=== PATIENT | male | born 1945 | race Caucasian/White ===

== ENCOUNTER 2017-06-14 08:30 | Emergency (ER) | payer MEDICARE, SELFPAY ==
[2017-06-14] VITALS (7 sets, daily range): BP systolic 121–154; BP diastolic 76–101; PULSE 63–129; RESP 14–18; TEMP 36.4; O2SAT 94–100; BMI 26.3
--- NOTE | 2017-06-14 08:38 | RAD_ITS ---
STUDY: X-RAY CHEST REASON FOR EXAM: Male, 72 years old. Atrial fibrillation. Weakness. TECHNIQUE: Single AP portable view of the chest. COMPARISON: None. FINDINGS: EKG electrodes are seen. There is an 8.4 mm rounded nodule in the peripheral aspect of the right mid lung. I suspect this to be a calcified granuloma. There is no demonstrated pleural abnormality. There is mild cardiac enlargement. Normal mediastinum and concha. Normal visualized pulmonary arteries. Normal visualized aortic arch and descending thoracic aorta. Normal visualized thoracic spine. Normal visualized ribs, clavicles, and shoulders. There is no demonstrated abnormality of the visualized soft tissue structures of the upper abdomen. RAD/Chest 1 View (Portable) IMPRESSION: Mild cardiomegaly. Findings suggestive of a small granuloma at the right lung base. Electronically Signed: Jose Marquez MD at 9:16 EST Tel [phone], Service support ,
--- NOTE | 2017-06-14 08:38 | EKG12_ITS ---
Test Reason : REPEAT Blood Pressure : / mmHG Vent. Rate : 061 BPM Atrial Rate : 061 BPM P-R Int : 168 ms QRS Dur : 102 ms QT Int : 436 ms P-R-T Axes : 030 -04 025 degrees QTc Int : 438 ms Normal sinus rhythm Normal ECG Confirmed by LAYNE BADILLO, KELLEN ([id number]), editor house organ TOYA ZAYAS ([id number]) on 06/15/2017 2:26:32 PM Referred By: TONIA Confirmed By:KELLEN TILLMAN MD
--- NOTE | 2017-06-14 08:39 | EKG12_ITS ---
Test Reason : PALPS Blood Pressure : / mmHG Vent. Rate : 124 BPM Atrial Rate : 127 BPM P-R Int : 000 ms QRS Dur : 096 ms QT Int : 332 ms P-R-T Axes : 000 030 -42 degrees QTc Int : 476 ms Atrial fibrillation Nonspecific ST and T wave abnormality Abnormal ECG Confirmed by LAYNE BADILLO, KELLEN ([id number]), photograph editor TOYA ZAYAS ([id number]) on 06/15/2017 3:19:55 PM Referred By: JEREMIE/TONIA Confirmed By:KELLEN TILLMAN MD
--- NOTE | 2017-06-14 08:46 | NURSING ---
NO PREVIOUS EKGS
--- NOTE | 2017-06-14 08:49 | CT_ITS ---
STUDY: CT BRAIN WITHOUT CONTRAST REASON FOR EXAM: Male, 72 years old. Headaches and dizziness. RADIATION DOSAGE (If Supplied By Facility): CTDIvol = ( 44.99 ) mGy, DLP = ( 812.98 ) mGycm TECHNIQUE: Transaxial CT imaging of the brain was performed without administration of intravenous contrast material. Individualized dose optimization techniques were used for this CT. COMPARISON: None. FINDINGS: Normal soft tissue structures. Normal calvarium. Normal size ventricles and extra-axial spaces for the patient's age. Normal white matter tracts of the cerebral hemispheres. Normal basal ganglia and thalami. Normal brainstem. Normal cerebellum. There is no intracranial hemorrhage. There are no findings of an acute ischemic infarction. Mild mucosal thickening of the maxillary sinuses bilaterally. Partial opacification of the ethmoid sinuses. Mucosal thickening of the left frontal sinus. CT/Brain/Head without Contrast IMPRESSION: Mucosal thickening of the maxillary sinuses and partial opacification of the ethmoid sinuses. Electronically Signed: Jose Marquez MD at 10:08 EST Tel [phone], Service support ,
[2017-06-14] MEDS: Ondansetron 4 MG/2 ML Vial IV (08:51)
[2017-06-14] MEDS: Aspirin 81 MG TAB.CHEW 324 MG PO (08:51)
--- NOTE | 2017-06-14 08:52 | ED.DCSUM_ITS ---
- ER Visit Summary Date of Service: 06/14/17 Chief Complaint: [] Sudden onset of dizziness vomiting headache History of Present Illness: The patient is a 72 M [] problems on no meds woke this morning with sudden onset of dizziness vomiting and headache, had a slight headache yesterday when he went to bed. He has had no fever no cough is not prone to headaches no chest pain abdominal pain on 6 paresthesias no exposures no medications review of systems entirely otherwise negative. He is noted to be in A. fib 130 on the monitor he has no history of A. fib or any cardiac abnormalities Physical Examination: [] He is actively vomiting heart rate 130 irregular his blood pressure is 140/80 he is awake and alert answering questions complains of a spinning sensation his pupils are equal reactive he has no nystagmus his speech is clear and his understand his cranial nerve exam is negative his HEENT exam is negative, his neck is very supple moving the head causes a spinning sensation, but no nystagmus lungs are clear heart tones are clear to 130 no obvious murmurs the abdomen soft nontender upper lower extremity unremarkable neurologically he is awake alert cranial nerves motor and cerebellar exam grossly normal speech normal sensation normal his NIH is 0 Test Results: [] Emergency Department Course and Treatment: [] His labs are all generally unremarkable as is the CT, he converted spontaneously to sinus rhythm second EKG shows sinus nothing acute head CT nothing acute notation of some ethmoid sinus fullness and maxillary fullness, chest x-ray shows questionable granuloma see that report on reevaluation the patient's dizziness is resolved his family is in the room with him we discussed inpatient versus outpatient management we discussed A. fib the dizziness possible sinusitis, again he feels much better he does not wish to be admitted I have explained to him we will start therapy for possible sinusitis but this may be unrelated and given the dizziness and given the A. fib he is referred to neurology and cardiology he has a family physician in the [place] area he wants to follow-up with no return for change in symptoms Treatment Plan: [] Augmentin Mucinex Flonase for the sinusitis follow-up as above referral to cardiology and neurology Disposition: [] Home stable she does not wish to be admitted Impression: [] Acute dizziness and vomiting resolved, possible sinusitis, A. fib resolved This note was generated with [employer] software. It may contain incorrect words, spelling, and punctuation that were not noted in review of the chart prior to signing ED Disposition - Plan for ED Patient: Chief Complaint: Palpitations Instructions: Acute Sinusitis, ED Afib Prescriptions: Amoxicillin/Potassium Clav [Augmentin 875-125 Tablet] 1 ea PO BID #20 tab Fluticasone Propionate [Flonase Allergy Relief] 9.9 ml NS BID #1 spray.susp Guaifenesin [Mucinex] 1,200 mg PO BID #14 tbmp.12hr Referrals: Nayan Montenegro MD [STAFF PHYSICIAN] - Care Physician,No Primary [Primary Care Provider] - Karan Arriaza MD [[facility]] -
[2017-06-14] MEDS: 0.9% Normal Saline 1,000 ML 30 ML IV (08:54)
[2017-06-14 09:19] LABS: Absolute Lymphocyte Count 1.24 X10^3/ul (0.83-4.51); Absolute Neutrophil Count 4.7 X10^3/uL (2.0-7.7); Basophil# 0.02 X10^3/uL; Basophil% 0.3 % (0-1); Eosinophil# 0.04 X10^3/uL; Eosinophils% 0.6 % (0-5); Hematocrit 46.1 % (40-54); Hemoglobin 16.4 g/dl (13.0-16.5); Lymphocyte # 1.24 X10^3/ul (4.0); Lymphocyte % 19.3 % (19-41); Mean Corp Hgb Conc 35.6 g/gl (32-36); Mean Corpuscular Hgb 30.3 pg (27.0-32.0); Mean Corpuscular Volume 85.2 fL (80-94); Mean Platelet Vol. 10.2 fl (6.2-12.0); Monocyte# 0.46 X10^3/uL; Monocyte% 7.2 % (0-10); Neutrophil # 4.65 X10^3/uL (2.7-7.7); Neutrophil % 72.4 % (47-70); POSITIVE COUNT NO; POSITIVE DIFFERENTIAL NO; POSITIVE MORPHOLOGY NO; Platelet Count 242 K/mm3 (150-450); RBC Distribution Width CV 12.6 % (11.6-14.6); RBC Distribution Width SD 38.8 fl (35.1-43.9); Red Blood Count 5.41 M/mm3 (4.6-6.2); White Blood Count 6.4 K/mm3 (4.4-11.0)
[2017-06-14] MEDS: LORazepam 2 MG/ML Syringe 0.5 MG IV (09:21)
[2017-06-14 09:35] LABS: Anion Gap 12 (5-15); BUN 14 mg/dL (7-18); BUN/Creat Ratio 12.7 RATIO (10-20); Calcium,Total 8.9 mg/dL (8.5-10.1); Chloride 106 mmol/L (98-107); EST Glomerular Filtration Rate 70 mL/min (>60); Est Glom Filt Rate - Afr Amer 85 mL/min (>60); Estimated Creatinine Clearance 61.59 ml/min; Glucose 124 mg/dL (74-106); Potassium 3.6 mmol/L (3.5-5.1); Sodium Level 142 mmol/L (136-145)
[2017-06-14 09:48] LABS: BNP,B-Type NATRIURETIC PEPTIDE 18.1 pg/mL (0-100)
--- NOTE | 2017-06-14 10:05 | ED.RN ---
0900 SPOKE WITH MD, PT IS NO LONGER IN AFIB. PER MD DO NOT GIVE CARDIZEM.
--- NOTE | 2017-06-14 10:58 | ED.DEP ---
ED Disposition - Plan for ED Patient: Chief Complaint: Palpitations Instructions: ED Afib, Acute Sinusitis Prescriptions: Amoxicillin/Potassium Clav [Augmentin 875-125 Tablet] 1 ea PO BID #20 tab Fluticasone Propionate [Flonase Allergy Relief] 9.9 ml NS BID #1 spray.susp Guaifenesin [Mucinex] 1,200 mg PO BID #14 tbmp.12hr Referrals: Care Physician,No Primary [Primary Care Provider] - Karan Arriaza MD [[facility]] - Nayan Montenegro MD [STAFF PHYSICIAN] -
--- NOTE | 2017-06-14 11:29 | ED.RN ---
CONTINUED TO REFUSE WHEELCHAIR AT D/C.
== END 2017-06-14 11:21 | disposition home or self-care (01) ==
LOC: ED 09:01
PROVIDERS: Emergency Provider Emergency Medicine
DX: I48.91 Unspecified atrial fibrillation (principal); J32.2 Chronic ethmoidal sinusitis; J32.0 Chronic maxillary sinusitis; R42 Dizziness and giddiness; R11.10 Vomiting, unspecified
CPT/HCPCS: 70450; 71045; 80048; 83880; 84484; 85025; 93005; 96361; 96374; 96375; 99285; J7030; J7040; A4216; J2405

== ENCOUNTER 2017-06-25 16:35 | Observation (INO) | payer MEDICARE, SELFPAY ==
[2017-06-25] VITALS (7 sets, daily range): BP systolic 131–172; BP diastolic 78–115; PULSE 54–61; RESP 12–16; TEMP 36.1–36.5; O2SAT 95–100; BMI 27.4; BMI 27.5; BMI 28.3
--- NOTE | 2017-06-25 17:12 | CT_ITS ---
STUDY: CT BRAIN WITHOUT CONTRAST REASON FOR EXAM: Male, 72 years old. Vertigo RADIATION DOSAGE (If Supplied By Facility): CTDIvol = ( 60.81 ) mGy, DLP = ( 1067.08 ) mGycm TECHNIQUE: Transaxial CT imaging of the brain was performed without administration of intravenous contrast material. Individualized dose optimization techniques were used for this CT. COMPARISON: 06/14/2017 FINDINGS: There is no acute bleed or infarct. There are normal white matter tracts. The ventricles are normal in configuration. There is no hydrocephalus. The visualized paranasal sinuses are clear. The mastoid air cells are well aerated. There is no skull fracture. CT/Brain/Head without Contrast IMPRESSION: No acute intracranial abnormality. Electronically Signed: Burak Crespo, at 17:52 EST Tel , Service support ,
--- NOTE | 2017-06-25 17:13 | EKG12_ITS ---
Test Reason : IRREG RYTHM Blood Pressure : / mmHG Vent. Rate : 055 BPM Atrial Rate : 055 BPM P-R Int : 144 ms QRS Dur : 088 ms QT Int : 430 ms P-R-T Axes : 039 -04 014 degrees QTc Int : 411 ms Sinus bradycardia Inferior infarct , age undetermined , cannot be excluded Abnormal ECG Confirmed by LAYNE BADILLO, KELLEN ([id number]), newspaper copy editor TOYA ZAYAS ([id number]) on 06/27/2017 1:35:32 PM Referred By: DAGMAR Confirmed By:KELLEN TILLMAN MD
[2017-06-25 17:49] LABS: Absolute Neutrophil Count 3.1 X10^3/uL (2.0-7.7); Basophil# 0.05 X10^3/uL; Basophil% 0.8 % (0-1); Eosinophil# 0.12 X10^3/uL; Eosinophils% 1.9 % (0-5); Hematocrit 44.5 % (40-54); Hemoglobin 15.2 g/dl (13.0-16.5); Lymphocyte % 37.2 % (19-41); Mean Corp Hgb Conc 34.2 g/gl (32-36); Mean Corpuscular Hgb 29.9 pg (27.0-32.0); Mean Corpuscular Volume 87.4 fL (80-94); Mean Platelet Vol. 10.4 fl (6.2-12.0); Monocyte% 9.7 % (0-10); Neutrophil # 3.11 X10^3/uL (2.7-7.7); Neutrophil % 50.2 % (47-70); Platelet Count 234 K/mm3 (150-450); RBC Distribution Width CV 12.8 % (11.6-14.6); RBC Distribution Width SD 39.8 fl (35.1-43.9); Red Blood Count 5.09 M/mm3 (4.6-6.2); White Blood Count 6.2 K/mm3 (4.4-11.0)
[2017-06-25 17:50] LABS: POSITIVE COUNT NO; POSITIVE DIFFERENTIAL NO; POSITIVE MORPHOLOGY NO
[2017-06-25 18:01] LABS: Anion Gap 3 (5-15); BUN 14 mg/dL (7-18); Calcium,Total 8.8 mg/dL (8.5-10.1); Chloride 106 mmol/L (98-107); EST Glomerular Filtration Rate 78 mL/min (>60); Est Glom Filt Rate - Afr Amer 95 mL/min (>60); Estimated Creatinine Clearance 67.75 ml/min; Glucose 91 mg/dL (74-106); Potassium 3.9 mmol/L (3.5-5.1); Sodium Level 140 mmol/L (136-145)
--- NOTE | 2017-06-25 18:15 | ED.DCSUM_ITS ---
- ER Visit Summary Date of Service: 06/25/17 Chief Complaint: Vertigo History of Present Illness: The patient is a 72 M who was seen in the ER on June 14 for new onset A. fib and vertigo. Patient converted to a sinus rhythm. He followed up with ENT today for continued but improving vertigo symptoms. ENT noted left thigh weakness and cerebellar symptoms after crossing midline. He believes this is more neurologic in nature and not associated with his ear. Dr. Maldonado spoke with Dr. Arriaza who felt the patient should come in for an echocardiogram. He will also need to be admitted for further stroke workup including MRIs. Physical Examination: Vital signs reveal mild hypertension at 157/95. Head neck examination is unremarkable. Heart is bradycardic and regular. Lung sounds are clear. Abdomen is soft nontender. NIH score for me is 0 at this time. I am unable to elicit any cerebellar symptoms. Test Results: CBC and chemistry studies are unremarkable. Troponin remains less than 0.02. EKG is sinus bradycardia at 55 bpm no sign of acute ischemia. Noncontrast head CT is unremarkable. Emergency Department Course and Treatment: Patient will require admission for MRI studies as well as echocardiogram. Treatment Plan: [] Disposition: Admit Impression: Vertigo with recent A. fib This note was generated with [employer] dictation software. It may contain incorrect words, spelling, and punctuation that were not noted in review of the chart prior to signing ED Disposition - Plan for ED Patient: Chief Complaint: Other, Pain/Inj Referrals: Bonilla Gary MD [Primary Care Provider] -
--- NOTE | 2017-06-25 18:36 | HP.PCM_ITS ---
Problem List (1) Vertigo Status: Acute History of Present Illness Date of Admission: 06/25/17 Chief Complaint: Vertigo - ongoing for 2 weeks The patient is a 72 year old M with no significant past medical history who recently had acute onset of vertigo since June 14, was diagnosed with atrial fibrillation for which he spontaneously cardioverted in the ED and was sent home to follow up with cardiology. Patient has since followed up with ENT in the outpatient and went to the office this morning and physical examination was said to be abnormal. Into the ED doctor, the ENT physician, Dr. Maldonado noted left thigh weakness with cerebellar symptoms on physical exam in his office. According to the patient and his , patient has been having intermittent periods of vertigo with imbalance and she had to hold him to keep him steady. He denied any headache or palpitations or chest pain or extremity weakness. Past Medical History Past Medical History (Chronic Problems): Chronic Problems (Last Updated 06/21/17 @ 14:33 by Carlee Melvin) Seasonal allergies (Chronic) Afib (Chronic) Hepatitis A antibody positive (Chronic) Allergies No Known Allergies Allergy (Verified 06/25/17 16:37) Home Medications: Ambulatory Orders Medication Instructions Recorded Amoxicillin/Potassium Clav 1 ea PO BID #20 tab 06/14/17 [Augmentin 875-125 Tablet] Surgical History: tonsillectomy Psychiatric History: No pertinent psych hx Smoking Status: Never smoker Tobacco Use: Non-smoker Alcohol: None Drugs: None - *Family History Maternal History Items: Cancer, Stroke Paternal History Items: Heart Disease, Hypertension, Stroke Review of Systems Constitutional: Denies: Anorexia, Chills, Fever, Malaise, Weakness, Weight Change Eyes: Denies: Blurred vision, Cataracts, Conjunctivae Inflammation, Pain, Redness HEENT: Denies: Head Aches, Hearing Changes, Sinus Congestion, Sinus Drainage, Sore Throat, Visual Changes Cardiovascular: Denies: Chest Pain, Claudication, Orthopnea, Palpitations, Paroxysmal Noc. Dyspnea Respiratory: Denies: Cough, Hemoptysis, Shortness of breath at rest, Shortness of breath upon exertion, Sputum production Gastrointestinal: Denies: Abdominal Pain, Constipation, Hematemesis, Nausea, Vomiting Genitourinary: Denies: Dysuria, Frequency Musculoskeletal: Denies: Joint Pain, Joint stiffness, Joint swelling, Joint Tenderness Skin: Denies: Rash, Wounds Neurological: Denies: Difficulty swallowing, Focal weakness, Numbness, Tingling Psychiatric: Denies: Anxiety, Depression, Homicidal Ideations, Suicidal Ideations Endocrine: Denies: Change in Body Habitus Hematologic/ Lymphatic: Denies: Easy Bruising, Easy Bleeding VTE Information - Inpt Only VTE Present on Admission: No VTE Pharm Prophylaxis ordered?: Yes Patient Problems: Active and Suspected Problems (Last Updated 06/21/17 @ 14:33 by Carlee Melvin) Vertigo (Acute) - Physical Exam General: Alert, Oriented x3, Cooperative, No apparent distress HEENT: Atraumatic, PERRLA, EOMI, Normocephalic Oral: Moist Mucosa Neck: Supple Lungs: Clear to auscultation, Normal air movement Cardiovascular: Regular rate, Regular Rhythm, Normal S1, Normal S2, No murmurs Abdomen: Bowel Sounds Present, Soft, Non Tender, Non-Distended, No Hepato- splenomegaly Extremities: No edema Skin: No rashes Musculoskeletal: No Tenderness to Palpation of Joints or Extremities Lymphatic: No Cervical, Supraclavicular, or Inguinal Adenopathy Neurological: Cranial nerves II-XII grossly intact, Neuro grossly intact, Motor Exam 5/5 strength throughout, - - Patient swayed to the left when he stood and closed his eyes. Psych/Mental Status: Normal Affect, Appropriate Vital Signs Temp Pulse Resp BP Pulse Ox 97 F L 56 L 12 172/90 H 95 06/25/17 16:37 06/25/17 18:20 06/25/17 18:20 06/25/17 18:20 06/25/17 18:20 Oxygen Delivery Method Room Air Weight: 84.4 kg Body Mass Index (BMI) 27.4 Laboratory Tests Past 24 Hrs 06/25/17 06/25/17 17:02 17:02 WBC 6.2 RBC 5.09 Hgb 15.2 Hct 44.5 MCV 87.4 MCH 29.9 MCHC 34.2 RDW 12.8 RDW Differential 39.8 Plt Count 234 MPV 10.4 Immature Gran % (Auto) 0.200 Neut % (Auto) 50.2 Lymph % (Auto) 37.2 [place] % (Auto) 9.7 Eos % (Auto) 1.9 Baso % (Auto) 0.8 Absolute Neuts (auto) 3.1 Absolute Lymphs (auto) 2.30 Total Counted Not Reportable Sodium 140 Potassium 3.9 Chloride 106 Carbon Dioxide 31.0 Anion Gap 3 L BUN 14 Creatinine 1.00 Estim Creat Clear Calc 67.75 Est GFR (MDRD) Af Amer 95 Est GFR (MDRD) Non-Af 78 BUN/Creatinine Ratio 14.0 Glucose 91 Calcium 8.8 Troponin I < 0.02 Assessment/Plan Active and Suspected Problems (Last Updated 06/21/17 @ 14:33 by Carlee Melvin) Vertigo (Acute) 72 year old M with no significant past medical history who recently had acute onset of vertigo since June 14, comes in after abnormal physical exam findings by ENT this morning. 1. 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 Plan: Admit patient to PCU, on telemetry, stroke workup, 2D echo, MRI of the brain, MRA of the head and neck, lipid profile in a.m., HbA1c in a.m., aspirin 81 mg p.o. daily, neurology consult. 2. Hypertensive urgency, patient with no history of blood pressure, likely related to anxiety, will continue to trend and give as needed hydralazine 3. Paroxysmal atrial fibrillation, status post recent episode for which he spontaneously cardioverted, yet to see cardiology, get appointment for the next 6 weeks, 2D echo was supposed to be done in the outpatient, cardiology consult - Dr. Arriaza. 4. DVT PPx - Lovenox Sc Code Visit Inpatient E&M: 90257 Subs Hosp L3
--- NOTE | 2017-06-25 19:26 | ECHOD_ITS ---
Reason For Study: TIA/CVA Procedure This was a 2D Doppler, Color Flow transthoracic echocardiogram. The exam was of fair technical quality due to diminished acoustic windows. Exam performed portable in patient room. Left Ventricle Normal LV size. Left ventricular systolic function is normal. The estimated ejection fraction is 55 %. No evidence for diastolic dysfunction. No regional wall motion abnormalities noted. Right Ventricle Normal RV size. Normal systolic function. Atria Normal left atrium. Normal right atrium. No doppler evidence for ASD. Bubble contrast study negative for right to left interatrial shunt. Mitral Valve There is no mitral annular calcification. Normal mitral valve. Trivial mitral valve insufficiency. Tricuspid Valve Normal tricuspid valve. Trivial tricuspid valve insufficiency. Aortic Valve Trisinus/trileaflet aortic valve. Normal aortic valve. Pulmonic Valve The pulmonic valve is not well visualized. Great Vessels Normal sized aortic root. Pericardium/Pleural No pericardial effusion. Medication Performed a rapid injection of agitated mix of 9 cc saline and 1cc air to assess for atrial septal defect. MMode/2D Measurements & Calculations LVIDd: 5.1 cm IVSd: 1.2 cm Ao root diam: 3.3 cm LVIDs: 3.3 cm LVPWd: 1.0 cm LA dimension: 3.6 cm FS: 35.3 % LAV(MOD-bp): 48.5 ml LA A4 area: 18.9 cm2 RA A4 area: 14.5 cm2 LAV(MOD-bp) Indexed: 24.5 ml/m2 LAV(MOD-sp2): 40.3 ml LAV(MOD-sp4): 55.2 ml Doppler Measurements & Calculations MV E max ming: 36.1 cm/sec Lat Peak E' Ming: 7.9 cm/sec Med Peak E' Ming: 5.2 cm/sec MV A max ming: 70.7 cm/sec E/E' lat: 4.5 E/E' med: 6.9 MV E/A: 0.51 Ao V2 max: 80.2 cm/sec LV V1 max: 78.2 cm/sec PA V2 max: 69.0 cm/sec Ao max P.6 mmHg LV V1 max P.4 mmHg Interpretation Summary Left ventricular systolic function is normal. The estimated ejection fraction is 55 %. Trivial mitral valve insufficiency. Trivial tricuspid valve insufficiency. No evidence for diastolic dysfunction. Bubble contrast study negative for right to left interatrial shunt. Ordering Physician: Saniya Zuniga Referring Physician: Bonilla Gayr Performed By: Pat Lopez, GABBI, RVT
[2017-06-25] MEDS: Aspirin 81 MG TAB.CHEW PO (20:01)
[2017-06-25] MEDS: Atorvastatin Calcium 20 MG Tablet PO (22:43)
[2017-06-26] VITALS (12 sets, daily range): BP systolic 122–152; BP diastolic 73–90; PULSE 49–92; RESP 16–18; TEMP 36.6–37.2; O2SAT 94–96; BMI 28.3
[2017-06-26 07:53] LABS: Hematocrit 42.6 % (40-54); Hemoglobin 14.3 g/dl (13.0-16.5); Mean Corp Hgb Conc 33.6 g/gl (32-36); Mean Corpuscular Hgb 29.5 pg (27.0-32.0); Mean Platelet Vol. 10.2 fl (6.2-12.0); Platelet Count 200 K/mm3 (150-450); RBC Distribution Width CV 12.5 % (11.6-14.6); RBC Distribution Width SD 40.4 fl (35.1-43.9); Red Blood Count 4.84 M/mm3 (4.6-6.2); White Blood Count 4.2 K/mm3 (4.4-11.0)
[2017-06-26 07:55] LABS: Scan Indicated on CBC? Y/N NO
[2017-06-26 07:57] LABS: Anion Gap 7 (5-15); BUN 12 mg/dL (7-18); BUN/Creat Ratio 11.8 RATIO (10-20); Calcium,Total 8.4 mg/dL (8.5-10.1); Chloride 109 mmol/L (98-107); Cholesterol 174 mg/dL (200); Creatinine, Serum 1.02 mg/dL (0.70-1.30); EST Glomerular Filtration Rate 76 mL/min (>60); Est Glom Filt Rate - Afr Amer 93 mL/min (>60); Estimated Creatinine Clearance 64.26 ml/min; Glucose 96 mg/dL (74-106); High Density Lipoprotein 47 mg/dL; Sodium Level 141 mmol/L (136-145); Triglycerides 133 mg/dL; Very Low Density Lipoprotein 27 mg/dL (5-40)
--- NOTE | 2017-06-26 08:00 | MRI_ITS ---
STUDY: MRI BRAIN WITHOUT CONTRAST REASON FOR EXAM: Male, 72 years old. Vertigo, lt thigh weakness, dizziness TECHNIQUE: Standardized multiplanar fat and water weighted pulse sequences were obtained. COMPARISON: 06/25/2017 FINDINGS: Normal size of the ventricles and extra-axial spaces for the patient's age. Normal white matter tracts of the supratentorial brain. Normal bilateral basal ganglia. Normal thalami. There is no extra-axial fluid accumulation. Normal flow voids within the major intracranial circulation suggesting patency by spin echo criteria. Normal sella turcica, pituitary gland, infundibular stalk, optic chiasm and hypothalamus. Normal tectal plate and pineal gland. There is mucoperiosteal inflammatory disease of the paranasal sinuses consistent with mild chronic sinusitis. MRI/Brain without Contrast IMPRESSION: Unremarkable unenhanced MRI of the brain. Mild paranasal sinus disease. Electronically Signed: Breanne Lim MD at 10:03 EST Tel , Service support ,
--- NOTE | 2017-06-26 08:00 | MRI_ITS ---
STUDY: MRA NECK WITHOUT CONTRAST REASON FOR EXAM: Male, 72 years old. Vertigo, lt thigh weakness, dizziness. TECHNIQUE: Source images were obtained, MIPs were performed. The study was performed unenhanced. COMPARISON: None. FINDINGS: RIGHT CAROTID ARTERIES: Normal right common carotid artery (CCA). There is mild atherosclerotic plaque formation with minimal narrowing of the right carotid bulb. There appears to be mild atherosclerotic plaque formation of the origin of the right internal carotid artery with less than 50% cross sectional diameter stenosis. Normal visualized cervical portion of the right internal carotid artery. Normal origin of the right external carotid artery (ECA). LEFT CAROTID ARTERIES: Normal left common carotid artery (CCA). There is mild atherosclerotic plaque formation with minimal narrowing of the left carotid bulb. There appears to be moderate atherosclerotic plaque formation of the origin of the left internal carotid artery with an estimated stenosis of 50-69% stenosis. Normal visualized cervical portion of the left internal carotid artery. Normal origin of the left external carotid artery (ECA). VERTEBRAL ARTERIES: There is antegrade flow within the bilateral vertebral arteries with a small left vertebral artery, and a dominant right vertebral artery. 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 Further evaluation with sonography can be obtained. Electronically Signed: Breanne Lim MD at 10:07 EST Tel , Service support ,
--- NOTE | 2017-06-26 08:00 | MRI_ITS ---
STUDY: MRA OF THE HEAD WITHOUT CONTRAST REASON FOR EXAM: Male, 72 years old. vertigo, LT THIGH WEAKNESS, DIZZINESS. TECHNIQUE: 3-D [id number] (TOF) imaging was performed with MIPs. The study was performed unenhanced. COMPARISON: None. FINDINGS: Normal bilateral petrous carotid arteries. Normal right cavernous carotid artery with a normal supraclinoid bifurcation. Normal left cavernous carotid artery with a normal supraclinoid bifurcation. Normal right A1 segments of the anterior cerebral artery. Normal left A1 segments of the anterior cerebral artery. Normal intact anterior communicating artery (ACOM). Normal bilateral A2 segments of the anterior cerebral arteries. Normal right M1 and M2 segments of the middle cerebral arteries, with a normal M1 bifurcation. Normal left M1 and M2 segments of the middle cerebral arteries, with a normal M1 bifurcation. Normal right posterior communicating artery (PCOM). Normal left posterior communicating artery (PCOM). Normal bilateral vertebral arteries. Normal basilar artery with a normal basilar bifurcation. The visualized bilateral superior cerebellar (SCA) arteries are normal. Normal bilateral P1, P2 and visualized P3 segments of the posterior cerebral arteries. There is no demonstrated aneurysm of the [place]. There is no major vessel occlusion or hemodynamically significant stenosis. There is no demonstrated abnormality of the visualized brain. MRI/MRA Head ONLY without Contrast IMPRESSION: Normal MRA of the head Electronically Signed: Breanne Lim MD at 10:05 EST Tel , Service support ,
[2017-06-26 08:14] LABS: Hemoglobin A1c 5.5 % (4.2-6.3)
--- NOTE | 2017-06-26 09:44 | CASEMGMT ---
Chart Review: Pt presented to the ED on 06/25/17 after being seen by Dr. Maldonado, ENT, for vertigo. Per patient Dr. Maldonado assessment was abnormal, noting weakness in the left lower extremity an cerebellar symptoms after crossing midline. Past medical history includes recent diagnosis of Afib with spontaneous conversion to sinus rhythm and vertigo, no other history. Patient is independent, up SBA in hospital room, established with community providers, has insurance, and is . Patient uses [facility] and has prescription coverage. Patient underwent MRI/MRA, awaiting results. Patient will return home when medically ready. No home going/transition planning needs identified at this time. RN CM will remain available to assist should notification of needs arise. MARISOL Joiner, RN-BC, CCM
[2017-06-26] MEDS: Aspirin 81 MG TAB.CHEW PO (10:17)
[2017-06-26] MEDS: Enoxaparin 40 MG/0.4 ML Syringe SC (10:17)
--- NOTE | 2017-06-26 11:09 | CON.PCM_ITS ---
Reason for Consult Date of Consultation: 06/26/17 History of Present Illness: The patient is a 72 year old right handed white male who had a episode of vertigo associated with afib, came to the hospital, vomited, converted to sinus rhythm and sent home. at that point he also had double vision for two days and difficulty with word finding now resolved. followed with ent as op, was recommended to return to hospital for further evaluation due to suspicion of cva. no change in symptoms, reports disorientation with respect to balance on uneven surfaces, and notes hes not walking in a straight line, no falls. reports awoke with the room spinning on the . per admit h&p:The patient is a 72 year old M with no significant past medical history who recently had acute onset of vertigo since June 14, was diagnosed with atrial fibrillation for which he spontaneously cardioverted in the ED and was sent home to follow up with cardiology. Patient has since followed up with ENT in the outpatient and went to the office this morning and physical examination was said to be abnormal. Into the ED doctor, the ENT physician, Dr. Maldonado noted left thigh weakness with cerebellar symptoms on physical exam in his office. According to the patient and his , patient has been having intermittent periods of vertigo with imbalance and she had to hold him to keep him steady. He denied any headache or palpitations or chest pain or extremity weakness. Past Medical History Past Medical History (Chronic Problems): Chronic Problems (Last Updated 06/21/17 @ 14:33 by Carlee Melvin) Seasonal allergies (Chronic) Afib (Chronic) Hepatitis A antibody positive (Chronic) Allergies No Known Allergies Allergy (Verified 06/25/17 16:37) Home Medications: Ambulatory Orders Medication Instructions Recorded Amoxicillin/Potassium Clav 1 ea PO BID #20 tab 06/14/17 [Augmentin 875-125 Tablet] Surgical History: tonsillectomy Psychiatric History: No pertinent psych hx Smoking Status: Former smoker Tobacco Use: Non-smoker Alcohol: None Drugs: None - *Family History Maternal History Items: Cancer, Stroke Paternal History Items: Heart Disease, Hypertension, Stroke Review of Systems Constitutional: Denies: Chills, Fever, Weight Change HEENT: Denies: Head Aches, Sinus Congestion, Sinus Drainage Cardiovascular: Denies: Chest Pain, Palpitations Respiratory: Denies: Cough, Shortness of breath at rest, Sputum production Gastrointestinal: Denies: Abdominal Pain, Nausea, Vomiting Genitourinary: Denies: Dysuria Musculoskeletal: Denies: Joint Pain, Joint Tenderness Skin: Denies: Rash, Wounds Neurological: Reports: Balance problems. Denies: Blurred vision, Double vision , Slurred speech, Focal weakness, Numbness, Tingling Psychiatric: Denies: Anxiety, Depression, Homicidal Ideations, Suicidal Ideations Hematologic/ Lymphatic: Denies: Easy Bruising, Easy Bleeding Patient Problems: Active and Suspected Problems (Last Updated 06/21/17 @ 14:33 by Carlee Melvin) Vertigo (Acute) - Physical Exam General: Alert, Oriented x3, Cooperative HEENT: Atraumatic, PERRLA, EOMI, Normocephalic Neck: Supple, No JVD, Negative Carotid Bruits Lungs: Clear to auscultation, Normal air movement Cardiovascular: Regular rate, No murmurs Abdomen: Bowel Sounds Present, Soft, Non Tender Extremities: No edema, Capillary Refill Less than 3 Seconds Skin: No rashes, No breakdown Musculoskeletal: No Tenderness to Palpation of Joints or Extremities Neurological: Cranial nerves II-XII grossly intact Psych/Mental Status: Normal Affect, Appropriate Vital Signs Temp Pulse Resp BP Pulse Ox 36.9 C 55 L 16 145/86 H 95 06/26/17 07:45 06/26/17 07:45 06/26/17 07:45 06/26/17 07:45 06/26/17 07:45 Oxygen Delivery Method Room Air Weight: 84.4 kg Body Mass Index (BMI) 28.3 Intake and Output for Last 24 Hours 06/24/17 06/25/17 06/26/17 23:59 23:59 23:59 Intake Total 240 / 240 240 / 240 Balance 240 / 240 240 / 240 Laboratory Tests Past 24 Hrs 06/26/17 06/26/17 06/26/17 06:55 06:55 06:55 WBC 4.2 L RBC 4.84 Hgb 14.3 Hct 42.6 MCV 88.0 MCH 29.5 MCHC 33.6 RDW 12.5 RDW Differential 40.4 Plt Count 200 MPV 10.2 Sodium 141 Potassium 4.0 Chloride 109 H Carbon Dioxide 25.0 Anion Gap 7 BUN 12 Creatinine 1.02 Estim Creat Clear Calc 64.26 Est GFR (MDRD) Af Amer 93 Est GFR (MDRD) Non-Af 76 BUN/Creatinine Ratio 11.8 Glucose 96 Hemoglobin A1c 5.5 Calcium 8.4 L Triglycerides 133 Cholesterol 174 LDL Cholesterol 100 VLDL Cholesterol 27 HDL Cholesterol 47 mri reviewed, mra reviewed, normal, no stroke Assessment/Plan Active and Suspected Problems (Last Updated 06/21/17 @ 14:33 by Carlee Melvin) Vertigo (Acute) bppv, resolved, recommend pt/ot exercise. ok to dc from neuro. afib: rec anticoag
--- NOTE | 2017-06-26 13:34 | CHAPLAIN ---
Type of Pastoral Visit _x__ Initial Visit ___ Follow-up Visit ___ On-call Visit ___ General Patient Visit ___ Spiritual Assessment ___ Family Conference ___ Bereavement ___ Rapid Response ___ Code Blue ___ Other (describe below) Pastoral Care Referral From _x__ Patient ___ Family ___ Nurse ___ Physician ___ Aircraft Skin Burnisher ___ Plant Hr Manager ___ Other (describe below) Sacrament/Intervention _x__ Active listening ___ Anointing ___ Faith ___ Bereavement ___ Communion ___ Sindhu exploration ___ _x__ Life review _x__ Prayer ___ Reconciliation ___ Sacrament of Sick ___ Supportive presence ___ Wedding ___ Other (describe below) Pastoral Comments
--- NOTE | 2017-06-26 13:39 | PN_ITS ---
<Carolyn Roberts - Last Filed: 06/26/17 13:39> Patient Problems: Active and Suspected Problems (Last Updated 06/21/17 @ 14:33 by Carlee Melivn) Vertigo (Acute) Subjective: Patient seen and examined. Denies his current neurologic symptoms. Patient states he intermittently feels dizzy and like he is leaning to the left. Denies unilateral weakness. Denies vision or speech changes. Denies numbness, tingling. Patient states he was recently admitted and was found to have atrial fibrillation in which he spontaneously converted to sinus rhythm. He states he has intermittently noticed a fluttering at home. He denies chest pain, shortness of breath. - Physical Exam General: Alert, Oriented x3, Cooperative, No apparent distress HEENT: Atraumatic, PERRLA, EOMI, Normocephalic Neck: Supple, No JVD, Negative Carotid Bruits Lungs: Clear to auscultation, Normal air movement Cardiovascular: Regular Rhythm, Normal S1, Normal S2, No murmurs, Bradycardic Abdomen: Bowel Sounds Present, Soft, Non Tender, Non-Distended Extremities: No clubbing, No cyanosis, No edema, Capillary Refill Less than 3 Seconds Skin: No rashes, No breakdown Musculoskeletal: No Tenderness to Palpation of Joints or Extremities Neurological: Cranial nerves II-XII grossly intact, Neuro grossly intact Psych/Mental Status: Normal Affect, Appropriate Vital Signs Temp Pulse Resp BP Pulse Ox 98.5 F 57 L 16 145/86 H 95 06/26/17 07:45 06/26/17 10:56 06/26/17 07:45 06/26/17 07:45 06/26/17 07:45 Oxygen Delivery Method Room Air Weight: 84.4 kg Body Mass Index (BMI) 28.3 Intake and Output for Last 24 Hours 06/24/17 06/25/17 06/26/17 23:59 23:59 23:59 Intake Total 240 / 240 720 / 720 Balance 240 / 240 720 / 720 Laboratory Tests Past 24 Hrs 06/26/17 06/26/17 06/26/17 06:55 06:55 06:55 WBC 4.2 L RBC 4.84 Hgb 14.3 Hct 42.6 MCV 88.0 MCH 29.5 MCHC 33.6 RDW 12.5 RDW Differential 40.4 Plt Count 200 MPV 10.2 Sodium 141 Potassium 4.0 Chloride 109 H Carbon Dioxide 25.0 Anion Gap 7 BUN 12 Creatinine 1.02 Estim Creat Clear Calc 64.26 Est GFR (MDRD) Af Amer 93 Est GFR (MDRD) Non-Af 76 BUN/Creatinine Ratio 11.8 Glucose 96 Hemoglobin A1c 5.5 Calcium 8.4 L Triglycerides 133 Cholesterol 174 LDL Cholesterol 100 VLDL Cholesterol 27 HDL Cholesterol 47 Assessment/Plan Active and Suspected Problems (Last Updated 06/21/17 @ 14:33 by Carlee Melvin) Vertigo (Acute) 1. Dizziness, generalized weakness-acute CVA ruled out. Patient has had vertigo symptoms for 2 weeks. He saw ENT prior to admission who felt symptoms were neurologic in nature as opposed to BPPV. Brain CT showed no acute abnormality. MRI of brain unremarkable with the exception of mild paranasal sinus disease. 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 Echocardiogram pending. Troponin negative X1. Patient had a recent emergency room visit 06/14/17 for palpitations. He was found to be in atrial fibrillation and spontaneously converted to sinus rhythm. He was to follow-up with Dr. Arriaza as outpatient. He was also treated for sinus infection at that time with Augmentin. Patient complains of continued dizziness and generalized weakness. Cardiology and neurology consulted. Neurology signed off given no acute CVA. Recommending PT/OT. Cardiology consult pending. 2. Bradycardia-suspect symptoms as noted above may possibly be due to bradycardia. Other workup thus far has been unremarkable. Patient is not on a beta-mylene or other rate control medication at home. No history of bradycardia. HR 40-50s. Obtain orthostatic vitals. Monitor telemetry. Cardiology consult pending. Echo pending as noted above. 3. Paroxysmal atrial fibrillation-patient has been sinus rhythm, sinus bradycardia since admission. Continue aspirin. Patient may require further anticoagulation pending cardiology evaluation. Patient was diagnosed with atrial fibrillation during recent ER visit 06/14/17. No prior history of atrial fibrillation. Patient was to follow-up with Dr. Arriaza as outpatient. Continue to monitor telemetry. 4. Hypertension-systolic 140-150 during admission. Continue as needed hydralazine for systolic greater than 160 and continue to monitor. DVT prophylaxis-Lovenox subcu. This patient was seen by JERAMIE Dukes under the supervision of Dr. Coreas. <LyudmilaEdith E - Last Filed: 06/26/17 14:11> - Physical Exam Vital Signs Temp Pulse Resp BP Pulse Ox 98.5 F 57 L 16 145/86 H 95 06/26/17 07:45 06/26/17 10:56 06/26/17 07:45 06/26/17 07:45 06/26/17 07:45 Oxygen Delivery Method Room Air Weight: 186 lb 1.122 oz Body Mass Index (BMI) 28.3 Intake and Output for Last 24 Hours 06/24/17 06/25/17 06/26/17 23:59 23:59 23:59 Intake Total 240 / 240 720 / 720 Balance 240 / 240 720 / 720 Laboratory Tests Past 24 Hrs 06/26/17 06/26/17 06/26/17 06:55 06:55 06:55 WBC 4.2 L RBC 4.84 Hgb 14.3 Hct 42.6 MCV 88.0 MCH 29.5 MCHC 33.6 RDW 12.5 RDW Differential 40.4 Plt Count 200 MPV 10.2 Sodium 141 Potassium 4.0 Chloride 109 H Carbon Dioxide 25.0 Anion Gap 7 BUN 12 Creatinine 1.02 Estim Creat Clear Calc 64.26 Est GFR (MDRD) Af Amer 93 Est GFR (MDRD) Non-Af 76 BUN/Creatinine Ratio 11.8 Glucose 96 Hemoglobin A1c 5.5 Calcium 8.4 L Triglycerides 133 Cholesterol 174 LDL Cholesterol 100 VLDL Cholesterol 27 HDL Cholesterol 47 Assessment/Plan Hospitalist note: I am seeing this patient in conjunction with Carolyn roberts. I independently seen and examined the patient. Progress note above, laboratory data and imaging studies reviewed and I agree with above treatment plan. Patient seen and examined. This morning, he feels better, less dizzy. Patient was admitted for dizziness with weakness. He had vertigo symptoms 2 weeks ago and he was seen by ENT as outpatient. He denied focal deficits. Apart from bradycardia with heart rate of mid 50s, his other vital signs are stable. - Physical Exam General: Alert, Oriented x3, Cooperative, No apparent distress. HEENT: Atraumatic, PERRLA, EOMI. Neck: Supple, No JVD, Negative Carotid Bruits, Trachea Midline, Thyroid Normal. Lungs: Clear to auscultation, Normal air movement, No rhonchi, No wheeze, No rales. Cardiovascular: Regular rate, Regular Rhythm, Normal S1, Normal S2, PMI Normal. Abdomen: Bowel Sounds Present, Soft, Non Tender, Non-Distended, No Hepato- splenomegaly. Extremities: No clubbing, No cyanosis, No edema Skin: No rashes, No breakdown Neurological: Neuro grossly intact Vital Signs are stable. Assessment and plan: #1 dizziness/weakness: Unclear etiology. Acute stroke ruled out. CT brain without acute findings. MRI brain was unremarkable for acute stroke or hemorrhage. CTA of the head and neck reviewed as above. It could be due to the paroxysmal A. fib or because of bradycardia. Apart from sinus bradycardia, other vital signs are stable. EKG reviewed, revealed sinus bradycardia. Plan: Orthostatic vitals, 2D echocardiogram, cardiology consult. #2 paroxysmal A. fib: At this time, he is in sinus rhythm, bradycardic, rate has been in the 50s. Blood pressure stable. Plan as above, cardiology consult , 2D echocardiogram. He is not on any medication for rate controlled and not on anti-coagulation. #3 hypertension, has been on the higher side. IV hydralazine as needed. This note was generated with [employer] dictation software. It may contain incorrect words, spelling, and punctuation that were not noted in checking the note before signing. Code Visit OBSV E&M: 61403 Subsequent observation care L2
--- NOTE | 2017-06-26 16:25 | PCM.CONS.C ---
Problem List (1) Afib Status: Chronic Qualifiers: Atrial fibrillation type: paroxysmal Qualified Code(s): I48.0 - Paroxysmal atrial fibrillation (2) Vertigo Status: Acute Reason for Consult Date of Consultation: 06/26/17 History of Present Illness: The patient is a 72 year old white male with no past cardiovascular history who is referred for evaluation of a recent diagnosis of paroxysmal atrial fibrillation with a recent diagnosis of vertigo. He states on 06/14/2017 he noted, upon awakening, vertigo with the room spinning. He states he crawled to the bathroom. He had nausea and emesis. After returning to bed he felt his heart flutter . He was subsequently brought to the emergency department by the EMS system. In the emergency department he was diagnosed with vertigo and atrial fibrillation. He states while in the emergency department he had recurrent nausea and emesis. After his second episode of emesis he spontaneously converted to sinus rhythm. He has not noted any recurrent flutter sensation since that time. However, he states he has had continued episodes of vertigo, dizziness, lightheadedness, and off-balance sensation. He was evaluated as an outpatient by ENT who apparently did not feel he had a primary ENT diagnosis. He states based upon his ongoing concerns he was referred for future outpatient cardiovascular follow-up. However in the interim based upon his ongoing concerns he presented back to the hospital for reevaluation. He has denied chest discomfort or difficulty breathing. There is been no orthopnea, PND, or peripheral pitting edema. He has denied syncope. He states he is an otherwise healthy active working individual. His troponin I level was negative. His ECG demonstrated sinus rhythm with an inferior MD pattern of indeterminate age cannot be excluded. His cardiac quality assurance monitor is demonstrated sinus rhythm/sinus bradycardia. A transthoracic echocardiogram has been performed. His left ventricle was thought to be normal with an LVEF of 55%, no hemodynamically significant valvular heart disease, and a negative agitated saline contrast study for interatrial shunting. He has also been evaluated by neurology. It appears by the neurology consult there is a concern that he has benign positional vertigo. He was recommended for OT/PT therapy. There was also a comment regarding his atrial fibrillation with consideration for recommendation for anticoagulant therapy. [] Past Medical History Allergies/Adverse Reactions: Allergies No Known Allergies Allergy (Verified 06/25/17 16:37) Home Medications: Ambulatory Orders Medication Instructions Recorded Amoxicillin/Potassium Clav 1 ea PO BID #20 tab 06/14/17 [Augmentin 875-125 Tablet] Past Medical History (Chronic Problems): Chronic Problems (Last Updated 06/21/17 @ 14:33 by Carlee Melvin) Seasonal allergies (Chronic) Afib (Chronic) Hepatitis A antibody positive (Chronic) Surgical History: tonsillectomy Psychiatric History: No pertinent psych hx - *Family History Maternal Family History: Family History (Last Updated 06/21/17 @ 14:35 by Carlee Melvin) Mother Cancer Father Heart disease CVA (cerebral vascular accident) Hypertension Cancer Sister Breast cancer History Items: Cancer, Stroke Paternal Family History: Family History (Last Updated 06/21/17 @ 14:35 by Carlee Melvin) Mother Cancer Father Heart disease CVA (cerebral vascular accident) Hypertension Cancer Sister Breast cancer History Items: Heart Disease, Hypertension, Stroke Lives: Spouse/ Significant Other Smoking Status: Former smoker Tobacco Use: Non-smoker Alcohol: None Drugs: None Review of Systems - Review of Systems General: Denies: Fever, Night Sweats, Fatigue Cardiovascular: Reports: Lightheadedness, Dizziness. Denies: Chest Discomfort, Shortness of Breath, Orthopnea, PND, Peripheral Edema, Palpitations, Near Syncope, Syncope Respiratory: Denies: Cough, Sputum Production, Hemoptysis Gastrointestinal: Reports: Nausea, Emesis. Denies: Hematemesis, Hematochezia, Melena Genitourinary: Denies: Dysuria, Hematuria Skin: Denies: Rash Neurological: Reports: Dizziness, Vertigo Subjectve: This is a 72-year-old white male who appears to be resting comfortably at the moment in no acute distress. Objective: Vital Signs Temp Pulse Resp BP Pulse Ox 97.8 F 57 L 16 151/90 H 95 06/26/17 14:54 06/26/17 14:57 06/26/17 14:54 06/26/17 14:54 06/26/17 14:54 Oxygen Delivery Method Room Air Weight: 186 lb 1.122 oz Body Mass Index (BMI) 28.3 Orthostatic Vital Signs Start: 06/26/17 14:19 Freq: q24h Status: Active Protocol: Activity Type Activity Date Activity User E-Sign Co-Sign Detail Recorded Client Recorded Date Recorded By Document 06/26/17 14:19 EEB [id number] 06/26/17 14:20 EEB 06/26/17 14:19 Orthostatic Vitals Standing -Blood Pressure (90/60-120/80) 142/77 H -Pulse Rate (60-100) 92 Sitting -Blood Pressure (90/60-120/80) 132/73 H -Pulse Rate (60-100) 68 Lying -Blood Pressure (90/60-120/80) 152/74 H -Pulse Rate (60-100) 62 Intake and Output for Last 24 Hours 06/24/17 06/25/17 06/26/17 23:59 23:59 23:59 Intake Total 240 / 240 720 / 720 Balance 240 / 240 720 / 720 General: Awake, Alert, Oriented x 3, Cooperative, No Acute Distress Neck: No JVD Lungs: Clear to auscultation Cardiovascular: Regular Rhythm, Normal S1, Normal S2 Vascular: No Carotid Bruits Abdomen: Bowel Sounds Present, Soft, Non Tender Extremities: No Cyanosis, No Clubbing, No edema 06/26/17 06:55: WBC 4.2 L, RBC 4.84, Hgb 14.3, Hct 42.6, MCV 88.0, MCH 29.5, MCHC 33.6, RDW 12.5, RDW Differential 40.4, Plt Count 200, MPV 10.2 06/26/17 06:55: Sodium 141, Potassium 4.0, Chloride 109 H, Carbon Dioxide 25.0, Anion Gap 7, BUN 12, Creatinine 1.02, Est GFR (MDRD) Af Amer 93, Est GFR (MDRD) Non-Af 76, BUN/Creatinine Ratio 11.8, Glucose 96, Calcium 8.4 L, Triglycerides 133, Cholesterol 174, LDL Cholesterol 100, VLDL Cholesterol 27, HDL Cholesterol 47 06/26/17 06:55: Hemoglobin A1c 5.5 Rhythm: Sinus rhythm EKG: As noted above ECHO: As noted above CXR: 06/14/2017: No acute cardiopulmonary disease process appreciated/reported Assessment/Plan 1. Paroxysmal atrial fibrillation The patient had an episode of paroxysmal atrial fibrillation (brief) on 06/14/2017. To the best of his knowledge this is the first and only episode he has had. It occurred after his development of vertigo and nausea/emesis and appeared to resolve status post a second episode of nausea/emesis. He has been evaluated from a cardiovascular standpoint noninvasively. This has included cardiac enzymes, ECG, and a transthoracic echocardiogram. His cardiac enzymes were negative. His ECG demonstrated a concern of a possible inferior MD of indeterminate age. However his transthoracic echocardiogram demonstrates normal left ventricular wall motion and overall preserved LV systolic function. He may eventually need further cardiovascular evaluation such as an exercise tolerance test/imaging study to further evaluate for the possibility of CAD and/or myocardial ischemia. However this may be challenging to accomplish at this time based upon his ongoing concerns of vertigo. The patient appears to have a [id number] score of 1. This places him in an indeterminate range where he could be considered for conservative medical management with aspirin 325 mg p.o. daily versus being considered for systemic anticoagulant therapy. At the present time, based upon the patient's clinical scenario, and his ongoing issues with vertigo, dizziness, lightheadedness, and off-balance sensation, and concerns of possible falls and injuries, it would be reasonable to continue the patient on aspirin 325 mg p.o. daily. Depending upon his clinical course he may need to be reassessed for the possibility of future systemic anticoagulant therapy. He be considered for future outpatient cardiovascular follow-up to monitor his course and condition. 2. Vertigo The patient does have a history compatible with vertigo. He has been evaluated by his primary care physician, ENT, and neurology. From neurology there is concern that he has a benign positional vertigo. From a cardiovascular standpoint it does not appear at the moment that he has definitive relation with his neurologic symptoms with either his isolated episode of paroxysmal atrial fibrillation or concerns of sinus bradycardia. If going forward he has symptoms concerning for symptomatic cardiac dysrhythmias, such as sinus bradycardia, and he may need to be further assessed with continued outpatient ambulatory cardiac rhythm monitoring, etc. Comment: The above was discussed and reviewed with the [facility] hospitalist staff. This note was generated with [x+1]ation software. It may contain incorrect words, spelling, and punctuation that were not noted in checking the note before signing.
--- NOTE | 2017-06-26 16:32 | CON.PCM_ITS ---
Problem List (1) Afib Status: Chronic Qualifiers: Atrial fibrillation type: paroxysmal Qualified Code(s): I48.0 - Paroxysmal atrial fibrillation (2) Vertigo Status: Acute Reason for Consult Date of Consultation: 06/26/17 History of Present Illness: The patient is a 72 year old white male with no past cardiovascular history who is referred for evaluation of a recent diagnosis of paroxysmal atrial fibrillation with a recent diagnosis of vertigo. He states on 06/14/2017 he noted , upon awakening, vertigo with the room spinning. He states he crawled to the bathroom. He had nausea and emesis. After returning to bed he felt his heart flutter . He was subsequently brought to the emergency department by the EMS system. In the emergency department he was diagnosed with vertigo and atrial fibrillation. He states while in the emergency department he had recurrent nausea and emesis. After his second episode of emesis he spontaneously converted to sinus rhythm. He has not noted any recurrent flutter sensation since that time. However, he states he has had continued episodes of vertigo, dizziness, lightheadedness, and off-balance sensation. He was evaluated as an outpatient by ENT who apparently did not feel he had a primary ENT diagnosis. He states based upon his ongoing concerns he was referred for future outpatient cardiovascular follow-up. However in the interim based upon his ongoing concerns he presented back to the hospital for reevaluation. He has denied chest discomfort or difficulty breathing. There is been no orthopnea, PND, or peripheral pitting edema. He has denied syncope. He states he is an otherwise healthy active working individual. His troponin I level was negative. His ECG demonstrated sinus rhythm with an inferior AR pattern of indeterminate age cannot be excluded. His cardiac ekg monitor is demonstrated sinus rhythm/sinus bradycardia. A transthoracic echocardiogram has been performed. His left ventricle was thought to be normal with an LVEF of 55%, no hemodynamically significant valvular heart disease, and a negative agitated saline contrast study for interatrial shunting. He has also been evaluated by neurology. It appears by the neurology consult there is a concern that he has benign positional vertigo. He was recommended for OT/PT therapy. There was also a comment regarding his atrial fibrillation with consideration for recommendation for anticoagulant therapy. [] Past Medical History Allergies/Adverse Reactions: Allergies No Known Allergies Allergy (Verified 06/25/17 16:37) Home Medications: Ambulatory Orders Medication Instructions Recorded Amoxicillin/Potassium Clav 1 ea PO BID #20 tab 06/14/17 [Augmentin 875-125 Tablet] Past Medical History (Chronic Problems): Chronic Problems (Last Updated 06/21/17 @ 14:33 by Carlee Melvin) Seasonal allergies (Chronic) Afib (Chronic) Hepatitis A antibody positive (Chronic) Surgical History: tonsillectomy Psychiatric History: No pertinent psych hx - *Family History Maternal Family History: Family History (Last Updated 06/21/17 @ 14:35 by Carlee Melvin) Mother Cancer Father Heart disease CVA (cerebral vascular accident) Hypertension Cancer Sister Breast cancer History Items: Cancer, Stroke Paternal Family History: Family History (Last Updated 06/21/17 @ 14:35 by Carlee Melvin) Mother Cancer Father Heart disease CVA (cerebral vascular accident) Hypertension Cancer Sister Breast cancer History Items: Heart Disease, Hypertension, Stroke Lives: Spouse/ Significant Other Smoking Status: Former smoker Tobacco Use: Non-smoker Alcohol: None Drugs: None Review of Systems - Review of Systems General: Denies: Fever, Night Sweats, Fatigue Cardiovascular: Reports: Lightheadedness, Dizziness. Denies: Chest Discomfort, Shortness of Breath, Orthopnea, PND, Peripheral Edema, Palpitations, Near Syncope, Syncope Respiratory: Denies: Cough, Sputum Production, Hemoptysis Gastrointestinal: Reports: Nausea, Emesis. Denies: Hematemesis, Hematochezia, Melena Genitourinary: Denies: Dysuria, Hematuria Skin: Denies: Rash Neurological: Reports: Dizziness, Vertigo Subjectve: This is a 72-year-old white male who appears to be resting comfortably at the moment in no acute distress. Objective: Vital Signs Temp Pulse Resp BP Pulse Ox 97.8 F 57 L 16 151/90 H 95 06/26/17 14:54 06/26/17 14:57 06/26/17 14:54 06/26/17 14:54 06/26/17 14:54 Oxygen Delivery Method Room Air Weight: 186 lb 1.122 oz Body Mass Index (BMI) 28.3 Orthostatic Vital Signs Start: 06/26/17 14:19 Freq: q24h Status: Active Protocol: Activity Type Activity Date Activity User E-Sign Co-Sign Detail Recorded Client Recorded Date Recorded By Document 06/26/17 14:19 EEB [id number] 06/26/17 14:20 EEB 06/26/17 14:19 Orthostatic Vitals Standing -Blood Pressure (90/60-120/80) 142/77 H -Pulse Rate (60-100) 92 Sitting -Blood Pressure (90/60-120/80) 132/73 H -Pulse Rate (60-100) 68 Lying -Blood Pressure (90/60-120/80) 152/74 H -Pulse Rate (60-100) 62 Intake and Output for Last 24 Hours 06/24/17 06/25/17 06/26/17 23:59 23:59 23:59 Intake Total 240 / 240 720 / 720 Balance 240 / 240 720 / 720 General: Awake, Alert, Oriented x 3, Cooperative, No Acute Distress Neck: No JVD Lungs: Clear to auscultation Cardiovascular: Regular Rhythm, Normal S1, Normal S2 Vascular: No Carotid Bruits Abdomen: Bowel Sounds Present, Soft, Non Tender Extremities: No Cyanosis, No Clubbing, No edema 06/26/17 06:55: WBC 4.2 L, RBC 4.84, Hgb 14.3, Hct 42.6, MCV 88.0, MCH 29.5, MCHC 33.6, RDW 12.5, RDW Differential 40.4, Plt Count 200, MPV 10.2 06/26/17 06:55: Sodium 141, Potassium 4.0, Chloride 109 H, Carbon Dioxide 25.0, Anion Gap 7, BUN 12, Creatinine 1.02, Est GFR (MDRD) Af Amer 93, Est GFR (MDRD) Non-Af 76, BUN/Creatinine Ratio 11.8, Glucose 96, Calcium 8.4 L, Triglycerides 133, Cholesterol 174, LDL Cholesterol 100, VLDL Cholesterol 27, HDL Cholesterol 47 06/26/17 06:55: Hemoglobin A1c 5.5 Rhythm: Sinus rhythm EKG: As noted above ECHO: As noted above CXR: 06/14/2017: No acute cardiopulmonary disease process appreciated/reported Assessment/Plan 1. Paroxysmal atrial fibrillation The patient had an episode of paroxysmal atrial fibrillation (brief) on 2017. To the best of his knowledge this is the first and only episode he has had. It occurred after his development of vertigo and nausea/emesis and appeared to resolve status post a second episode of nausea/emesis. He has been evaluated from a cardiovascular standpoint noninvasively. This has included cardiac enzymes, ECG, and a transthoracic echocardiogram. His cardiac enzymes were negative. His ECG demonstrated a concern of a possible inferior AR of indeterminate age. However his transthoracic echocardiogram demonstrates normal left ventricular wall motion and overall preserved LV systolic function. He may eventually need further cardiovascular evaluation such as an exercise tolerance test/imaging study to further evaluate for the possibility of CAD and/ or myocardial ischemia. However this may be challenging to accomplish at this time based upon his ongoing concerns of vertigo. The patient appears to have a [id number] score of 1. This places him in an indeterminate range where he could be considered for conservative medical management with aspirin 325 mg p.o. daily versus being considered for systemic anticoagulant therapy. At the present time, based upon the patient's clinical scenario, and his ongoing issues with vertigo, dizziness, lightheadedness, and off-balance sensation, and concerns of possible falls and injuries, it would be reasonable to continue the patient on aspirin 325 mg p.o. daily. Depending upon his clinical course he may need to be reassessed for the possibility of future systemic anticoagulant therapy. He be considered for future outpatient cardiovascular follow-up to monitor his course and condition. 2. Vertigo The patient does have a history compatible with vertigo. He has been evaluated by his primary care physician, ENT, and neurology. From neurology there is concern that he has a benign positional vertigo. From a cardiovascular standpoint it does not appear at the moment that he has definitive relation with his neurologic symptoms with either his isolated episode of paroxysmal atrial fibrillation or concerns of sinus bradycardia. If going forward he has symptoms concerning for symptomatic cardiac dysrhythmias , such as sinus bradycardia, and he may need to be further assessed with continued outpatient ambulatory cardiac rhythm monitoring, etc. Comment: The above was discussed and reviewed with the [facility] hospitalist staff. This note was generated with [employer]ation software. It may contain incorrect words, spelling, and punctuation that were not noted in checking the note before signing.
[2017-06-27] VITALS (8 sets, daily range): BP systolic 113–152; BP diastolic 71–81; PULSE 47–72; RESP 14–16; TEMP 36.6–36.8; O2SAT 94–95
[2017-06-27] MEDS: 0.9% Normal Saline 1,000 ML 150 ML IV (07:07)
--- NOTE | 2017-06-27 09:14 | PCM.PN.CARD ---
Subjectve: The patient denies chest pain, shortness of breath, or palpitations. He still feels somewhat off balance when he is up and ambulating. Objective: Vital Signs Temp Pulse Resp BP Pulse Ox 98.0 F 51 L 16 142/74 H 95 06/27/17 06:20 06/27/17 07:00 06/27/17 06:20 06/27/17 06:22 06/27/17 06:20 Oxygen Delivery Method Room Air Weight: 186 lb 1.122 oz Body Mass Index (BMI) 28.3 Orthostatic Vital Signs Start: 06/26/17 14:19 Freq: q24h Status: Active Protocol: Activity Type Activity Date Activity User E-Sign Co-Sign Detail Recorded Client Recorded Date Recorded By Document 06/27/17 06:22 VENTURA [id number] 06/27/17 06:25 ZANNE MARIE 06/27/17 06:22 Orthostatic Vitals Standing -Blood Pressure (90/60-120/80 mm Hg) 119/81 H -Extremity Use Right Arm -Pulse Rate (60-100 beats/min) 72 Sitting -Blood Pressure (90/60-120/80 mm Hg) 122/78 H -Extremity Use Right Arm -Pulse Rate (60-100 beats/min) 61 Lying -Blood Pressure (90/60-120/80 mm Hg) 142/74 H -Extremity Use Right Arm -Pulse Rate (60-100 beats/min) 52 L Intake and Output for Last 24 Hours 06/25/17 06/26/17 06/27/17 23:59 23:59 23:59 Intake Total 240 / 240 1440 / 1440 240 / 240 Balance 240 / 240 1440 / 1440 240 / 240 General: Awake, Alert, Oriented x 3, Cooperative, No Acute Distress Lungs: Clear to auscultation Cardiovascular: Regular Rhythm, Normal S1, Normal S2 Vascular: No Carotid Bruits Abdomen: Bowel Sounds Present, Soft, Non Tender Extremities: No edema Rhythm: sinus rhythm ECHO: please see official report Assessment/Plan 1. Paroxysmal atrial fibrillation The patient had an episode of paroxysmal atrial fibrillation (brief) on 06/14/2017. To the best of his knowledge this is the first and only episode he has had. It occurred after his development of vertigo and nausea/emesis and appeared to resolve status post a second episode of nausea/emesis. He has been evaluated from a cardiovascular standpoint noninvasively. This has included cardiac enzymes, ECG, and a transthoracic echocardiogram. His cardiac enzymes were negative. His ECG demonstrated a concern of a possible inferior [place] of indeterminate age. However his transthoracic echocardiogram demonstrates normal left ventricular wall motion and overall preserved LV systolic function. He may eventually need further cardiovascular evaluation such as an exercise tolerance test/imaging study to further evaluate for the possibility of CAD and/or myocardial ischemia. However this may be challenging to accomplish at this time based upon his ongoing concerns of vertigo. The patient appears to have a [id number] score of 1. This places him in an indeterminate range where he could be considered for conservative medical management with aspirin 325 mg p.o. daily versus being considered for systemic anticoagulant therapy. At the present time, based upon the patient's clinical scenario, and his ongoing issues with vertigo, dizziness, lightheadedness, and off-balance sensation, and concerns of possible falls and injuries, it would be reasonable to continue the patient on aspirin 325 mg p.o. daily. Depending upon his clinical course he may need to be reassessed for the possibility of future systemic anticoagulant therapy. If going forward he has symptoms concerning for symptomatic cardiac dysrhythmias, such as sinus bradycardia, and he may need to be further assessed with continued outpatient ambulatory cardiac rhythm monitoring, etc. He be considered for future outpatient cardiovascular follow-up to monitor his course and condition. 2. Vertigo The patient does have a history compatible with vertigo. He has been evaluated by his primary care physician, ENT, and neurology. From neurology there is concern that he has a benign positional vertigo. From a cardiovascular standpoint it does not appear at the moment that he has definitive relation with his neurologic symptoms with either his isolated episode of paroxysmal atrial fibrillation or concerns of sinus bradycardia. 3. Orthostasis The patient is noted to have an element of orthostatic hypotension. He will be encouraged to increase his oral fluid intake. He is receiving IV fluids. Hopefully as this corrects the patient's symptoms will improve. Comment: The above was discussed and reviewed with the [facility] hospitalist staff. This note was generated with [employer] software. It may contain incorrect words, spelling, and punctuation that were not noted in checking the note before signing.
--- NOTE | 2017-06-27 09:20 | PN.CARD_ITS ---
Subjectve: The patient denies chest pain, shortness of breath, or palpitations. He still feels somewhat off balance when he is up and ambulating. Objective: Vital Signs Temp Pulse Resp BP Pulse Ox 98.0 F 51 L 16 142/74 H 95 06/27/17 06:20 06/27/17 07:00 06/27/17 06:20 06/27/17 06:22 06/27/17 06:20 Oxygen Delivery Method Room Air Weight: 186 lb 1.122 oz Body Mass Index (BMI) 28.3 Orthostatic Vital Signs Start: 06/26/17 14:19 Freq: q24h Status: Active Protocol: Activity Type Activity Date Activity User E-Sign Co-Sign Detail Recorded Client Recorded Date Recorded By Document 06/27/17 06:22 VENTURA [id number] 06/27/17 06:25 ZANNE MARIE 06/27/17 06:22 Orthostatic Vitals Standing -Blood Pressure (90/60-120/80 mm Hg) 119/81 H -Extremity Use Right Arm -Pulse Rate (60-100 beats/min) 72 Sitting -Blood Pressure (90/60-120/80 mm Hg) 122/78 H -Extremity Use Right Arm -Pulse Rate (60-100 beats/min) 61 Lying -Blood Pressure (90/60-120/80 mm Hg) 142/74 H -Extremity Use Right Arm -Pulse Rate (60-100 beats/min) 52 L Intake and Output for Last 24 Hours 06/25/17 06/26/17 06/27/17 23:59 23:59 23:59 Intake Total 240 / 240 1440 / 1440 240 / 240 Balance 240 / 240 1440 / 1440 240 / 240 General: Awake, Alert, Oriented x 3, Cooperative, No Acute Distress Lungs: Clear to auscultation Cardiovascular: Regular Rhythm, Normal S1, Normal S2 Vascular: No Carotid Bruits Abdomen: Bowel Sounds Present, Soft, Non Tender Extremities: No edema Rhythm: sinus rhythm ECHO: please see official report Assessment/Plan 1. Paroxysmal atrial fibrillation The patient had an episode of paroxysmal atrial fibrillation (brief) on 2017. To the best of his knowledge this is the first and only episode he has had. It occurred after his development of vertigo and nausea/emesis and appeared to resolve status post a second episode of nausea/emesis. He has been evaluated from a cardiovascular standpoint noninvasively. This has included cardiac enzymes, ECG, and a transthoracic echocardiogram. His cardiac enzymes were negative. His ECG demonstrated a concern of a possible inferior [place] of indeterminate age. However his transthoracic echocardiogram demonstrates normal left ventricular wall motion and overall preserved LV systolic function. He may eventually need further cardiovascular evaluation such as an exercise tolerance test/imaging study to further evaluate for the possibility of CAD and/ or myocardial ischemia. However this may be challenging to accomplish at this time based upon his ongoing concerns of vertigo. The patient appears to have a VNL7MR1-DXFs score of 1. This places him in an indeterminate range where he could be considered for conservative medical management with aspirin 325 mg p.o. daily versus being considered for systemic anticoagulant therapy. At the present time, based upon the patient's clinical scenario, and his ongoing issues with vertigo, dizziness, lightheadedness, and off-balance sensation, and concerns of possible falls and injuries, it would be reasonable to continue the patient on aspirin 325 mg p.o. daily. Depending upon his clinical course he may need to be reassessed for the possibility of future systemic anticoagulant therapy. If going forward he has symptoms concerning for symptomatic cardiac dysrhythmias , such as sinus bradycardia, and he may need to be further assessed with continued outpatient ambulatory cardiac rhythm monitoring, etc. He be considered for future outpatient cardiovascular follow-up to monitor his course and condition. 2. Vertigo The patient does have a history compatible with vertigo. He has been evaluated by his primary care physician, ENT, and neurology. From neurology there is concern that he has a benign positional vertigo. From a cardiovascular standpoint it does not appear at the moment that he has definitive relation with his neurologic symptoms with either his isolated episode of paroxysmal atrial fibrillation or concerns of sinus bradycardia. 3. Orthostasis The patient is noted to have an element of orthostatic hypotension. He will be encouraged to increase his oral fluid intake. He is receiving IV fluids. Hopefully as this corrects the patient's symptoms will improve. Comment: The above was discussed and reviewed with the [facility] hospitalist staff. This note was generated with [employer] software. It may contain incorrect words, spelling, and punctuation that were not noted in checking the note before signing.
--- NOTE | 2017-06-27 10:20 | CASEMGMT ---
This ALEXANDER CM to room to speak with pt regarding outpt therapy per PT recommendation. Pt agrees to therapy at [facility] at this time. Referral faxed to [facility] with order and facesheet. Order given to pt at this time. ABBOTT form with explanation to pt at this time, pt voices understanding and signs at this time. Original ABBOTT to chart and copy to pt at this time. [place]en ALEXANDER SNOW
--- NOTE | 2017-06-27 10:36 | DCINST_ITS ---
- Discharge Diagnoses Current Active Problems: Current Active and Chronic Problems (Last Updated 06/21/17 @ 14:33 by Carlee Melvin) Vertigo (Acute) You will use the following diet at home:: No restrictions Discharge Activity: Return to Normal Activity Call your doctor if you observe: Shortness of breath, Dizziness, Fainting spells , Chest pain, Increased palpitations (irregular heartbeat) Allergies/Adverse Reactions: Allergies No Known Allergies Allergy (Verified 06/25/17 16:37) Medications to take at Discharge Aspirin 325 mg PO DAILY@0800 #30 tab 06/27/17 Meclizine HCl [Antivert] 25 mg PO TID PRN PRN #30 tab 06/27/17 The following prescriptions were given: Aspirin 325 mg PO DAILY@0800 #30 tab Meclizine HCl [Antivert] 25 mg PO TID PRN PRN #30 tab PRN Reason: Vertigo Primary Care Physician: Bonilla Gary MD [Primary Care Provider] - Please follow up with your Primary Care Physician in: 1-2 Weeks Please Follow Up With: Jourdan Mar MD When: Office to call you for appt Proposed Discharge Date: 06/27/17
--- NOTE | 2017-06-27 10:38 | PCM.DC.SUM ---
<Carolyn eBnton - Last Filed: 06/27/17 10:49> Discharge Date and Diagnosis Date of Admission: 06/25/17 Date of Discharge: 06/27/17 - Primary Discharge Diagnosis Active and Suspected Problems (Last Updated 06/21/17 @ 14:33 by Carlee Melvin) 1. Acute vertigo 2. Bradycardia - Secondary Discharge Diagnosis Chronic Problems (Last Updated 06/21/17 @ 14:33 by Carlee Melvin) Seasonal allergies (Chronic) Afib (Chronic) Hepatitis A antibody positive (Chronic) Hospital Course and Treatment Imaging Results: Diagnostic Data Brain CT 06/25/17 17:12 IMPRESSION: No acute intracranial abnormality. Electronically Signed: Burak Crespo, at 17:52 EST Tel , Service support , Brain MRI 06/26/17 08:00 IMPRESSION: Unremarkable unenhanced MRI of the brain. Mild paranasal sinus disease. 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 Further evaluation with sonography can be obtained. Electronically Signed: Breanne Lim MD at 10:07 EST Tel , Service support , Dr. Montenegro- Neurology Dr. Mar- Cardiology Operations: None Procedures: 2-D Echocardiogram Summary of Care Provided: 1. Acute vertigo-acute CVA ruled out. Patient has had vertigo symptoms for 2 weeks. He saw ENT prior to admission who felt symptoms were neurologic in nature as opposed to BPPV. Brain CT showed no acute abnormality. MRI of brain unremarkable with the exception of mild paranasal sinus disease. 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 Echocardiogram showed an estimated ejection fraction of 55%, no evidence of diastolic dysfunction. Troponin negative X1. Patient had a recent emergency room visit 06/14/17 for palpitations. He was found to be in atrial fibrillation and spontaneously converted to sinus rhythm. Patient was seen by Dr. Mar during admission. He will continue outpatient follow-up. Patient's [id number] score is 1 and patient will be discharged on aspirin 325 mg daily. If patient has recurrent episodes of atrial fibrillation, further anticoagulation may be discussed with Dr. Mar. Patient will continue outpatient physical therapy for vestibular therapy. He was discharged on Antivert 25 mg 3 times daily as needed for vertigo symptoms. 2. Bradycardia-heart rate mostly in the 50s during admission. No evidence of arrhythmia or block. Patient is not on any rate control medication. After resolve of vertigo symptoms, patient may require nuclear stress test as outpatient as deemed appropriate by cardiology. Orthostatic vitals positive ?1. Patient received IV fluid bolus. 3. Paroxysmal atrial fibrillation-patient has been sinus rhythm, sinus bradycardia throughout admission. Patient was diagnosed with atrial fibrillation during recent ER visit 06/14/17. No prior history of atrial fibrillation. Patient has had no further episodes of atrial fibrillation. He will be discharged on aspirin 325 mg daily and follow-up with cardiology as outpatient. 4. Hypertension-systolic 140-150 during admission. Recommend further monitoring as outpatient. General: Alert, Oriented x3, Cooperative, No apparent distress HEENT: Atraumatic, PERRLA, EOMI, Normocephalic Neck: Supple, No JVD, Negative Carotid Bruits Lungs: Clear to auscultation, Normal air movement Cardiovascular: Regular Rhythm, Normal S1, Normal S2, No murmurs, Bradycardic Abdomen: Bowel Sounds Present, Soft, Non Tender, Non-Distended Extremities: No clubbing, No cyanosis, No edema, Capillary Refill Less than 3 Seconds Skin: No rashes, No breakdown Musculoskeletal: No Tenderness to Palpation of Joints or Extremities Neurological: Cranial nerves II-XII grossly intact, Neuro grossly intact Psych/Mental Status: Normal Affect, Appropriate Patient seen and examined prior to discharge. Complains of continued intermittent vertigo symptoms. Able to ambulate without difficulty. Denies palpitations, chest pain. Patient stable for discharge home with the recommendations as noted above. This patient was seen by JERAMIE Dukes under the supervision of Dr. Coreas. Discharge Diet: No Restrictions Discharge Activity: Return to Normal Activity Call your doctor if you observe: Shortness of breath, Dizziness, Fainting spells, Chest pain, Increased palpitations (irregular heartbeat) Home Medications: Medications to take at Discharge Aspirin 325 mg PO DAILY@0800 #30 tab 06/27/17 Meclizine HCl [Antivert] 25 mg PO TID PRN PRN #30 tab 06/27/17 Following Prescrptions Were Given to Patient: Aspirin 325 mg PO DAILY@0800 #30 tab Meclizine HCl [Antivert] 25 mg PO TID PRN PRN #30 tab PRN Reason: Vertigo Primary Care Physician: Bonilla Gary MD [Primary Care Provider] - Please follow up with your Primary Care Physician in: 1-2 Weeks Please Follow Up With: Jourdan Mar MD When: Office to call you for appt Disposition: Home Minutes spent on discharge:: 35 Patient Condition:: Stable Meaningful Use Info Meaningful Use Diagnoses (Choose all that apply): None applicable <Edith Coreas - Last Filed: 06/27/17 14:58> Discharge Date and Diagnosis - Secondary Discharge Diagnosis Chronic Problems (Last Updated 06/21/17 @ 14:33 by Carlee Melvin) Seasonal allergies (Chronic) Afib (Chronic) Hepatitis A antibody positive (Chronic) Hospital Course and Treatment Summary of Care Provided: Hospitalist note: Discharge summary above reviewed and I agree with above discharge plan. Patient was admitted for symptoms of vertigo and weakness. A CT scan brain showed no acute findings. He had a stroke workup that was unremarkable. MRI brain showed no acute infarction or hemorrhage. MRA of the head and neck revealed no significant vascular disease, revealed apparent moderate stenosis of the left internal carotid artery. 2D echocardiogram revealed ejection fraction of 55%, bubble contrast study negative for [id number] shunt and no significant valvular heart disease. Patient has been bradycardic throughout admission and his heart has been in the 50s. He had a history of paroxysmal A. fib that was diagnosed recently and since then, he has been stable. During this hospital admission, he remained in sinus bradycardia. Initially, we thought that his symptoms may be due to bradycardia. Cardiology consulted and recommended to continue same treatment, recommended full dose aspirin. His blood pressure has been stable. He has no focal weakness. Acute stroke ruled out. His symptoms attributed to vertigo, discharged on full dose aspirin as well as Antivert as needed for dizziness and vertigo. Recommended follow-up with PCP in 1-2 weeks, follow-up with cardiology according to Dr. Mar recommendations. . Minutes spent on discharge:: 26 Code Visit OBSV E&M: 92722 Observation care discharge
--- NOTE | 2017-06-27 10:49 | DS.PCM_ITS ---
<Carolyn Benton - Last Filed: 06/27/17 10:49> Discharge Date and Diagnosis Date of Admission: 06/25/17 Date of Discharge: 06/27/17 - Primary Discharge Diagnosis Active and Suspected Problems (Last Updated 06/21/17 @ 14:33 by Carlee Melvin) 1. Acute vertigo 2. Bradycardia - Secondary Discharge Diagnosis Chronic Problems (Last Updated 06/21/17 @ 14:33 by Carlee Melvin) Seasonal allergies (Chronic) Afib (Chronic) Hepatitis A antibody positive (Chronic) Hospital Course and Treatment Imaging Results: Diagnostic Data Brain CT 06/25/17 17:12 IMPRESSION: No acute intracranial abnormality. Electronically Signed: Burak Crespo, at 17:52 EST Tel , Service support , Brain MRI 06/26/17 08:00 IMPRESSION: Unremarkable unenhanced MRI of the brain. Mild paranasal sinus disease. 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 Further evaluation with sonography can be obtained. Electronically Signed: Breanne Lim MD at 10:07 EST Tel , Service support , Dr. Montenegro- Neurology Dr. Mar- Cardiology Operations: None Procedures: 2-D Echocardiogram Summary of Care Provided: 1. Acute vertigo-acute CVA ruled out. Patient has had vertigo symptoms for 2 weeks. He saw ENT prior to admission who felt symptoms were neurologic in nature as opposed to BPPV. Brain CT showed no acute abnormality. MRI of brain unremarkable with the exception of mild paranasal sinus disease. 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 Echocardiogram showed an estimated ejection fraction of 55%, no evidence of diastolic dysfunction. Troponin negative X1. Patient had a recent emergency room visit 06/14/17 for palpitations. He was found to be in atrial fibrillation and spontaneously converted to sinus rhythm. Patient was seen by Dr. Mar during admission. He will continue outpatient follow-up. Patient's [id number] score is 1 and patient will be discharged on aspirin 325 mg daily. If patient has recurrent episodes of atrial fibrillation, further anticoagulation may be discussed with Dr. Mar. Patient will continue outpatient physical therapy for vestibular therapy. He was discharged on Antivert 25 mg 3 times daily as needed for vertigo symptoms. 2. Bradycardia-heart rate mostly in the 50s during admission. No evidence of arrhythmia or block. Patient is not on any rate control medication. After resolve of vertigo symptoms, patient may require nuclear stress test as outpatient as deemed appropriate by cardiology. Orthostatic vitals positive ? 1. Patient received IV fluid bolus. 3. Paroxysmal atrial fibrillation-patient has been sinus rhythm, sinus bradycardia throughout admission. Patient was diagnosed with atrial fibrillation during recent ER visit 06/14/17. No prior history of atrial fibrillation. Patient has had no further episodes of atrial fibrillation. He will be discharged on aspirin 325 mg daily and follow-up with cardiology as outpatient. 4. Hypertension-systolic 140-150 during admission. Recommend further monitoring as outpatient. General: Alert, Oriented x3, Cooperative, No apparent distress HEENT: Atraumatic, PERRLA, EOMI, Normocephalic Neck: Supple, No JVD, Negative Carotid Bruits Lungs: Clear to auscultation, Normal air movement Cardiovascular: Regular Rhythm, Normal S1, Normal S2, No murmurs, Bradycardic Abdomen: Bowel Sounds Present, Soft, Non Tender, Non-Distended Extremities: No clubbing, No cyanosis, No edema, Capillary Refill Less than 3 Seconds Skin: No rashes, No breakdown Musculoskeletal: No Tenderness to Palpation of Joints or Extremities Neurological: Cranial nerves II-XII grossly intact, Neuro grossly intact Psych/Mental Status: Normal Affect, Appropriate Patient seen and examined prior to discharge. Complains of continued intermittent vertigo symptoms. Able to ambulate without difficulty. Denies palpitations, chest pain. Patient stable for discharge home with the recommendations as noted above. This patient was seen by JERAMIE Dukes under the supervision of Dr. Coreas. Discharge Diet: No Restrictions Discharge Activity: Return to Normal Activity Call your doctor if you observe: Shortness of breath, Dizziness, Fainting spells , Chest pain, Increased palpitations (irregular heartbeat) Home Medications: Medications to take at Discharge Aspirin 325 mg PO DAILY@0800 #30 tab 06/27/17 Meclizine HCl [Antivert] 25 mg PO TID PRN PRN #30 tab 06/27/17 Following Prescrptions Were Given to Patient: Aspirin 325 mg PO DAILY@0800 #30 tab Meclizine HCl [Antivert] 25 mg PO TID PRN PRN #30 tab PRN Reason: Vertigo Primary Care Physician: Bonilla Gary MD [Primary Care Provider] - Please follow up with your Primary Care Physician in: 1-2 Weeks Please Follow Up With: Jourdan Mar MD When: Office to call you for appt Disposition: Home Minutes spent on discharge:: 35 Patient Condition:: Stable Meaningful Use Info Meaningful Use Diagnoses (Choose all that apply): None applicable <Edith Coreas - Last Filed: 06/27/17 14:58> Discharge Date and Diagnosis - Secondary Discharge Diagnosis Chronic Problems (Last Updated 06/21/17 @ 14:33 by Carlee Melvin) Seasonal allergies (Chronic) Afib (Chronic) Hepatitis A antibody positive (Chronic) Hospital Course and Treatment Summary of Care Provided: Hospitalist note: Discharge summary above reviewed and I agree with above discharge plan. Patient was admitted for symptoms of vertigo and weakness. A CT scan brain showed no acute findings. He had a stroke workup that was unremarkable. MRI brain showed no acute infarction or hemorrhage. MRA of the head and neck revealed no significant vascular disease, revealed apparent moderate stenosis of the left internal carotid artery. 2D echocardiogram revealed ejection fraction of 55%, bubble contrast study negative for ttahb-hh-afay shunt and no significant valvular heart disease. Patient has been bradycardic throughout admission and his heart has been in the 50s. He had a history of paroxysmal A. fib that was diagnosed recently and since then, he has been stable. During this hospital admission, he remained in sinus bradycardia. Initially, we thought that his symptoms may be due to bradycardia. Cardiology consulted and recommended to continue same treatment, recommended full dose aspirin. His blood pressure has been stable. He has no focal weakness. Acute stroke ruled out. His symptoms attributed to vertigo, discharged on full dose aspirin as well as Antivert as needed for dizziness and vertigo. Recommended follow-up with PCP in 1-2 weeks, follow-up with cardiology according to Dr. Mar recommendations. . Minutes spent on discharge:: 26 Code Visit OBSV E&M: 72226 Observation care discharge
== END 2017-06-27 10:36 | disposition home or self-care (01) ==
LOC: ED 18:14 → PCU 18:43
PROVIDERS: Admitting Provider Internal Medicine; Emergency Provider Emergency Medicine; Family Provider Internal Medicine; PCP Internal Medicine; Visit Provider Hospitalist
DX: R42 Dizziness and giddiness (principal); R00.1 Bradycardia, unspecified; I48.0 Paroxysmal atrial fibrillation; I10 Essential (primary) hypertension; R11.2 Nausea with vomiting, unspecified; I95.1 Orthostatic hypotension; I16.0 Hypertensive urgency; Z87.891 Personal history of nicotine dependence; R53.1 Weakness; R29.700 NIHSS score 0; R94.31 Abnormal electrocardiogram [ECG] [EKG]; I65.22 Occlusion and stenosis of left carotid artery; I08.1 Rheumatic disorders of both mitral and tricuspid valves
CPT/HCPCS: 36415; 70450; 70544; 70547; 70551; 80048; 80061; 83036; 84484; 85025; 85027; 92523; 93005; 93306; 96360; 96361; 96372; 97161; 97166; 99218; 99284; A9585; J7030; J7040; A4216; G0378

== ENCOUNTER → 2017-08-17 20:00 | Outpatient (CLI) | payer MEDICARE, SELFPAY | PROVIDERS: Family Provider Internal Medicine; PCP Internal Medicine; Visit Provider Internal Medicine | DX: G47.30 Sleep apnea, unspecified (principal) | CPT/HCPCS: 95811 ==

== ENCOUNTER 2017-08-23 16:00 | Outpatient (RCR) | payer MEDICARE, SELFPAY ==
--- NOTE | 2017-08-08 16:23 | HP.PTEVAL_ITS ---
Patient's Visit Information PETEY SAUER is a 72 year old M referred to Physical Therapy by JERAMIE Dukes NP.SHAJI with a diagnosis of decreased balance. Date of Evaluation: 08/08/17 Physical Therapist: Prasanna Anand DPT, OC - Visit Plan Frequency: 1x/Week Duration: 4-6 Weeks Plan: weekly x 4-6 to progress adaptation ex and balance ex. Progress VORx2 standing to tandem and vertical next session and will need balance with head turns, ec and foam. - Subjective Subjective: I got vertigo. 90% better than wha t it used to be but is stuck at that level. It started 7 weeks ago waking up in morning with room spinning. The night before was OK. Threw up and felt bad for hours. Went to ER as he also felt he was in afib for 4 hours. Every movement was spinning at the time. Now feels like balance is off. No spinning is left, none in a couple weeks. Has cut back on some things like climbing ladders. Energy level is down. Unsteady feeling is constant and worse turning head to side while walking. Looking up and to the side is unsteady. Lying in bed is fine. Walking in grocery stores can be bothersome(looking to the side). Sleeping is OK. Shadows walking at work make him feel unsteady in poorly lit environment. 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 Working is not a problem outside of climbing ladders. Enjoys working in yard and this is slower than it should be. No falls but steps wrong more often. - Objective Walks into PT safe and I , transfers I. VOR walking is hard for patient and needs SBA. ec romberg adn foam ec are challenging. - B hallpike brijesh adn - roll test. Oculomotor: normal pursuit and saccades. no nystagmus with gaze or head shake. normal convergence. - skew eye deviation. VOR is challenging btu no symptoms, moreso in standing. VORx2 challenging standing. c/s AROM WFL and no pain. + L head thrust. 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 Rehabilitation Potential: Fair - Anticipated Interventions Patient/Client Instruction: Educate patient on: Condition For the Purpose of:: To improve safety with gait Therapeutic Exercise to Include: Balance training Comment: adaptation For the Purpose of:: To improve gait and locomotor functions, To improve safety Thank you for the opportunity to evaluate your patient. For Medicare and Medicare HMO plans, please review the plan of care and approve it. It will need to be FAXED BACK to us at [phone] for Medicare purposes. Please let me know if there are questions or concerns regarding this plan of care. Physician Signature: Date:
--- NOTE | 2017-08-23 16:27 | HP.PTREVAL ---
Carolyn Benton, REGISTERED NURSE [employer]ANT-C, It has been my pleasure to treat PETEY SAUER over the last 3 visits for decreased balance. Please see the progress note below for an update on the physical therapy plan of care! Subjective: Sleep study done. I failed it. Went down to 73% oxygen adn put on cpap and then got good sleep. Feeling no better this week than prior. Will not get home CPAP until sees doctor next . Will see heart doctor that day also. Ex at home consistently Objective/Function: Tired walking back from lobby slightly. FGA +4. VOR walking is good but still feels a skip when turning head left. Plan Plan: D/C. pot to see doctor adn hopeful that CPAP and stress test if needed will fix problem. Will ask doctor to return if needs more PT. Goals Goal 1:: 30/30 FGA adn feel 100% back to normal balance Goal Time Frame: 4-6 Weeks Goal Progress: Progressing Goal 2:: Return to all duties at work and home without fear or imbalance Goal Time Frame: 4-6 Weeks Goal Progress: Progressing Anticipated Interventions Patient/Client Instruction: Educate patient on: Condition For the Purpose of:: To improve safety with gait Therapeutic Exercise to Include: Balance training Comment: adaptation For the Purpose of:: To improve gait and locomotor functions, To improve safety Please do not hesitate to contact me at [phone] by phone or if you have questions or concerns regarding this new plan of care! Sincerely, Prasanna Anand, ALEXUST, OC
--- NOTE | 2017-08-30 16:17 | HP.PTDCSUM_ITS ---
HP - PT D/C Summary It has been my pleasure to treat PETEY SAUER under orders from Carolyn Benton , CHANDLER-C, for the diagnosis of decreased balance for a total of 3 visit(s). Discharge Date: 08/23/17 Please see the following information for a summary of their discharge status. - Subjective Subjective: Sleep study done. I failed it. Went down to 73% oxygen adn put on cpap and then got good sleep. Feeling no better this week than prior. Will not get home CPAP until sees doctor next . Will see heart doctor that day also. Ex at home consistently - Overall Improvement % Improvement: 0 - Objective Objective/Function: Tired walking back from lobby slightly. FGA +4. VOR walking is good but still feels a skip when turning head left. - Goals Goal 1:: FGA adn feel 100% back to normal balance Goal Progress: Progressing Goal 2:: Return to all duties at work and home without fear or imbalance Goal Progress: Progressing - Plan Plan: D/C. pot to see doctor adn hopeful that CPAP and stress test if needed will fix problem. Will ask doctor to return if needs more PT. - D/C Information Discharge Comments: Pt to doctor for sleep apnea and possible stress test and confident that will help. If there are questions or concerns regarding this patient's physical therapy, please feel free to call me at [phone]. Thank you for the referral of this patient. Sincerely, Prasanna Anand, DPT, OC
== END 2017-08-23 19:00 | disposition home or self-care (01) ==
LOC: PT 16:00
PROVIDERS: Family Provider Internal Medicine; PCP Internal Medicine; Visit Provider Nurse Practitioner Family
DX: R26.89 Other abnormalities of gait and mobility (principal); R42 Dizziness and giddiness; Z74.09 Other reduced mobility
CPT/HCPCS: 97162; 97530

== ENCOUNTER → 2017-09-06 06:18 | Outpatient (CLI) | payer MEDICARE, SELFPAY ==
--- NOTE | 2017-09-06 16:52 | STRESSREP ---
Stress Test Report Date: 09/06/2017 Procedure: Exercise tolerance test/imaging study Indications: This of breath/dyspnea, paroxysmal atrial fibrillation Consent: Per the patient Procedure: The patient exercised on a Alex protocol for 7 minutes completing Stage II and 1 minute of Stage III achieving a peak heart rate of 139 bpm (93 % predicted maximal heart rate) with a peak blood pressure 184/80 mmHg and a peak MET capacity of 8 METs. The baseline ECG demonstrated sinus bradycardia. The peak exercise ECG demonstrated no obvious ECG changes. There was a rare PAC during exercise and recovery. The functional capacity was considered good. There was no complaint of chest discomfort during exercise or recovery. The examination was discontinued secondary to dyspnea and leg discomfort. Impression: 1. Technically adequate (percent predicted maximal heart rate greater than 85%) exercise tolerance test 2. Peak exercise ECG with no obvious ECG changes 3. Her was a rare PAC during exercise and recovery. 4. Nuclear images pending Myocardial perfusion imaging study: Technique: The patient was injected with 11.6 mCi of technetium 99m Cardiolite and subsequently rest SPECT Cardiolite nuclear imaging was obtained in the horizontal long, vertical long, and short axis views. The patient exercised on a Alex protocol for 7 minutes completing Stage II and 1 minute of stage III achieving a peak heart rate of 139 bpm (93 % predicted maximal heart rate) with a peak blood pressure 184/80 mmHg and a peak MET capacity of 8 METs. The patient was injected with 33.9 mCi of technetium 99m Cardiolite and subsequently stress SPECT Cardiolite nuclear imaging was obtained in the horizontal long, vertical long, and short axis views. A gated Cardiolite study at peak stress was obtained. Interpretation: Rest and stress SPECT Cardiolite nuclear imaging status post realignment, normalization, and attenuation correction, demonstrates the appearance of relative uniform tracer uptake and myocardial perfusion appearing within normal limits. There is end systolic thickening and brightening. The gated Cardiolite study demonstrates myocardial thickening and inward wall motion. The reported LVEF is 56 %. Impression: 1. Rest and stress SPECT Cardiolite nuclear imaging demonstrate relative uniform tracer uptake and myocardial perfusion appearing within normal limits. 2. The gated Cardiolite study reports an LVEF of 56 %. This note was generated with DLCation software. It may contain incorrect words, spelling, and punctuation that were not noted in checking the note before signing.
--- NOTE | 2017-09-06 17:01 | STRESSREP_ITS ---
Stress Test Report Date: 09/06/2017 Procedure: Exercise tolerance test/imaging study Indications: This of breath/dyspnea, paroxysmal atrial fibrillation Consent: Per the patient Procedure: The patient exercised on a Alex protocol for 7 minutes completing Stage II and 1 minute of Stage III achieving a peak heart rate of 139 bpm (93 % predicted maximal heart rate) with a peak blood pressure 184/80 mmHg and a peak MET capacity of 8 METs. The baseline ECG demonstrated sinus bradycardia. The peak exercise ECG demonstrated no obvious ECG changes. There was a rare PAC during exercise and recovery. The functional capacity was considered good. There was no complaint of chest discomfort during exercise or recovery. The examination was discontinued secondary to dyspnea and leg discomfort. Impression: 1. Technically adequate (percent predicted maximal heart rate greater than 85% ) exercise tolerance test 2. Peak exercise ECG with no obvious ECG changes 3. Her was a rare PAC during exercise and recovery. 4. Nuclear images pending Myocardial perfusion imaging study: Technique: The patient was injected with 11.6 mCi of technetium 99m Cardiolite and subsequently rest SPECT Cardiolite nuclear imaging was obtained in the horizontal long, vertical long, and short axis views. The patient exercised on a Alex protocol for 7 minutes completing Stage II and 1 minute of stage III achieving a peak heart rate of 139 bpm (93 % predicted maximal heart rate) with a peak blood pressure 184/80 mmHg and a peak MET capacity of 8 METs. The patient was injected with 33.9 mCi of technetium 99m Cardiolite and subsequently stress SPECT Cardiolite nuclear imaging was obtained in the horizontal long, vertical long, and short axis views. A gated Cardiolite study at peak stress was obtained. Interpretation: Rest and stress SPECT Cardiolite nuclear imaging status post realignment, normalization, and attenuation correction, demonstrates the appearance of relative uniform tracer uptake and myocardial perfusion appearing within normal limits. There is end systolic thickening and brightening. The gated Cardiolite study demonstrates myocardial thickening and inward wall motion. The reported LVEF is 56 %. Impression: 1. Rest and stress SPECT Cardiolite nuclear imaging demonstrate relative uniform tracer uptake and myocardial perfusion appearing within normal limits. 2. The gated Cardiolite study reports an LVEF of 56 %. This note was generated with [employer] software. It may contain incorrect words, spelling, and punctuation that were not noted in checking the note before signing.
== END ==
PROVIDERS: Family Provider Internal Medicine; PCP Internal Medicine; Visit Provider Internal Medicine Cardiovascular Disease
DX: I10 Essential (primary) hypertension (principal); R06.02 Shortness of breath; I48.0 Paroxysmal atrial fibrillation; R00.1 Bradycardia, unspecified
CPT/HCPCS: 78452; 93017; A9500; A4216

== ENCOUNTER → 2017-11-26 12:45 | Outpatient (CLI) | payer MEDICARE, SELFPAY ==
--- NOTE | 2017-11-26 12:47 | UEAS_ITS ---
Reason For Study: Loss of balance - r/o vertebral artery occlusion RIGHT LEFT RT Vertebral Prox LT Vertebral Prox Neutral position - 83.8/17.0 cm/s Neutral position - 61.0/14.1 cm/s Head right - 86.8/29.9 cm/s Head right - 66.8/17.6 cm/s Head left - 83.3/21.7 cm/s Head left - 59.8/18.2 cm/s RT Vertebral Mid LT Vertebral Mid Neutral position - 104.0/28.1cm/s Neutral position - 75.0/20.5 cm/s Head right - 99.7/32.2 cm/s Head right - 80.3/18.8 cm/s Head left - 97.3/27.6 cm/s LT Vertebral Dist RT Vertebral Dist Neutral position - 44.6/11.5 cm/s Neutral position - 89.1/26.4 cm/s Head right - 49.0/10.9 cm/s Head right - 81.5/25.8 cms Head left - 47.5/21.8 cm/ Head left - 92.6/28.7 cm/s LT Vertebral Mid RT Vertebral Mid Head back 30 degrees - 51.0/17.6 Head back 30 degrees - 95.6/27.0 cm/s. cm/s. Interpretation Summary The vertebral arteries were evaluated bilaterally with positional maneuvers. Normal pulsatile arterial flow and normal peak systolic velocities were noted bilaterally in the neutral position, head right position, head left position, and head extended position. No flow abnormalities are noted in the vertebral arteries bilaterally. Ordering Physician: Bonilla Gary Referring Physician: Bonilla Gary Performed By: Dai Navarro RVT
== END ==
PROVIDERS: Family Provider Internal Medicine; PCP Internal Medicine; Visit Provider Internal Medicine
DX: I77.1 Stricture of artery (principal)
CPT/HCPCS: 93930

== ENCOUNTER → 2018-01-02 14:01 | Outpatient (CLI) | payer MEDICARE, SELFPAY | PROVIDERS: Family Provider Internal Medicine; PCP Internal Medicine; Visit Provider Internal Medicine Cardiovascular Disease | DX: R00.1 Bradycardia, unspecified (principal); I48.0 Paroxysmal atrial fibrillation | CPT/HCPCS: 93225; 93226 ==

== ENCOUNTER → 2018-01-10 15:21 | Outpatient (CLI) | payer MEDICARE, SELFPAY ==
[2018-01-10 17:13] LABS: Thyroid Stim Hormone (TSH) 2.24 uIU/mL (0.358-3.74)
[2018-01-10 17:24] LABS: Hemoglobin A1c 5.3 % (4.2-6.3)
[2018-01-10 18:40] LABS: Erythrocyte Sedimentation Rate 1 mm/hr (0-20)
[2018-01-11 12:06] LABS: Vitamin B12 255 pg/mL (211-911)
[2018-01-14 12:07] LABS: RNP Ab 0.4 AI (0.0-0.9); Smith Ab <0.2 AI (0.0-0.9)
[2018-01-14 16:09] LABS: PROEL- A/G Ratio 1.5 (0.7-1.7); PROEL- Albumin 3.8 g/dL (2.9-4.4); PROEL- Alpha-1 Globulin 0.2 g/dL (0.0-0.4); PROEL- Alpha-2 Globulin 0.5 g/dL (0.4-1.0); PROEL- Beta Globulin 0.8 g/dL (0.7-1.3); PROEL- Gamma Globulin 1.1 g/dL (0.4-1.8); PROEL- Globulin, Total 2.6 g/dL (2.2-3.9); PROEL- TOTAL PROTEIN 6.4 g/dL (6.0-8.5)
[2018-01-16 11:52] LABS: Hep C Antibodies <0.1 s/co ratio (0.0-0.9)
[2018-01-16 11:58] LABS: ANTINUCLEAR ANTIBODIES DIRECT Positive (Negative)
== END ==
PROVIDERS: Family Provider Internal Medicine; PCP Internal Medicine; Visit Provider Psychiatry & Neurology Neurology
DX: G62.9 Polyneuropathy, unspecified (principal); R73.9 Hyperglycemia, unspecified; R53.83 Other fatigue
CPT/HCPCS: 36415; 82607; 82746; 83036; 84165; 84443; 85652; 86038; 86235; 86431; 86803

== ENCOUNTER → 2018-01-12 07:33 | Outpatient (CLI) | payer MEDICARE, SELFPAY ==
[2018-01-14 10:39] LABS: HIV - WCH Non-Reactive (Nonreactive)
== END ==
PROVIDERS: Family Provider Internal Medicine; PCP Internal Medicine; Visit Provider Psychiatry & Neurology Neurology
DX: R73.9 Hyperglycemia, unspecified (principal); R53.83 Other fatigue; G62.9 Polyneuropathy, unspecified
CPT/HCPCS: 86703

== ENCOUNTER → 2019-02-17 | Outpatient (CLI) | payer MEDICARE, SELFPAY ==
[2019-02-17 10:41] VITALS: BMI 29.2
[2019-02-17 12:48] LABS: Absolute Lymphocyte Count 1.48 X10^3/uL (0.83-4.51); Absolute Neutrophil Count 3.3 X10^3/uL (2.0-7.7); Basophil# 0.02 X10^3/uL; Basophil% 0.4 % (0-1); Eosinophil# 0.13 X10^3/uL; Eosinophils% 2.4 % (0-5); Hematocrit 45.2 % (40-54); Lymphocyte # 1.48 X10^3/ul (4.0); Lymphocyte % 27.6 % (19-41); Mean Corp Hgb Conc 33.2 g/dL (32-36); Mean Corpuscular Hgb 29.6 pg (27.0-32.0); Mean Corpuscular Volume 89.3 fL (80-94); Mean Platelet Vol. 10.2 fl (6.2-12.0); Monocyte# 0.48 X10^3/uL; Monocyte% 8.9 % (0-10); NRBC Flagged by Analyzer 0 % (0-5); Neutrophil # 3.25 X10^3/uL (2.7-7.7); Neutrophil % 60.5 % (47-70); Platelet Count 238 K/mm3 (150-450); RBC Distribution Width CV 12.5 % (11.6-14.6); RBC Distribution Width SD 41.1 fl (35.1-43.9); Red Blood Count 5.06 M/mm3 (4.6-6.2); White Blood Count 5.4 K/mm3 (4.4-11.0)
[2019-02-17 13:38] LABS: ALB/GLOB Ratio 1.1 RATIO (0.9-2.4); AST(SGOT) 31 U/L (15-37); Alanine Aminotransfer ALT/SGPT 75 U/L (16-61); Albumin, Serum 3.9 g/dL (3.2-5.0); Alkaline Phosphatase 100 U/L (45-117); Anion Gap 5 (5-15); BUN 12 mg/dL (7-18); BUN/Creat Ratio 10.9 RATIO (10-20); Calcium,Total 8.7 mg/dL (8.5-10.1); Chloride 108 mmol/L (98-107); Cholesterol 197 mg/dL (200); EST Glomerular Filtration Rate 70 mL/min (>60); Est Glom Filt Rate - Afr Amer 84 mL/min (>60); Globulin 3.7 g/dL (2.2-4.2); Glucose 84 mg/dL (74-106); High Density Lipoprotein 51 mg/dL; Potassium 4.3 mmol/L (3.5-5.1); Protein, Total 7.6 g/dL (6.4-8.2); Sodium Level 141 mmol/L (136-145); Thyroid Stim Hormone (TSH) 4.17 uIU/mL (0.358-3.74); Triglycerides 224 mg/dL; Very Low Density Lipoprotein 45 mg/dL (5-40)
== END | disposition home or self-care (01) ==
PROVIDERS: Family Provider Internal Medicine; PCP Internal Medicine; Visit Provider Internal Medicine
DX: I10 Essential (primary) hypertension (principal); I48.0 Paroxysmal atrial fibrillation; R00.1 Bradycardia, unspecified
CPT/HCPCS: 36415; 80053; 80061; 84443; 85025

== ENCOUNTER → 2019-04-21 10:40 | Outpatient (CLI) | payer MEDICARE, SELFPAY ==
[2019-04-21 10:19] VITALS: BMI 28.3
[2019-04-21 12:27] LABS: Anion Gap 1 (5-15); BUN 16 mg/dL (7-18); BUN/Creat Ratio 13.8 RATIO (10-20); Calcium,Total 8.7 mg/dL (8.5-10.1); Chloride 109 mmol/L (98-107); Creatinine, Serum 1.16 mg/dL (0.70-1.30); EST Glomerular Filtration Rate 66 mL/min (>60); Est Glom Filt Rate - Afr Amer 79 mL/min (>60); Glucose 93 mg/dL (74-106); Potassium 4.2 mmol/L (3.5-5.1); Sodium Level 140 mmol/L (136-145)
== END ==
PROVIDERS: Family Provider Internal Medicine; PCP Internal Medicine; Visit Provider Internal Medicine
DX: E03.9 Hypothyroidism, unspecified (principal); I10 Essential (primary) hypertension; R94.6 Abnormal results of thyroid function studies
CPT/HCPCS: 36415; 80048; 84443

== ENCOUNTER → 2019-05-23 12:47 | Outpatient (CLI) | payer MEDICARE, SELFPAY ==
[2019-04-21 10:19] VITALS: BMI 28.3
== END ==
PROVIDERS: Family Provider Internal Medicine; PCP Internal Medicine; Referring Provider Internal Medicine Cardiovascular Disease; Visit Provider Internal Medicine Cardiovascular Disease
DX: I48.0 Paroxysmal atrial fibrillation (principal); R00.1 Bradycardia, unspecified
CPT/HCPCS: 93225; 93226

== ENCOUNTER → 2019-11-17 11:11 | Outpatient (CLI) | payer MEDICARE, SELFPAY ==
[2019-11-17 10:14] VITALS: BMI 28.8
[2019-11-17 13:28] LABS: ALB/GLOB Ratio 1.1 RATIO (0.9-2.4); AST(SGOT) 20 U/L (15-37); Alanine Aminotransfer ALT/SGPT 41 U/L (16-61); Albumin, Serum 3.8 g/dL (3.2-5.0); Alkaline Phosphatase 94 U/L (45-117); Anion Gap 7 (5-15); BUN 12 mg/dL (7-18); BUN/Creat Ratio 10.9 RATIO (10-20); Calcium,Total 8.7 mg/dL (8.5-10.1); Chloride 105 mmol/L (98-107); EST Glomerular Filtration Rate 70 mL/min (>60); Est Glom Filt Rate - Afr Amer 84 mL/min (>60); Globulin 3.6 g/dL (2.2-4.2); Glucose 94 mg/dL (74-106); Potassium 4.4 mmol/L (3.5-5.1); Protein, Total 7.4 g/dL (6.4-8.2); Sodium Level 139 mmol/L (136-145); T4 Free Direct 0.89 ng/dL (0.76-1.46)
== END ==
PROVIDERS: PCP Internal Medicine; Referring Provider Internal Medicine; Visit Provider Internal Medicine
DX: I10 Essential (primary) hypertension (principal); E03.9 Hypothyroidism, unspecified
CPT/HCPCS: 36415; 80053; 84439; 84443

== ENCOUNTER → 2020-08-25 11:41 | Outpatient (CLI) | payer MEDICARE, SELFPAY ==
[2020-08-25 10:49] VITALS: BMI 29.3
[2020-08-25 14:24] LABS: Absolute Lymphocyte Count 1.29 X10^3/uL (0.83-4.51); Basophil# 0.02 X10^3/uL; Basophil% 0.4 % (0-1); Eosinophil# 0.16 X10^3/uL; Eosinophils% 3.2 % (0-5); Hematocrit 45.1 % (40-54); Hemoglobin 14.2 g/dL (13.0-16.5); Lymphocyte # 1.29 X10^3/ul (0.83-4.51); Lymphocyte % 26.1 % (19-41); Mean Corp Hgb Conc 31.5 g/dL (32-36); Mean Corpuscular Hgb 28.8 pg (27.0-32.0); Mean Corpuscular Volume 91.5 fL (80-94); Mean Platelet Vol. 10.6 fl (6.2-12.0); Monocyte# 0.42 X10^3/uL; Monocyte% 8.5 % (0-10); NRBC Flagged by Analyzer 0 % (0-5); Neutrophil # 3.04 X10^3/uL (2.7-7.7); Neutrophil % 61.6 % (47-70); Platelet Count 240 K/mm3 (150-450); RBC Distribution Width CV 12.8 % (11.6-14.6); RBC Distribution Width SD 41.9 fl (35.1-43.9); Red Blood Count 4.93 M/mm3 (4.6-6.2); White Blood Count 4.9 K/mm3 (4.4-11.0)
[2020-08-25 14:45] LABS: ALB/GLOB Ratio 0.9 RATIO (0.9-2.4); AST(SGOT) 14 U/L (15-37); Alanine Aminotransfer ALT/SGPT 27 U/L (16-61); Albumin, Serum 3.7 g/dL (3.2-5.0); Alkaline Phosphatase 88 U/L (45-117); Anion Gap 4 (5-15); BUN 12 mg/dL (7-18); BUN/Creat Ratio 10.6 RATIO (10-20); Chloride 106 mmol/L (98-107); Creatinine, Serum 1.13 mg/dL (0.70-1.30); EST Glomerular Filtration Rate 67 mL/min (>60); Est Glom Filt Rate - Afr Amer 82 mL/min (>60); Globulin 3.9 g/dL (2.2-4.2); Glucose 103 mg/dL (74-106); Potassium 3.9 mmol/L (3.5-5.1); Protein, Total 7.6 g/dL (6.4-8.2); Sodium Level 139 mmol/L (136-145); Thyroid Stim Hormone (TSH) 2.78 uIU/mL (0.358-3.74)
== END ==
PROVIDERS: PCP Internal Medicine; Referring Provider Internal Medicine; Visit Provider Internal Medicine
DX: I10 Essential (primary) hypertension (principal); E03.9 Hypothyroidism, unspecified
CPT/HCPCS: 36415; 80053; 84443; 85025

== ENCOUNTER 2020-11-29 07:34 | Emergency (ER) | payer OTHER, MEDICARE, SELFPAY ==
[2020-11-15 10:51] VITALS: BMI 29.3
[2020-11-29 07:35] VITALS: BP 153/86; PULSE 54; RESP 17; TEMP 36.2; O2SAT 98; BMI 29.5
--- NOTE | 2020-11-29 07:50 | EKG12_ITS ---
Test Reason : CP Blood Pressure : / mmHG Vent. Rate : 051 BPM Atrial Rate : 051 BPM P-R Int : 156 ms QRS Dur : 092 ms QT Int : 444 ms P-R-T Axes : 027 -07 005 degrees QTc Int : 409 ms Sinus bradycardia Inferior infarct , age undetermined, cannot be excluded Abnormal ECG Confirmed by LAYNE BADILLO, KELLEN ([id number]), medical editor KOBE LEVY ([id number]) on 12/02/2020 10:07:04 AM Referred By: GALILEO Confirmed By:KELLEN TILLMAN MD
--- NOTE | 2020-11-29 07:50 | RAD_ITS ---
STUDY: X-RAY CHEST REASON FOR EXAM: Male, 75 years old. Acute onset of chest pain. TECHNIQUE: Single AP portable view of the chest. COMPARISON: Comparison is made with prior study dated 06/14/2017. FINDINGS: EKG electrodes are seen. Stable 7.8 mm nodule in the lateral aspect of the right lung base suggestive of a partially calcified granuloma. There is no demonstrated pleural abnormality. There is mild cardiac enlargement. Normal mediastinum and concha. Normal visualized pulmonary arteries. There is atherosclerotic tortuosity of the aortic arch and descending thoracic aorta. Normal visualized thoracic spine. Normal visualized ribs, clavicles, and shoulders. There is no demonstrated abnormality of the visualized soft tissue structures of the upper abdomen. RAD/Chest 1 View (Portable) IMPRESSION: Mild cardiomegaly. Electronically Signed: Jose Marquez MD at 8:37 EDT , Service support ,
--- NOTE | 2020-11-29 07:51 | EDS_ITS ---
HPI History of Present Illness Chief Complaint: Chest Pain Informant: patient Onset/Context/Timing Onset: Today Activity at onset: sudden and rest Timing: Continuous Quality: Positive for - (Cramping) Location: Substernal Worsened By: Nothing Relieved By: - (Deep breathing) Associated Symptoms: Positive for Palpitations; Negative for Nausea, Vomiting, Diaphoresis, Dyspnea, Cough, Fever, Lightheadedness and Acid Reflux Narrative Narrative: chest pain that began this morning when he woke up. Patient states this was approximately 2 hours prior to arrival.Patient presents with Patient states it feels like a cramping in the substernal area. Patient denies any radiation of the pain. Patient denies any back pain. Patient denies any neck pain. Patient states it got better with taking some deep breaths. Patient states she did feel some palpitations when he woke up today. Patient states he typically feels some palpitations early in the morning. Patient states she also noted that his blood pressure was elevated this morning with a systolic blood pressure in the 180s. Patient states he normally takes his blood pressure medications at night. Patient states he has been compliant with his blood pressure medications. CVD Risk Factors: Positive for Hypertension; Negative for Diabetes, Hypercholesterolemia, Family History 1' </=55 and Smoking PE Risk Factors: Negative for Recent Travel/Surgery, Recent Immobilization, Prior DVT or PE, Cancer and OCP + Smoking + >/=35 PFSH [facility] Medical History Bradycardia Carotid stenosis, left Essential hypertension Fatigue Hepatitis A antibody positive Hypertension Neuropathy Paroxysmal atrial fibrillation Sleep apnea Vertigo Home Medications apixaban 5 mg tablet 5 mg PO BID 01/24/18 [History Last Taken Unknown] metoprolol succinate 25 mg tablet,extended release 24 hr 12.5 mg PO DAILY tab 04/26/20 [History Last Taken Unknown] olmesartan 5 mg tablet 5 mg PO DAILY tab 04/26/20 [History Last Taken Unknown] Allergy/AdvReac Type Severity Reaction Status Date / Time No Known Allergies Allergy Verified 11/29/20 07:36 Family History Mother Cancer endometrial Father Heart disease CVA (cerebral vascular accident) Hypertension Cancer melanoma Sister Breast cancer Surgical History History of oral surgery History of tonsillectomy Social History Smoking Status: Never smoker alcohol intake: never substance use type: does not use what type of physical 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 ROS ROS ED Constitutional Constitutional ED: Denies chills or fever(s) Eyes Eyes: Denies blurry vision or change in vision ENT ENT ED: Denies rhinorrhea or sore throat Cardiovascular Cardiovascular: Reports chest pain and palpitations Respiratory/Chest Respiratory/Chest: Denies cough or dyspnea Gastrointestinal Gastrointestinal: Denies abdominal pain, nausea or vomiting Genitourinary Genitourinary ED: Denies dysuria or hematuria Musculoskeletal Musculoskeletal: Denies back pain or neck pain Integumentary Denies abscess or rash Neurologic Neurologic: Denies headache(s) or weakness Allergic/Immunologic Allergic/Immunologic ED: Reports urticaria; Denies mouth swelling EXAM Physical Exam Const Vital Signs: 11/29/20 07:35 11/29/20 08:04 11/29/20 08:37 Temperature 97.1 F L Temperature Source Temporal Pulse Rate 54 L 49 L Respiratory Rate 17 16 Blood Pressure 153/86 H 138/88 H Blood Pressure Mean 108 104 Pulse Ox 98 96 Oxygen Delivery Method Room Air Room Air Room Air 11/29/20 09:24 Temperature Temperature Source Pulse Rate 51 L Respiratory Rate 20 H Blood Pressure 142/90 H Blood Pressure Mean 107 Pulse Ox 97 Oxygen Delivery Method Room Air Positive well nourished and well developed General Appearance ED: well developed HEENT normocephalic and atraumatic Eyes PERRL and EOMs intact bilaterally Neck supple and no JVD Chest Wall palpation of chest normal Resp normal respiratory effort and clear to auscultation bilaterally Effort and Inspection: Negative for respiratory distress Cardio regular rate, regular rhythm and no murmurs GI normal to inspection, nondistended, normoactive bowel sounds, soft to palpation, non-tender and non-distended Extremity normal to inspection General Extremety ED: Negative for edema or tenderness General Extremity: Negative for edema Neuro oriented x3, CN's II-XII intact bilaterally and no sensory deficits noted Sensorium / Orientation: awake and alert Motor Exam: strength 5/5 throughout Psych mental status grossly normal Heart Score History: Slightly/Non-Suspicious ECG: Normal Age: >/= 65 years Risk Factors: 1 or 2 Risk Factors Troponin: </= Normal Limit Score: 3 MDM MDM MDM Narrative Medical decision making narrative: EKG was obtained. On my interpretation, it showed a sinus bradycardia with a rate of 51. PA interval, QRS interval, and QTc intervals were all normal. [place] was normal. There are no acute ST or T wave changes. This was unchanged compared to previous EKG dated 02/20/2019. Portable 1 view chest x-ray was obtained. On my interpretation, lung wong are clear. There is mild cardiomegaly. Bony thorax is normal. There is no acute process noted. Radiologist also interpreted the x-ray and agrees. CBC and basic metabolic profile were within normal limits. Initial high-sensitivity troponin was normal at 11.2. 2-hour repeat troponin was 11.6. Patient has a HEART score of 3. Patient was advised that this is low risk for acute cardiac event. Patient was instructed to follow-up with his primary care physician in 5 to 7 days. Patient understood and was agreeable with the plan. All questions were answered. Lab Data Attestation: I reviewed the patient's lab results. Labs: Laboratory Results - last 24 hr 11/29/20 11/29/20 11/29/20 07:40 07:40 09:40 WBC 4.9 RBC 4.99 Hgb 14.9 Hct 44.6 MCV 89.4 MCH 29.9 MCHC 33.4 RDW Std Deviation 41.1 RDW Coeff of Lupe 12.6 Plt Count 223 MPV 10.1 Immature Gran % (Auto) 0.200 Neut % (Auto) 51.8 Lymph % (Auto) 32.7 [place] % (Auto) 10.4 H Eos % (Auto) 4.3 Baso % (Auto) 0.6 Absolute Neuts (auto) 2.6 Absolute Lymphs (auto) 1.61 Nucleated RBC % 0 Sodium 141 Potassium 4.0 Chloride 108 H Carbon Dioxide 30.0 Anion Gap 3 L BUN 17 Creatinine 1.12 Estim Creat Clear Calc 57.86 Est GFR (MDRD) Af Amer 82 Est GFR (MDRD) Non-Af 68 BUN/Creatinine Ratio 15.2 Glucose 97 Calcium 8.9 Troponin I High Sens 11.2 11.6 Radiography Chest X-Ray - ED: 1 View, Read by ED Physician, Read by Radiologist, No Acute Disease and Cardiomegaly Diagnostic Testing: Radiology Impression Chest X-Ray 11/29/20 07:50 IMPRESSION: Mild cardiomegaly. Electronically Signed: Jose Marquez MD at 8:37 EDT , Service support , EKG Initial EKG: Attestation: I personally reviewed and interpreted this EKG as follows: Interpretation: No Acute Injury Pattern and Sinus Bradycardia (51) Prior EKG tracings: available for review Prior: Unchanged (02/20/2019) Discharge Plan Triage Chief Complaint: Chest Pain ED Provider: Prasanna Soto Dx/Rx/DC Orders Clinical Impression: Chest pain of uncertain etiology Instructions: ED Chest Pain, Uncertain Cause Prescriptions: No Action apixaban [Eliquis] 5 mg tablet 5 mg PO BID RF: 0 olmesartan 5 mg tablet 5 mg PO DAILY RF: 0 metoprolol succinate 25 mg tablet extended release 24 hr 12.5 mg PO DAILY RF: 0 Primary Care Provider: Bonilla Gary Referrals: Bonilla Gary MD [Primary Care Provider] - 5-7 Days Disposition Disposition: Home, Self Care
[2020-11-29 08:04] LABS: Absolute Lymphocyte Count 1.61 X10^3/uL (0.83-4.51); Absolute Neutrophil Count 2.6 X10^3/uL (2.0-7.7); Basophil# 0.03 X10^3/uL; Basophil% 0.6 % (0-1); Eosinophil# 0.21 X10^3/uL; Eosinophils% 4.3 % (0-5); Hematocrit 44.6 % (40-54); Hemoglobin 14.9 g/dL (13.0-16.5); Lymphocyte # 1.61 X10^3/ul (0.83-4.51); Lymphocyte % 32.7 % (19-41); Mean Corp Hgb Conc 33.4 g/dL (32-36); Mean Corpuscular Hgb 29.9 pg (27.0-32.0); Mean Corpuscular Volume 89.4 fL (80-94); Mean Platelet Vol. 10.1 fl (6.2-12.0); Monocyte# 0.51 X10^3/uL; Monocyte% 10.4 % (0-10); NRBC Flagged by Analyzer 0 % (0-5); Neutrophil # 2.55 X10^3/uL (2.7-7.7); Neutrophil % 51.8 % (47-70); Platelet Count 223 K/mm3 (150-450); RBC Distribution Width CV 12.6 % (11.6-14.6); RBC Distribution Width SD 41.1 fl (35.1-43.9); Red Blood Count 4.99 M/mm3 (4.6-6.2); White Blood Count 4.9 K/mm3 (4.4-11.0)
[2020-11-29] MEDS: Aspirin 81 MG TAB.CHEW 324 MG PO (08:05)
[2020-11-29 08:16] LABS: Anion Gap 3 (5-15); BUN 17 mg/dL (7-18); BUN/Creat Ratio 15.2 RATIO (10-20); Calcium,Total 8.9 mg/dL (8.5-10.1); Chloride 108 mmol/L (98-107); Creatinine, Serum 1.12 mg/dL (0.70-1.30); EST Glomerular Filtration Rate 68 mL/min (>60); Est Glom Filt Rate - Afr Amer 82 mL/min (>60); Estimated Creatinine Clearance 57.86 ml/min; Glucose 97 mg/dL (74-106); Sodium Level 141 mmol/L (136-145); Troponin-I HS 11.2 pg/mL (3.0-78.5)
[2020-11-29 08:37] VITALS: BP 138/88; PULSE 49; RESP 16; O2SAT 96
[2020-11-29 09:24] VITALS: BP 142/90; PULSE 51; RESP 20; O2SAT 97
[2020-11-29 10:07] LABS: Troponin-I HS 11.6 pg/mL (3.0-78.5)
[2020-11-29 10:54] VITALS: BP 158/86; PULSE 56; RESP 18; O2SAT 97
== END 2020-11-29 10:55 | disposition home or self-care (01) ==
PROVIDERS: Emergency Provider Emergency Medicine; PCP Internal Medicine
DX: R07.9 Chest pain, unspecified (principal); I10 Essential (primary) hypertension; I48.0 Paroxysmal atrial fibrillation; G62.9 Polyneuropathy, unspecified; Z79.01 Long term (current) use of anticoagulants; Z79.899 Other long term (current) drug therapy; R00.1 Bradycardia, unspecified
CPT/HCPCS: 71045; 80048; 84484; 85025; 93005; 99284

== ENCOUNTER → 2021-01-18 05:38 | Outpatient (CLI) | payer MEDICARE, SELFPAY ==
--- NOTE | 2021-01-18 08:06 | STRESSREP_ITS ---
Stress Test Report Date: 01-18-2021 Procedure: Exercise tolerance test/imaging study Indications: Chest pain; cardiac dysrhythmia; paroxysmal atrial fibrillation; bradycardia Consent: Per the patient Procedure: The patient exercised on a Alex protocol for 6 minutes and 30 completing Stage II and 30 seconds of Stage III achieving a peak heart rate of 131 bpm (89% predicted maximal heart rate) with a peak blood pressure 190/94 mmHg and a peak MET capacity of 8 METs. The baseline ECG demonstrated sinus bradycardia. The peak exercise ECG demonstrated somatic/motion artifact with no obvious ECG changes. There were no cardiac dysrhythmias pretest, during exercise, or recovery. The functional capacity was considered good. There was no complaint of chest discomfort during exercise or recovery. The examination was discontinued secondary to dyspnea. Impression: 1. Technically adequate (percent predicted maximal heart rate greater than 85%) exercise tolerance test 2. Peak exercise ECG with somatic/motion artifact with no obvious ECG changes 3. There were no cardiac dysrhythmias pretest, during exercise, or recovery 4. Nuclear images pending Myocardial perfusion imaging study: Technique: The patient was injected with 11.5 mCi of technetium 99m Cardiolite and subsequently rest SPECT Cardiolite nuclear imaging was obtained in the hori zontal long, vertical long, and short axis views. The patient exercised on a Alex protocol for 6 minutes and 30 completing Stage II and 30 seconds of Stage III achieving a peak heart rate of 131 bpm (89% predicted maximal heart rate) with a peak blood pressure 190/94 mmHg and a peak MET capacity of 8 METs. The patient was injected with 31.3 mCi of technetium 99m Cardiolite and subsequently stress SPECT Cardiolite nuclear imaging was obtained in the horizontal long, vertical long, and short axis views. A gated Cardiolite study at peak stress was obtained. Interpretation: Rest and stress SPECT Cardiolite nuclear imaging status post realignment, normalization, and attenuation correction, demonstrates the appearance of relative uniform tracer uptake and myocardial perfusion appearing within normal limits. There is end systolic thickening and brightening. The gated Cardiolite study demonstrates myocardial thickening and inward wall motion. The reported LVEF is 59%. Impression: 1. Rest and stress SPECT Cardiolite nuclear imaging demonstrate relative uniform tracer uptake and myocardial perfusion appearing within normal limits. 2. The gated Cardiolite study reports an LVEF of 59%. This note was generated with [employer] software. It may contain incorrect words, spelling, and punctuation that were not noted in checking the note before signing.
== END ==
PROVIDERS: PCP Internal Medicine; Referring Provider Internal Medicine Cardiovascular Disease; Visit Provider Internal Medicine Cardiovascular Disease
DX: R07.9 Chest pain, unspecified (principal); I48.0 Paroxysmal atrial fibrillation
CPT/HCPCS: 78452; 93017; A9500; A4216

== ENCOUNTER → 2021-09-15 | Outpatient (CLI) | payer MEDICARE, SELFPAY ==
[2021-09-15 12:37] LABS: Anion Gap 4 (5-15); BUN 18 mg/dL (7-18); BUN/Creat Ratio 14.6 RATIO (10-20); Calcium,Total 9.4 mg/dL (8.5-10.1); Chloride 109 mmol/L (98-107); Creatinine, Serum 1.23 mg/dL (0.70-1.30); EST Glomerular Filtration Rate 61 mL/min (>60); Est Glom Filt Rate - Afr Amer 74 mL/min (>60); Glucose 99 mg/dL (74-106); Potassium 4.3 mmol/L (3.5-5.1); Sodium Level 141 mmol/L (136-145)
== END | disposition home or self-care (01) ==
LOC: BIMLAB 09:22
PROVIDERS: PCP Internal Medicine; Referring Provider Internal Medicine; Visit Provider Internal Medicine
DX: I10 Essential (primary) hypertension (principal)
CPT/HCPCS: 36415; 80048

== ENCOUNTER → 2021-11-17 | Outpatient (CLI) | payer MEDICARE, SELFPAY ==
--- NOTE | 2021-11-17 07:53 | CDU_ITS ---
Reason For Study: Carotid artery stenosis Rt. Velocities/BP Lt. Velocities/BP Prox CCA 141.2/26.1 cm/sec. Prox CCA 128.4/20.6 cm/sec. Mid CCA 102.8/20.6 cm/sec. Mid CCA 115.6/18.8 cm/sec. Dist CCA 97.4/24.3 cm/sec. Dist CCA 115.6/20.6 cm/sec. Prox ICA 71.6/12.6 cm/sec. Prox ICA 92.5/20 cm/sec. Mid ICA 88.7/28.2 cm/sec. Mid ICA 79/24.9 cm/sec. Dist ICA 102.8/33.4 cm/sec. Dist ICA 90/32.3 cm/sec. Rt. ICA/CCA = 1.00. Lt. ICA/CCA = 0.80. Prox ECA 113.8/9.7 cm/sec. Prox ECA 121.1/11.5 cm/sec. Rt. Vert. 90/24.3 cm/sec. Lt. Vert. 51.3/11.6 cm/sec. Right Extracranial There is intimal thickening but no significant atherosclerotic plaque noted in the right common carotid artery. There is intimal thickening but no significant atherosclerotic plaque noted in the right internal carotid artery. The right internal carotid artery is very tortuous. There is intimal thickening but no significant atherosclerotic plaque noted in the right external carotid artery. Antegrade flow is noted in the right vertebral artery. Left Extracranial There is intimal thickening but no significant atherosclerotic plaque noted in the left common carotid artery. There is homogeneous, smooth atherosclerotic plaque noted in the left internal carotid artery. There is intimal thickening but no significant atherosclerotic plaque noted in the left external carotid artery. Antegrade flow is noted in the left vertebral artery. Procedure Carotid Duplex 43029. This is a Carotid Duplex examination using B-mode, color flow and specral Doppler. Exam performed in department. VL/Carotid Duplex Ultrasound Interpretation Summary Mild (<50%) stenosis right extracranial internal carotid. Mild (<50%) stenosis left extracranial internal carotid. Flow within the vertebral arteries is antegrade bilaterally. Ordering Physician: Jourdan Mar Referring Physician: Bonilla Gary Performed By: Paty Diggs RVT
== END | disposition home or self-care (01) ==
LOC: CVS 07:52
PROVIDERS: PCP Internal Medicine; Referring Provider Internal Medicine Cardiovascular Disease; Visit Provider Internal Medicine Cardiovascular Disease
DX: I65.22 Occlusion and stenosis of left carotid artery (principal)
CPT/HCPCS: 93880

== ENCOUNTER → 2021-12-07 | Outpatient (CLI) | payer MEDICARE, SELFPAY ==
[2021-12-07 12:08] LABS: Absolute Lymphocyte Count 1.62 X10^3/uL (0.83-4.51); Absolute Neutrophil Count 2.7 X10^3/uL (2.0-7.7); Basophil# 0.02 X10^3/uL; Basophil% 0.4 % (0-1); Eosinophil# 0.15 X10^3/uL; Hematocrit 44.6 % (40-54); Hemoglobin 14.9 g/dL (13.0-16.5); Lymphocyte # 1.62 X10^3/ul (0.83-4.51); Lymphocyte % 32.5 % (19-41); Mean Corp Hgb Conc 33.4 g/dL (32-36); Mean Corpuscular Hgb 30.5 pg (27.0-32.0); Mean Corpuscular Volume 91.2 fL (80-94); Monocyte# 0.51 X10^3/uL; Monocyte% 10.2 % (0-10); NRBC Flagged by Analyzer 0 % (0-5); Neutrophil # 2.66 X10^3/uL (2.7-7.7); Neutrophil % 53.5 % (47-70); Platelet Count 229 K/mm3 (150-450); RBC Distribution Width CV 12.3 % (11.6-14.6); RBC Distribution Width SD 40.8 fl (35.1-43.9); Red Blood Count 4.89 M/mm3 (4.6-6.2)
[2021-12-07 12:30] LABS: ALB/GLOB Ratio 1.1 RATIO (0.9-2.4); AST(SGOT) 28 U/L (15-37); Alanine Aminotransfer ALT/SGPT 50 U/L (16-61); Albumin, Serum 3.6 g/dL (3.2-5.0); Alkaline Phosphatase 86 U/L (45-117); Anion Gap 6 (5-15); BUN 19 mg/dL (7-18); BUN/Creat Ratio 17.8 RATIO (10-20); Calcium,Total 8.7 mg/dL (8.5-10.1); Chloride 109 mmol/L (98-107); Cholesterol 201 mg/dL (200); Creatinine, Serum 1.07 mg/dL (0.70-1.30); EST Glomerular Filtration Rate 72 mL/min (>60); Est Glom Filt Rate - Afr Amer 87 mL/min (>60); Globulin 3.4 g/dL (2.2-4.2); Glucose 93 mg/dL (74-106); High Density Lipoprotein 47 mg/dL; Potassium 4.6 mmol/L (3.5-5.1); Sodium Level 141 mmol/L (136-145); Triglycerides 251 mg/dL; Very Low Density Lipoprotein 50 mg/dL (5-40)
== END | disposition home or self-care (01) ==
LOC: BIMLAB 08:20
PROVIDERS: PCP Internal Medicine; Visit Provider Internal Medicine
DX: R00.1 Bradycardia, unspecified (principal); I10 Essential (primary) hypertension; I65.22 Occlusion and stenosis of left carotid artery
CPT/HCPCS: 36415; 80053; 80061; 85025

== ENCOUNTER → 2022-08-28 | Outpatient (CLI) | payer MEDICARE, SELFPAY ==
[2022-08-28 12:38] LABS: Anion Gap 3 (5-15); BUN 14 mg/dL (7-18); BUN/Creat Ratio 11.8 RATIO (10-20); Calcium,Total 9.3 mg/dL (8.5-10.1); Chloride 107 mmol/L (98-107); Creatinine, Serum 1.19 mg/dL (0.70-1.30); EST Glomerular Filtration Rate 63 mL/min (>60); Est Glom Filt Rate - Afr Amer 76 mL/min (>60); Glucose 86 mg/dL (74-106); Potassium 4.2 mmol/L (3.5-5.1); Sodium Level 138 mmol/L (136-145)
== END | disposition home or self-care (01) ==
LOC: BIMLAB 09:35
PROVIDERS: PCP Internal Medicine; Visit Provider Internal Medicine
DX: I10 Essential (primary) hypertension (principal)
CPT/HCPCS: 36415; 80048

== ENCOUNTER → 2023-02-26 | Outpatient (CLI) | payer MEDICARE, SELFPAY ==
[2023-02-26 12:14] LABS: Absolute Lymphocyte Count 1.42 X10^3/uL (0.83-4.51); Absolute Neutrophil Count 2.7 X10^3/uL (2.0-7.7); Basophil# 0.02 X10^3/uL; Basophil% 0.4 % (0-1); Eosinophil# 0.11 X10^3/uL; Eosinophils% 2.3 % (0-5); Hematocrit 45.6 % (40-54); Hemoglobin 14.9 g/dL (13.0-16.5); Lymphocyte # 1.42 X10^3/ul (0.83-4.51); Mean Corp Hgb Conc 32.7 g/dL (32-36); Mean Corpuscular Hgb 29.7 pg (27.0-32.0); Mean Corpuscular Volume 90.8 fL (80-94); Mean Platelet Vol. 10.3 fl (6.2-12.0); Monocyte# 0.52 X10^3/uL; NRBC Flagged by Analyzer 0 % (0-5); Neutrophil # 2.65 X10^3/uL (2.7-7.7); Neutrophil % 56.1 % (47-70); Platelet Count 257 K/mm3 (150-450); RBC Distribution Width CV 12.5 % (11.6-14.6); RBC Distribution Width SD 41.1 fl (35.1-43.9); Red Blood Count 5.02 M/mm3 (4.6-6.2); White Blood Count 4.7 K/mm3 (4.4-11.0)
[2023-02-26 12:48] LABS: AST(SGOT) 15 U/L (15-37); Alanine Aminotransfer ALT/SGPT 32 U/L (16-61); Albumin, Serum 3.7 g/dL (3.2-5.0); Alkaline Phosphatase 91 U/L (45-117); Anion Gap 1 (5-15); BUN 16 mg/dL (7-18); BUN/Creat Ratio 15.1 RATIO (10-20); Calcium,Total 9.2 mg/dL (8.5-10.1); Chloride 108 mmol/L (98-107); Cholesterol 199 mg/dL (200); Creatinine, Serum 1.06 mg/dL (0.70-1.30); EST Glomerular Filtration Rate 72 mL/min (>60); Est Glom Filt Rate - Afr Amer 87 mL/min (>60); Globulin 3.8 g/dL (2.2-4.2); Glucose 85 mg/dL (74-106); High Density Lipoprotein 47 mg/dL; Potassium 4.4 mmol/L (3.5-5.1); Protein, Total 7.5 g/dL (6.4-8.2); Sodium Level 139 mmol/L (136-145); Triglycerides 280 mg/dL; Very Low Density Lipoprotein 56 mg/dL (5-40)
== END | disposition home or self-care (01) ==
LOC: BIMLAB 11:25
PROVIDERS: PCP Internal Medicine; Referring Provider Internal Medicine; Visit Provider Internal Medicine
DX: R00.1 Bradycardia, unspecified (principal); I10 Essential (primary) hypertension
CPT/HCPCS: 36415; 80053; 80061; 85025

== ENCOUNTER 2023-08-01 19:29 | Inpatient (IN) | payer OTHER, SELFPAY ==
[2023-08-01 19:30] VITALS: BP 137/109; PULSE 147; RESP 17; TEMP 36.6; O2SAT 97; BMI 28.7
--- NOTE | 2023-08-01 19:37 | EKG12_ITS ---
Test Reason : CP Blood Pressure : / mmHG Vent. Rate : 147 BPM Atrial Rate : 147 BPM P-R Int : 120 ms QRS Dur : 138 ms QT Int : 328 ms P-R-T Axes : 000 -63 -34 degrees QTc Int : 513 ms Critical Test Result: High HR Atrial flutter with 2:1 Left axis deviation Right bundle branch block Inferior infarct (cited on or before 25-JUN-2017) Abnormal ECG Confirmed by TYLER BADILLO, HAYDEN ([id number]), editor in chief KOBE LEVY ([id number]) on 08/03/2023 8:17:57 AM Referred By: IVAN Confirmed By:HAYDEN SCOTT MD
--- NOTE | 2023-08-01 19:50 | EDS_ITS ---
HPI <Parris Erickson RN - Last Filed: 08/01/23 22:30> History of Present Illness Chief Complaint: Palpitations Detail of Chief Complaint: Palpitations following 1 episode of vomiting, jaw aching Informant: patient Onset/Context/Timing Onset: Today Context: Sudden Onset Timing: Continuous Current Severity: Mild Maximum Severity: Mild Worsened by: Nothing Relieved by: Nothing Associated Symptoms Associated Symptoms: Jaw aching, dizziness, nausea Narrative Narrative: Patient is a 78-year-old male with past medical history significant for bradycardia, paroxysmal atrial fibrillation, neuropathy, vertigo, and sleep apnea who presented with palpitations following an episode of vomiting. Per patient he had diarrhea throughout the day yesterday, nausea today, and 1 ep isode of emesis today. Patient reports since wearing CPAP, he has had less frequent episodes of atrial fibrillation. He reports these usually occur in the morning and spontaneously resolved after approximately 10 minutes. He also reports dizziness with standing and aching to mandible. He denies chest pain and shortness of breath. He does continue with nausea. Patient denies recent hospitalizations or travel. Prior similar symptoms: No Recent Illness/Hospitalization: No PFSH <Parris Erickson RN - Last Filed: 08/01/23 22:30> PFSH Medical History Bradycardia Carotid stenosis, left COVID-19 Essential hypertension Fatigue Flu vaccine need GERD (gastroesophageal reflux disease) Hepatitis A antibody positive Hypertension Neuropathy Paroxysmal atrial fibrillation Sleep apnea Vertigo Home Medications apixaban 5 mg tablet (Eliquis) 5 mg PO BID 01/24/18 [History Last Taken Unknown] Handicap Placard #1 ea 02/27/22 [Rx Last Taken Unknown] metoprolol succinate 25 mg tablet,extended release 24 hr 12.5 mg (1/2 x 25 mg) PO DAILY #90 tabs 02/27/22 [Rx Last Taken Unknown] Allergy/AdvReac Type Severity Reaction Status Date / Time No Known Allergies Allergy Verified 08/01/23 19:32 Family History Mother Cancer endometrial Father Heart disease CVA (cerebral vascular accident) Hypertension Cancer melanoma Sister Breast cancer Surgical History History of oral surgery History of tonsillectomy Social History Smoking Status: Never smoker alcohol intake: never substance use type: does not use what type of physical 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 ROS <Parris Erickson RN - Last Filed: 08/01/23 22:30> ROS ED Constitutional Constitutional ED: Denies chills, fever(s) or sweats Eyes Eyes: Denies change in vision ENT ENT ED: Denies ear pain, rhinorrhea or sore throat Cardiovascular Cardiovascular: Reports palpitations and racing heartbeat; Denies chest pain, orthopnea or paroxysmal nocturnal dyspnea Respiratory/Chest Respiratory/Chest: Denies cough, dyspnea, dyspnea on exertion, orthopnea or paroxysmal nocturnal dyspnea Gastrointestinal Gastrointestinal: Reports nausea and vomiting; Denies abdominal pain, con stipation, diarrhea or melena Genitourinary Genitourinary ED: Denies dysuria, hematuria or urinary frequency Musculoskeletal Musculoskeletal: Denies arthralgias, back pain, myalgias or neck pain Integumentary Denies abscess, Abrasions or rash Neurologic Neurologic: Denies headache(s), paresthesias or weakness Psychiatric Psychiatric: Denies anxiety, depression, suicidal ideation or suicidal thoughts Endocrine Endocrinology: Denies cold intolerance, heat intolerance, polydipsia, polyphagia or polyuria Hematologic/Lymphatic Hematologic/Lymphatic: Reports systems reviewed and no addt'l complaints, except as documented EXAM <Parris Erickson RN - Last Filed: 08/01/23 22:30> Physical Exam Narrative Exam Narrative: Patient awake, alert, cooperative, good historian. Const Vital Signs: 08/01/23 19:30 08/01/23 19:45 08/01/23 21:30 Temperature 97.8 F Temperature Source Temporal Pulse Rate 147 H 78 Respiratory Rate 17 16 Blood Pressure 137/109 H 126/78 H Blood Pressure Mean 118 94 Pulse Ox 97 98 Oxygen Delivery Method Room Air Room Air Room Air Positive well nourished and well developed General Appearance ED: well developed and NAD HEENT Reports dry mucous membranes Mouth ED: Yes dry mucous membranes Mouth: dry mucous membranes Eyes PERRL and EOMs intact bilaterally Neck no lymphadenopathy, supple and no JVD Chest Wall inspection of chest normal and palpation of chest normal Resp normal respiratory effort and clear to auscultation bilaterally Auscultation: Negative for rales, rhonchi or wheezes Cardio regular rate, S1 normal heart sound and S2 normal heart sound Rate: tachycardic and other Other Details: Sinus tachycardia at 147 versus a flutter. GI normal to inspection, nondistended, normoactive bowel sounds and non-tender Palpation: soft Extremity normal to inspection General Extremety ED: Negative for edema or tenderness General Extremity: Negative for edema Neuro oriented x3 Sensorium / Orientation: alert Motor Exam: strength 5/5 throughout Psych mental status grossly normal Skin no rashes or lesions noted, no wounds and skin turgor normal <Dr. Mitchell Guerrero MD - Last Filed: 08/01/23 22:21> Physical Exam Const Vital Signs: 08/01/23 19:30 08/01/23 19:45 08/01/23 21:30 Temperature 97.8 F Temperature Source Temporal Pulse Rate 147 H 78 Respiratory Rate 17 16 Blood Pressure 137/109 H 126/78 H Blood Pressure Mean 118 94 Pulse Ox 97 98 Oxygen Delivery Method Room Air Room Air Room Air MDM <Parris Erickson RN - Last Filed: 08/01/23 22:30> [facility] Narrative Medical decision making narrative: Patient placed on cardiac nurse specialist. IV line initiated. EKG obtained to evaluate for cardiac arrhythmia/ischemia. Labwork obtained to evaluate for leukocytosis, anemia, and electrolyte derangement. Patient given normal saline 1 L bolus for tachycardia and concern for dehydration. Reglan given for nausea. Chest x-ray obtained to evaluate for acute lung pathology, cardiac size, or mediastinal abnormality. I have personally performed a face to face assessment of the patient and have reviewed the MAYNOR Note. I performed a substantive portion of the visit including all aspects of the following. My berger findings include: History is 78-year-old male history of A-fib. Since Sunday he has been feeling well and has had multiple episodes of diarrhea and some nausea and vomiting today. Denies any fever. No melena or hematemesis. Started having accelerated heart rate today went to be evaluated. He denies any chest pain. Exam is [well-appearing 78-year-old male. Vital signs are stable other than tachycardia on the monitor 147. Does appear he has P waves this may be a sinus tachycardia. HEENT exam mild dry mucous membranes. Neck nontender. Lungs clear to auscultation back laterally. Heart tachycardic rate about 147 no murmur. Chest wall nontender. Abdomen soft nontender. Nondistended. Normal bowel sounds no peritoneal signs. Moving all 4 extremities. Nontender no edema. Neurologically is awake alert answering questions following commands. No focal motor deficits.] Medical Decision Making [78-year-old male several day history of nausea, vomiting and diarrhea. With the tachycardia. This may be a sinus tach versus A-fib or flutter. Will treat with IV fluids and screening labs to be obtained.] Other additions or changes: [None] History & Record Review Discussion w/independent historian: Patient and Significant other Lab Data Labs: Laboratory Results - last 24 hr 08/01/23 19:45 WBC 14.4 H RBC 5.99 Hgb 18.0 H* Hct 53.1 MCV 88.6 MCH 30.1 MCHC 33.9 RDW Std Deviation 40.5 RDW Coeff of Lupe 12.6 Plt Count 327 MPV 10.1 Immature Gran % (Auto) 0.400 Neut % (Auto) 82.8 H Lymph % (Auto) 11.6 L Edgar % (Auto) 4.6 Eos % (Auto) 0.3 Baso % (Auto) 0.3 Absolute Neuts (auto) 11.9 H Absolute Lymphs (auto) 1.67 Nucleated RBC % 0 Sodium 139 Potassium 3.9 Chloride 104 Carbon Dioxide 27.0 Anion Gap 8 BUN 21 H Creatinine 1.40 H Estim Creat Clear Calc 50.10 Est GFR (MDRD) Af Amer 63 Est GFR (MDRD) Non-Af 52 L BUN/Creatinine Ratio 15.0 Glucose 124 H Calcium 10.3 H Total Bilirubin 0.80 Direct Bilirubin 0.24 AST 18 ALT 38 Alkaline Phosphatase 109 Troponin I High Sens 13 Total Protein 8.9 H Albumin 4.7 Globulin 4.2 Amylase 39 Lipase 32 Radiography Chest X-Ray - ED: 1 View, Read by ED Physician and No Infiltrates Diagnostic Testing: Clinical Impression(s) from Imaging Studies Chest X-Ray 08/01/23 19:55 IMPRESSION: 1. No radiographic evidence of acute cardiopulmonary disease. Electronically Signed: Mango Blum DO at 20:57 EDT , Abdomen/Pelvis CT 08/01/23 20:43 IMPRESSION: 1. There is a cluster of mildly distended, fluid-filled bowel loops within the lower anterior abdomen with a small amount of surrounding fluid consistent with inflammatory changes. No well delineated transition point. Differential includes early small bowel obstruction, possible enteritis and closed loop obstruction with consideration for internal hernia. 2. Large simple cyst left kidney. 3. Indeterminate 6 mm right hepatic hypodensity. Correlation with liver MRI or multiphase liver CT is recommended. 4. Left lower lobe elongated opacities suggesting endobronchial debris. 3 month follow-up CT chest is recommended. Recommendation: Close clinical follow-up. Consider surgical consultation. Electronically Signed: Mango Blum DO at 21:56 EDT , EKG Initial EKG: Attestation: I personally reviewed and interpreted this EKG as follows: Comments: Sinus tachycardia with rate of 147 versus atrial flutter with right bundle macy block. No ischemia noted. Prior EKG tracings: not available for review Differential Diagnosis Chest pain/SOB: pulmonary embolism and ACS Differential Diagnosis: Dehydration Management Discussion w/another healthcare provider: Other (Dr. Guerrero, ED provider) Treatment and Re-Evaluation :: Lab work and imaging reviewed. CBC shows elevated white blood cell count 14.4 with neutrophils 82.8%, hemoglobin elevated 18, platelets are 327. Chemistry shows elevated BUN 21, creatinine 1.4, glucose is 124, calcium 10.3. Troponin is negative at 13. Liver enzymes, amylase, and lipase are unremarkable. Chest x-ray is negative for acute cardiopulmonary process. Initial EKG showed sinus tachycardia with a right bundle branch block versus atrial flutter with a heart rate in 140s. Patient was given Cardizem 20 mg slow IV push with heart rate decreasing to low 100s. EKG then showed atrial flutter with a right bundle branch block. Patient then later converted to sinus rhythm with a heart rate in 80s. Upon reevaluation, patient has received approximately 500 cc normal saline and heart rate remains 140s sinus tach versus a flutter. Patient also reports generalized abdominal discomfort and distention. Abdomen is firm and tender to palpation. Patient also reports blood streaking in the stool. He reports external hemorrhoids. Amylase, lipase, and liver profile ordered. CT with IV contrast also ordered. Patient with another episode of vomiting in the ED with greenish-brown emesis. Reglan 5 mg given with relief of symptoms. CT abdomen shows concern for gastritis versus small bowel obstruction. Dr. Guerrero discussed with Dr. Singh from surgery. Decision made to admit patient for monitoring. Discussed plan with patient and family. All are agreeable with plan and patient to be admitted. <Dr. Mitchell Guerrero MD - Last Filed: 08/01/23 22:21> [facility] Narrative Medical decision making narrative: Patient placed on cardiac nurse specialist. IV line initiated. EKG obtained to evaluate for cardiac arrhythmia/ischemia. Labwork obtained to evaluate for leukocytosis, anemia, and electrolyte derangement. Patient given normal saline 1 L bolus for tachycardia and concern for dehydration. Reglan given for nausea. Chest x-ray obtained to evaluate for acute lung pathology, cardiac size, or mediastinal abnormality. I have personally performed a face to face assessment of the patient and have reviewed the [facility]NOR Note. I performed a substantive portion of the visit including all aspects of the following. My berger findings include: History is 78-year-old male history of A-fib. Since Sunday he has been feeling well and has had multiple episodes of diarrhea and some nausea and vomiting today. Denies any fever. No melena or hematemesis. Started having accelerated heart rate today went to be evaluated. He denies any chest pain. Exam is [well-appearing 78-year-old male. Vital signs are stable other than tachycardia on the monitor 147. Does appear he has P waves this may be a sinus tachycardia versus atrial flutter.. HEENT exam mild dry mucous membranes. Neck nontender. Lungs clear to auscultation back laterally. Heart tachycardic rate about 147 no murmur. Chest wall nontender. Abdomen soft nontender. Nondistended. Normal bowel sounds no peritoneal signs. Moving all 4 extremities. Nontender no edema. Neurologically is awake alert answering questions following commands. No focal motor deficits.] Medical Decision Making [78-year-old male several day history of nausea, vomiting and diarrhea. With the tachycardia. This may be a sinus tach versus A-fib or flutter. Will treat with IV fluids and screening labs to be obtained.] Other additions or changes: Patient doing well at 10:19 PM. Abdomen is distended but is not really having much pain. There is no obvious hernia at this time. I discussed the patient's case with general surgery on-call Dr. Sarah Singh, who also reviewed the patient's CAT scan. This could be at gastroenteritis versus possibly an early bowel obstruction. At this time we are treating him as a gastroenteritis. Admitting to the hospitalist and watch the patient overnight and he will be reevaluated by general surgery tomorrow. Patient and his and family in the room have been informed of the plan and are comfortable with it. Lab Data Attestation: I reviewed the patient's lab results. Lab results narrative: CBC shows an elevated white count of 14.4. H&H of 18 and 53. Platelets 327. Electrolytes show gap of 8. BUN and creatinine 21 and 1.4 consistent with dehydration. Glucose 124. Liver enzymes normal. Amylase normal at 39. Lipase normal at 32. Anion gap of 8. Labs: Laboratory Results - last 24 hr 08/01/23 19:45 WBC 14.4 H RBC 5.99 Hgb 18.0 H* Hct 53.1 MCV 88.6 MCH 30.1 MCHC 33.9 RDW Std Deviation 40.5 RDW Coeff of Lupe 12.6 Plt Count 327 MPV 10.1 Immature Gran % (Auto) 0.400 Neut % (Auto) 82.8 H Lymph % (Auto) 11.6 L Edgar % (Auto) 4.6 Eos % (Auto) 0.3 Baso % (Auto) 0.3 Absolute Neuts (auto) 11.9 H Absolute Lymphs (auto) 1.67 Nucleated RBC % 0 Sodium 139 Potassium 3.9 Chloride 104 Carbon Dioxide 27.0 Anion Gap 8 BUN 21 H Creatinine 1.40 H Estim Creat Clear Calc 50.10 Est GFR (MDRD) Af Amer 63 Est GFR (MDRD) Non-Af 52 L BUN/Creatinine Ratio 15.0 Glucose 124 H Calcium 10.3 H Total Bilirubin 0.80 Direct Bilirubin 0.24 AST 18 ALT 38 Alkaline Phosphatase 109 Troponin I High Sens 13 Total Protein 8.9 H Albumin 4.7 Globulin 4.2 Amylase 39 Lipase 32 Radiography Chest X-Ray - ED: 1 View, Read by ED Physician, Heart, Lungs, Mediastinum, Bony Structures, No Acute Disease and Chronic Changes Diagnostic Testing: Clinical Impression(s) from Imaging Studies Chest X-Ray 08/01/23 19:55 IMPRESSION: 1. No radiographic evidence of acute cardiopulmonary disease. Electronically Signed: Mango Blum DO at 20:57 EDT , Abdomen/Pelvis CT 08/01/23 20:43 IMPRESSION: 1. There is a cluster of mildly distended, fluid-filled bowel loops within the lower anterior abdomen with a small amount of surrounding fluid consistent with inflammatory changes. No well delineated transition point. Differential includes early small bowel obstruction, possible enteritis and closed loop obstruction with consideration for internal hernia. 2. Large simple cyst left kidney. 3. Indeterminate 6 mm right hepatic hypodensity. Correlation with liver MRI or multiphase liver CT is recommended. 4. Left lower lobe elongated opacities suggesting endobronchial debris. 3 month follow-up CT chest is recommended. Recommendation: Close clinical follow-up. Consider surgical consultation. Electronically Signed: Mango Blum DO at 21:56 EDT , Chest x-ray, portable, single view shows no acute abnormality. Normal cardiac silhouette. Normal lung wong. No effusions. No CHF or infiltrates. Rhythm Strip Rhythm Strip: Sinus Tach Rate: 147 Ectopy: None EKG Initial EKG: Interpretation: Sinus Tachycardia Discharge Plan Dx/Rx/DC Orders Clinical Impression: Nausea vomiting and diarrhea, Acute dehydration, Atrial flutter, Chronic anticoagulation, Leukocytosis, Gastroenteritis Disposition Disposition: [facility]
--- NOTE | 2023-08-01 19:55 | RAD_ITS ---
INDICATION: chest pain EXAMINATION/TECHNIQUE: X-RAY - XR Chest 1 View COMPARISON: No relevant prior comparison studies available. FINDINGS: LINES/DEVICES: None. LUNGS: Symmetric normal lung volumes. No airspace opacity or abnormal interstitial pattern. No nodule or mass. No pleural effusion or pneumothorax. MEDIASTINUM AND CARDIOVASCULAR STRUCTURES: Normal size and contour of the cardiomediastinal silhouette. No evidence of pulmonary vascular congestion. BONES AND SOFT TISSUES: No fracture or focal osseous lesion. RAD/Chest 1 View (Portable) IMPRESSION: 1. No radiographic evidence of acute cardiopulmonary disease. Electronically Signed: Mango Blum DO at 20:57 EDT ,
[2023-08-01 19:59] LABS: Absolute Lymphocyte Count 1.67 X10^3/uL (0.83-4.51); Absolute Neutrophil Count 11.9 X10^3/uL (2.0-7.7); Basophil# 0.04 X10^3/uL; Basophil% 0.3 % (0-1); Eosinophil# 0.05 X10^3/uL; Eosinophils% 0.3 % (0-5); Hematocrit 53.1 % (40-54); Lymphocyte # 1.67 X10^3/ul (0.83-4.51); Lymphocyte % 11.6 % (19-41); Mean Corp Hgb Conc 33.9 g/dL (32-36); Mean Corpuscular Hgb 30.1 pg (27.0-32.0); Mean Corpuscular Volume 88.6 fL (80-94); Mean Platelet Vol. 10.1 fl (6.2-12.0); Monocyte# 0.66 X10^3/uL; Monocyte% 4.6 % (0-10); NRBC Flagged by Analyzer 0 % (0-5); Neutrophil % 82.8 % (47-70); Platelet Count 327 K/mm3 (150-450); RBC Distribution Width CV 12.6 % (11.6-14.6); RBC Distribution Width SD 40.5 fl (35.1-43.9); Red Blood Count 5.99 M/mm3 (4.6-6.2); White Blood Count 14.4 K/mm3 (4.4-11.0)
[2023-08-01] MEDS: 0.9% Normal Saline (1000mL) 1,000 ML 999 ML IV (20:01)
[2023-08-01] MEDS: Metoclopramide 10 MG/2 ML Vial 5 MG IV ×2 (20:15→21:47)
[2023-08-01 20:30] LABS: Anion Gap 8 (5-15); BUN 21 mg/dL (7-18); Calcium,Total 10.3 mg/dL (8.5-10.1); Chloride 104 mmol/L (98-107); EST Glomerular Filtration Rate 52 mL/min (>60); Est Glom Filt Rate - Afr Amer 63 mL/min (>60); Glucose 124 mg/dL (74-106); Potassium 3.9 mmol/L (3.5-5.1); Sodium Level 139 mmol/L (136-145); Troponin-I HS 13 pg/mL (3.0-78.0)
--- NOTE | 2023-08-01 20:43 | CT_ITS ---
INDICATION: abd pain EXAMINATION: CT ABDOMEN AND PELVIS WITH CONTRAST - CT Abdomen And Pelvis W/ Contrast Injection TECHNIQUE: Helically acquired images were obtained of the abdomen and pelvis following IV contrast. A radiation dose optimization technique was used for this scan. IV Contrast dosage and agent: 100 mL of Isovue-[id number]. Oral contrast: None. COMPARISON: Chest x-ray August 01, 2023 FINDINGS: LOWER CHEST: Left lower lobe elongated tubular structure suggesting endobronchial debris. Tiny adjacent calcification. There is minimal dependent atelectasis bilaterally. Lungs are otherwise clear. The base of the heart is normal in appearance. Distal esophagus is normal. LIVER: Indeterminate 16 mm hypodensity, segment 7. Normal size and enhancement. GALLBLADDER AND BILIARY TREE: No calcified gallstones. No gallbladder distension or wall edema. No intra- or extrahepatic biliary ductal dilation. PANCREAS: No focal cystic or solid mass. Mild fatty replacement. SPLEEN: Normal size without focal cystic or solid mass. Numerous splenic calcifications suggesting prior granulomatous infection. ADRENAL GLANDS: No nodules. KIDNEYS, URETERS and BLADDER: Large mid left kidney endocytic and exophytic cyst, 8.7 cm wide, 4.4 cm AP dimension and 6.4 cm craniocaudal dimension. This may represent adjacent cysts with imperceptible septations. There is a 5 mm coarse calcification within the posterior dependent portion of the cyst. No appreciable solid component. There is normal enhancement bilateral kidneys with no suspicious lesion. Bladder is unremarkable. PERITONEUM: No ascites or free air. No other fluid collection. BOWEL: Distended stomach without inflammatory changes. There is a cluster of mildly distended, fluid-filled bowel loops within the lower anterior abdomen with a small amount of surrounding fluid consistent with inflammatory changes. No well delineated transition point. Differential includes early small bowel obstruction, possible enteritis and closed loop obstruction with consideration for internal hernia. LYMPH NODES: No enlarged mesenteric or retroperitoneal lymph nodes. VESSELS: No significant atherosclerosis of abdominal aorta or mesenteric arteries. Normal portal vein. REPRODUCTIVE ORGANS: Minimal prostate enlargement, 4.6 cm in width. ABDOMINAL WALL: No discrete abdominal or pelvic wall hernia. BONES: No lytic or blastic abnormality. Multilevel degenerative endplate changes, most notable at L5-S1. There is also altered level facet arthropathy with significant facet arthropathy at L4-5 where there is significant vacuum disc phenomenon. CT/Abdomen/Pelvis W IV Cont ONLY IMPRESSION: 1. There is a cluster of mildly distended, fluid-filled bowel loops within the lower anterior abdomen with a small amount of surrounding fluid consistent with inflammatory changes. No well delineated transition point. Differential includes early small bowel obstruction, possible enteritis and closed loop obstruction with consideration for internal hernia. 2. Large simple cyst left kidney. 3. Indeterminate 6 mm right hepatic hypodensity. Correlation with liver MRI or multiphase liver CT is recommended. 4. Left lower lobe elongated opacities suggesting endobronchial debris. 3 month follow-up CT chest is recommended. Recommendation: Close clinical follow-up. Consider surgical consultation. Electronically Signed: Mango Blum DO at 21:56 EDT ,
[2023-08-01] MEDS: dilTIAZem 25 MG/5 ML Vial 20 MG IV BOLUS (20:51)
--- NOTE | 2023-08-01 21:00 | EKG12_ITS ---
Test Reason : DYSRHYTHMIA Blood Pressure : / mmHG Vent. 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
[2023-08-01 21:26] LABS: AST(SGOT) 18 U/L (15-37); Alanine Aminotransfer ALT/SGPT 38 U/L (16-61); Albumin, Serum 4.7 g/dL (3.2-5.0); Alkaline Phosphatase 109 U/L (45-117); Bilirubin, Direct 0.24 mg/dL (0.00-0.30); Globulin 4.2 g/dL (2.2-4.2); Protein, Total 8.9 g/dL (6.4-8.2)
[2023-08-01 21:30] VITALS: BP 126/78; PULSE 78; RESP 16; O2SAT 98
[2023-08-01 21:30] LABS: Amylase 39 U/L (25-115); Lipase 32 U/L (13-75)
[2023-08-01 22:33] VITALS: BP 118/86; PULSE 86; RESP 14; RESP 24; TEMP 36.7; O2SAT 97
--- NOTE | 2023-08-01 22:45 | PCM.HP.STD ---
[facility] - General General Date of Admission: 08/01/23 Date of Service: 08/01/23 Chief Complaint: Nausea, Vomiting and Palpitations. [facility] Narrative CALEB SAUER, is a 78 M with a past medical history of essential hypertension, history of subclinical hypothyroidism, overweight; BMI of 28.8 this admission, obstructive sleep apnea; on CPAP, paroxysmal atrial fibrillation; on Eliquis and metoprolol, history of Left carotid stenosis, neuropathy; of both feet, BPPV, history of COVID-19, GERD and osteoarthritis who presents to [facility] ER complaining of nausea, vomiting and palpitations. Mr. Sauer reports his symptoms began approximately 1 day prior to admission when he developed non-bloody diarrhea throughout the day yesterday after he accidentally ate a severely moldy piece of bread. Then earlier today he developed nausea with 1 episode of bilious emesis with an aspiration event that caused him to become short of breath at rest. He denies associated chest pain, blood in stools, blood in emesis or abdominal pain but he does admit to continued nausea. In the ER his CT scan of the abdomen pelvis revealed a cluster of mildly distended, fluid-filled bowel loops within the lower anterior abdomen with a small amount of surrounding fluid consistent with inflammatory changes but there was no well-delineated transition point with radiologist concerned for possible enteritis versus early small bowel obstruction along with consideration for internal hernia and elongated opacities in the Left lower lobe suggesting endobronchial debris consistent with suspected aspiration pneumonia with leukocytosis of 14.4 present on admission and polycythemia of 18 g/dL present on admission with his EKG in the ER showing spontaneous conversion from atrial flutter with right bundle branch block and rapid ventricular response of ~140 bpm to normal sinus rhythm at 80 bpm and he was then admitted to the general medical floor with telemetric monitoring for ongoing care for stay that is expected to be greater than 48 hours. [facility] Medical History Bradycardia Carotid stenosis, left COVID-19 Essential hypertension Fatigue Flu vaccine need GERD (gastroesophageal reflux disease) Hepatitis A antibody positive Hypertension Neuropathy Paroxysmal atrial fibrillation Sleep apnea Vertigo Home Medications apixaban 5 mg tablet (Eliquis) 5 mg PO BID ATRIAL FIBRILLATION 01/24/18 [History Last Taken Unknown] Handicap Placard #1 ea 10/24/22 [Rx Last Taken Unknown] olmesartan 5 mg tablet 5 mg PO DAILY HTN 08/01/23 [History Last Taken Unknown] biotin 1 mg capsule 1 mg PO DAILY dietary supplement 08/02/23 [History Last Taken 08/01/23] gwhulkxl-ml-uuknp 300 mcg-K 60 mcg-lycop 600 mcg-lutein 300 mcg tablet (Centrum Silver Ultra Men's) 1 tab PO DAILY dietary supplement 08/02/23 [History Last Taken 08/01/23] omega 7-jlu-nmy-fish oil 1,200 mg (144 mg-216 mg) capsule (Fish Oil) 1 cap PO .every day dietary supplement 08/02/23 [History Last Taken 08/01/23 01:35] Allergy/AdvReac Type Severity Reaction Status Date / Time No Known Allergies Allergy Verified 08/01/23 19:32 Family History Mother Cancer endometrial Father Heart disease CVA (cerebral vascular accident) Hypertension Cancer melanoma Sister Breast cancer Surgical History History of oral surgery History of tonsillectomy Social History Smoking Status: Never smoker alcohol intake: never substance use type: does not use what type of physical 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 HENT: Denies headache, denies stuffy nose, denies sore throat EYES: Denies changes in vision or discharge from eyes. Resp: Patient admits to mild shortness of breath after vomiting with subsequent aspiration as per HPI. Cardiac: Denies chest pain but he does admit to palpitations with a transient sensation his heart was racing that has since resolved. GI: Patient admits to nausea and vomiting with bilious emesis but he denies abdominal pain, constipation or melena. : Denies changes in urination Extremity: Denies swelling Musculoskeletal: Feels somewhat generally weak and unwell but denies arthralgias or myalgias. Neuro: Patient denies headache, paresthesias or focal neurologic weakness. Heme: Denies any bleeding or bruising Skin: Denies rashes Psychiatric: No complaints voiced related to uncontrolled depression or anxiety. Endocrine: No polyuria, polydipsia or polyphagia. The rest of the 14 point ROS was negative except for positives in HPI. Vital Signs Vital Signs Vital Signs: 08/01/23 19:30 08/01/23 19:45 08/01/23 21:30 Temperature 97.8 F Temperature Source Temporal Pulse Rate 147 H 78 Respiratory Rate 17 16 Blood Pressure 137/109 H 126/78 H Blood Pressure Mean 118 94 Pulse Ox 97 98 Oxygen Delivery Method Room Air Room Air Room Air 08/01/23 22:33 08/01/23 22:33 Temperature 98.1 F 98.1 F Temperature Source Oral Pulse Rate 86 86 Respiratory Rate 24 H 14 Blood Pressure 118/86 H 118/86 H Blood Pressure Mean 96 96 Pulse Ox 97 97 Oxygen Delivery Method Room Air Weight Weight: 200 lb 6.403 oz Body Mass Index (BMI) 28.7 Physical Exam Const alert, oriented x3, no apparent distress, average body habitus, healthy appearing and well nourished General Appearance: cooperative HEENT normocephalic, head/scalp atraumatic and hearing grossly normal bilaterally HEENT Narrative: Mucous membranes dry. Eyes PERRL, EOMs intact bilaterally and conjunctivae normal Neck no lymphadenopathy and supple Resp Resp Narrative: Decreased breath sounds over left lower lobe with diminished breath sounds throughout. Cardio regular rate and regular rhythm GI normal to inspection, nondistended, normoactive bowel sounds, soft to palpation, non-tender and non-distended Extremity normal to inspection, full ROM and no clubbing, cyanosis or edema Skin Skin Narrative: Patient has no evidence of rash or abscess at this time. Neuro oriented x3, CN's II-XII intact bilaterally, moves all extremities and no focal motor deficits Sensorium / Orientation: awake, alert, oriented to person, oriented to place and oriented to time Speech: speech normal Motor Exam: strength 5/5 throughout Psych affect normal Results Medical Records Data Attestation: I reviewed the patient's medical records Lab / Micro Data Attestation: I reviewed the patient's lab results. 08/01/23 19:45 08/01/23 19:45 Labs: Laboratory Results - last 24 hr 08/01/23 19:45: WBC 14.4 H, RBC 5.99, Hgb 18.0 H*, Hct 53.1, MCV 88.6, MCH 30.1, MCHC 33.9, RDW Std Deviation 40.5, RDW Coeff of Lupe 12.6, Plt Count 327, MPV 10.1, Immature Gran % (Auto) 0.400, Neut % (Auto) 82.8 H, Lymph % (Auto) 11.6 L, [place] % (Auto) 4.6, Eos % (Auto) 0.3, Baso % (Auto) 0.3, Absolute Neuts (auto) 11.9 H, Absolute Lymphs (auto) 1.67, Nucleated RBC % 0, Sodium 139, Potassium 3.9, Chloride 104, Carbon Dioxide 27.0, Anion Gap 8, BUN 21 H, Creatinine 1.40 H, Estim Creat Clear Calc 50.10, Est GFR (MDRD) Af Amer 63, Est GFR (MDRD) Non-Af 52 L, BUN/Creatinine Ratio 15.0, Glucose 124 H, Calcium 10.3 H, Total Bilirubin 0.80, Direct Bilirubin 0.24, AST 18, ALT 38, Alkaline Phosphatase 109, Troponin I High Sens 13, Total Protein 8.9 H, Albumin 4.7, Globulin 4.2, Amylase 39, Lipase 32 Rhythm Strip Rhythm Strip: Sinus Tach Rate: 147 Ectopy: None Imaging Radiology Impression Chest X-Ray 08/01/23 19:55 IMPRESSION: 1. No radiographic evidence of acute cardiopulmonary disease. Electronically Signed: Mango Blum DO at 20:57 EDT , Abdomen/Pelvis CT 08/01/23 20:43 IMPRESSION: 1. There is a cluster of mildly distended, fluid-filled bowel loops within the lower anterior abdomen with a small amount of surrounding fluid consistent with inflammatory changes. No well delineated transition point. Differential includes early small bowel obstruction, possible enteritis and closed loop obstruction with consideration for internal hernia. 2. Large simple cyst left kidney. 3. Indeterminate 6 mm right hepatic hypodensity. Correlation with liver MRI or multiphase liver CT is recommended. 4. Left lower lobe elongated opacities suggesting endobronchial debris. 3 month follow-up CT chest is recommended. Recommendation: Close clinical follow-up. Consider surgical consultation. Electronically Signed: Mango Blum, DO at 21:56 EDT , Assessment & Plan Assessment/Plan (1) Gastroenteritis: (2) Nausea vomiting and diarrhea: (3) Aspiration into lower respiratory tract: QUALIFIERS: Encounter type: initial encounter Qualified Code(s): T17.800A - Unspecified foreign body in other parts of respiratory tract causing asphyxiation, initial encounter (4) Atrial fibrillation with RVR: (5) Polycythemia: PLAN: Plan 1. Gastroenteritis likely due to acute food poisoning from accidentally ingesting severely moldy bread - Admit to general medical floor under telemetry monitoring. Placed on contact/enteric precautions and await results of stool studies. Check KUB in a.m. to evaluate for possible improvement with conservative care. Patient was encouraged to inspect his food visually very carefully before eating. General surgeon on-call recommended NG tube placement only if patient has continued nausea and vomiting with formal consultation pending in the a.m. and appreciated in advance. 2. Intractable nausea and vomiting with nonbloody diarrhea attributable to #1 - Give IV Zofran as needed for nausea and vomiting. Patient was also treated with IV Reglan in the ER which were relatively contraindicated treatment with Phenergan which should now be avoided. Stool studies pending. 3. Suspected aspiration pneumonia with CT also positive for endobronchial debris in the left lower lobe with leukocytosis of 14.4 present on admission arising from #1 & #2 - Start IV Zosyn, give nebulizers as needed along with supplemental oxygen and monitor for improvement. 4. Paroxysmal atrial fibrillation; with RBBB and RVR of ~140 bpm arising from #1 to #3 - Patient has spontaneously converted back to normal sinus rhythm. Give IV Cardizem to keep heart rate less than 100 bpm if patient goes back into atrial fibrillation with RVR. 5. Polycythemia with hemoglobin of 18 g/dL present on admission - Noted. Likely due to dehydration from acute volume contraction due to #1 to #3. Volume resuscitate and recheck CBC in the a.m. and consider screening for JAK2 mutation if elevation persists. 6. Essential hypertension - Give IV hydralazine as needed for systolic blood pressure greater than 160 mmHg. 7. History of subclinical hypothyroidism - Check TSH and free T4 this admission to see if patient has progressed to gurjit hypothyroidism. 8. Overweight; with BMI of 28.8 this admission plus obstructive sleep apnea; on CPAP - Weight loss will be recommended. Continue CPAP as previous. 9. History of left carotid stenosis - Noted. 10. Neuropathy; of both feet - Stable. 11. BPPV - Give Antivert as needed. If symptoms recur and are severe and spite of Antivert we will consider scopolamine patch. 12. History of COVID-19 - Noted. 13. GERD - Continue PPI IV. 14. Osteoarthritis - Stable. 15. DVT prophylaxis - SCD's to be initiated at this time. We will also restart Eliquis if patient can tolerate this agent. Total time: Approximately 55 minutes. Charges/Coding Visit Charges Inpatient E&M: 55276 Init Hosp L2
[2023-08-01 23:33] VITALS: BP 132/83; PULSE 83; RESP 17; TEMP 36.6; O2SAT 93
[2023-08-02] VITALS (8 sets, daily range): BP systolic 110–122; BP diastolic 64–99; PULSE 70–90; RESP 14–22; TEMP 36.4–37.6; O2SAT 92–97; BMI 29.3; BMI 29.2
[2023-08-02 00:56] LABS: Lactic Acid 1.5 mmol/L (0.4-1.9)
[2023-08-02] MEDS: 0.9% Normal Saline (1000mL) 1,000 ML 75 ML IV (01:06)
[2023-08-02] MEDS: Ondansetron 4 MG/2 ML Vial IV (01:06)
[2023-08-02] MEDS: Piperacil/Tazobactam 3.375 GM in 0.9% Normal Saline (50mL MB+) 50 ML IV ×2 (01:51→13:54)
[2023-08-02 07:00] LABS: Absolute Lymphocyte Count 0.57 X10^3/uL (0.83-4.51); Absolute Neutrophil Count 9.5 X10^3/uL (2.0-7.7); Basophil# 0.01 X10^3/uL; Basophil% 0.1 % (0-1); Eosinophil# 0.01 X10^3/uL; Eosinophils% 0.1 % (0-5); Hematocrit 45.4 % (40-54); Hemoglobin 15.6 g/dL (13.0-16.5); Lymphocyte # 0.57 X10^3/ul (0.83-4.51); Lymphocyte % 5.2 % (19-41); Mean Corp Hgb Conc 34.4 g/dL (32-36); Mean Corpuscular Hgb 30.1 pg (27.0-32.0); Mean Corpuscular Volume 87.6 fL (80-94); Mean Platelet Vol. 10.3 fl (6.2-12.0); Monocyte# 0.77 X10^3/uL; Monocyte% 7.1 % (0-10); NRBC Flagged by Analyzer 0 % (0-5); Neutrophil # 9.48 X10^3/uL (2.7-7.7); Neutrophil % 87.1 % (47-70); POSITIVE DIFFERENTIAL YES; Platelet Count 241 K/mm3 (150-450); RBC Distribution Width CV 12.7 % (11.6-14.6); Red Blood Count 5.18 M/mm3 (4.6-6.2); White Blood Count 10.9 K/mm3 (4.4-11.0)
--- NOTE | 2023-08-02 07:52 | EX.PCM.CON.S ---
Assessment & Plan Assessment/Plan (1) Gastroenteritis: PLAN: I believe the patient likely has gastroenteritis. I reviewed his CT scan which did show some dilated loops of bowel but there is no transition point. I do not believe he has an internal hernia. He says he is improving and his white count is coming down without antibiotics. I believe he was very dehydrated and all of his labs are correcting. Patient reports he is much better and actually feeling hungry this morning. I will wait until later today to start a diet to make sure he does not vomit again. Patient has enteric panel pending but he has not had a bowel movement overnight. I do not believe he is obstructed as he is passing gas and he is feeling more comfortable than yesterday. No surgical indication at this time. I will likely start clears and advance as tolerated around lunchtime. Devante Singh MD Pager: [facility] [address] [place] [address], [address] [place] [address] Office: HPI Consult Data Date of Consult: 08/02/23 HPI Narrative HPI Narrative: CALEB SAUER, is a 78 M who presents with abdominal pain and nausea vomiting and diarrhea. The patient says that 2 nights ago he started having a lot of diarrhea. He did tell the hospitalist that he may have eaten some moldy bread. He says that he had diarrhea and then yesterday he started having more nausea and vomiting. He said that he vomited a few times yesterday and again at 1 AM this morning. He says he is passing a little bit of gas and has not had any diarrhea overnight. He says that his lower abdominal bloating and pain is much improved from yesterday. He denies any nausea currently. He denies fevers or chills overnight. He reports his abdominal pain is lower abdomen and diffuse. He reports it to be mild this morning. [facility] Medical History Bradycardia Carotid stenosis, left COVID-19 Essential hypertension Fatigue Flu vaccine need GERD (gastroesophageal reflux disease) Hepatitis A antibody positive Hypertension Neuropathy Paroxysmal atrial fibrillation Sleep apnea Vertigo Home Medications apixaban 5 mg tablet (Eliquis) 5 mg PO BID ATRIAL FIBRILLATION 01/24/18 [History Last Taken Unknown] Handicap Placard #1 ea 02/27/22 [Rx Last Taken Unknown] olmesartan 5 mg tablet 5 mg PO DAILY HTN 08/01/23 [History Last Taken Unknown] biotin 1 mg capsule 1 mg PO DAILY dietary supplement 08/02/23 [History Last Taken 08/01/23] yeayhgvl-en-kcxkl 300 mcg-K 60 mcg-lycop 600 mcg-lutein 300 mcg tablet (Centrum Silver Ultra Men's) 1 tab PO DAILY dietary supplement 08/02/23 [History Last Taken 08/01/23] omega 1-ebi-voy-fish oil 1,200 mg (144 mg-216 mg) capsule (Fish Oil) 1 cap PO .every day dietary supplement 08/02/23 [History Last Taken 08/01/23 01:35] Allergy/AdvReac Type Severity Reaction Status Date / Time No Known Allergies Allergy Verified 08/01/23 19:32 Family History Mother Cancer endometrial Father Heart disease CVA (cerebral vascular accident) Hypertension Cancer melanoma Sister Breast cancer Surgical History History of oral surgery History of tonsillectomy Social History Smoking Status: Never smoker alcohol intake: never substance use type: does not use what type of physical 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 ROS ENT HEENT: Reports abnormal hearing; Denies dysphagia Cardiovascular Cardiovascular: Denies chest pain or chest pain at rest Respiratory/Chest Respiratory/Chest: Denies cough or dyspnea Gastrointestinal Gastrointestinal: Reports abdominal pain, diarrhea, nausea and vomiting Genitourinary Genitourinary: Denies change in urinary stream Musculoskeletal Musculoskeletal: Denies abnormal gait Neurologic Neurologic: Denies dizziness Psychiatric Psychiatric: Denies anxiety Endocrine Endocrinology: Denies heat intolerance Physical Exam Const alert, oriented x3 and no apparent distress HEENT normocephalic Eyes PERRL Chest inspection of chest normal Resp normal respiratory effort Cardio Rate: regular rate Rhythm: regular rhythm GI soft to palpation and non-distended Palpation: tender LLQ and RLQ Back/Spine no CVA tenderness Extremity normal to inspection Lab / Micro Data 08/02/23 06:00 08/01/23 19:45 Labs: Laboratory Results - last 24 hr 08/01/23 00:34: Lactic Acid 1.5 08/01/23 19:45: WBC 14.4 H, RBC 5.99, Hgb 18.0 H*, Hct 53.1, MCV 88.6, MCH 30.1, MCHC 33.9, RDW Std Deviation 40.5, RDW Coeff of Lupe 12.6, Plt Count 327, MPV 10.1, Immature Gran % (Auto) 0.400, Neut % (Auto) 82.8 H, Lymph % (Auto) 11.6 L, [place] % (Auto) 4.6, Eos % (Auto) 0.3, Baso % (Auto) 0.3, Absolute Neuts (auto) 11.9 H, Absolute Lymphs (auto) 1.67, Nucleated RBC % 0, Sodium 139, Potassium 3.9, Chloride 104, Carbon Dioxide 27.0, Anion Gap 8, BUN 21 H, Creatinine 1.40 H, Estim Creat Clear Calc 50.10, Est GFR (MDRD) Af Amer 63, Est GFR (MDRD) Non-Af 52 L, BUN/Creatinine Ratio 15.0, Glucose 124 H, Calcium 10.3 H, Total Bilirubin 0.80, Direct Bilirubin 0.24, AST 18, ALT 38, Alkaline Phosphatase 109, Troponin I High Sens 13, Total Protein 8.9 H, Albumin 4.7, Globulin 4.2, Amylase 39, Lipase 32 08/02/23 06:00: WBC 10.9, RBC 5.18, Hgb 15.6, Hct 45.4, MCV 87.6, MCH 30.1, MCHC 34.4, RDW Std Deviation 41.0, RDW Coeff of Lupe 12.7, Plt Count 241, MPV 10.3, Immature Gran % (Auto) 0.400, Neut % (Auto) 87.1 H, Lymph % (Auto) 5.2 L, [place] % (Auto) 7.1, Eos % (Auto) 0.1, Baso % (Auto) 0.1, Absolute Neuts (auto) 9.5 H, Absolute Lymphs (auto) 0.57 L, Nucleated RBC % 0 Rhythm Strip Rhythm Strip: Sinus Tach Rate: 147 Ectopy: None Imaging Radiology Impression Chest X-Ray 08/01/23 19:55 IMPRESSION: 1. No radiographic evidence of acute cardiopulmonary disease. Electronically Signed: Mango Blum DO at 20:57 EDT , Abdomen/Pelvis CT 08/01/23 20:43 IMPRESSION: 1. There is a cluster of mildly distended, fluid-filled bowel loops within the lower anterior abdomen with a small amount of surrounding fluid consistent with inflammatory changes. No well delineated transition point. Differential includes early small bowel obstruction, possible enteritis and closed loop obstruction with consideration for internal hernia. 2. Large simple cyst left kidney. 3. Indeterminate 6 mm right hepatic hypodensity. Correlation with liver MRI or multiphase liver CT is recommended. 4. Left lower lobe elongated opacities suggesting endobronchial debris. 3 month follow-up CT chest is recommended. Recommendation: Close clinical follow-up. Consider surgical consultation. Electronically Signed: Mango Blum DO at 21:56 EDT ,
[2023-08-02 08:07] LABS: AST(SGOT) 16 U/L (15-37); Alanine Aminotransfer ALT/SGPT 29 U/L (16-61); Albumin, Serum 3.5 g/dL (3.2-5.0); Alkaline Phosphatase 84 U/L (45-117); Anion Gap 8 (5-15); BUN 22 mg/dL (7-18); BUN/Creat Ratio 16.2 RATIO (10-20); Calcium,Total 8.9 mg/dL (8.5-10.1); Chloride 111 mmol/L (98-107); Creatinine, Serum 1.36 mg/dL (0.70-1.30); EST Glomerular Filtration Rate 54 mL/min (>60); Est Glom Filt Rate - Afr Amer 65 mL/min (>60); Estimated Creatinine Clearance 50.51 ml/min; Globulin 3.5 g/dL (2.2-4.2); Glucose 138 mg/dL (74-106); Magnesium 2.1 mg/dL (1.6-2.6); Phosphorus 3.5 mg/dL (2.5-4.9); Potassium 4.3 mmol/L (3.5-5.1); Sodium Level 140 mmol/L (136-145); Thyroid Stim Hormone (TSH) 1.61 uIU/mL (0.358-3.74)
[2023-08-02 08:11] LABS: T4 Free Direct 0.83 ng/dL (0.76-1.46)
[2023-08-02] MEDS: Metoprolol(XL)Succ 25 MG Tablet 12.5 MG PO (09:22)
[2023-08-02] MEDS: APIXABAN 5 MG TABLET PO (09:22)
[2023-08-02] MEDS: Pantoprazole Sodium 40 MG in 0.9% Normal Saline (100mL MB+) 100 ML 330 MG IV (09:22)
--- NOTE | 2023-08-02 12:35 | CASEMGMT ---
RN?CM?SENIOR BIOSTATISTICIAN?CM?to room to meet with patient for initial transition planning/care coordination?assessment.?RN?CM?introduced self and role at [facility].? Pt voices understanding and consents to?assessment?at this time.? Pt sitting up in bed in no distress at this time.? Pt is A/O at this time and answers all questions appropriately.?? Care providers, pharmacy, and demographics verified/updated at this time. PCP: Dr Gary. Pt also goes to [facility]. Specialists: Dr Rancho Randall-pulmonology, [facility]/Cardiology Preferred Pharmacy: [facility] Insurance: [employer], [employer] [facility] Prescription Benefit: yes? LNOK: Rola, Living Arrangements: Lives w/ and son in one-story home w/no steps to enter. Pt states home is handicap accessible w/no steps to enter. Pt is independent w/ADL's and pt and share home mgnt tasks. Transportation:?Pt states drives self and states no transportation concerns at this time.? also drives. DME: States has the following DME:?CPAP from [employer] [facility]--uses as needed. ?Pt states no need for further DME at this time.? HHC/SNF: No hx of either. Has done OP therapy @ [facility] in the past. Pt declines need for HHC or OP therapy. Pt wishes to return home and states has no concerns with going home at time of discharge.? CM?to follow for any discharge planning/needs.? Pt voices no concerns/needs at this time.? Advised pt to ask for?CM?if any questions/concerns/needs arise.? Voices understanding. PLAN:??Home Celine BSN?RN?CM
--- NOTE | 2023-08-02 13:23 | PCM.PN.HOSP ---
Reason for Visit Reason for Visit: Diagnoses Secondary polycythemia (08/01/23) Unspecified atrial fibrillation (08/01/23) Noninfective gastroenteritis and colitis, unspecified (08/01/23) Nausea with vomiting, unspecified (08/01/23) Diarrhea, unspecified (08/01/23) Unspecified foreign body in other parts of respiratory tract causing asphyxiation, initial encounter (08/01/23) Objective Data Objective Data Vital Signs: Vital Signs Temp Pulse Resp BP Pulse Ox O2 Del Method 98 F 80 16 122/78 H 95 Room Air 08/02/23 12:00 08/02/23 12:00 08/02/23 12:00 08/02/23 12:00 08/02/23 12:00 08/02/23 12:00 Oxygen Delivery Method Room Air Weight: 90.2 kg Body Mass Index (BMI) 29.3 Intake & Output: Intake and Output for Last 24 Hours 07/31/23 08/01/23 08/02/23 23:59 23:59 23:59 Intake Total 1000 / 1000 520 / 520 Balance 1000 / 1000 520 / 520 Lab / Micro Data 08/02/23 06:00 08/02/23 06:00 Labs: Laboratory Results - last 24 hr 08/01/23 00:34: Lactic Acid 1.5 08/01/23 19:45: WBC 14.4 H, RBC 5.99, Hgb 18.0 H*, Hct 53.1, MCV 88.6, MCH 30.1, MCHC 33.9, RDW Std Deviation 40.5, RDW Coeff of Lupe 12.6, Plt Count 327, MPV 10.1, Immature Gran % (Auto) 0.400, Neut % (Auto) 82.8 H, Lymph % (Auto) 11.6 L, [place] % (Auto) 4.6, Eos % (Auto) 0.3, Baso % (Auto) 0.3, Absolute Neuts (auto) 11.9 H, Absolute Lymphs (auto) 1.67, Nucleated RBC % 0, Sodium 139, Potassium 3.9, Chloride 104, Carbon Dioxide 27.0, Anion Gap 8, BUN 21 H, Creatinine 1.40 H, Estim Creat Clear Calc 50.10, Est GFR (MDRD) Af Amer 63, Est GFR (MDRD) Non-Af 52 L, BUN/Creatinine Ratio 15.0, Glucose 124 H, Calcium 10.3 H, Total Bilirubin 0.80, Direct Bilirubin 0.24, AST 18, ALT 38, Alkaline Phosphatase 109, Troponin I High Sens 13, Total Protein 8.9 H, Albumin 4.7, Globulin 4.2, Amylase 39, Lipase 32 08/02/23 06:00: WBC 10.9, RBC 5.18, Hgb 15.6, Hct 45.4, MCV 87.6, MCH 30.1, MCHC 34.4, RDW Std Deviation 41.0, RDW Coeff of Lupe 12.7, Plt Count 241, MPV 10.3, Immature Gran % (Auto) 0.400, Neut % (Auto) 87.1 H, Lymph % (Auto) 5.2 L, [place] % (Auto) 7.1, Eos % (Auto) 0.1, Baso % (Auto) 0.1, Absolute Neuts (auto) 9.5 H, Absolute Lymphs (auto) 0.57 L, Nucleated RBC % 0, Sodium 140, Potassium 4.3, Chloride 111 H, Carbon Dioxide 21.0, Anion Gap 8, BUN 22 H, Creatinine 1.36 H, Estim Creat Clear Calc 50.51, Est GFR (MDRD) Af Amer 65, Est GFR (MDRD) Non-Af 54 L, BUN/Creatinine Ratio 16.2, Glucose 138 H, Calcium 8.9, Phosphorus 3.5, Magnesium 2.1, Total Bilirubin 1.20 H, AST 16, ALT 29, Alkaline Phosphatase 84, Total Protein 7.0, Albumin 3.5, Globulin 3.5, Albumin/Globulin Ratio 1.0, TSH 1.61, Free T4 0.83 Radiography Diagnostic Testing: Radiology Impression Chest X-Ray 08/01/23 19:55 IMPRESSION: 1. No radiographic evidence of acute cardiopulmonary disease. Electronically Signed: Mango Blum DO at 20:57 EDT , Abdomen/Pelvis CT 08/01/23 20:43 IMPRESSION: 1. There is a cluster of mildly distended, fluid-filled bowel loops within the lower anterior abdomen with a small amount of surrounding fluid consistent with inflammatory changes. No well delineated transition point. Differential includes early small bowel obstruction, possible enteritis and closed loop obstruction with consideration for internal hernia. 2. Large simple cyst left kidney. 3. Indeterminate 6 mm right hepatic hypodensity. Correlation with liver MRI or multiphase liver CT is recommended. 4. Left lower lobe elongated opacities suggesting endobronchial debris. 3 month follow-up CT chest is recommended. Recommendation: Close clinical follow-up. Consider surgical consultation. Electronically Signed: Mango Blum DO at 21:56 EDT , Rhythm Strip Rhythm Strip: Sinus Tach Rate: 147 Ectopy: None
--- NOTE | 2023-08-02 14:03 | CHAPLAIN ---
Type of Pastoral Visit _x__ Initial Visit ___ Follow-up Visit ___ On-call Visit ___ General Patient Visit ___ Spiritual Assessment ___ Family Conference ___ Bereavement ___ Rapid Response ___ Code Blue ___ Other (describe below) Pastoral Care Referral From _x__ Patient ___ Family ___ Nurse ___ Physician ___ Elevated Guard ___ Boat Captain ___ Other (describe below) Sacrament/Intervention _x__ Active listening ___ Anointing ___ Zoroastrianism ___ Bereavement ___ Communion _x__ Sindhu exploration ___ _x__ Life review _x__ Prayer ___ Reconciliation ___ Sacrament of Sick ___ Supportive presence ___ Wedding ___ Other (describe below) Pastoral Comments patient acknowledges that he has had good improvement since admission; pt states he is hopeful for discharge today or tomorrow; pt is very talkative about his life, family, heritage of sindhu, hopes for the future; spouse is with him and is also interactive in conversation; life story leads to more connection points with this director of resource development and patient and spouse are able to express themselves better; both welcome prayer;
--- NOTE | 2023-08-02 16:47 | DCINST_ITS ---
Discharge Instructions Diet Discharge Diet: No restrictions Activity Discharge Activity: No Restrictions Weight Bearing Status: Full weight bearing Follow Up Care Test Results: Test results from this visit will be discussed in further detail at your follow- up appointment, if applicable. Discharge Plan Admission Admit Date/Time: 08/01/23 23:45 Primary Reason for Your Visit: Nausea/vomiting and abdominal pain Attending Provider: Maciej Roblero Primary Care Provider: Bonilla Gary Consulting Providers: David Banks Instructions Additional Instructions / Restrictions: Please start taking Toprol 12.5 mg daily for your blood pressure and A-fib. P lease stop taking olmesartan for now as your blood pressures were somewhat low and your kidney function was mildly decreased. Please have a repeat BMP drawn in 5 to 7 days to ensure that your kidney function has returned to normal. Follow-up with your PCP in the next few weeks. Discharge Orders/Prescriptions Prescriptions: New metoprolol succinate 25 mg Tablet Extended Release 24 Hr 12.5 mg PO DAILY 30 Days Qty: 15 0RF Continued Eliquis 5 mg tablet 5 mg PO BID Patient Comments: pt. states he only takes it once a day (DME) Handicap Placard See Rx Instructions .ROUTE .MEDSUPPLY Qty: 1 0RF Rx Instructions: As directed, length of time 3 years omega 9-weu-fbj-fish oil [Fish Oil] 1,200 (144-216) mg capsule 1 cap PO .every day Rx Instructions: take one cap by mouth once a day Centrum Silver Ultra Men's [id number] mcg tablet 1 tab PO DAILY biotin 1 mg capsule 1 mg PO DAILY Rx Instructions: take one cap by mouth once a day Discontinued olmesartan 5 mg tablet 5 mg PO DAILY Referrals / Follow Up: Bonilla Gary MD [Primary Care Provider] - Disposition Disposition (needs filled in before D/C Order can be placed): Home, Self Care
--- NOTE | 2023-08-02 16:54 | DS.PCM_ITS ---
Providers Date of Admission: 08/01/23 Date of Discharge: 08/02/23 Primary Care Physician: Dr. Bonilla Gary MD Reason For Visit: GASTROENTERITIS, INTRACTABLE N/V & ASPIRATION Diagnosis Discharge Diagnosis (1) Gastroenteritis: Status: Acute Code(s): K52.9 - Noninfective gastroenteritis and colitis, unspecified Medications at Discharge Home Medications apixaban 5 mg tablet (Eliquis) 5 mg PO BID ATRIAL FIBRILLATION 01/24/18 Handicap Placard #1 ea 02/27/22 biotin 1 mg capsule 1 mg PO DAILY dietary supplement 08/02/23 metoprolol succinate 25 mg tablet,extended release 24 hr 12.5 mg (1/2 x 25 mg) PO DAILY 30 days #15 tabs 08/02/23 ubapxevt-tz-rksms 300 mcg-K 60 mcg-lycop 600 mcg-lutein 300 mcg tablet (Centrum Silver Ultra Men's) 1 tab PO DAILY dietary supplement 08/02/23 omega 1-opo-tgb-fish oil 1,200 mg (144 mg-216 mg) capsule (Fish Oil) 1 cap PO .every day dietary supplement 08/02/23 Hospital Course Operations None Procedures EKG and - (Chest x-ray, CT abdomen pelvis with IV contrast) Summary of Care Provided Minutes Spent on Discharge: 35 Hospital Course: Patient is a 78-year-old male who presented to [facility] ED on 08/01/2023 with 1 day history of significant nausea/vomiting and diarrhea. Short hospital course as noted below. Discharged home with no therapy needs in stable condition on 08/01. 1. Suspected gastroenteritis ? CT abdomen pelvis on admit showed mildly distended fluid-filled bowel loops in lower anterior abdomen with no transition point, concerning for possible enteritis versus early small bowel obstruction. ? Afebrile, hemodynamically stable during admission. Did have mild leukocytosis with WBC count 14 which improved after IV fluid administration. Stool PCR panel ordered but patient had no bowel movements during admission. ? General surgery followed. High suspicion was for gastroenteritis. Noted that he had some dilated bowel loops but no transition point, had very low concern for small bowel obstruction. ? Patient was noted to feel hungry on morning of 08/01, was started on liquid diet and tolerated this without issue. Was advanced to regular diet by lunch on 08/01 and again tolerated this without issue. Stable for discharge home on afternoon of 08/01. No need for antibiotics on discharge. 2. Concern for aspiration pneumonia ? CT abdomen pelvis showed left lower lobe elongated opacities suggesting endobronchial debris. Chest x-ray was nonacute. Patient had no symptoms of pneumonia during admission, very low concern for aspiration pneumonia. No need for antibiotics on discharge. 3. Mild polycythemia, improved ? Hemoglobin 18.0 on admit, decreased to 15.6 on hospital day 2 after IV fluid administration. Suspect patient was simply dehydrated. 4. Paroxysmal A-fib ? Noted to be in A-fib with RVR admission. Spontaneously converted in the ED, remained in normal sinus rhythm during remainder of hospitalization. Okay to continue home Toprol and Eliquis on discharge. 5. Mild creatinine elevation ? Creatinine 1.40 on admit, mildly improved to 1.36 on hospital day 2 after IV fluid administration. Baseline creatinine appears to be around 1.0-1.2. Good urine output during hospitalization. Recommend repeat BMP in about 1 week to ensure improvement of kidney function. 6. Hypertension ? Home regimen of Toprol 12.5 mg daily, olmesartan 5 mg daily. Low normal blood pressures to mild hypotension during admission. Resumed home Toprol, held losartan on discharge given mild creatinine elevation and low normal pressures. Recommend outpatient follow-up with PCP, can consider resuming olmesartan at that time as needed. *Patient notably was admitted under inpatient status but improved more quickly than anticipated, was stable for discharge on hospital day 2 and thus did not meet the 2 midnight rule for inpatient status. Total clinical time spent by myself addressing the patient's medical issues, reviewing all the data, and collaborating with patient's care team: 35 minutes. Physical Exam Const alert, oriented x3, no apparent distress and average body habitus General Appearance: cooperative and comfortable HEENT normocephalic, head/scalp atraumatic, hearing grossly normal bilaterally, nasal mucous membranes and turbinates normal and moist oral mucous membranes Eyes PERRL, EOMs intact bilaterally and conjunctivae normal Neck full ROM Chest inspection of chest normal Resp normal respiratory effort, normal air movement, no use of accessory muscles and clear to auscultation bilaterally Cardio regular rate, regular rhythm, no murmurs and peripheral pulses 2+ throughout GI normal to inspection, nondistended, normoactive bowel sounds, soft to palpation, non-tender and non-distended Back/Spine normal ROM Extremity normal to inspection, full ROM and no pedal edema Skin no rashes or lesions noted Neuro moves all extremities and no focal motor deficits Speech: speech normal Psych mental status grossly normal Weight / BMI Weight Weight: 90.2 kg Body Mass Index (BMI) 29.2 ABG / Lab / Microbiology Data 08/02/23 06:00 08/02/23 06:00 Laboratory: Laboratory Results - last 24 hr 08/01/23 00:34: Lactic Acid 1.5 08/01/23 19:45: WBC 14.4 H, RBC 5.99, Hgb 18.0 H*, Hct 53.1, MCV 88.6, MCH 30.1, MCHC 33.9, RDW Std Deviation 40.5, RDW Coeff of Lupe 12.6, Plt Count 327, MPV 10.1, Immature Gran % (Auto) 0.400, Neut % (Auto) 82.8 H, Lymph % (Auto) 11.6 L, Kidder % (Auto) 4.6, Eos % (Auto) 0.3, Baso % (Auto) 0.3, Absolute Neuts (auto) 11.9 H, Absolute Lymphs (auto) 1.67, Nucleated RBC % 0, Sodium 139, Potassium 3.9, Chloride 104, Carbon Dioxide 27.0, Anion Gap 8, BUN 21 H, Creatinine 1.40 H , Estim Creat Clear Calc 50.10, Est GFR (MDRD) Af Amer 63, Est GFR (MDRD) Non-Af 52 L, BUN/Creatinine Ratio 15.0, Glucose 124 H, Calcium 10.3 H, Total Bilirubin 0.80, Direct Bilirubin 0.24, AST 18, ALT 38, Alkaline Phosphatase 109, Troponin I High Sens 13, Total Protein 8.9 H, Albumin 4.7, Globulin 4.2, Amylase 39, Lipase 32 08/02/23 06:00: WBC 10.9, RBC 5.18, Hgb 15.6, Hct 45.4, MCV 87.6, MCH 30.1, MCHC 34.4, RDW Std Deviation 41.0, RDW Coeff of Lupe 12.7, Plt Count 241, MPV 10.3, Immature Gran % (Auto) 0.400, Neut % (Auto) 87.1 H, Lymph % (Auto) 5.2 L, Kidder % (Auto) 7.1, Eos % (Auto) 0.1, Baso % (Auto) 0.1, Absolute Neuts (auto) 9.5 H, Absolute Lymphs (auto) 0.57 L, Nucleated RBC % 0, Sodium 140, Potassium 4.3, Chloride 111 H, Carbon Dioxide 21.0, Anion Gap 8, BUN 22 H, Creatinine 1.36 H, Estim Creat Clear Calc 50.51, Est GFR (MDRD) Af Amer 65, Est GFR (MDRD) Non-Af 54 L, BUN/Creatinine Ratio 16.2, Glucose 138 H, Calcium 8.9, Phosphorus 3.5, Magnesium 2.1, Total Bilirubin 1.20 H, AST 16, ALT 29, Alkaline Phosphatase 84, Total Protein 7.0, Albumin 3.5, Globulin 3.5, Albumin/Globulin Ratio 1.0, TSH 1 .61, Free T4 0.83 Radiography Diagnostic Testing: Radiology Impression Chest X-Ray 08/01/23 19:55 IMPRESSION: 1. No radiographic evidence of acute cardiopulmonary disease. Electronically Signed: Mango Blum DO at 20:57 EDT , Abdomen/Pelvis CT 08/01/23 20:43 IMPRESSION: 1. There is a cluster of mildly distended, fluid-filled bowel loops within the lower anterior abdomen with a small amount of surrounding fluid consistent with inflammatory changes. No well delineated transition point. Differential includes early small bowel obstruction, possible enteritis and closed loop obstruction with consideration for internal hernia. 2. Large simple cyst left kidney. 3. Indeterminate 6 mm right hepatic hypodensity. Correlation with liver MRI or multiphase liver CT is recommended. 4. Left lower lobe elongated opacities suggesting endobronchial debris. 3 month follow-up CT chest is recommended. Recommendation: Close clinical follow-up. Consider surgical consultation. Electronically Signed: Mango Blum DO at 21:56 EDT , D/C Instructions Discharge Diet: No restrictions Weight Bearing Status: Full weight bearing Meaningful Use Info Meaningful Use Diagnoses (Choose all that apply): None applicable Discharge Plan Admission Admit Date/Time: 08/01/23 23:45 Primary Reason for Your Visit: Nausea/vomiting and abdominal pain Attending Provider: Maciej Roblero Primary Care Provider: Bonilla Gary Consulting Providers: David Banks Instructions Additional Instructions / Restrictions: Please start taking Toprol 12.5 mg daily for your blood pressure and A-fib. Please stop taking olmesartan for now as your blood pressures were somewhat low and your kidney function was mildly decreased. Please have a repeat BMP drawn in 5 to 7 days to ensure that your kidney function has returned to normal. Follow-up with your PCP in the next few weeks. Discharge Orders/Prescriptions Prescriptions: New metoprolol succinate 25 mg Tablet Extended Release 24 Hr 12.5 mg PO DAILY 30 Days Qty: 15 0RF Continued Eliquis 5 mg tablet 5 mg PO BID Patient Comments: pt. states he only takes it once a day (DME) Handicap Placard See Rx Instructions .ROUTE .MEDSUPPLY Qty: 1 0RF Rx Instructions: As directed, length of time 3 years omega 4-wxk-qxg-fish oil [Fish Oil] 1,200 (144-216) mg capsule 1 cap PO .every day Rx Instructions: take one cap by mouth once a day Centrum Silver Ultra Men's [id number] mcg tablet 1 tab PO DAILY biotin 1 mg capsule 1 mg PO DAILY Rx Instructions: take one cap by mouth once a day Discontinued olmesartan 5 mg tablet 5 mg PO DAILY Referrals / Follow Up: Bonilla Gary MD [Primary Care Provider] - Disposition Disposition (needs filled in before D/C Order can be placed): Home, Self Care Charges/Coding Visit Charges Inpatient E&M: 19833 Disch Hosp >30min
== END 2023-08-02 17:55 | disposition home or self-care (01) | DRG 391 ==
LOC: ED 22:30 → PCU 23:08
PROVIDERS: Admitting Provider Internal Medicine; Emergency Provider Emergency Medicine; PCP Internal Medicine; Visit Provider Hospitalist
DX: K52.9 Noninfective gastroenteritis and colitis, unspecified (principal); J69.0 Pneumonitis due to inhalation of food and vomit; I48.92 Unspecified atrial flutter; I48.0 Paroxysmal atrial fibrillation; G62.9 Polyneuropathy, unspecified; A05.9 Bacterial foodborne intoxication, unspecified; I10 Essential (primary) hypertension; K21.9 Gastro-esophageal reflux disease without esophagitis; M19.90 Unspecified osteoarthritis, unspecified site; G47.33 Obstructive sleep apnea (adult) (pediatric); E66.3 Overweight; Z79.01 Long term (current) use of anticoagulants; Z68.28 Body mass index [BMI] 28.0-28.9, adult; Z86.16 Personal history of COVID-19; Z79.899 Other long term (current) drug therapy
CPT/HCPCS: 71045; 74177; 80048; 80053; 80076; 82150; 83605; 83690; 83735; 84100; 84439; 84443; 84484; 85025; 93005; 97162; 97166; 97802; 99284; J7030; Q9967; A4216; J2405

== ENCOUNTER → 2023-08-10 | Outpatient (CLI) | payer MEDICARE, SELFPAY ==
[2023-08-10 12:05] LABS: Absolute Lymphocyte Count 1.53 X10^3/uL (0.83-4.51); Absolute Neutrophil Count 3.1 X10^3/uL (2.0-7.7); Basophil# 0.02 X10^3/uL; Basophil% 0.4 % (0-1); Eosinophils% 1.9 % (0-5); Hematocrit 43.1 % (40-54); Hemoglobin 14.2 g/dL (13.0-16.5); Lymphocyte # 1.53 X10^3/ul (0.83-4.51); Lymphocyte % 29.2 % (19-41); Mean Corp Hgb Conc 32.9 g/dL (32-36); Mean Corpuscular Hgb 29.3 pg (27.0-32.0); Mean Corpuscular Volume 88.9 fL (80-94); Mean Platelet Vol. 10.3 fl (6.2-12.0); Monocyte% 9.5 % (0-10); NRBC Flagged by Analyzer 0 % (0-5); Neutrophil # 3.07 X10^3/uL (2.7-7.7); Neutrophil % 58.6 % (47-70); Platelet Count 272 K/mm3 (150-450); RBC Distribution Width CV 12.7 % (11.6-14.6); RBC Distribution Width SD 41.2 fl (35.1-43.9); Red Blood Count 4.85 M/mm3 (4.6-6.2); White Blood Count 5.2 K/mm3 (4.4-11.0)
[2023-08-10 12:41] LABS: Anion Gap 2 (5-15); BUN 14 mg/dL (7-18); BUN/Creat Ratio 12.1 RATIO (10-20); Calcium,Total 9.1 mg/dL (8.5-10.1); Chloride 109 mmol/L (98-107); Creatinine, Serum 1.16 mg/dL (0.70-1.30); EST Glomerular Filtration Rate 65 mL/min (>60); Est Glom Filt Rate - Afr Amer 78 mL/min (>60); Glucose 94 mg/dL (74-106); Potassium 4.5 mmol/L (3.5-5.1); Sodium Level 139 mmol/L (136-145)
== END | disposition home or self-care (01) ==
PROVIDERS: PCP Internal Medicine; Visit Provider Internal Medicine
DX: I10 Essential (primary) hypertension (principal)
CPT/HCPCS: 36415; 80048; 85025

== ENCOUNTER → 2023-11-09 | Outpatient (CLI) | payer MEDICARE, SELFPAY ==
[2023-11-09 12:11] LABS: Absolute Lymphocyte Count 1.36 X10^3/uL (0.83-4.51); Absolute Neutrophil Count 2.5 X10^3/uL (2.0-7.7); Basophil# 0.01 X10^3/uL; Basophil% 0.2 % (0-1); Eosinophils% 2.3 % (0-5); Hematocrit 44.3 % (40-54); Hemoglobin 14.6 g/dL (13.0-16.5); Lymphocyte # 1.36 X10^3/ul (0.83-4.51); Lymphocyte % 30.7 % (19-41); Mean Corpuscular Hgb 29.6 pg (27.0-32.0); Mean Corpuscular Volume 89.9 fL (80-94); Mean Platelet Vol. 10.4 fl (6.2-12.0); Monocyte# 0.44 X10^3/uL; Monocyte% 9.9 % (0-10); NRBC Flagged by Analyzer 0 % (0-5); Neutrophil # 2.51 X10^3/uL (2.7-7.7); Neutrophil % 56.7 % (47-70); Platelet Count 261 K/mm3 (150-450); RBC Distribution Width CV 12.4 % (11.6-14.6); RBC Distribution Width SD 40.8 fl (35.1-43.9); Red Blood Count 4.93 M/mm3 (4.6-6.2); White Blood Count 4.4 K/mm3 (4.4-11.0)
[2023-11-09 12:35] LABS: AST(SGOT) 24 U/L (15-37); Alanine Aminotransfer ALT/SGPT 36 U/L (16-61); Albumin, Serum 3.6 g/dL (3.2-5.0); Alkaline Phosphatase 91 U/L (45-117); Anion Gap 7 (5-15); BUN 12 mg/dL (7-18); BUN/Creat Ratio 11.2 RATIO (10-20); Calcium,Total 9.5 mg/dL (8.5-10.1); Chloride 108 mmol/L (98-107); Creatinine, Serum 1.07 mg/dL (0.70-1.30); EST Glomerular Filtration Rate 71 mL/min (>60); Est Glom Filt Rate - Afr Amer 86 mL/min (>60); Globulin 3.6 g/dL (2.2-4.2); Glucose 91 mg/dL (74-106); PSA,Total - Annual Screen 1.39 ng/mL (0.00-4.00); Potassium 4.1 mmol/L (3.5-5.1); Protein, Total 7.2 g/dL (6.4-8.2); Sodium Level 139 mmol/L (136-145)
== END | disposition home or self-care (01) ==
LOC: BIMLAB 09:51
PROVIDERS: PCP Internal Medicine; Referring Provider Internal Medicine; Visit Provider Internal Medicine
DX: I10 Essential (primary) hypertension (principal); Z12.5 Encounter for screening for malignant neoplasm of prostate
CPT/HCPCS: 36415; 80053; 84153; 85025; G0103

== ENCOUNTER → 2024-03-12 | Outpatient (CLI) | payer MEDICARE, SELFPAY ==
[2024-03-12 12:56] LABS: Anion Gap 4 (5-15); BUN 15 mg/dL (7-18); BUN/Creat Ratio 13.9 RATIO (10-20); Calcium,Total 9.6 mg/dL (8.5-10.1); Chloride 108 mmol/L (98-107); Cholesterol 224 mg/dL (200); Creatinine, Serum 1.08 mg/dL (0.70-1.30); EST Glomerular Filtration Rate 70 mL/min (>60); Est Glom Filt Rate - Afr Amer 85 mL/min (>60); Glucose 93 mg/dL (74-106); High Density Lipoprotein 55 mg/dL; Potassium 4.4 mmol/L (3.5-5.1); Sodium Level 140 mmol/L (136-145); T4 Free Direct 0.78 ng/dL (0.76-1.46); Triglycerides 247 mg/dL; Very Low Density Lipoprotein 49 mg/dL (5-40)
== END | disposition home or self-care (01) ==
LOC: BIMLAB 10:20
PROVIDERS: PCP Internal Medicine; Referring Provider Internal Medicine; Visit Provider Internal Medicine
DX: I10 Essential (primary) hypertension (principal); E03.8 Other specified hypothyroidism
CPT/HCPCS: 36415; 80048; 80061; 84439; 84443

== ENCOUNTER → 2024-07-09 | Outpatient (CLI) | payer MEDICARE, SELFPAY ==
[2024-07-09 15:19] LABS: Absolute Lymphocyte Count 1.62 X10^3/uL (0.83-4.51); Absolute Neutrophil Count 2.2 X10^3/uL (2.0-7.7); Basophil# 0.03 X10^3/uL; Basophil% 0.7 % (0-1); Eosinophil# 0.23 X10^3/uL; Eosinophils% 5.1 % (0-5); Hematocrit 45.3 % (40-54); Lymphocyte # 1.62 X10^3/ul (0.83-4.51); Lymphocyte % 35.9 % (19-41); Mean Corp Hgb Conc 33.1 g/dL (32-36); Mean Corpuscular Hgb 29.5 pg (27.0-32.0); Mean Corpuscular Volume 89.2 fL (80-94); Mean Platelet Vol. 10.5 fl (6.2-12.0); Monocyte# 0.44 X10^3/uL; Monocyte% 9.8 % (0-10); NRBC Flagged by Analyzer 0 % (0-5); Neutrophil # 2.18 X10^3/uL (2.7-7.7); Neutrophil % 48.3 % (47-70); Platelet Count 242 K/mm3 (150-450); RBC Distribution Width CV 12.4 % (11.6-14.6); RBC Distribution Width SD 40.4 fl (35.1-43.9); Red Blood Count 5.08 M/mm3 (4.6-6.2); White Blood Count 4.5 K/mm3 (4.4-11.0)
[2024-07-09 15:54] LABS: ALB/GLOB Ratio 1.4 RATIO (0.9-2.4); AST(SGOT) 26 U/L (<=37); Alanine Aminotransfer ALT/SGPT 33 U/L (<=46); Albumin, Serum 4.2 g/dL (3.4-4.8); Alkaline Phosphatase 94 U/L (40-129); Anion Gap 10 (5-15); BUN 12 mg/dL (4-19); BUN/Creat Ratio 10.2 RATIO (10-20); Calcium,Total 9.7 mg/dL (7.6-11.0); Carbon Dioxide 24.3 mmol/L (21.0-32.0); Chloride 105 mmol/L (98-108); Creatinine, Serum 1.15 mg/dL (0.70-1.20); EST Glomerular Filtration Rate 65 (>60); Glucose 86 mg/dL (70-99); Potassium 4.4 mmol/L (3.3-5.1); Protein, Total 7.2 g/dL (5.9-8.4); Sodium Level 140 mmol/L (133-145); Total Bilirubin 0.49 mg/dL (0.00-1.30); Vitamin B12 456 pg/mL (180-914); Vitamin D,25 Hydroxy 27.6 ng/mL (30-100)
== END | disposition home or self-care (01) ==
LOC: BIMLAB 11:28
PROVIDERS: PCP Internal Medicine; Referring Provider Internal Medicine; Visit Provider Internal Medicine
DX: R53.83 Other fatigue (principal); E55.9 Vitamin D deficiency, unspecified; Z13.21 Encounter for screening for nutritional disorder; I10 Essential (primary) hypertension; G47.30 Sleep apnea, unspecified
CPT/HCPCS: 36415; 80053; 82306; 82607; 84439; 84443; 85025

== ENCOUNTER → 2024-10-09 | Outpatient (CLI) | payer MEDICARE, SELFPAY ==
--- OUTSIDE RECORDS SUMMARY | 2024-10-09 21:58 | XMS RPT_ITS | CCD ---
Author Organization [facility] Care Team Providers Care Director [employer] Name Role Phone MARION PATTEN Unavailable Unavailable JOURDAN TILLMAN Unavailable Unavailable [facility] Unavailable Unavailable Dr. Bonilla Gary Primary Care Provider [phone] Dr. Bonilla Gary Attending Provider [phone] Dr. Bonilla Gary Referring Provider [phone] Dr. Jourdan Tillman Attending Provider [phone] Dr. Bonilla Gary Primary Care Provider [phone] Dr. Bonilla Gary Attending Provider [phone] Dr. Bonilla Gary Referring Provider [phone] Dr. Bonilla Gary Primary Care Provider [phone] Dr. Mitchell Guerrero Emergency Provider Dr. David Banks Admit Provider Unavailabl e Dr. David Banks Other Provider Unavailabl e Dr. Maciej Roblero Other Provider [phone] Devante Singh Attending Provider Dr. Maciej Roblero Referring Provider Dr. Maciej Roblero Attending Provider Dr. Bonilla Gary Attending Provider [phone] Dr. Bonilla Gary Referring Provider [phone] Dr. Bonilla Gary MD Primary Care Provider Dr. Bonilla Gary MD Referring Provider [phone] Rosalba Hahn Attending Provider [phone] Cookie BADILLO, Dr. Crystal Attending Provider [phone] Cookie BADILLO, Dr. Crystal Primary Care Provider Cookie BADILLO, Dr. Crystal Referring Provider [phone] Gale Yang Attending Provider [phone] Renée Patterson Attending Provider Oleghe, Efewongbe Referring Unavailable Oleghe, Efewongbe Primary Care Unavailable Oleghe, Efewongbe Attending Unavailable Gale Yang Attending Unavail able Oleghe, Efewongbe Referring Unavailable Oleghe, Efewongbe Primary Care Unavailable Oleghe, Efewongbe Primary Care Unavailable Renée Chau NP Attending Unavailable Renée Chau NP Referring Unavailable Gale Yang Attending Unavail able Gale Yang Referring Unavail able Oleghe, Efewongbe Primary Care Unavailable Oleghe, Efewongbe Referring Unavailable Oleghe, Efewongbe Primary Care Unavailable Oleghe, Efewongbe Attending Unavailable Oleghe, Efewongbe Attending Unavailable Oleghe, Efewongbe Referring Unavailable Oleghe, Efewongbe Primary Care Unavailable Oleghe, Efewongbe Referring Unavailable Oleghe, Efewongbe Primary Care Unavailable Oleghe, Efewongbe Attending Unavailable Oleghe, Efewongbe Referring Unavailable Oleghe, Efewongbe Primary Care Unavailable Renée Chau NP Attending Unavailable Rosalba Hamlin NP Attending Unavailable Oleghe, Efewongbe Referring Unavailable Oleghe, Efewongbe Primary Care Unavailable Oleghe, Efewongbe Attending Unavailable Oleghe, Efewongbe Referring Unavailable Oleghe, Efewongbe Primary Care Unavailable Renée Chau NP Attending Unavailable Oleghe, Efewongbe Referring Unavailable Oleghe, Efewongbe Primary Care Unavailable Oleghe, Efewongbe Attending Unavailable Oleghe, Efewongbe Referring Unavailable Oleghe, Efewongbe Primary Care Unavailable Rosalba Hamlin NP Attending Unavailable Oleghe, Efewongbe Referring Unavailable Oleghe, Efewongbe Primary Care Unavailable Medications Current Medications Medication Drug Class(es) Dates Sig (Normalized) Sig (Original) amLODIPine 5 mg oral tablet (4 sources) Dihydropyridine Calcium Channel Syed Start: 07-09-2024 End: 10-01-2024 take 1 tablet by mouth once daily Amlodipine 5 mg tablet Active 5 mg PO daily October 01, 2024 5:26pm apixaban 5 mg oral tablet (10 sources) Factor Xa Inhibitor Start: 01-24-2018 take 1 tablet by mouth twice daily Apixaban (Eliquis) 5 mg tablet Active 5 mg PO TWICE A DAY January 24, 2018 12:00am Handicap Placard (7 sources) Start: 02-27-2022 Handicap Placard Active 0 .ROUTE .MEDSUPPLY February 27, 2022 12:00am As directed, length of time 3 years Multivitamin tablet (3 sources) Start: 07-09-2024 Multivitamin tablet Active 1 {tbl} PO EVERY MORNING July 09, 2024 1:00am Completed/Discontinued Medications Medication Drug Class(es) Dates Sig (Normalized) Sig (Original) amoxicillin 875 mg / clavulanate 125 mg oral tablet (20 sources) Penicillin-class Antibacterial Start: 2020 End: 04-26-2020 Amoxicillin-Pot Clavulanate 875-125 mg tablet Discontinued 1 {tbl} PO Q12H 2020 12:00am April 26, 2020 2:06pm Start: 2020 End: 04-26-2020 take 1 tablet by mouth every twelve hours Amoxicillin-Pot Clavulanate Discontinued 1 TABLET PO Q12H 2020 12:00am April 26, 2020 2:06pm Start: 06-14-2017 End: 06-27-2017 Amoxicillin-Pot Clavulanate 1 EACH tablet Discontinued 1 NMA PO TWICE A DAY June 14, 2017 1:00am June 27, 2017 10:07am Start: 06-14-2017 End: 06-27-2017 Amoxicillin-Pot Clavulanate Discontinued 1 EACH PO TWICE A DAY June 14, 2017 1:00am June 27, 2017 10:07am aspirin 325 mg oral tablet (10 sources) Platelet Aggregation Inhibitor, Nonsteroidal Anti-inflammatory Drug Start: 06-27-2017 End: 01-24-2018 take 1 tablet by mouth once daily Aspirin 325 MG tablet Discontinued 325 mg PO DAILY@0800 30 June 27, 2017 1:00am January 24, 2018 4:11pm biotin 1 mg oral capsule (5 sources) Start: 08-02-2023 End: 01-15-2024 take 1 capsule by mouth once daily Biotin 1 mg capsule Discontinued 1 mg PO DAILY August 02, 2023 12:00am January 15, 2024 12:43pm take one cap by mouth once a day 24 hr dilTIAZem hydrochloride 120 mg extended release oral capsule (20 sources) Calcium Channel Syed Start: 01-24-2018 End: 04-21-2019 take 1 capsule by mouth once daily Diltiazem Hcl 120 mg capsule,extended release 24 hr Discontinued 120 mg PO DAILY July 29, 2018 10:13am April 21, 2019 11:18am On Hold: Bradycardia 03/10/2019 fluticasone propionate 0.05 mg/actuat metered dose nasal spray (10 sources) Corticosteroid Start: 06-14-2017 End: 06-21-2017 Fluticasone Propionate 9.9 ML spray,suspension Discontinued 9.9 mL NS TWICE A DAY June 14, 2017 1:00am June 21, 2017 3:29pm 12 hr guaiFENesin 1200 mg extended release oral tablet (10 sources) Start: 06-14-2017 End: 06-21-2017 take 1 tablet by mouth twice daily Guaifenesin 1,200 MG tablet Discontinued 1200 mg PO TWICE A DAY June 14, 2017 1:00am June 21, 2017 3:30pm levothyroxine sodium 0.025 mg oral tablet (20 sources) l-Thyroxine Start: 02-18-2019 End: 11-17-2019 take 1 tablet by mouth once daily Levothyroxine 25 mcg tablet Discontinued 25 ug PO DAILY May 23, 2019 4:49pm November 17, 2019 10:20am lisinopril 5 mg oral tablet (20 sources) Angiotensin Converting Enzyme Inhibitor Start: 10-04-2017 End: 07-29-2018 take 1 tablet by mouth once daily Lisinopril 5 mg tablet Discontinued 5 mg PO daily June 28, 2018 3:48pm July 29, 2018 10:12am meclizine hydrochloride 25 mg oral tablet (10 sources) Antiemetic Start: 06-27-2017 End: 01-24-2018 take 1 tablet by mouth three times daily as needed Meclizine 25 MG tablet Discontinued 25 mg PO 3 TIMES DAILY NEEDED as needed for Vertigo June 27, 2017 1:00am January 24, 2018 4:13pm 24 hr metoprolol succinate 25 mg extended release oral tablet (20 sources) beta-Adrenergic Syed Start: 07-21-2019 End: 08-10-2023 take 2 tablets by mouth once daily Metoprolol Succinate 25 mg tablet extended release 24 hr Discontinued 12.5 mg PO DAILY March 28, 2021 9:39am February 27, 2022 11:02am Start: 07-21-2019 End: 08-10-2023 take 12.5 mg by mouth once daily Metoprolol Succinate Discontinued 12.5 MG PO DAILY March 28, 2021 9:39am February 27, 2022 11:02am Start: 03-10-2019 End: 07-21-2019 take 1 tablet by mouth twice daily Metoprolol Tartrate 25 mg tablet Discontinued 25 mg PO TWICE A DAY March 10, 2019 1:00am July 21, 2019 10:45am Zd-Fdm-Jxspp-X2-Epxwrtj-Swhp in (Centrum Silver Ultra Men's) 902-43-730-300 mcg tablet (5 sources) Start: 08-02-2023 End: 01-15-2024 Rj-Yqt-Axctc-D9-Jccvdvl-Ogph in (Centrum Silver Ultra Men's) 427-42-784-300 mcg tablet Discontinued 1 {tbl} PO DAILY August 02, 2023 12:00am January 15, 2024 12:43pm Start: 08-02-2023 take 1 tablet by lorelei once daily Qd-Qdh-Pkbad-A7-Asqphuj-Btaxrz (Centrum Silver Ultra Men's) [id number] mcg tablet Active 1 TABLET PO DAILY August 02, 2023 12:00am olmesartan medoxomil 5 mg oral tablet (20 sources) Angiotensin 2 Receptor Syed Start: 03-12-2024 End: 07-09-2024 take 2.5 mg by mouth every other day Olmesartan 5 mg tablet Discontinued 2.5 mg PO every other day March 12, 2024 11:12am July 09, 2024 12:13pm Start: 03-12-2024 End: 03-12-2024 take 1 tablet by mouth once daily Olmesartan 5 mg tablet Discontinued 5 mg PO daily March 12, 2024 1:00am March 12, 2024 11:14am Start: 08-10-2023 End: 01-15-2024 take 1 tablet by mouth once daily Olmesartan 5 mg tablet Discontinued 5 mg PO daily October 12, 2023 11:05am November 09, 2023 10:55am Start: 05-20-2019 End: 08-02-2023 take 1 tablet by mouth once daily Olmesartan 5 mg tablet Discontinued 5 mg PO DAILY October 02, 2022 5:06pm August 01, 2023 7:44pm Start: 02-17-2019 End: 05-20-2019 take 2 tablets by mouth once daily Olmesartan 5 mg tablet Discontinued 10 mg PO DAILY February 17, 2019 12:00am May 20, 2019 9:16am Start: 02-17-2019 End: 05-20-2019 take 10 mg by mouth once daily Olmesartan Discontinued 10 MG PO DAILY February 17, 2019 12:00am May 20, 2019 9:16am Start: 12-03-2018 End: 02-17-2019 take 10 mg by mouth once daily Olmesartan 20 mg tablet Discontinued 10 mg PO DAILY December 03, 2018 11:59am February 17, 2019 10:39am Start: 12-03-2018 End: 02-17-2019 take 10 mg by mouth once daily Olmesartan Discontinued 10 MG PO DAILY December 03, 2018 11:59am February 17, 2019 10:39am Start: 12-03-2018 End: 12-03-2018 take 2 tablets by mouth once daily Olmesartan 5 mg tablet Discontinued 10 mg PO DAILY December 03, 2018 11:17am December 03, 2018 12:00pm Start: 12-03-2018 End: 12-03-2018 take 10 mg by mouth once daily Olmesartan Discontinued 10 MG PO DAILY December 03, 2018 11:17am December 03, 2018 12:00pm Start: 07-29-2018 End: 12-03-2018 take 1 tablet by mouth once daily Olmesartan 5 mg tablet Discontinued 5 mg PO DAILY November 29, 2018 1:15pm December 03, 2018 11:17am [place] 2-Azs-Rwp-Fish Oil (Fish Oil) 1,200 (144-216) mg capsule (5 sources) Start: 08-02-2023 End: 01-15-2024 take 1 capsule by mouth once daily [place] 5-Qlf-Ese-Fish Oil (Fish Oil) 1,200 (144-216) mg capsule Discontinued 1 NMA PO .every day August 02, 2023 12:00am January 15, 2024 12:43pm take one cap by mouth once a day Start: 08-02-2023 take 1 capsule by mo ut once daily [place] 6-Jix-Qhf-Fish Oil (Fish Oil) 1,200 (144-216) mg capsule Active 1 CAP PO .every day August 02, 2023 12:00am take one cap by mouth once a day predniSONE 20 mg oral tablet (20 sources) Start: 2020 End: 04-26-2020 take 2 tablets by mouth once daily Prednisone 20 mg tablet Discontinued 40 mg PO DAILY 2020 12:00am April 26, 2020 2:06pm Start: 2020 End: 04-26-2020 take 40 mg by mouth once daily Prednisone Discontinued 40 MG PO DAILY 2020 12:00am April 26, 2020 2:06pm Start: 09-18-2019 End: 10-09-2019 Prednisone 10 mg tablet Disc ontinued 0 PO daily September 18, 2019 12:00am October 09, 2019 2:55pm 4 tabs for 3 days, then 3 tabs for 3 days, then 2 tabs for 3 days, then 1 tab for 3 days PO QDAY; administer with food or milk Problems Active Problems Problem Classification Problem Date Documented Date Episodic/Chronic Administrative/social admission (10 sources) General problem AND/OR complaint; Translations: [Persons encountering health services in other specified circumstances] 11-29-2017 Episodic Cardiac dysrhythmias (20 sources) Paroxysmal atrial fibrillation; Translations: [Paroxysmal atrial fibrillation] Onset: 12-31-2017 Chronic Cardiac dysrhythmias (13 sources) Bradycardia; Translations: [Bradycardia, unspecified] Episodic Conditions associated with dizziness or vertigo (20 sources) Vertigo; Translations: [Dizziness and giddiness] Episodic Diseases of white blood cells (9 sources) Leukocytosis; Translations: [Elevated white blood cell count, unspecified] 08-01-2023 Chronic Esophageal disorders (13 sources) Gastroesophageal reflux disease; Translations: [Gastro-esophageal reflux disease without esophagitis] 12-08-2020 Chronic Essential hypertension (20 sources) Essential hypertension; Translations: [Essential (primary) hypertension] Onset: 07-09-2024 Chronic Fluid and electrolyte disorders (9 sources) Dehydration; Translations: [Dehydration] 08-01-2023 Episodic Immunizations and screening for infectious disease (20 sources) Viral antibody level - finding; Translations: [Other specified abnormal immunological findings in serum] 08-30-2017 Episodic Comment on above: Patient declined Malaise and fatigue (11 sources) Fatigue; Translations: [Other fatigue] Onset: 07-19-2024 11-15-2020 Episodic Nausea and vomiting (9 sources) Nausea, vomiting and diarrhea; Translations: [Nausea with vomiting, unspecified] 08-01-2023 Episodic Noninfectious gastroenteritis (10 sources) Gastroenteritis; Translations: [Noninfective gastroenteritis and colitis, unspecified] 08-01-2023 Episodic Nonspecific chest pain (16 sources) Chest pain; Translations: [Chest pain, unspecified] Onset: 09-24-2024 11-29-2020 Episodic Nutritional deficiencies (1 source) Vitamin D deficiency, unspecified; Translations: [Vitamin D deficiency, unspecified] Onset: 07-09-2024 Chronic Occlusion or stenosis of precerebral arteries (12 sources) Left carotid artery stenosis; Translations: [Occlusion and stenosis of left carotid artery] Chronic Other aftercare (6 sources) Long-term current use of anticoagulant; Translations: [senior living (current) use of anticoagulants] 08-01-2023 Episodic Other aftercare (2 sources) senior living (current) use of anticoagulants; Translations: [Long-term (current) use of anticoagulants] 08-01-2023 Episodic Other bone disease and musculoskeletal deformities (6 sources) Scapulalgia; Translations: [Other specified disorders of bone, shoulder] 12-21-2022 Episodic Other hematologic conditions (6 sources) Erythrocytosis; Translations: [Secondary polycythemia] 08-01-2023 Episodic Other hematologic conditions (3 sources) Secondary polycythemia; Translations: [Polycythemia vera] 08-01-2023 Episodic Other injuries and conditions due to external causes (6 sources) Aspiration into lower respiratory tract; Translations: [Unspecified foreign body in other parts of respiratory tract causing asphyxiation, initial encounter] 08-01-2023 Episodic Other injuries and conditions due to external causes (3 sources) Unspecified foreign body in other parts of respiratory tract causing asphyxiation, initial encounter; Translations: [Foreign body in respiratory tree, unspecified] 08-01-2023 Episodic Other lower respiratory disease (10 sources) Cough; Translations: [Cough] 07-29-2018 Episodic Other nervous system disorders (10 sources) Neuropathy; Translations: [Polyneuropathy, unspecified] 01-24-2018 Chronic Comment on above: of the feet Other nervous system disorders (6 sources) Impaired cognition; Translations: [Other symptoms and signs involving cognitive functions and awareness] 07-09-2024 Episodic Other nutritional; endocrine; and metabolic disorders (10 sources) Overweight; Translations: [Overweight] 08-30-2017 Episodic Residual codes; unclassified (16 sources) Obstructive sleep apnea syndrome; Translations: [Obstructive sleep apnea (adult) (pediatric)] 02-18-2019 Chronic Comment on above: CPAP 9 cm of water Residual codes; unclassified (10 sources) Sleep apnea; Translations: [Sleep apnea, unspecified] 08-30-2017 Chronic Residual codes; unclassified (10 sources) Hypersomnia; Translations: [Hypersomnia, unspecified] 07-26-2017 Chronic Residual codes; unclassified (1 source) Obstructive sleep apnea (adult) (pediatric); Translations: [Obstructive sleep apnea (adult)(pediatric)] 08-28-2022 Chronic Residual codes; unclassified (1 source) Sleep apnea, unspecified; Translations: [Sleep apnea, unspecified] Onset: 07-09-2024 Chronic Residual codes; unclassified (2 sources) History of repair of blepharoptosis; Translations: [Other specified postprocedural states] 12-07-2020 Episodic Thyroid disorders (11 sources) Subclinical hypothyroidism; Translations: [Other specified hypothyroidism] Onset: 03-12-2024 04-21-2019 Chronic Unclassified (1 source) Unknown / UNK(Unknown) Onset: 12-31-2017 Past or Other Problems Problem Classification Problem Date Documented Da te Episodic/Chronic Other screening for suspected conditions (not mental disorders or infectious disease) (5 sources) Patient encounter status; Translations: [Encounter for screening for nutritional disorder] Onset: 11-09-2023 07-09-2024 Episodic Results Test Name Value Interpretation Reference Range Facility Pulmonary Visit Reporton Pulmonary Visit Report [facility] [address] [place] [address] OFFICE VISIT Date of Service: 10/03/24 MR#: [id number] Acct: [id number] Name: CALEB VILA Rep #: [id number] : 1945 Provider: JERAMIE Chau Age/Sex: 79/M Location: [facility] [place].[facility] Status: Signed Assessment and Plan Assessment and Plan (1) ASTRID (obstructive sleep apnea): Status: Chronic Comment: CPAP 9 cm of water Plan: Deteriorated. The patient's device is broken, not functioning at all. He is eligible for a new machine. Orders will be placed for a new device at current settings as he has been using and benefiting from this device. No indication for titration study. Follow-up in 60 to 90 days after set up of new machine. Contact the office with any new or worsening difficulties in the meantime. (2) Obesity: Status: Chronic Qualifiers: Obesity type: due to excess calories Obesity classification: adult class 1 (BMI 30 - 34.9) Serious obesity comorbidity presence: with serious comorbidity Body mass index: BMI 30.0-30.9 Qualified Code(s): E66.811 - Obesity, class 1; E66.09 - Other obesity due to excess calories; Z68.30 - Body mass index [BMI] 30.0-30.9, adult Plan: Deteriorated. The patient has put on a few pounds which now technically puts him in the obese category, was previously overweight. This complicates exam, plan, care and prognosis. It has not been enough of a weight gain to impact his control of events on current PAP settings. Encourage weight loss. Plan Details Additional Comments: This note was generated with Outright dictation software. It may contain incorrect words, spelling, and punctuation that were not noted in checking the note before signing. Follow Up: 3 Months HPI Needs new pap machine Chief Complaint: Broken PAP machine HPI Comments Details: This patient presents to the office today follow-up on his obstructive sleep apnea. He is ambulatory and currently on room air. He is accompanied today by his . He has not been seen in the ED or urgent care for any respiratory illnesses since his last office visit. He has not required any antibiotics or prednisone for any breathing problems. He denies any difficulty with shortness of breath whatsoever. He denies any cough, sputum production or hemoptysis. He is not had any wheezing, chest tightness, chest pain or palpitations. He denies any fever, chills or body aches. He reports excellent compliance with the use of his loaner Pap device. He reports that his own PAP machine recently stopped working altogether. Within 48 hours of the machine breaking he went into atrial fibrillation. His was successful at obtaining a loaner device from the [employer]. Within 24 hours of returning to PAP therapy he went back into regular rhythm. He denies any difficulty with dry mouth. He is not having morning headaches. He also denies excessive nocturia. He does not fall asleep unintentionally. Compliance report on the loaner device for the past 30 days shows 97% compliance with an average use of 7 hours and 52 minutes per night. Current setting is CPAP of 9 cmH2O with residual AHI of 1.9 events per hour. Leaks do not appear to be an issue. Intake Vital Signs 09/24/24 11:28 10/03/24 07:58 Height 5 ft 9 in 5 ft 9 in Weight: 206 lb 208 lb BMI 30.4 30.7 BP 150/95 H 146/83 H Blood Pressure Location Rt brachial Lt brachial Position Sitting Sitting Respiration 16 18 Pulse 60 61 Pulse Source NIBP NIBP Temp 97.3 F L Temperature Source Temporal Artery Intake Visit Reasons: Needs new pap machine Chief Complaint: 4 m f/u Application Packaging Consultant Required: No Trampoline Vendor: Barry Accompanied by: Is patient in pain?: No Allergies No Known Allergies Allergy (Verified 10/03/24 08:43) Medications ???Medication ???Instructions ???Recorded ???Confirmed ???Type apixaban 5 mg tablet (Eliquis) 5 mg PO BID ATRIAL FIBRILLATION 10/03/24 History Handicap Placard #1 ea 02/27/22 07/09/24 Rx multivitamin 1 tab PO QAM 07/09/24 10/03/24 His tory amlodipine 5 mg tablet 5 mg PO QDAY #90 tabs 10/01/24 Rx Have you fallen in the past year?: No PFSH Medical History (Reviewed 10/03/24 @ 09:01 by Renée Chau FLATTENING PRESS OPERATOR, FLATTENING PRESS OPERATOR-C) Brain fog Encounter for vitamin deficiency screening Health care maintenance Chronic anticoagulation Atrial flutter COVID-19 Flu vaccine need GERD (gastroesophageal reflux disease) Fatigue Essential hypertension Neuropathy Sleep apnea Carotid stenosis, left Bradycardia Hypertension Hepatitis A antibody positive Paroxysmal atrial fibrillation Vertigo Surgical History (Reviewed 10/03/24 @ 09:01 by Renée Chau FLATTENING PRESS OPERATOR, FLATTENING PRESS OPERATOR-C) History of tonsillectomy History of oral surgery Family History (more content not included)... Normal [facility] Cardiology Visit Reporton Cardiology Visit Report [facility] [place] [id number] [place] [address] OFFICE VISIT Date of Service: 09/24/24 MR#: [id number] Acct: [id number] Name: CALEB VILA Rep #: [id number] : 1945 Provider: VALERIA Moore Age/Sex: 79/M Location: [facility] [place].[facility] Status: Signed HPI HPI History of Present Illness Details: This is a 79-year-old white male who presents today for outpatient cardiovascular follow-up. He has a history of paroxysmal atrial fibrillation, bradycardia, hypertension, and carotid artery [id number] . Pt notes that twice he had pain under his left arm that radiated down his arm. It lasted for approx 15 minutes. He was driving when this happened. 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 He is concerned about this pain since this is what his brothers had prior to their MIs. He has not had any episodes of Afib that he is aware of. Intake Vital Signs 03/26/24 11:36 07/09/24 10:17 09/24/24 11:28 Height 5 ft 9 in 5 ft 9 in 5 ft 9 in Weight: 208 lb 206 lb BMI 30.7 30.4 BP 120/80 150/95 H Blood Pressure Location Lt brachial Rt brachial Position Sitting Sitting Respiration 14 16 Pulse 58 L 60 Pulse Source Monitor NIBP Temp 98 F Pulse Oximetry (%) 97 Oxygen Delivery Method room air Intake Visit Reasons: 6 M FU Application Packaging Consultant Required: No Accompanied by: Is patient in pain?: No Allergies No Known Allergies Allergy (Verified 09/24/24 11:29) Medications ???Medication ???Instructions ???Recorded ???Confirmed ???Type apixaban 5 mg tablet (Eliquis) 5 mg PO BID ATRIAL FIBRILLATION 09/24/24 History Handicap Placard #1 ea 02/27/22 07/09/24 Rx multivitamin 1 tab PO QAM 07/09/24 09/24/24 His tory amlodipine 5 mg tablet 5 mg PO QDAY #90 tabs 10/01/24 Rx Ejection fraction %: 55 Have you fallen in the past year?: No PFSH Medical History Brain fog Encounter for vitamin deficiency screening Health care maintenance Chronic anticoagulation Atrial flutter COVID-19 Flu vaccine need GERD (gastroesophageal reflux disease) Fatigue Essential hypertension Neuropathy Sleep apnea Carotid stenosis, left Bradycardia Hypertension Hepatitis A antibody positive Paroxysmal atrial fibrillation Vertigo Surgical History History of tonsillectomy History of oral surgery Family History Mother Cancer endometrial Father Heart disease CVA (cerebral vascular accident) Hypertension Cancer melanoma Sister Breast cancer Social History Smoking Status: Never smoker alcohol intake: never substance use type: does not use what type of physical 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 ROS Const Const: Positive for fatigue (Relates to amlodipine); Negative for weakness Eyes Eyes: Negative for change in vision ENT ENT: Positive for balance problems; Negative for dizziness Cardio Chest Pain: No Palpitations: No Edema: None Resp Respiratory: Negative for SOB with activity, SOB at rest or SOB orthopnea SOB lying down GI GI: Negative nausea or heartburn Musc Musc: Positive for balance problems Neuro Neuro: Negative for dizziness, lightheadedness, near syncope, syncope or weakness Endo Endo: Positive for fatigue (Relates to amlodipine) Cardiology Exam Const Appearance: cooperative, healthy appearing, comfortable and no acute distress Nutritional Appearance: well nourished and obese Orientation: alert, awake and oriented x3 Head Head: normal to inspection Ears: hearing grossly normal bilaterally Nose: external nose normal Face and Sinus: face symmetric Eyes General: appearance normal, both eyes and all related structures Eyelids: eyelids normal EOM: EOM intact bilaterally Neck Neck: normal visual inspection and no JVD Carotids: normal carotid upstroke Chest Chest inspection: normal inspection of the chest, symmetric chest movement and normal respiratory effort; Negative cough Auscultation: Bilateral: Clear to Auscultation Cardio Rate: regular rate Rhythm: regular rhythm Heart sounds: S1 normal and S2 normal; Negative rub, gallop or murmur GI GI: normal to inspection and obese Neuro General: patient alert, patient awake, patient oriented x3 and CN's II-XI intact bilaterally Skin Skin: no rashes or lesions noted Extremities Pulses: Normal: Right Posterior Tibial Pulse, Left Posterior Tibial Pulse, Right Radial Pulse and Left Radial Pulse Lower Extremity Edema: None: Bilateral Psych Psychological: normal affect Supplemental Info Supple (more content not included)... Normal [facility] Absolute lymphocyte countOrd ered By: Bonilla Gary on 07-09-2024 Lymphocytes Auto (Unsp spec) [#/Vol] 1.62 10*3/uL 0.83-4.51 [facility] Absolute neutrophil countOrd ered By: Bonilla Gary on 07-09-2024 Neutrophils (Bld) [#/Vol] 2.2 10*3/uL 2.0-7.7 [facility] Anion gap in Serum or Plasma Ordered By: Bonilla Gary on 07-09-2024 Anion gap [Moles/Vol] 10 mmol/L 5-15 [facility] Automated lymphocyte count a s percentage of total leukocytesOrdered By: Bonilla Gary on 07-09-2024 Lymphocytes/100 WBC Auto (Unsp spec) 35.9 % 19-41 [facility] BUN/creatinine ratioOrdered By: Bonilla Gary on 07-09-2024 Urea nitrogen/Creatinine [Mass ratio] 10.2 mg/mg 10-20 [facility] Basophil percentageOrdered B y: Bonilla Gary on 07-09-2024 Basophils/100 WBC (Bld) 0.7 % 0-1 [facility] Bilirubin, totalOrdered By: Bonilla Gary on 07-09-2024 Bilirubin [Mass/Vol] 0.49 mg/dL 0.00-1.30 [facility] CBC W/Diff, Automatedon Absolute Lymph 1.62 X10 3/uL Normal 0.83-4.51 [facility] Comment on above: Performed By: #### L 100.0100, L506.0400, L506.1001, L503.0106, L500.4050, L501.9520 #### [facility] Laboratory [address] [place], [address] Absolute Neut 2.2 X10 3/uL Normal 2.0-7.7 [facility] Comment on above: Performed By: #### L 100.0100, L506.0400, L506.1001, L503.0106, L500.4050, L501.9520 #### [facility] [address] [place], [address] Basophils/100 WBC (Bld) 0.7 % Normal 0-1 [facility] Comment on above: Performed By: #### L 100.0100, L506.0400, L506.1001, L503.0106, L500.4050, L501.9520 #### [facility] [address] [place], [address] Eosinophils/100 WBC (Bld) 5.1 % High 0-5 [facility] Comment on above: Performed By: #### L 100.0100, L506.0400, L506.1001, L503.0106, L500.4050, L501.9520 #### [facility] [address] [place], [address] Erythrocyte distribution width (RBC) [Ratio] 12.4 % Normal 11.6-14.6 [facility] Comment on above: Performed By: #### L 100.0100, L506.0400, L506.1001, L503.0106, L500.4050, L501.9520 #### [facility] [address] [place] [place], [address] Hematocrit (Bld) [Volume fraction] 45.3 % Normal 40-54 [facility] Comment on above: Performed By: #### L 100.0100, L506.0400, L506.1001, L503.0106, L500.4050, L501.9520 #### [facility] [address] [place], [address] Hemoglobin (Bld) [Mass/Vol] 15.0 g/dL Normal 13.0-16.5 [facility] Comment on above: Performed By: #### L 100.0100, L506.0400, L506.1001, L503.0106, L500.4050, L501.9520 #### [facility] [address] [place], [address] IG% 0.200 Normal 0.0-0.9 [facility] Comment on above: Result Comment: IG% - Immature Granulocytes (promyelocytes, myelocytes and metamyelocytes) > 1% indicates that a LEFT SHIFT is Present. Performed By: #### L 100.0100, L506.0400, L506.1001, L503.0106, L500.4050, L501.9520 #### [facility] [address] [place] [place], [address] Lymphocytes/100 WBC (Bld) 35.9 % Normal 19-41 [facility] Comment on above: Performed By: #### L 100.0100, L506.0400, L506.1001, L503.0106, L500.4050, L501.9520 #### [facility] [address] [place], [address] MCH (RBC) [Entitic mass] 29.5 pg Normal 27.0-32.0 [facility] Comment on above: Performed By: #### L 100.0100, L506.0400, L506.1001, L503.0106, L500.4050, L501.9520 #### [facility] [address] [place], [address] MCHC (RBC) [Mass/Vol] 33.1 g/dL Normal 32-36 [facility] Comment on above: Performed By: #### L 100.0100, L506.0400, L506.1001, L503.0106, L500.4050, L501.9520 #### [facility] [address] [place], [address] MCV (RBC) [Entitic vol] 89.2 fL Normal 80-94 [facility] Comment on above: Performed By: #### L 100.0100, L506.0400, L506.1001, L503.0106, L500.4050, L501.9520 #### [facility] [address] [place], [address] Monocytes/100 WBC (Bld) 9.8 % Normal 0-10 [facility] Comment on above: Performed By: #### L 100.0100, L506.0400, L506.1001, L503.0106, L500.4050, L501.9520 #### [facility] [address] [place], [address] Neutrophils/100 WBC (Bld) 48.3 % Normal 47-70 [facility] Comment on above: Performed By: #### L 100.0100, L506.0400, L506.1001, L503.0106, L500.4050, L501.9520 #### [facility] [address] [place], [address] Nucleated RBC (Bld) [#/Vol] 0 10*3/uL Normal 0-5 [facility] Comment on above: Performed By: #### L 100.0100, L506.0400, L506.1001, L503.0106, L500.4050, L501.9520 #### [facility] [address] [place], [address] Platelet mean volume (Bld) [Entitic vol] 10.5 fL Normal 6.2-12.0 [facility] Comment on above: Performed By: #### L 100.0100, L506.0400, L506.1001, L503.0106, L500.4050, L501.9520 #### [facility] [address] [place], [address] Platelets (Bld) [#/Vol] 242 10*3/uL Normal 150-450 [facility] Comment on above: Performed By: #### L 100.0100, L506.0400, L506.1001, L503.0106, L500.4050, L501.9520 #### [facility] [address] [place], [address] RBC (Bld) [#/Vol] 5.08 10*6/uL Normal 4.6-6.[address] [facility] Comment on above: Performed By: #### L 100.0100, L506.0400, L506.1001, L503.0106, L500.4050, L501.9520 #### [facility] [address] [place], [address] RDW SD 40.4 fl Normal 35.1-43.9 [facility] Comment on above: Performed By: #### L 100.0100, L506.0400, L506.1001, L503.0106, L500.4050, L501.9520 #### [facility] [address] [place], [address] WBC (Bld) [#/Vol] 4.5 10*3/uL Normal 4.4-11.0 [facility] Comment on above: Performed By: #### L 100.0100, L506.0400, L506.1001, L503.0106, L500.4050, L501.9520 #### [facility] [address] [place], [address] Carbon dioxide, total [Moles /volume] in Central venous bloodOrdered By: Bonilla Gary on 07-09-2024 CO2 [Moles/Vol] 24.3 mmol/L 21.0-32.0 [facility] Chloride assayOrdered By: Josr Gary on 07-09-2024 Chloride [Moles/Vol] 105 mmol/L 98-108 [facility] Comprehensive Metabolic Prof ilon 07-09-2024 Albumin [Mass/Vol] 4.2 g/dL Normal 3.4-4.8 [facility] Comment on above: Performed By: #### L 100.0100, L506.0400, L506.1001, L503.0106, L500.4050, L501.9520 #### [facility] [address] [place], [address] Albumin/Globulin [Mass ratio] 1.4 {ratio} Normal 0.9-2.4 [facility] Comment on above: Performed By: #### L 100.0100, L506.0400, L506.1001, L503.0106, L500.4050, L501.9520 #### [facility] [address] [place], [address] ALK PHOS 94 U/L Normal 40-129 [facility] Comment on above: Performed By: #### L 100.0100, L506.0400, L506.1001, L503.0106, L500.4050, L501.9520 #### [facility] [address] [place], [address] ALT [Catalytic activity/Vol] 33 U/L Normal <=46 [facility] Comment on above: Performed By: #### L 100.0100, L506.0400, L506.1001, L503.0106, L500.4050, L501.9520 #### [facility] [address] [place], [address] AST [Catalytic activity/Vol] 26 U/L Normal <=37 [facility] Comment on above: Performed By: #### L 100.0100, L506.0400, L506.1001, L503.0106, L500.4050, L501.9520 #### [facility] [address] [place], [address] Bilirubin [Mass/Vol] 0.49 mg/dL Normal 0.00-1.30 [facility] Comment on above: Performed By: #### L 100.0100, L506.0400, L506.1001, L503.0106, L500.4050, L501.9520 #### [facility] [address] [place], [address] BUN/CRE 10.2 RATIO Normal 10-20 [facility] Comment on above: Performed By: #### L 100.0100, L506.0400, L506.1001, L503.0106, L500.4050, L501.9520 #### [facility] [address] [place], [address] Calcium [Mass/Vol] 9.7 mg/dL Normal 7.6-11.0 [facility] Comment on above: Performed By: #### L 100.0100, L506.0400, L506.1001, L503.0106, L500.4050, L501.9520 #### [facility] [address] [place], [address] Chloride [Moles/Vol] 105 mmol/L Normal 98-108 [facility] Comment on above: Performed By: #### L 100.0100, L506.0400, L506.1001, L503.0106, L500.4050, L501.9520 #### [facility] [address] [place], [address] CO2 [Moles/Vol] 24.3 mmol/L Normal 21.0-32.0 [facility] Comment on above: Performed By: #### L 100.0100, L506.0400, L506.1001, L503.0106, L500.4050, L501.9520 #### [facility] [address] [place], [address] Creatinine [Mass/Vol] 1.15 mg/dL Normal 0.70-1.20 [facility] Comment on above: Performed By: #### L 100.0100, L506.0400, L506.1001, L503.0106, L500.4050, L501.9520 #### [facility] [address] [place], [address] GAP 10 Normal 5-15 [facility] Comment on above: Performed By: #### L 100.0100, L506.0400, L506.1001, L503.0106, L500.4050, L501.9520 #### [facility] [address] [place], [address] GFR/1.73 sq M.predicted among non-blacks MDRD (S/P/Bld) [Vol rate/Area] 65 mL/min/{1.73_m2} Normal >60 [facility] Comment on above: Result Comment: mL/m in/1.73m2 CKD-EPI Creatinine Equation (2020) Performed By: #### L 100.0100, L506.0400, L506.1001, L503.0106, L500.4050, L501.9520 #### [facility] [address] [place], [address] Globulin (S) [Mass/Vol] 3.0 g/dL Normal 2.2-4.2 [facility] Comment on above: Performed By: #### L 100.0100, L506.0400, L506.1001, L503.0106, L500.4050, L501.9520 #### [facility] [address] [place], [address] Glucose [Mass/Vol] 86 mg/dL Normal 70-99 [facility] Comment on above: Performed By: #### L 100.0100, L506.0400, L506.1001, L503.0106, L500.4050, L501.9520 #### [facility] [address] [place], [address] Potassium [Moles/Vol] 4.4 mmol/L Normal 3.3-5.1 [facility] Comment on above: Performed By: #### L 100.0100, L506.0400, L506.1001, L503.0106, L500.4050, L501.9520 #### [facility] [address] [place], [address] Sodium [Moles/Vol] 140 mmol/L Normal 133-145 [facility] Comment on above: Performed By: #### L 100.0100, L506.0400, L506.1001, L503.0106, L500.4050, L501.9520 #### [facility] [address] [place], [address] T PROT 7.2 g/dL Normal 5.9-8.4 [facility] Comment on above: Performed By: #### L 100.0100, L506.0400, L506.1001, L503.0106, L500.4050, L501.9520 #### [facility] [address] [place], [address] Urea nitrogen [Mass/Vol] 12 mg/dL Normal 4-19 [facility] Comment on above: Performed By: #### L 100.0100, L506.0400, L506.1001, L503.0106, L500.4050, L501.9520 #### [facility] [address] [place], [address] Eosinophil percentageOrdered By: Bonilla Gary on 07-09-2024 Eosinophils/100 WBC (Bld) 5.1 % High 0-5 [facility] Erythrocyte distribution wid th ratioOrdered By: Bonilla Gary on 07-09-2024 Erythrocyte distribution width (RBC) [Ratio] 12.4 % 11.6-14.6 [facility] Erythrocyte distribution wid th standard deviationOrdered By: Jocelynntippecanoeluis Gary on 07-09-2024 Erythrocyte distribution width (RBC) [Entitic vol] 40.4 fL 35.1-43.9 [facility] Erythrocyte distribution width (RBC) [Ratio] 40.4 fl 35.1-43.9 [facility] GFR/1.73 sq M.predicted carmelita g non-blacks MDRD (S/P/Bld) [Vol rate/Area]Ordered By: Bonilla Gary on 07-09-2024 Estimated GFR (MDRD) Non-Af Amer 65 >60 [facility] Comment on above: mL/min/1.73m2 CKD-EP I Creatinine Equation (2020) Glomerular filtration rate ( GFR) estimation/1.73 sq m using serum, plasma, or whole bOrdered By: Bonilla Gary on 07-09-2024 GFR/1.73 sq M.predicted among non-blacks MDRD (S/P/Bld) [Vol rate/Area] 65 mL/min/{1.73_m2} >60 [facility] Comment on above: mL/min/1.73m2 CKD-EP I Creatinine Equation (2020) Hematocrit Auto (Bld) [Volum e fraction]Ordered By: Bonilla Gary on 07-09-2024 Hematocrit (Bld) [Volume fraction] 45.3 % 40-54 [facility] Hemoglobin measurementOrdere d By: Bonilla Gary on 07-09-2024 Hemoglobin (Bld) [Mass/Vol] 15.0 g/dL 13.0-16.5 [facility] Immature granulocytes/100 WB C Auto (Bld)Ordered By: Bonilla Gary on 07-09-2024 Immature granulocytes/100 WBC (Bld) 0.200 % 0.0-0.9 [facility] Comment on above: IG% - Immature Granu locytes (promyelocytes, myelocytes and metamyelocytes) > 1% indicates that a LEFT SHIFT is Present. Internal Medicine Office Vis iton 07-09-2024 Internal Medicine Office Visit [facility] [address] [place] [address] [place] [address] OFFICE VISIT Date of Service: 07/09/24 MR#: [id number] Acct: [id number] Name: CALEB VILA Rep #: [id number] : 1945 Provider: Dr. Bonilla gustafson MD Age/Sex: 79/M Location: [facility] [place].[facility] Status: Signed Intake Vital Signs 03/12/24 09:51 03/26/24 11:36 07/09/24 10:17 Height 5 ft 9 in 5 ft 9 in 5 ft 9 in Weight: 208 lb BMI 30.7 BP 120/80 Blood Pressure Location Lt brachial Position Sitting Respiration 14 Pulse 58 L Pulse Source Monitor Temp 98 F Temp Source Temporal Pulse Oximetry (%) 97 Oxygen Delivery Method room air Intake Visit Reasons: 4 M FU Chief Complaint: 4 m f/u Application Packaging Consultant Required: No Accompanied by: Is patient in pain?: No Allergies No Known Allergies Allergy (Verified 07/09/24 10:10) Medications ???Medication ???Instructions ???Recorded ???Confirmed ???Type apixaban 5 mg tablet (Eliquis) 5 mg PO BID ATRIAL FIBRILLATION 07/09/24 History Handicap Placard #1 ea 02/27/22 07/09/24 Rx amlodipine 5 mg tablet 5 mg PO QDAY #30 tabs 07/09/2409/28 Rx multivitamin 1 tab PO QAM 07/09/24 07/09/24 His tory Have you fallen in the past year?: No Nurse's Note: Says that the olmesartan makes him feel tired and foggy, states he also c/o puritis. States it was dc'd in the past and he felt good however his htn flared up so he had to go back on it. States he has been checking bp's at home running 140's/70's states in the summer time he gets it into the 130's/70's. [facility] Medical History (Updated 07/09/24 @ 17:[address] Bonilla Gary MD) Brain fog Encounter for vitamin deficiency screening Health care maintenance Chronic anticoagulation Atrial flutter COVID-19 Flu vaccine need GERD (gastroesophageal reflux disease) Fatigue Essential hypertension Neuropathy Sleep apnea Carotid stenosis, left Bradycardia Hypertension Hepatitis A antibody positive Paroxysmal atrial fibrillation Vertigo Surgical History History of tonsillectomy History of oral surgery Family History Mother Cancer endometrial Father Heart disease CVA (cerebral vascular accident) Hypertension Cancer melanoma Sister Breast cancer Social History Smoking Status: Never smoker alcohol intake: never substance use type: does not use what type of physical 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 Also has some concerns. History of hypertension currently on olmesartan. Taking 2.5 mg daily. He states that at this dose his blood pressure is on average in the 140s. Feels less tired in this range. Still has ongoing brain fog but when he stops the medication, his blood pressure goes quite high which he is not comfortable with. He would like to try something else. His is concerned about occasional confusion and forgetfulness. Scored 30 on the MMSE. Patient attributes it to fatigue and brain fog reported as above Other chronic medical conditions are stable. ROS Const Constitutional: No body ache, chills, excessive sweating, fatigue, fever(s), frequent falls, headache(s), snoring, weakness, sleep problems or change in appetite Eyes Eyes: No blurry vision, change in vision, floaters, visual disturbances, eye pain or Light sensitivity ENT ENT: No abnormal hearing, ear or mastoid pain, tinnitus, balance problems, nosebleed/epistaxis , nasal congestion, headache(s), neck pain or sore throat Resp Respiratory: No cough, excessive phlegm production, pain on inspiration, shortness of breath, snoring or wheezing Cardio Cardiology: No chest pain at rest, chest pain with exertion, excessive sweating, shortness of breath, dyspnea on exertion, lightheadedness, orthopnea or palpitations Gastro GI: No abdominal pain, change in bowel habits, constipation, cramping, diarrhea, nausea/dyspepsia or vomiting Genitourinary Male: No burning urination, painful urination, urinary incontinence, urinary frequency, suprapubic fullness or side pain Musc Musculoskeletal: No abnormal gait, joint pain, back pain, limited range of motion, neck pain or numbness Skin Skin: No dry skin, redness, excessive hair growth, yellowing of the eye, lesions, itchy eyes, rash or wounds Neuro Neurology: No abnormal gait, abnormal hearing, behavioral changes, unsteady gait/balance, weakness, frequent falls, headache(s), memory loss, numbness or vis (more content not included)... Normal [facility] L503.0106on 07-09-2024 Cobalamin (Vitamin B12) [Mass/Vol] 456 pg/mL Normal 180-914 [facility] Comment on above: Performed By: #### L 100.0100, L506.0400, L506.1001, L503.0106, L500.4050, L501.9520 #### [facility] Laboratory [address] [place], [place], [id number] L506.1001on 07-09-2024 Vitamin D 25-OH 27.6 ng/mL Low 30-100 [facility] Comment on above: Result Comment: Hel[place] min D Status Deficiency: <20 ng/mL (50nmol/L) Insufficiency: 20-30 ng/mL (50-75 nmol/L) Sufficiency: 30-100 ng/mL (75-250 nmol/L) Toxicity: >100 ng/mL (>250 nmol/L) Performed By: #### L 100.0100, L506.0400, L506.1001, L503.0106, L500.4050, L501.9520 ####[facility] [id number] [place], [address] Laboratory - Chemistry and C hemistry - challengeOrdered By: Bonilla Gary on 07-09-2024 AST [Catalytic activity/Vol] 26 U/L <38 [facility] Lymphocytes Auto (Unsp spec) [#/Vol]Ordered By: Bonilla Gary on 07-09-2024 Lymphocytes (Bld) [#/Vol] 1.62 10*3/uL 0.83-4.5 1 [facility] Lymphocytes/100 WBC Auto (Un sp spec)Ordered By: Bonilla Gary on 07-09-2024 Lymphocytes/100 WBC (Bld) 35.9 % 19-41 [facility] MCV (mean corpuscular volume ) determinationOrdered By: Bonilla Gary on 07-09-2024 MCV (RBC) [Entitic vol] 89.2 fL 80-94 [facility] Mean corpuscular hemoglobin (MCH) determinationOrdered By: Bonilla Gary on 07-09-2024 MCH (RBC) [Entitic mass] 29.5 pg 27.0-32.0 [facility] Mean corpuscular hemoglobin concentration (MCHC) determinationOrdered By: Bonilla Gary on 07-09-2024 MCHC (RBC) [Mass/Vol] 33.1 g/dL 32-36 [facility] Mean platelet volume determi nationOrdered By: Bonilla Gary on 07-09-2024 Platelet mean volume (Bld) [Entitic vol] 10.5 fL 6.2-12.0 [facility] Monocyte percentageOrdered B y: Bonilla Gary on 07-09-2024 Monocytes/100 WBC (Bld) 9.8 % 0-10 [facility] Neutrophil percentageOrdered By: Bonilla Gary on 07-09-2024 Neutrophils/100 WBC (Bld) 48.3 % 47-70 [facility] Nucleated red blood cell per centageOrdered By: Bonilla Gary on 07-09-2024 Nucleated RBC/100 WBC (Bld) [Ratio] 0 % 0-5 [facility] Platelet countOrdered By: Josr Gary on 07-09-2024 Platelets (Bld) [#/Vol] 242 10*3/uL 150-450 [facility] Potassium (Unsp spec) [Mass/ Vol]Ordered By: Bonilla Gary on 07-09-2024 Potassium [Moles/Vol] 4.4 mmol/L 3.3-5.1 [facility] Potassium measurement (mass/ volume)Ordered By: Bonilla Gary on 07-09-2024 Potassium (Unsp spec) [Mass/Vol] 4.4 mmol/L 3.3-5.1 [facility] RBC Auto (Bld) [#/Vol]Ordere d By: Bonilla Gary on 07-09-2024 RBC (Bld) [#/Vol] 5.08 10*6/uL 4.6-6.[address] [facility] Serum creatinine measurement (mass/volume)Ordered By: Bonilla Gary on 07-09-2024 Creatinine [Mass/Vol] 1.15 mg/dL 0.70-1.20 [facility] Serum globulin measurementOr dered By: Bonilla Gary on 07-09-2024 Globulin (S) [Mass/Vol] 3.0 g/dL 2.2-4.2 [facility] Serum glucose measurement (m ass/volume)Ordered By: Bonilla Gary on 07-09-2024 Glucose [Mass/Vol] 86 mg/dL 70-99 [facility] Serum or plasma alanine bingham otransferase (ALT) measurementOrdered By: Bonilla Gary on 07-09-2024 ALT [Catalytic activity/Vol] 33 U/L <47 [facility] Serum or plasma albumin gurjit urement (mass/volume)Ordered By: Bonilla Gary on 07-09-2024 Albumin [Mass/Vol] 4.2 g/dL 3.4-4.8 [facility] Serum or plasma albumin/glob ulin mass ratioOrdered By: Bonilla Gary on 07-09-2024 Albumin/Globulin [Mass ratio] 1.4 {ratio} 0.9-2.4 [facility] Serum or plasma alkaline abebe sphatase measurementOrdered By: Bonilla Gary on 07-09-2024 ALP [Catalytic activity/Vol] 94 U/L 40-129 [facility] Serum or plasma calcium gurjit urement (mass/volume)Ordered By: Bonilla Gary on 07-09-2024 Calcium [Mass/Vol] 9.7 mg/dL 7.6-11.0 [facility] Serum or plasma urea nitroge n measurement (mass/volume)Ordered By: Bonilla Gary on 07-09-2024 Urea nitrogen [Mass/Vol] 12 mg/dL 4-19 [facility] Sodium levelOrdered By: Jocelynn Gary on 07-09-2024 Sodium [Moles/Vol] 140 mmol/L 133-145 [facility] T4 Free Directon 07-09-2024 T4 FREE DIRECT 0.90 ng/dL Normal 0.76-1.46 [facility] Comment on above: Performed By: #### L 100.0100, L506.0400, L506.1001, L503.0106, L500.4050, L501.9520 ####[facility] [address] [place], [address] T4 freeOrdered By: Bonilla Gary on 07-09-2024 Free T4 [Mass/Vol] 0.90 ng/dL 0.76-1.46 [facility] TSH DL <= 0.005 mIU/L QnOrde red By: Bonilla Gary on 07-09-2024 Thyroid Stimulating Hormone (TSH) 4.200 uIU/mL 0.300-4.200 [facility] TSH Qn 4.200 uIU/mL 0.300-4.200 [facility] Thyroid Stim Hormone (TSH)on 07-09-2024 TSH 4.200 uIU/mL Normal 0.300-4.200 [facility] Comment on above: Performed By: #### L 100.0100, L506.0400, L506.1001, L503.0106, L500.4050, L501.9520 #### [facility] [address] [place], [address] Total proteinOrdered By: Kevin Gary on 07-09-2024 Protein [Mass/Vol] 7.2 g/dL 5.9-8.4 [facility] Vitamin B12 ser/plasOrdered By: [facility] on 07-09-2024 Cobalamin (Vitamin B12) [Mass/Vol] 456 pg/mL 180-914 [facility] Vitamin D, 25-hydroxyOrdered By: Bonilla Gary on 07-09-2024 Vitamin D 25-Hydroxy 27.6 ng/mL Low 30-100 [facility] Comment on above: Vitamin D StatusDefi ciency: <20 ng/mL (50nmol/L)Insufficiency: 20-30 ng/mL (50-75 nmol/L)Sufficiency: 30-100 ng/mL (75-250 nmol/L)Toxicity: >100 ng/mL (>250 nmol/L) White blood cell (WBC) count Ordered By: Bonilla Gary on 07-09-2024 WBC (Bld) [#/Vol] 4.5 10*3/uL 4.4-11.0 [facility] Cardiology Visit Reporton Cardiology Visit Report [facility] [address] [place], [place] [address] OFFICE VISIT Date of Service: 03/26/24 MR#: [id number] Acct: [id number] Name: VILACALEB REECEITH Rep #: [id number] : 1945 Provider: JERAMIE guerra Age/Sex: 79/M Location: [facility] [place].[facility] Status: Signed HPI HPI History of Present Illness Details: This is a 79-year-old white male who presents today for outpatient cardiovascular follow-up. He has a history of paroxysmal atrial fibrillation, bradycardia, hypertension, and carotid artery fsmtyzut-[id number] . Patient presented to the emergency room on 08/01/2023 with complaints of palpitations. This was following an episode of vomiting. His EKG demonstrated atrial flutter. He was admitted for further evaluation, and spontaneously converted to normal sinus rhythm. From a cardiac standpoint, the patient is doing well. He does have occasional palpitation-he describes this as a fluttering sensation. He denies chest pain, pressure or heaviness. He denies SOB, Orthopnea, and PND. He does wear a CPAP nightly. He does not have bleeding issues; no blood in urine, stool or nosebleeds. He denies any decrease in energy level, myalgias, or claudication. He does not have edema, or sudden weight gain. He denies dizziness, lightheadedness, syncopal or near syncopal episodes, and headaches. He states his blood pressures at home 120/80-135/75. 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 Is patient in pain?: No Allergies No Known Allergies Allergy (Verified 03/26/24 11:42) Medications ???Medication ???Instructions ???Recorded ???Confirmed ???Type apixaban 5 mg tablet (Eliquis) 5 mg PO BID ATRIAL FIBRILLATION 01/24/18 03/26/24 History Handicap Placard #1 ea 02/27/22 03/26/24 Rx olmesartan 5 mg tablet 2.5 mg PO Q OTHER DAY 03/12/24 03/26/24 History Have you fallen in the past year?: No [facility] Medical History (Reviewed 03/26/24 @ 11:42 by Rosalba Hamlin FLATTENING PRESS OPERATOR, FLATTENING PRESS OPERATOR-C) Health care maintenance Chronic anticoagulation Atrial flutter COVID-19 Flu vaccine need GERD (gastroesophageal reflux disease) Fatigue Essential hypertension Neuropathy Sleep apnea Carotid stenosis, left Bradycardia Hypertension Hepatitis A antibody positive Paroxysmal atrial fibrillation Vertigo Surgical History (Reviewed 03/26/24 @ 11:42 by Rosalba Hamlin FLATTENING PRESS OPERATOR, FLATTENING PRESS OPERATOR-C) History of tonsillectomy History of oral surgery Family History (Reviewed 03/26/24 @ 11:42 by Rosalba Hamlin FLATTENING PRESS OPERATOR, FLATTENING PRESS OPERATOR-C) Mother Cancer endometrial Father Heart disease CVA (cerebral vascular accident) Hypertension Cancer melanoma Sister Breast cancer Social History (Reviewed 03/26/24 @ 11:42 by Rosalba Hamlni FLATTENING PRESS OPERATOR, FLATTENING PRESS OPERATOR-C) Smoking Status: Never smoker alcohol intake: never substance use type: does not use what type of physical 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 ROS Const Const: Negative for fatigue, weakness, fever(s), headache(s), chills, frequent falls, weight gain or weight loss Eyes Eyes: Negative for blind spots, loss of peripheral vision, transient loss of vision, blurry vision, change in vision, double vision, floaters or tunnel vision ENT ENT: Negative for headache(s), dizziness, Nosebleed/epistaxis , balance problems or neck pain Cardio Chest Pain: No Palpitations: Yes (occasional fluttering sensation) Edema: None Muscle aches with walking: None Resp Respiratory: Negative for SOB with activity, SOB at rest or SOB orthopnea SOB lying down GI GI: Negative nausea, vomiting, heartburn, bloating, vomiting blood/hematemesis, bright, red blood in stools or black,tarry stools Musc Musc: Negative for muscle aches/ myalgia, muscle weakness, joint pain or balance problems Neuro Neuro: Negative for dizziness, lightheadedness, near syncope, syncope, orthostatic symptoms, frequent falls, headache(s), weakness, blurry vision or double vision Alfonzo Hematologic/Lymphat ic: Negative for easy bleeding or easy bruising Endo Endo: Negative for fatigue Cardiology Exam Const Appearance: cooperative, healthy appearing, comfortable and no acute distress Nutritional Appearance: well nourished and obese Orientation: alert, awake and oriented x3 Head Head: normal to inspection Ears: hearing grossly normal bilaterally Nose: external nose normal Face and Sinus: face symmetric Eyes General: appearance normal, both eyes and all related structures Eyelids: eyelids no (more content not included)... Normal [facility] Basic Metabolic Profile (BMP )on 03-12-2024 BUN/CRE 13.9 RATIO Normal 10-20 [facility] Comment on above: Performed By: #### L 500.4100, L500.2500, L506.0400, L501.9520 ####[facility] [address] [place], [address] CA,Total 9.6 mg/dL Normal 8.5-10.1 [facility] Comment on above: Performed By: #### L 500.4100, L500.2500, L506.0400, L501.9520 ####[facility] [address] [place], [address] Chloride [Moles/Vol] 108 mmol/L High 98-107 [facility] Comment on above: Performed By: #### L 500.4100, L500.2500, L506.0400, L501.9520 ####[facility] [address] [place], [address] CO2 [Moles/Vol] 27.0 mmol/L Normal 21.0-32.0 [facility] Comment on above: Performed By: #### L 500.4100, L500.2500, L506.0400, L501.9520 ####[facility] [address] [place], [address] Creatinine [Mass/Vol] 1.08 mg/dL Normal 0.70-1.30 [facility] Comment on above: Result Comment: The validity of the calculated GFR GFRAA in patients over 70 years has not been determined. Clinical correlation is essential. Performed By: #### L 500.4100, L500.2500, L506.0400, L501.9520 ####[facility] [address] [place], [address] EST GFR - AA 85 mL/min Normal >60 [facility] Comment on above: Result Comment: Afri can Thai GFR Calc Performed By: #### L 500.4100, L500.2500, L506.0400, L501.9520 ####[facility] [address] [place], [address] GAP 4 Low 5-15 [facility] Comment on above: Performed By: #### L 500.4100, L500.2500, L506.0400, L501.9520 ####[facility] [address] [place], [address] GFR/1.73 sq M.predicted among non-blacks MDRD (S/P/Bld) [Vol rate/Area] 70 mL/min/{1.73_m2} Normal >60 [facility] Comment on above: Result Comment: Non- GFR Calc Performed By: #### L 500.4100, L500.2500, L506.0400, L501.9520 ####[facility] [address] [place], [address] Glucose [Mass/Vol] 93 mg/dL Normal 74-106 [facility] Comment on above: Performed By: #### L 500.4100, L500.2500, L506.0400, L501.9520 ####[facility] [address] [place], [address] Potassium [Moles/Vol] 4.4 mmol/L Normal 3.5-5.1 [facility] Comment on above: Performed By: #### L 500.4100, L500.2500, L506.0400, L501.9520 ####[facility] [address] [place], [address] Sodium [Moles/Vol] 140 mmol/L Normal 136-145 [facility] Comment on above: Performed By: #### L 500.4100, L500.2500, L506.0400, L501.9520 ####[facility] [address] [place], [address] Urea nitrogen [Mass/Vol] 15 mg/dL Normal 7-18 [facility] Comment on above: Performed By: #### L 500.4100, L500.2500, L506.0400, L501.9520 ####[facility] [address] [place], [address] Internal Medicine Office Vis iton 03-12-2024 Internal Medicine Office Visit [facility] [address] [place], [place] [address] OFFICE VISIT Date of Service: 03/12/24 MR#: [id number] Acct: [id number] Name: CALEB VILA Rep #: [id number] : 1945 Provider: Dr. Bonilla gustafson MD Age/Sex: 79/M Location: [facility] Status: Signed Intake Vital Signs 11/09/23 09:09 01/15/24 08:28 03/12/24 09:51 Height 5 ft 9 in 5 ft 9 in 5 ft 9 in Weight: 199 lb 2 oz 202 lb 204 lb BMI 29.4 29.8 30.1 BP 120/60 151/79 H 120/60 Blood Pressure Location Lt brachial Lt brachial Lt brachial Position Sitting Sitting Sitting Respiration 16 16 Pulse 64 71 60 Pulse Source Monitor Monitor Monitor Temp 97.3 F L 97.0 F L 97.6 F L Temp Source Temporal Temporal Pulse Oximetry (%) 98 95 94 Oxygen Delivery Method room air room air room air Intake Visit Reasons: 4 M FU Chief Complaint: 4 m f/u Application Packaging Consultant Required: No Accompanied by: Is patient in pain?: No Allergies No Known Allergies Allergy (Verified 03/12/24 09:48) Medications ???Medication ???Instructions ???Recorded ???Confirmed ???Type apixaban 5 mg tablet (Eliquis) 5 mg PO BID ATRIAL FIBRILLATION 01/24/18 03/12/24 History Handicap Placard #1 ea 02/27/22 03/12/24 Rx olmesartan 5 mg tablet 2.5 mg PO Q OTHER DAY 03/12/24 03/12/24 History Have you fallen in the past year?: No PFSH Medical History Health care maintenance Chronic anticoagulation Atrial flutter COVID-19 Flu vaccine need GERD (gastroesophageal reflux disease) Fatigue Essential hypertension Neuropathy Sleep apnea Carotid stenosis, left Bradycardia Hypertension Hepatitis A antibody positive Paroxysmal atrial fibrillation Vertigo Surgical History History of tonsillectomy History of oral surgery Family History Mother Cancer endometrial Father Heart disease CVA (cerebral vascular accident) Hypertension Cancer melanoma Sister Breast cancer Social History Smoking Status: Never smoker alcohol intake: never substance use type: does not use what type of physical 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 No acute concerns at this time. History of hypertension. Has been prescribed olmesartan however he states that he only takes it when he feels his blood pressure is high. Highest reading at home said to be in the 140s over 80s. Admits that this is not every day and could be couple weeks before he does. Last took his olmesartan a week ago. Other chronic conditions are stable. ROS Const Constitutional: No body ache, chills, excessive sweating, fatigue, fever(s), frequent falls, headache(s), snoring, weakness or change in appetite Eyes Eyes: No blurry vision, change in vision, eye pain or Light sensitivity ENT ENT: No abnormal hearing, ear or mastoid pain, tinnitus, nasal congestion, headache(s), neck pain or sore throat Resp Respiratory: No cough, shortness of breath, snoring or wheezing Cardio Cardiology: No chest pain at rest, chest pain with exertion, excessive sweating, dyspnea on exertion, lightheadedness, orthopnea or palpitations Gastro GI: No abdominal pain, change in bowel habits, constipation, cramping, diarrhea, nausea/dyspepsia or vomiting Genitourinary Male: No burning urination, painful urination, urinary incontinence or urinary frequency Musc Musculoskeletal: No abnormal gait, joint pain, back pain, limited range of motion, muscle weakness, neck pain or numbness Skin Skin: No dry skin, redness, lesions, itchy eyes, rash or wounds Neuro Neurology: No abnormal gait, abnormal hearing, weakness, frequent falls, headache(s), memory loss or numbness Psych Psychiatric: No anxiety, No change in appetite, No depression, No memory loss and No Thoughts of harming yourself/Others Endo Endocrine: No cold intolerance, excessive sweating, fatigue, flushing, heat intolerance, increased thirst/drinking or increased hunger Aller/Imm Allergy/Immunologic : No itchy eyes, seasonal allergy symptoms, hives or wheezing Alfonzo/Lymp Hematologic/Lymphat ic: No easy bleeding or easy bruising Exam Const General: cooperative, comfortable and no acute distress Orientation: alert, awake and oriented x3 HENMT Head: normal to inspection, normocephalic and atraumatic Ears: hearing grossly normal bilaterally Eyes General: appearance normal, both eyes and all related structures Neck Neck: normal visual inspecti (more content not included)... Normal [facility] Lipid Profileon 03-12-2024 Cholesterol [Mass/Vol] 224 mg/dL High 200 [facility] Comment on above: Result Comment: <200 mg/dL Desirable 200-240 mg/dL Borderline >240 mg/dL High Risk Performed By: #### L 500.4100, L500.2500, L506.0400, L501.9520 ####[facility] [address] [place], [place], [id number] Cholesterol in HDL [Mass/Vol] 55 mg/dL Normal [facility] Comment on above: Result Comment: The drugs N-Acetylcysteine and Metamizole may falsely depress this assay. Reference Range HDL <40 mg/dL Low HDL Cholesterol HDL >or= 60 mg/dL High HDL Cholesterol Performed By: #### L 500.4100, L500.2500, L506.0400, L501.9520 ####[facility] [address] [place], [address] Cholesterol in LDL [Mass/Vol] 120 mg/dL Normal 0-130 [facility] Comment on above: Performed By: #### L 500.4100, L500.2500, L506.0400, L501.9520 ####[facility] [address] [place], [address] Cholesterol in VLDL [Mass/Vol] 49 mg/dL High 5-40 [facility] Comment on above: Performed By: #### L 500.4100, L500.2500, L506.0400, L501.9520 ####[facility] [address] [place], [address] Triglyceride [Mass/Vol] 247 mg/dL High [facility] Comment on above: Result Comment: The drugs N-Acetylcysteine and Metamizole may falsely depress this assay. Serum Triglycerides Reference Interval Normal <150 mg/dL Borderline high 150 - 199 mg/dL High 200 - 499 mg/dL Very High > or = 500 mg/dL Performed By: #### L 500.4100, L500.2500, L506.0400, L501.9520 ####[facility] [address] [place], [address] T4 Free Directon 03-12-2024 T4 FREE DIRECT 0.78 ng/dL Normal 0.76-1.46 [facility] Comment on above: Performed By: #### L 500.4100, L500.2500, L506.0400, L501.9520 ####[facility] [address] [place], [address] Thyroid Stim Hormone (TSH)on 03-12-2024 TSH 3.450 uIU/mL Normal 0.358-3.740 [facility] Comment on above: Performed By: #### L 500.4100, L500.2500, L506.0400, L501.9520 ####[facility] [address] [place], [address] Pulmonary Visit Reporton Pulmonary Visit Report [facility] [address] [place] [address] OFFICE VISIT Date of Service: 01/15/24 MR#: [id number] Acct: [id number] Name: CALEB VILA Rep #: [id number] : 1945 Provider: JERAMIE Chau Age/Sex: 78/M Location: [facility] [place].[facility] Status: Signed Assessment and Plan Assessment and Plan (1) ASTRID (obstructive sleep apnea): Status: Chronic Comment: CPAP 9 cm of water (2) Over weight: Status: Chronic Plan He is using and benefiting from Pap therapy. No indication for titration study at this time. Continue to encourage weight loss. Contact the office for any new or worsening symptoms in the meantime. Follow-up in 1 year. Plan Details Follow Up: 1 Year ([facility]) HPI 1 Y FU Chief Complaint: Routine follow-up HPI Comments Details: This patient presents to the office today follow-up on his obstructive sleep apnea. He is ambulatory and currently on room air. He has not been seen in the ED or urgent care for any respiratory illnesses since his last office visit. He has not required any antibiotics or prednisone for any breathing problems. He denies any difficulty with shortness of breath whatsoever. He denies any cough, sputum production or hemoptysis. He is not had any wheezing, chest tightness, chest pain or palpitations. He denies any fever, chills or body aches. He recently started walking, as his new house has sidewalks around it. He is walking between 1/2 to 1 mile daily. He reports excellent compliance with the use of his Pap device. He denies any difficulty with dry mouth. He is not having morning headaches. He also denies excessive nocturia. He does not fall asleep unintentionally. He admits to a daily nap the last between 15 to 60 minutes. Compliance report for the past 30 days shows 100% compliance with an average use of 7 hours and 58 minutes per night. Current setting is CPAP of 9 cmH2O with residual AHI of 2.3 events per hour. Leaks do not appear to be an issue. Intake Vital Signs 01/09/23 09:48 11/09/23 09:09 01/15/24 08:28 Height 5 ft 9 in 5 ft 9 in 5 ft 9 in Weight: 202 lb BMI 29.8 BP 151/79 H Blood Pressure Location Lt brachial Position Sitting Pulse 71 Pulse Source Monitor Temp 97.0 F L Temperature Source Temporal Artery Pulse Oximetry (%) 95 Oxygen Delivery Method room air Intake Visit Reasons: 1 Y FU Chief Complaint: 3 m f/u Application Packaging Consultant Required: No DME Vendor: [employer] Accompanied by: Self Allergies No Known Allergies Allergy (Verified 01/15/24 12:42) Medications ???Medication ???Instructions ???Recorded ???Confirmed ???Type apixaban 5 mg tablet (Eliquis) 5 mg PO BID ATRIAL FIBRILLATION 01/24/18 01/15/24 History Handicap Placard #1 ea 02/27/22 01/15/24 Rx Have you fallen in the past year?: No PFSH Medical History Health care maintenance Chronic anticoagulation Atrial flutter COVID-19 Flu vaccine need GERD (gastroesophageal reflux disease) Fatigue Essential hypertension Neuropathy Sleep apnea Carotid stenosis, left Bradycardia Hypertension Hepatitis A antibody positive Paroxysmal atrial fibrillation Vertigo Surgical History History of tonsillectomy History of oral surgery Family History Mother Cancer endometrial Father Heart disease CVA (cerebral vascular accident) Hypertension Cancer melanoma Sister Breast cancer Social History Smoking Status: Never smoker alcohol intake: never substance use type: does not use what type of physical 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 Review of Systems Resp Respiratory: Yes as per HPI Exam Const Constitutional: Positive conversant, cooperative, in no acute respiratory distress, well developed, well nourished and good hygiene Head Head: Yes normocephalic, Yes atraumatic and No cyanosis of lips/distal nose Eyes Eye: Positive clear conjunctiva; Negative nystagmus or scleral abnormality Ears Ear: Positive hard of hearing and external ears normal Nose Nose: Yes external nose normal Mouth Mouth: Positive oral mucosae normal Neck Neck: Positive normal visual inspection and trachea midline Chest Wall Chest: Positive symmetric chest movement; Negative increased A/P diameter Resp lung sounds: Positive clear to auscultation, good air exchange, normal expiratory time and normal respiratory effort; Negative wheezes, rhonchi, rales or use of accessory muscles Cardio Cardiac: Positive regular rate, regular rhythm, S1 normal and S2 (more content not included)... Normal [facility] CBC W/Diff, Automatedon 07-0 5-2023 Absolute Lymph 1.36 X10 3/uL Normal 0.83-4.51 [facility] Comment on above: Performed By: #### L 100.0100, L500.4050, L501.9910 #### [facility] [address] [place], [address] Absolute Neut 2.5 X10 3/uL Normal 2.0-7.7 [facility] Comment on above: Performed By: #### L 100.0100, L500.4050, L501.9910 #### [facility] [address] [place], [address] Basophils/100 WBC (Bld) 0.2 % Normal 0-1 [facility] Comment on above: Performed By: #### L 100.0100, L500.4050, L501.9910 #### [facility] [address] [place], [address] Eosinophils/100 WBC (Bld) 2.3 % Normal 0-5 [facility] Comment on above: Performed By: #### L 100.0100, L500.4050, L501.9910 #### [facility] [address] [place], [address] Erythrocyte distribution width (RBC) [Ratio] 12.4 % Normal 11.6-14.6 [facility] Comment on above: Performed By: #### L 100.0100, L500.4050, L501.9910 #### [facility] [address] [place], [address] Hematocrit (Bld) [Volume fraction] 44.3 % Normal 40-54 [facility] Comment on above: Performed By: #### L 100.0100, L500.4050, L501.9910 #### [facility] [address] [place] [place], [address] Hemoglobin (Bld) [Mass/Vol] 14.6 g/dL Normal 13.0-16.5 [facility] Comment on above: Performed By: #### L 100.0100, L500.4050, L501.9910 #### [facility] [address] [place], [address] IG% 0.200 Normal 0.0-0.9 [facility] Comment on above: Result Comment: IG% - Immature Granulocytes (promyelocytes, myelocytes and metamyelocytes) > 1% indicates that a LEFT SHIFT is Present. Performed By: #### L 100.0100, L500.4050, L501.9910 #### [facility] [address] [place], [address] Lymphocytes/100 WBC (Bld) 30.7 % Normal 19-41 [facility] Comment on above: Performed By: #### L 100.0100, L500.4050, L501.9910 #### [facility] [address] [place], [address] MCH (RBC) [Entitic mass] 29.6 pg Normal 27.0-32.0 [facility] Comment on above: Performed By: #### L 100.0100, L500.4050, L501.9910 #### [facility] [address] [place], [address] MCHC (RBC) [Mass/Vol] 33.0 g/dL Normal 32-36 [facility] Comment on above: Performed By: #### L 100.0100, L500.4050, L501.9910 #### [facility] [address] [place], [address] MCV (RBC) [Entitic vol] 89.9 fL Normal 80-94 [facility] Comment on above: Performed By: #### L 100.0100, L500.4050, L501.9910 #### [facility] [address] [place], [address] Monocytes/100 WBC (Bld) 9.9 % Normal 0-10 [facility] Comment on above: Performed By: #### L 100.0100, L500.4050, L501.9910 #### [facility] [address] [place], [address] Neutrophils/100 WBC (Bld) 56.7 % Normal 47-70 [facility] Comment on above: Performed By: #### L 100.0100, L500.4050, L501.9910 #### [facility] [address] [place], [address] Nucleated RBC (Bld) [#/Vol] 0 10*3/uL Normal 0-5 [facility] Comment on above: Performed By: #### L 100.0100, L500.4050, L501.9910 #### [facility] [address] [place], [address] Platelet mean volume (Bld) [Entitic vol] 10.4 fL Normal 6.2-12.0 [facility] Comment on above: Performed By: #### L 100.0100, L500.4050, L501.9910 #### [facility] [address] [place], [address] Platelets (Bld) [#/Vol] 261 10*3/uL Normal 150-450 [facility] Comment on above: Performed By: #### L 100.0100, L500.4050, L501.9910 #### [facility] [address] [place], [address] RBC (Bld) [#/Vol] 4.93 10*6/uL Normal 4.6-6.[address] [facility] Comment on above: Performed By: #### L 100.0100, L500.4050, L501.9910 #### [facility] [address] [place], [address] RDW SD 40.8 fl Normal 35.1-43.9 [facility] Comment on above: Performed By: #### L 100.0100, L500.4050, L501.9910 #### [facility] [address] [place], [address] WBC (Bld) [#/Vol] 4.4 10*3/uL Normal 4.4-11.0 [facility] Comment on above: Performed By: #### L 100.0100, L500.4050, L501.9910 #### [facility] [address] [place], [address] Comprehensive Metabolic Prof [facility] 11-09-2023 Albumin [Mass/Vol] 3.6 g/dL Normal 3.2-5.0 [facility] Comment on above: Performed By: #### L 100.0100, L500.4050, L501.9910 #### [facility] [address] [place], [address] Albumin/Globulin [Mass ratio] 1.0 {ratio} Normal 0.9-2.4 [facility] Comment on above: Performed By: #### L 100.0100, L500.4050, L501.9910 #### [facility] [address] [place], [address] ALK P 91 U/L Normal 45-117 [facility] Comment on above: Performed By: #### L 100.0100, L500.4050, L501.9910 #### [facility] [address] [place], [address] ALT [Catalytic activity/Vol] 36 U/L Normal 16-61 [facility] Comment on above: Performed By: #### L 100.0100, L500.4050, L501.9910 #### [facility] [address] [place], [address] AST [Catalytic activity/Vol] 24 U/L Normal 15-37 [facility] Comment on above: Performed By: #### L 100.0100, L500.4050, L501.9910 #### [facility] [address] [place], [address] Bilirubin [Mass/Vol] 0.50 mg/dL Normal 0.20-1.00 [facility] Comment on above: Result Comment: For patients on eltrombopag therapy, use of Dimension [place] TBIL is not recommended. Performed By: #### L 100.0100, L500.4050, L501.9910 #### [facility] [address] [place], [address] BUN/CRE 11.2 RATIO Normal 10-20 [facility] Comment on above: Performed By: #### L 100.0100, L500.4050, L501.9910 #### [facility] [address] [place], [address] CA,Total 9.5 mg/dL Normal 8.5-10.1 [facility] Comment on above: Performed By: #### L 100.0100, L500.4050, L501.9910 #### [facility] [address] [place], [address] Chloride [Moles/Vol] 108 mmol/L High 98-107 [facility] Comment on above: Performed By: #### L 100.0100, L500.4050, L501.9910 #### [facility] [address] [place], [address] CO2 [Moles/Vol] 24.0 mmol/L Normal 21.0-32.0 [facility] Comment on above: Performed By: #### L 100.0100, L500.4050, L501.9910 #### [facility] [address] [place], [address] Creatinine [Mass/Vol] 1.07 mg/dL Normal 0.70-1.30 [facility] Comment on above: Result Comment: The validity of the calculated GFR GFRAA in patients over 70 years has not been determined. Clinical correlation is essential. Performed By: #### L 100.0100, L500.4050, L501.9910 #### [facility] [address] [place], [address] EST GFR - AA 86 mL/min Normal >60 [facility] Comment on above: Result Comment: Afri can Thai GFR Calc Performed By: #### L 100.0100, L500.4050, L501.9910 #### [facility] [address] [place], [address] GAP 7 Normal 5-15 [facility] Comment on above: Performed By: #### L 100.0100, L500.4050, L501.9910 #### [facility] [address] [place], [address] GFR/1.73 sq M.predicted among non-blacks MDRD (S/P/Bld) [Vol rate/Area] 71 mL/min/{1.73_m2} Normal >60 [facility] Comment on above: Result Comment: Non- GFR Calc Performed By: #### L 100.0100, L500.4050, L501.9910 #### [facility] [address] [place], [address] Globulin (S) [Mass/Vol] 3.6 g/dL Normal 2.2-4.2 [facility] Comment on above: Performed By: #### L 100.0100, L500.4050, L501.9910 #### [facility] [address] [place], [address] Glucose [Mass/Vol] 91 mg/dL Normal 74-106 [facility] Comment on above: Performed By: #### L 100.0100, L500.4050, L501.9910 #### [facility] [address] [place], [address] Potassium [Moles/Vol] 4.1 mmol/L Normal 3.5-5.1 [facility] Comment on above: Performed By: #### L 100.0100, L500.4050, L501.9910 #### [facility] [address] [place], [address] Sodium [Moles/Vol] 139 mmol/L Normal 136-145 [facility] Comment on above: Performed By: #### L 100.0100, L500.4050, L501.9910 #### [facility] [address] [place], [address] T PROT 7.2 g/dL Normal 6.4-8.2 [facility] Comment on above: Performed By: #### L 100.0100, L500.4050, L501.9910 #### [facility] [address] [place], [address] Urea nitrogen [Mass/Vol] 12 mg/dL Normal 7-18 [facility] Comment on above: Performed By: #### L 100.0100, L500.4050, L501.9910 #### [facility] [address] [place], [address] Internal Medicine Office Vis branden 11-09-2023 Internal Medicine Office Visit [facility] [address] [place] [address] [place] [address] OFFICE VISIT Date of Service: 11/09/23 MR#: [id number] Acct: [id number] Name: CALEB VILA Rep #: [id number] : 1945 Provider: Dr. 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 Accompanied by: Is patient in pain?: No Allergies No Known Allergies Allergy (Verified 11/09/23 08:59) Medications ???Medication ???Instructions ???Recorded ???Confirmed ???Type apixaban 5 mg tablet (Eliquis) 5 mg PO BID ATRIAL FIBRILLATION 01/24/18 11/09/23 History Handicap Placard #1 ea 02/27/22 11/09/23 Rx biotin 1 mg capsule 1 mg PO DAILY dietary supplement 08/02/23 11/09/23 History esmeclik-xy-tugzz 300 mcg-K 60 1 tab PO DAILY dietary supplement 08/02/23 11/09/23 History mcg-lycop 600 mcg-lutein 300 mcg tablet (Centrum Silver Ultra Men's) omega 7-xpx-ost-fish oil 1,200 mg 1 cap PO .every day dietary 08/02/23 11/09/23 History (144 mg-216 mg) capsule (Fish Oil) supplement olmesartan 5 mg tablet 5 mg PO QDAY #90 tabs 11/09/23 11/09/23 Rx Have you fallen in the past year?: No PFSH Medical History (Updated 11/09/23 @ 11:[address] Bonilla Gary MD) Health care maintenance Chronic anticoagulation Atrial flutter COVID-19 Flu vaccine need GERD (gastroesophageal reflux disease) Fatigue Essential hypertension Neuropathy Sleep apnea Carotid stenosis, left Bradycardia Hypertension Hepatitis A antibody positive Paroxysmal atrial fibrillation Vertigo Surgical History History of tonsillectomy History of oral surgery Family History Mother Cancer endometrial Father Heart disease CVA (cerebral vascular accident) Hypertension Cancer melanoma Sister Breast cancer Social History Smoking Status: Never smoker alcohol intake: never substance use type: does not use what type of physical 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 Chronic history of dizziness/unsteadin ess. He states that for the last week he has felt unwell/had worsening of his symptoms. This has happened in the past. 4 weeks prior to a week ago, he felt the best he had felt in a while. He was very busy with moving and helping out his daughter. Admits that he may have overdone it. No other localizing symptoms. No nasal congestion, ringing in the ears, chills, fever or change in bowel or bladder habit. Blood pressure today stable at 120/60 mmHg. Currently on olmesartan which he is taking as prescribed. No chest pain, palpitations or shortness of breath. ROS Const Constitutional: No body ache, chills, excessive sweating, fatigue, fever(s), frequent falls, headache(s), snoring, weakness or change in appetite Eyes Eyes: No blurry vision, change in vision, bulging eyes, floaters, visual disturbances, eye pain or Light sensitivity ENT ENT: No abnormal hearing, ear or mastoid pain, tinnitus, balance problems, nosebleed/epistaxis , nasal congestion, headache(s), neck pain or sore throat Resp Respiratory: No cough, excessive phlegm production, pain on inspiration, shortness of breath, snoring or wheezing Cardio Cardiology: No chest pain at rest, chest pain with exertion, excessive sweating, dyspnea on exertion, lightheadedness, orthopnea or palpitations Gastro GI: No abdominal pain, change in bowel habits, constipation, cramping, diarrhea, nausea/dyspepsia or vomiting Genitourinary Male: No burning urination, painful urination, urinary incontinence, urinary frequency, suprapubic fullness or side pain Musc Musculoskeletal: No abnormal gait, joint pain, back pain, limited range of motion, muscle cramps, muscle weakness, neck pain or numbness Skin Skin: No dry skin, redness, excessive hair growth, yellowing of the eye, lesions, itchy eyes, rash or wounds Neuro Neurology: No abnormal gait, abnormal hearing, behavioral changes, unsteady gait/balance, weakness, frequent falls, headache(s), memory loss, numbness or visual disturbances Psych Psychiatri (more content not included)... Normal [facility] PSA,Total - Annual Screenon 11-09-2023 PSA,TOT SCREEN 1.39 ng/mL Normal 0.00-4.00 [facility] Comment on above: Result Comment: This test was performed using the TPSA assay method for the [employer] (formerly known as [employer]) chemistry system. Values obtained with different assay methods cannot be used interchangably. When changing PSA assays in the course of monitoring a patient, additional sequential testing should be carried out to confirm baseline values. Performed By: #### L 100.0100, L500.4050, L501.9910 #### [facility] [address] [place], [address] Absolute lymphocyte countOrd ered By: Bonilla Gary on 08-10-2023 Lymphocytes Auto (Unsp spec) [#/Vol] 1.53 10*3/uL 0.83-4.51 [facility] Automated lymphocyte count a s percentage of total leukocytesOrdered By: Bonilla Gary on 08-10-2023 Lymphocytes/100 WBC Auto (Unsp spec) 29.2 % 19-41 [facility] Basophil percentageOrdered B y: Bonilla Gary on 08-10-2023 Basophils/100 WBC (Bld) 0.4 % 0-1 [facility] Chloride [Moles/Vol] 109 mmol/L 98-107 [facility] Eosinophils/100 WBC (Bld) 1.9 % 0-5 [facility] Glucose [Mass/Vol] 94 mg/dL 74-106 [facility] Hemoglobin (Bld) [Mass/Vol] 14.2 g/dL 13.0-16.5 [facility] Monocytes/100 WBC (Bld) 9.5 % 0-10 [facility] Neutrophils (Bld) [#/Vol] 3.1 10*3/uL 2.0-7.7 [facility] Neutrophils/100 WBC (Bld) 58.6 % 47-70 [facility] Potassium [Moles/Vol] 4.5 mmol/L 3.5-5.1 [facility] Sodium [Moles/Vol] 139 mmol/L 136-145 [facility] WBC (Bld) [#/Vol] 5.2 10*3/uL 4.4-11.0 [facility] Determination of erythrocyte mean corpuscular volume (MCV)Ordered By: Bonilla Gary on 08-10-2023 MCV (RBC) [Entitic vol] 88.9 fL 80-94 [facility] Erythrocyte distribution wid th ratioOrdered By: Bonilla Gary on 08-10-2023 Erythrocyte distribution width (RBC) [Ratio] 12.7 % 11.6-14.6 [facility] Erythrocyte distribution wid th standard deviationOrdered By: Jocelynntippecanoeluis Gerardeulogio on 08-10-2023 Erythrocyte distribution width (RBC) [Entitic vol] 41.2 fL 35.1-43.9 [facility] Hematocrit Auto (Bld) [Volum e fraction]Ordered By: Bonilla Gary on 08-10-2023 Hematocrit (Bld) [Volume fraction] 43.1 % 40-54 [facility] Immature granulocytes/100 WB C Auto (Bld)Ordered By: Bonilla Gary on 08-10-2023 Immature granulocytes/100 WBC (Bld) 0.400 % 0.0-0.9 [facility] Comment on above: IG% - Immature Granu locytes (promyelocytes, myelocytes and metamyelocytes) > 1% indicates that a LEFT SHIFT is Present. Laboratory - Chemistry and C hemistry - challengeOrdered By: Bonilla Gary on 08-10-2023 CO2 [Moles/Vol] 28.0 mmol/L 21.0-32.0 [facility] Urea nitrogen/Creatinine [Mass ratio] 12.1 mg/mg 10-20 [facility] Laboratory - Hematology and Cell countsOrdered By: Bonilla aGry on 08-10-2023 MCH (RBC) [Entitic mass] 29.3 pg 27.0-32.0 [facility] MCHC (RBC) [Mass/Vol] 32.9 g/dL 32-36 [facility] Nucleated RBC/100 WBC (Bld) [Ratio] 0 % 0-5 [facility] Platelet mean volume (Bld) [Entitic vol] 10.3 fL 6.2-12.0 [facility] Platelets (Bld) [#/Vol] 272 10*3/uL 150-450 [facility] No Panel InformationOrdered By: Bonilla Gary on 08-10-2023 Estimated GFR (MDRD) Amer 78 mL/min >60 [facility] Comment on above: GFR Calc Estimated GFR (MDRD) Non-Af Amer 65 mL/min >60 [facility] Comment on above: Non- GFR Calc RBC Auto (Bld) [#/Vol]Ordere d By: Bonilla Gary on 08-10-2023 RBC (Bld) [#/Vol] 4.85 10*6/uL 4.6-6.[address] [facility] Serum or plasma calcium gurjit urement (mass/volume)Ordered By: Bonilla Gary on 08-10-2023 Calcium [Mass/Vol] 9.1 mg/dL 8.5-10.1 [facility] Serum or plasma creatinine m easurement (mass/volume)Ordered By: Bonilla Gary on 08-10-2023 Creatinine [Mass/Vol] 1.16 mg/dL 0.70-1.30 [facility] Comment on above: The validity of the calculated GFR & GFRAA in patients over 70 years has not been determined. Clinical correlation is essential. Serum or plasma urea nitroge n measurement (mass/volume)Ordered By: Bonilla Gary on 08-10-2023 Urea nitrogen [Mass/Vol] 14 mg/dL 7-18 [facility] Thin prep Papanicolaou smear with manual screeningOrdered By: Bonilla Gary on 08-10-2023 Thin prep Papanicolaou smear with manual screening 2 5-15 [facility] Absolute lymphocyte countOrd ered By: David Orona on 08-02-2023 Lymphocytes Auto (Unsp spec) [#/Vol] 0.57 10*3/uL 0.83-4.51 [facility] Automated lymphocyte count a s percentage of total leukocytesOrdered By: David Orona on 08-02-2023 Lymphocytes/100 WBC Auto (Unsp spec) 5.2 % 19-41 [facility] Basophil percentageOrdered B y: David Orona on 08-02-2023 Basophil percentage 3.5 mg/dL 2.5-4.[address] [facility] Basophils/100 WBC (Bld) 0.1 % 0-1 [facility] Bilirubin [Mass/Vol] 1.20 mg/dL 0.20-1.00 [facility] Comment on above: For patients on eltr ombopag therapy, use of Dimension [place] TBIL is not recommended. Chloride [Moles/Vol] 111 mmol/L 98-107 [facility] Eosinophils/100 WBC (Bld) 0.1 % 0-5 [facility] Glucose [Mass/Vol] 138 mg/dL 74-106 [facility] Comment on above: Fasting Glucose resu lt greater than or equal to 126 mg/dL suggests DIABETES MELLITUS per A.D.A. criteria. Hemoglobin (Bld) [Mass/Vol] 15.6 g/dL 13.0-16.5 [facility] Monocytes/100 WBC (Bld) 7.1 % 0-10 [facility] Neutrophils (Bld) [#/Vol] 9.5 10*3/uL 2.0-7.7 [facility] Neutrophils/100 WBC (Bld) 87.1 % 47-70 [facility] Potassium [Moles/Vol] 4.3 mmol/L 3.5-5.1 [facility] Protein [Mass/Vol] 7.0 g/dL 6.4-8.2 [facility] Sodium [Moles/Vol] 140 mmol/L 136-145 [facility] WBC (Bld) [#/Vol] 10.9 10*3/uL 4.4-11.[address] [facility] Determination of erythrocyte mean corpuscular volume (MCV)Ordered By: David Orona on 08-02-2023 MCV (RBC) [Entitic vol] 87.6 fL 80-94 [facility] Erythrocyte distribution wid th ratioOrdered By: David Orona on 08-02-2023 Erythrocyte distribution width (RBC) [Ratio] 12.7 % 11.6-14.6 [facility] Erythrocyte distribution wid th standard deviationOrdered By: David Orona on 08-02-2023 Erythrocyte distribution width (RBC) [Entitic vol] 41.0 fL 35.1-43.9 [facility] Hematocrit Auto (Bld) [Volum e fraction]Ordered By: David Orona on 08-02-2023 Hematocrit (Bld) [Volume fraction] 45.4 % 40-54 [facility] Immature granulocytes/100 WB C Auto (Bld)Ordered By: David Orona on 08-02-2023 Immature granulocytes/100 WBC (Bld) 0.400 % 0.0-0.9 [facility] Comment on above: IG% - Immature Granu locytes (promyelocytes, myelocytes and metamyelocytes) > 1% indicates that a LEFT SHIFT is Present. Laboratory - Chemistry and C hemistry - challengeOrdered By: David Orona on 08-02-2023 Albumin/Globulin [Mass ratio] 1.0 {ratio} 0.9-2.4 [facility] ALP [Catalytic activity/Vol] 84 U/L 45-117 [facility] ALT [Catalytic activity/Vol] 29 U/L 16-61 [facility] CO2 [Moles/Vol] 21.0 mmol/L 21.0-32.0 [facility] Globulin (S) [Mass/Vol] 3.5 g/dL 2.2-4.2 [facility] Magnesium [Mass/Vol] 2.1 mg/dL 1.6-2.6 [facility] Urea nitrogen/Creatinine [Mass ratio] 16.2 mg/mg 10-20 [facility] Laboratory - Hematology and Cell countsOrdered By: David Orona on 08-02-2023 MCH (RBC) [Entitic mass] 30.1 pg 27.0-32.0 [facility] MCHC (RBC) [Mass/Vol] 34.4 g/dL 32-36 [facility] Nucleated RBC/100 WBC (Bld) [Ratio] 0 % 0-5 [facility] Platelet mean volume (Bld) [Entitic vol] 10.3 fL 6.2-12.0 [facility] Platelets (Bld) [#/Vol] 241 10*3/uL 150-450 [facility] No Panel InformationOrdered By: David Orona on 08-02-2023 Estimated Creatinine Clearance Calc 50.51 ml/min [facility] Estimated GFR (MDRD) Amer 65 mL/min >60 [facility] Comment on above: GFR Calc Estimated GFR (MDRD) Non-Af Amer 54 mL/min >60 [facility] Comment on above: Non- GFR Calc RBC Auto (Bld) [#/Vol]Ordere d By: David Orona on 08-02-2023 RBC (Bld) [#/Vol] 5.18 10*6/uL 4.6-6.[address] [facility] Serum or plasma calcium gurjit urement (mass/volume)Ordered By: David Orona on 08-02-2023 Calcium [Mass/Vol] 8.9 mg/dL 8.5-10.1 [facility] Serum or plasma creatinine m easurement (mass/volume)Ordered By: David Orona on 08-02-2023 Creatinine [Mass/Vol] 1.36 mg/dL 0.70-1.30 [facility] Comment on above: The validity of the calculated GFR & GFRAA in patients over 70 years has not been determined. Clinical correlation is essential. Serum or plasma thyroid stim ulating hormone (TSH) measurement (units/volume)Ordered By: David Orona on 08-02-2023 TSH Qn 1.61 uIU/mL 0.358-3.74 [facility] Serum or plasma urea nitroge n measurement (mass/volume)Ordered By: David Orona on 08-02-2023 Urea nitrogen [Mass/Vol] 22 mg/dL 7-18 [facility] Thin prep Papanicolaou smear with manual screeningOrdered By: David Orona on 08-02-2023 Thin prep Papanicolaou smear with manual screening 3.5 g/dL 3.2-5.0 [facility] Thin prep Papanicolaou smear with manual screening 16 U/L 15-37 [facility] Thin prep Papanicolaou smear with manual screening 8 5-15 [facility] Thin prep Papanicolaou smear with manual screening 0.83 ng/dL 0.76-1.46 [facility] Absolute lymphocyte countOrd ered By: Mitchell Guerrero on 08-01-2023 Lymphocytes Auto (Unsp spec) [#/Vol] 1.67 10*3/uL 0.83-4.51 [facility] Automated lymphocyte count a s percentage of total leukocytesOrdered By: Mitchell Guerrero on 08-01-2023 Lymphocytes/100 WBC Auto (Unsp spec) 11.6 % 19-41 [facility] Basophil percentageOrdered B y: Mitchell Guerrero on 08-01-2023 Amylase [Catalytic activity/Vol] 39 U/L 25-115 [facility] Basophils/100 WBC (Bld) 0.3 % 0-1 [facility] Bilirubin [Mass/Vol] 0.80 mg/dL 0.20-1.00 [facility] Comment on above: For patients on eltr ombopag therapy, use of Dimension [place] TBIL is not recommended. Chloride [Moles/Vol] 104 mmol/L 98-107 [facility] Eosinophils/100 WBC (Bld) 0.3 % 0-5 [facility] Glucose [Mass/Vol] 124 mg/dL 74-106 [facility] Comment on above: Fasting Glucose resu lt from 100 to 125 mg/dL suggests IMPAIRED HOMEOSTASIS per A.D.A. criteria. Hemoglobin (Bld) [Mass/Vol] 18.0 g/dL 13.0-16.5 [facility] Comment on above: CRITICAL VALUE VERIF IED. CALLED TO [id number] Zehra Cotton.RESULTS READ BACK BY SAME . Monocytes/100 WBC (Bld) 4.6 % 0-10 [facility] Neutrophils (Bld) [#/Vol] 11.9 10*3/uL 2.0-7.7 [facility] Neutrophils/100 WBC (Bld) 82.8 % 47-70 [facility] Potassium [Moles/Vol] 3.9 mmol/L 3.5-5.1 [facility] Protein [Mass/Vol] 8.9 g/dL 6.4-8.2 [facility] Sodium [Moles/Vol] 139 mmol/L 136-145 [facility] WBC (Bld) [#/Vol] 14.4 10*3/uL 4.4-11.[address] [facility] Basophil percentageOrdered B y: David Orona on 08-01-2023 Lactate [Moles/Vol] 1.5 mmol/L 0.4-2.[address] [facility] Determination of erythrocyte mean corpuscular volume (MCV)Ordered By: Mitchell Guerrero on 08-01-2023 MCV (RBC) [Entitic vol] 88.6 fL 80-94 [facility] Direct bilirubinOrdered By: Mitchell Guerrero on 08-01-2023 Bilirubin.direct [Mass/Vol] 0.24 mg/dL 0.00-0.30 [facility] Erythrocyte distribution wid th ratioOrdered By: Mitchell Guerrero on 08-01-2023 Erythrocyte distribution width (RBC) [Ratio] 12.6 % 11.6-14.6 [facility] Erythrocyte distribution wid th standard deviationOrdered By: Mitchell Guerrero on 08-01-2023 Erythrocyte distribution width (RBC) [Entitic vol] 40.5 fL 35.1-43.9 [facility] Hematocrit Auto (Bld) [Volum e fraction]Ordered By: Mitchell Guerrero on 08-01-2023 Hematocrit (Bld) [Volume fraction] 53.1 % 40-54 [facility] Immature granulocytes/100 WB C Auto (Bld)Ordered By: Mitchell Guerrero on 08-01-2023 Immature granulocytes/100 WBC (Bld) 0.400 % 0.0-0.9 [facility] Comment on above: IG% - Immature Granu locytes (promyelocytes, myelocytes and metamyelocytes) > 1% indicates that a LEFT SHIFT is Present. Laboratory - Chemistry and C hemistry - challengeOrdered By: Mitchell Guerrero on 08-01-2023 ALP [Catalytic activity/Vol] 109 U/L 45-117 [facility] ALT [Catalytic activity/Vol] 38 U/L 16-61 [facility] CO2 [Moles/Vol] 27.0 mmol/L 21.0-32.0 [facility] Globulin (S) [Mass/Vol] 4.2 g/dL 2.2-4.2 [facility] Lipase [Catalytic activity/Vol] 32 U/L 13-75 [facility] Comment on above: Please note:LIPASE r evised reference range effective 22. New Lipase methodology. Expected to produce lower values than the previous assay method. NEW Reference Range: 13 - 75 U/L Urea nitrogen/Creatinine [Mass ratio] 15.0 mg/mg 10-20 [facility] Laboratory - Hematology and Cell countsOrdered By: Mitchell Guerrero on 08-01-2023 MCH (RBC) [Entitic mass] 30.1 pg 27.0-32.0 [facility] MCHC (RBC) [Mass/Vol] 33.9 g/dL 32-36 [facility] Nucleated RBC/100 WBC (Bld) [Ratio] 0 % 0-5 [facility] Platelet mean volume (Bld) [Entitic vol] 10.1 fL 6.2-12.0 [facility] Platelets (Bld) [#/Vol] 327 10*3/uL 150-450 [facility] No Panel InformationOrdered By: Mitchell Guerrero on 08-01-2023 Estimated Creatinine Clearance Calc 50.10 ml/min [facility] Estimated GFR (MDRD) Amer 63 mL/min >60 [facility] Comment on above: GFR Calc Estimated GFR (MDRD) Non-Af Amer 52 mL/min >60 [facility] Comment on above: Non- GFR Calc Troponin I High Sensitivity 13 pg/mL 3.0-78.0 [facility] Comment on above: Please Note: [place] t Units and Gender Specific Reference Ranges. For more information see Policy Stat Procedure [place] High Sensitivity Troponin (TNIH) and attachments. RBC Auto (Bld) [#/Vol]Ordere d By: Mitchell Guerrero on 08-01-2023 RBC (Bld) [#/Vol] 5.99 10*6/uL 4.6-6.[address] [facility] Serum or plasma calcium gurjit urement (mass/volume)Ordered By: Mitchell Guerrero on 08-01-2023 Calcium [Mass/Vol] 10.3 mg/dL 8.5-10.1 [facility] Serum or plasma creatinine m easurement (mass/volume)Ordered By: Mitchell Guerrero on 08-01-2023 Creatinine [Mass/Vol] 1.40 mg/dL 0.70-1.30 [facility] Comment on above: The validity of the calculated GFR & GFRAA in patients over 70 years has not been determined. Clinical correlation is essential. Serum or plasma urea nitroge n measurement (mass/volume)Ordered By: Mitchell Guerrero on 08-01-2023 Urea nitrogen [Mass/Vol] 21 mg/dL 7-18 [facility] Thin prep Papanicolaou smear with manual screeningOrdered By: Mitchell Guerrero on 08-01-2023 Thin prep Papanicolaou smear with manual screening 4.7 g/dL 3.2-5.0 [facility] Thin prep Papanicolaou smear with manual screening 18 U/L 15-37 [facility] Thin prep Papanicolaou smear with manual screening 8 5-15 [facility] Basophil percentageOrdered B y: Dr. Gary on 08-28-2022 Chloride [Moles/Vol] 107 mmol/L 98-107 [facility] Glucose [Mass/Vol] 86 mg/dL 74-106 [facility] Potassium [Moles/Vol] 4.2 mmol/L 3.5-5.1 [facility] Sodium [Moles/Vol] 138 mmol/L 136-145 [facility] Laboratory - Chemistry and C hemistry - challengeOrdered By: Dr. Gary on 08-28-2022 CO2 [Moles/Vol] 28.0 mmol/L 21.0-32.0 [facility] Urea nitrogen/Creatinine [Mass ratio] 11.8 mg/mg 10-20 [facility] No Panel InformationOrdered By: Dr. Gary on 08-28-2022 Estimated GFR (MDRD) Amer 76 mL/min >60 [facility] Comment on above: GFR Calc Estimated GFR (MDRD) Non-Af Amer 63 mL/min >60 [facility] Comment on above: Non- GFR Calc Serum or plasma calcium gurjit urement (mass/volume)Ordered By: Dr. Gary on 08-28-2022 Calcium [Mass/Vol] 9.3 mg/dL 8.5-10.1 [facility] Serum or plasma creatinine m easurement (mass/volume)Ordered By: Dr. Gary on 08-28-2022 Creatinine [Mass/Vol] 1.19 mg/dL 0.70-1.30 [facility] Comment on above: The validity of the calculated GFR & GFRAA in patients over 70 years has not been determined. Clinical correlation is essential. Serum or plasma urea nitroge n measurement (mass/volume)Ordered By: Dr. Gary on 08-28-2022 Urea nitrogen [Mass/Vol] 14 mg/dL 7-18 [facility] Thin prep Papanicolaou smear with manual screeningOrdered By: Dr. Gary on 08-28-2022 Thin prep Papanicolaou smear with manual screening 3 5-15 [facility] Absolute lymphocyte counton 12-07-2021 Lymphocytes Auto (Unsp spec) [#/Vol] 1.62 10*3/uL 0.83-4.51 [facility] Work Phone: Basophil percentageon 2021 Basophils/100 WBC (Bld) 0.4 % 0-1 [facility] Work Phone: Bilirubin [Mass/Vol] 0.40 mg/dL 0.20-1.00 [facility] Work Phone: Comment on above: For patients on eltr ombopag therapy, use of Dimension [place] TBIL is not recommended. Chloride [Moles/Vol] 109 mmol/L 98-107 [facility] Work Phone: Cholesterol [Mass/Vol] 201 mg/dL <200 [facility] Work Phone: Comment on above: <200 mg/dL Desirable 200-240 mg/dL Borderline >240 mg/dL High Risk Eosinophils/100 WBC (Bld) 3.0 % 0-5 [facility] Work Phone: Glucose [Mass/Vol] 93 mg/dL 74-106 [facility] Work Phone: Neutrophils (Bld) [#/Vol] 2.7 10*3/uL 2.0-7.7 [facility] Work Phone: Neutrophils/100 WBC (Bld) 53.5 % 47-70 [facility] Work Phone: Potassium [Moles/Vol] 4.6 mmol/L 3.5-5.1 [facility] Work Phone: Comment on above: Slight Hemolysis, Re sult may be falsely increased. Protein [Mass/Vol] 7.0 g/dL 6.4-8.2 [facility] Work Phone: Sodium [Moles/Vol] 141 mmol/L 136-145 [facility] Work Phone: Triglyceride [Mass/Vol] 251 mg/dL <199 [facility] Work Phone: Comment on above: The drugs N-Acetylcy steine and Metamizole may falsely depress this assay.Serum Triglycerides Reference Interval Normal <150 mg/dL Borderline high 150 - 199 mg/dL High 200 - 499 mg/dL Very High > or = 500 mg/dL WBC (Bld) [#/Vol] 5.0 10*3/uL 4.4-11.0 [facility] Work Phone: Blood erythrocytes count (nu mber/volume)on 12-07-2021 RBC (Bld) [#/Vol] 4.89 10*6/uL 4.6-6.[address] [facility] Work Phone: Blood hemoglobin measurement (mass/volume)on 12-07-2021 Hemoglobin (Bld) [Mass/Vol] 14.9 g/dL 13.0-16.5 [facility] Work Phone: Blood lymphocytes/100 leukoc yteson 12-07-2021 Lymphocytes/100 WBC (Bld) 32.5 % 19-41 [facility] Work Phone: Blood monocytes/100 leukocyt eson 12-07-2021 Monocytes/100 WBC (Bld) 10.2 % 0-10 [facility] Work Phone: Blood platelet mean volumeon 12-07-2021 Platelet mean volume (Bld) [Entitic vol] 11.0 fL 6.2-12.0 [facility] Work Phone: Determination of erythrocyte mean corpuscular volume (MCV)on 12-07-2021 MCV (RBC) [Entitic vol] 91.2 fL 80-94 [facility] Work Phone: Hematocrit Auto (Bld) [Volum e fraction]on 12-07-2021 Hematocrit (Bld) [Volume fraction] 44.6 % 40-54 [facility] Work Phone: Laboratory - Chemistry and C hemistry - challengeon 12-07-2021 ALP [Catalytic activity/Vol] 86 U/L 45-117 [facility] Work Phone: ALT [Catalytic activity/Vol] 50 U/L 16-61 [facility] Work Phone: [phone] CO2 [Moles/Vol] 26.0 mmol/L 21.0-32.0 [facility] Work Phone: Globulin (S) [Mass/Vol] 3.4 g/dL 2.2-4.2 [facility] Work Phone: Urea nitrogen/Creatinine [Mass ratio] 17.8 mg/mg 10-20 [facility] Work Phone: [phone] Laboratory - Hematology and Cell countson 12-07-2021 Erythrocyte distribution width (RBC) [Entitic vol] 40.8 fL 35.1-43.9 [facility] Work Phone: Erythrocyte distribution width (RBC) [Ratio] 12.3 % 11.6-14.6 [facility] Work Phone: Immature granulocytes/100 WBC (Bld) 0.400 % 0.0-0.9 [facility] Work Phone: Comment on above: IG% - Immature Granu locytes (promyelocytes, myelocytes and metamyelocytes) > 1% indicates that a LEFT SHIFT is Present. MCH (RBC) [Entitic mass] 30.5 pg 27.0-32.0 [facility] Work Phone: Nucleated RBC/100 WBC (Bld) [Ratio] 0 % 0-5 [facility] Work Phone: MCHC Auto (RBC) [Mass/Vol]on 12-07-2021 MCHC (RBC) [Mass/Vol] 33.4 g/dL 32-36 [facility] Work Phone: No Panel Informationon 12-07 Estimated GFR (MDRD) Amer 87 mL/min >60 [facility] Work Phone: Comment on above: GFR Calc Estimated GFR (MDRD) Non-Af Amer 72 mL/min >60 [facility] Work Phone: Comment on above: Non- GFR Calc Platelets bldon 12-07-2021 Platelets (Bld) [#/Vol] 229 10*3/uL 150-450 [facility] Work Phone: Serum or plasma albumin gurjit urement (mass/volume)on 12-07-2021 Albumin [Mass/Vol] 3.6 g/dL 3.2-5.0 [facility] Work Phone: Serum or plasma albumin/glob ulin mass ratioon 12-07-2021 Albumin/Globulin [Mass ratio] 1.1 {ratio} 0.9-2.4 [facility] Work Phone: Serum or plasma calcium gurjit urement (mass/volume)on 12-07-2021 Calcium [Mass/Vol] 8.7 mg/dL 8.5-10.1 [facility] Work Phone: Serum or plasma cholesterol in HDL measurement (mass/volume)on 12-07-2021 Cholesterol in HDL [Mass/Vol] 47 mg/dL >40 [facility] Work Phone: Comment on above: The drugs N-Acetylcy steine and Metamizole may falsely depress this assay. Reference Range HDL <40 mg/dL Low HDL Cholesterol HDL >or= 60 mg/dL High HDL Cholesterol Serum or plasma cholesterol in VLDL measurement (mass/volume)on 12-07-2021 Cholesterol in VLDL [Mass/Vol] 50 mg/dL 5-40 [facility] Work Phone: Serum or plasma creatinine m easurement (mass/volume)on 12-07-2021 Creatinine [Mass/Vol] 1.07 mg/dL 0.70-1.30 [facility] Work Phone: Comment on above: The validity of the calculated GFR & GFRAA in patients over 70 years has not been determined. Clinical correlation is essential. Serum or plasma low density lipoprotein (LDL) cholesterol measurement (mass/volume)on 12-07-2021 Cholesterol in LDL [Mass/Vol] 104 mg/dL 0-130 [facility] Work Phone: Serum or plasma urea nitroge n measurement (mass/volume)on 12-07-2021 Urea nitrogen [Mass/Vol] 19 mg/dL 7-18 [facility] Work Phone: Thin prep Papanicolaou smear with manual screeningon 12-07-2021 Thin prep Papanicolaou smear with manual screening 28 U/L 15-37 [facility] Work Phone: Comment on above: Slight Hemolysis, Re sult may be falsely increased. Thin prep Papanicolaou smear with manual screening 6 5-15 [facility] Work Phone: Basophil percentageon 2021 Chloride [Moles/Vol] 109 mmol/L 98-107 [facility] Work Phone: Glucose [Mass/Vol] 99 mg/dL 74-[address] [facility] Work Phone: Potassium [Moles/Vol] 4.3 mmol/L 3.5-5.1 [facility] Work Phone: Sodium [Moles/Vol] 141 mmol/L 136-145 [facility] Work Phone: Laboratory - Chemistry and C hemistry - challengeon 09-15-2021 CO2 [Moles/Vol] 28.0 mmol/L 21.0-32.0 [facility] Work Phone: Urea nitrogen/Creatinine [Mass ratio] 14.6 mg/mg 10-20 [facility] Work Phone: No Panel Informationon 09-15 Estimated GFR (MDRD) Amer 74 mL/min >60 [facility] Work Phone: Comment on above: GFR Calc Estimated GFR (MDRD) Non-Af Amer 61 mL/min >60 [facility] Work Phone: Comment on above: Non- GFR Calc Serum or plasma calcium gurjit urement (mass/volume)on 09-15-2021 Calcium [Mass/Vol] 9.4 mg/dL 8.5-10.1 [facility] Work Phone: Serum or plasma creatinine m easurement (mass/volume)on 09-15-2021 Creatinine [Mass/Vol] 1.23 mg/dL 0.70-1.30 [facility] Work Phone: Comment on above: The validity of the calculated GFR & GFRAA in patients over 70 years has not been determined. Clinical correlation is essential. Serum or plasma urea nitroge n measurement (mass/volume)on 09-15-2021 Urea nitrogen [Mass/Vol] 18 mg/dL 7-18 [facility] Work Phone: Thin prep Papanicolaou smear with manual screeningon 09-15-2021 Thin prep Papanicolaou smear with manual screening 4 5-15 [facility] Work Phone: CNOVon 05-19-2019 CNOV Office Visit (AGCARDPOB) ---- PETEY VILA ([id number]) 1945 M Date Time Provider Department 05/19/19 2:00 PM ELENI PATTEN AGCARDPOB During your visit today, we recorded the following information about you: Pulse Respiration Blood pressure Weight 59/minute 16/minute 138/84 90.1 kg Height 1.753 m Eleni Patten DO 05/19/2019 3:17 PM Signed PRIMARY CARE PHYSICIAN: Bonilla Gary MD ([facility]) [address] [place] [address] REFERRING PHYSICIAN: SELF CHIEF COMPLAINT: No chief complaint on file. HISTORY OF PRESENT ILLNESS: Mr. Vila is a 74 year old male who presents today for follow up of PAF and tachybrady syndrome. Echo 06-25-17 LVEF 55% sepct 09-06-17 No ischemia LVEF 56%. ASTRID uses CPAP. Has dizziness but in past did not directly correllate with bradycardia. CV2 3(>65,HTN,Vasc) he was only taking aspirin due to concern about falls. I advised to use a NOAC and he started eliquis. He has been seen by neurology and ENT for his dizziness. Note he had intact chronitropic response on his stress test. He wore a 30 day monitor in September 2017 his avg HR 64 bpm range 49-122 bpm .Holter 01/02/18 avg HR 65 bpm range 43-133 bpm with no pauses PAST MEDICAL HISTORY Diagnosis Date - Atrial fibrillation (HCC) - Bradycardia - Carotid stenosis - Dizziness - HTN (hypertension) - ASTRID (obstructive sleep apnea) - Vertigo PAST SURGICAL HISTORY Procedure Laterality Date - CARDIOLITE STRESS TEST 09/2017 - EVENT MONITOR 10/2017 - ORAL SURGERY PROCEDURE - TONSILLECTOMY HX FAMILY HISTORY Problem Relation Age of Onset - Coronary Artery Disease Father - Stroke Father - Hypertension Father - Cancer Father - Breast Cancer Sister Social History Tobacco Use - Smoking status: Never Smoker - Smokeless tobacco: Never Used Substance Use Topics - Alcohol use: No - Drug use: No ALLERGIES No Known Allergies MEDICATIONS: ELIQUIS 5 mg tab(s) TAKE 1 TABLET TWICE DAILY diltiazem CD (CARDIZEM CD) 120 mg 24 hr capsule Take 1 capsule by mouth once daily. aspirin, enteric coated (ASPIRIN, ENTERIC COATED) 325 mg EC tablet Take 325 mg by mouth once daily. lisinopril (PRINIVIL) 5 mg tablet Take 5 mg by mouth once daily. PHYSICAL EXAMINATION: Physical Exam Constitutional: He is oriented to person, place, and time and well-developed, well-nourished, and in no distress. No distress. HENT: Head: Normocephalic and atraumatic. Eyes: Pupils are equal, round, and reactive to light. Conjunctivae are normal. No scleral icterus. Neck: Normal range of motion. No JVD present. No thyromegaly present. Cardiovascular: Regular rhythm, normal heart sounds and normal pulses. PMI is not displaced. Exam reveals no gallop, no distant heart sounds and no friction rub. No murmur heard. Pulmonary/Chest: Effort normal and breath sounds normal. No stridor. Abdominal: Soft. There is no hepatomegaly. There is no abdominal tenderness. There is no rebound and no guarding. Musculoskeletal: General: No deformity or edema. Neurological: He is alert and oriented to person, place, and time. Coordination normal. Skin: Skin is warm and dry. No rash noted. He is not diaphoretic. Psychiatric: Mood and affect normal. Vitals reviewed. Pertinent Labs: CBC: No results found for: HB, HCT, WBC, PLT BMP: No results found for: GLUC, K, NA, CHLOR, CO2, CREAT, BUN, ANION, CA INR: TSH: No results found for: TSHREFL CARDIOVASCULAR MEDICINE TESTING: ecg sinus 55 bpm IMPRESSION: 1. Paroxysmal atrial fibrillation (HCC) - ICD9: 427.31, ICD10: I48.0 (primary diagnosis) 2. Tachycardia-bradyca rdia (HCC) - ICD9: 427.81, ICD10: I49.5 3. Dizziness - ICD9: 780.4, ICD10: R42 4. Obstructive sleep apnea syndrome - ICD9: 327.23, ICD10: G47.33 5. Essential hypertension - ICD9: 401.9, ICD10: I10 6. Stenosis of carotid artery, unspecified laterality - ICD9: 433.10, ICD10: I65.29 PLAN AND RECOMMENDATIONS: He was diagnosed with a left ear issue as the cause of his dizziness. His lisinopril was stopped and he was started on metoprolol which improved his palpitations. He indicates the his doctor was concerned as had a HR in the 40s during a recent visit (today is sinus 55bpm). I recommend that he have a repeat 24 hour Holter, we can compare with the one form December 2017, to see if any change in sinus node function. I will ask Dr. Tillman to perform in [place] and send me the results. I discussed with Petey as long as his holter is stable with no signfiicant change from his prior that I recommend we just continue his current therapy. As he is already seeing Dr. Tillman on a regular basis, if no change he can follow with me as needed. DO Melvina Benitez MA 05/19/2019 2:09 PM Signed Patient has no cardiac complaints today. MARY Mayfield. Melvina Guan MA 05/20/2019 7:50 AM Signed Addended by: MELVINA GUAN MA on: 05/20/2019 07:50 AM Modules accepted: Orders Eleni Patten DO 05/20/2019 7:55 AM Signed Addended by: ELENI PATTEN on: 05/20/2019 07:55 AM Modules accepted: Orders Referring Provider: SELF [200] Allergies As of Date: 05/19/2019 (No Known Allergies) Date Reviewed: 05/19/2019 Reviewed by: Melvina Guan - Fully Assessed Reason for Visit: Established Patient [175] Primary Visit Diagnosis:Paroxysma l atrial fibrillation (HCC) [I48.0] Other Visit Diagnoses:Tachycard ia-bradycardia (HCC) [I49.5] Dizziness [R42] Obstructive sleep apnea syndrome [G47.33] Essential hypertension [I10] Stenosis of carotid artery, unspecified laterality [I65.29] Order(s):ECG B/O W INTERP (MED OFFICE) [ECG06] Order #: [id number] Prescriptions as of 05/19/2019 Sig: OLMESARTAN 5 MG TABLET Take 10 mg by mouth once irma* METOPROLOL TARTRATE 25 MG TAB* Take 25 mg by mouth twice aydin* LEVOTHYROXINE 25 MCG TABLET Take 25 mcg by mouth once aydin* ELIQUIS 5 MG TABLET TAKE 1 TABLET TWICE DAILY Medication notes this encounter DILTIAZEM SR 120 MG 24 HR CAP >> Melvina Guan MA 05/19/2019 2:05 PM >> MELVINA GUAN MA [facility] May 19, 2019 2:05 PM Not taking ASPIRIN 325 MG TABLET,DELAYED RELEASE >> Melvina Guan MA 05/19/2019 2:05 PM >> MELVINA GUAN MA May 19, 2019 2:05 PM Not taking LISINOPRIL 5 MG TABLET >> Melvina Guan MA 05/19/2019 2:05 PM >> MELVINA GUAN MA [facility] May 19, 2019 2:05 PM Not taking Problem List As Of Date: 05/19/2019 (None) Visit Notes: >> Melvina Guan [facility] May 19, 2019 2:04 PM Status: Signed Patient has no cardiac complaints today. MARY Mayfield. Medications Discontinued During This Encounter diltiazem CD (CARDIZEM CD) 120 mg 24* 30 c* 5 01/08/2018 05/19/2019 Route: ORAL Sig: Take 1 capsule by mouth once daily. Disc: Course of therapy completed aspirin, enteric coated (ASPIRIN, EN* 05/19/2019 Class: Historical Med Route: ORAL Sig: Take 325 mg by mouth once daily. Disc: Course of therapy completed lisinopril (PRINIVIL) 5 mg tablet 05/19/2019 Class: Historical Med Route: ORAL Sig: Take 5 mg by mouth once daily. Disc: Course of therapy completed Disposition: Return if symptoms worsen or fail to improve, for as needed. Follow-up and Disposition History Recorded Letter Text Encounter Status:Closed by ELENI PATTEN on 05/19/19 [facility] PROGRESSon 05-19-2019 PROGRESS HNO ID: [id number] Author: Eleni Patten Service: ? Author Type: Physician Type: Progress Notes Filed: 05/19/2019 3:17 PM Note Text: PRIMARY CARE PHYSICIAN: Bonilla Gary MD ([facility]) [address] [place] [address] REFERRING PHYSICIAN: SELF CHIEF COMPLAINT: No chief complaint on file. HISTORY OF PRESENT ILLNESS: Mr. Vila is a 74 year old male who presents today for follow up of PAF and tachybrady syndrome. Echo 06-25-17 LVEF 55% sepct 09-06-17 No ischemia LVEF 56%. ASTRID uses CPAP. Has dizziness but in past did not directly correllate with bradycardia. CV2 3(>65,HTN,Vasc) he was only taking aspirin due to concern about falls. I advised to use a NOAC and he started eliquis. He has been seen by neurology and ENT for his dizziness. Note he had intact chronitropic response on his stress test. He wore a 30 day monitor in September 2017 his avg HR 64 bpm range 49-122 bpm .Holter 01/02/18 avg HR 65 bpm range 43-133 bpm with no pauses PAST MEDICAL HISTORY Diagnosis Date - Atrial fibrillation (HCC) - Bradycardia - Carotid stenosis - Dizziness - HTN (hypertension) - ASTRID (obstructive sleep apnea) - Vertigo PAST SURGICAL HISTORY Procedure Laterality Date - CARDIOLITE STRESS TEST 09/2017 - EVENT MONITOR 10/2017 - ORAL SURGERY PROCEDURE - TONSILLECTOMY HX FAMILY HISTORY Problem Relation Age of Onset - Coronary Artery Disease Father - Stroke Father - Hypertension Father - Cancer Father - Breast Cancer Sister Social History Tobacco Use - Smoking status: Never Smoker - Smokeless tobacco: Never Used Substance Use Topics - Alcohol use: No - Drug use: No ALLERGIES No Known Allergies MEDICATIONS: ELIQUIS 5 mg tab(s) TAKE 1 TABLET TWICE DAILY diltiazem CD (CARDIZEM CD) 120 mg 24 hr capsule Take 1 capsule by mouth once daily. aspirin, enteric coated (ASPIRIN, ENTERIC COATED) 325 mg EC tablet Take 325 mg by mouth once daily. lisinopril (PRINIVIL) 5 mg tablet Take 5 mg by mouth once daily. PHYSICAL EXAMINATION: Physical Exam Constitutional: He is oriented to person, place, and time and well-developed, well-nourished, and in no distress. No distress. HENT: Head: Normocephalic and atraumatic. Eyes: Pupils are equal, round, and reactive to light. Conjunctivae are normal. No scleral icterus. Neck: Normal range of motion. No JVD present. No thyromegaly present. Cardiovascular: Regular rhythm, normal heart sounds and normal pulses. PMI is not displaced. Exam reveals no gallop, no distant heart sounds and no friction rub. No murmur heard. Pulmonary/Chest: Effort normal and breath sounds normal. No stridor. Abdominal: Soft. There is no hepatomegaly. There is no abdominal tenderness. There is no rebound and no guarding. Musculoskeletal: General: No deformity or edema. Neurological: He is alert and oriented to person, place, and time. Coordination normal. Skin: Skin is warm and dry. No rash noted. He is not diaphoretic. Psychiatric: Mood and affect normal. Vitals reviewed. Pertinent Labs: CBC: No results found for: HB, HCT, WBC, PLT BMP: No results found for: GLUC, K, NA, CHLOR, CO2, CREAT, BUN, ANION, CA INR: TSH: No results found for: TSHREFL CARDIOVASCULAR MEDICINE TESTING: ecg sinus 55 bpm IMPRESSION: 1. Paroxysmal atrial fibrillation (HCC) - ICD9: 427.31, ICD10: I48.0 (primary diagnosis) 2. Tachycardia-bradyca rdia (HCC) - ICD9: 427.81, ICD10: I49.5 3. Dizziness - ICD9: 780.4, ICD10: R42 4. Obstructive sleep apnea syndrome - ICD9: 327.23, ICD10: G47.33 5. Essential hypertension - ICD9: 401.9, ICD10: I10 6. Stenosis of carotid artery, unspecified laterality - ICD9: 433.10, ICD10: I65.29 PLAN AND RECOMMENDATIONS: He was diagnosed with a left ear issue as the cause of his dizziness. His lisinopril was stopped and he was started on metoprolol which improved his palpitations. He indicates the his doctor was concerned as had a HR in the 40s during a recent visit (today is sinus 55bpm). I recommend that he have a repeat 24 hour Holter, we can compare with the one form December 2017, to see if any change in sinus node function. I will ask Dr. Tillman to perform in [place] and send me the results. I discussed with Petey as long as his holter is stable with no signfiicant change from his prior that I recommend we just continue his current therapy. As he is already seeing Dr. Tillman on a regular basis, if no change he can follow with me as needed. Eleni Patten, DO [facility] OBSOLETEon 01-22-2019 OBSOLETE Refill (AGCARDPH) ---- CAMACHOPETEY Alvarenga ([id number]) 1945 M Date Time Provider Department 01/22/19 ELENI PATTEN During your visit today, we recorded the following information about you: Carolyn Arteaga LPN 01/22/2019 10:08 AM Signed Patient's request for medication is as follows: Pending Prescriptions Disp Refills ELIQUIS 5 MG TABLET 180 tablet 3 Sig: TAKE 1 TABLET TWICE DAILY SHYANN: Yes Last seen in the office on 12/31/2017. Follow up scheduled for 05/19/2019. Prescription(s) as above. Please process accordingly. Carolyn Arteaga LPN Allergies As of Date: 01/22/2019 (No Known Allergies) Date Reviewed: 12/31/2017 Reviewed by: Eleni Patten - Fully Assessed Reason for Visit: Refill Request [94] Order(s):ELIQUIS 5 mg tab(s)TAKE 1 TABLET TWICE DAILYDisp: 180 tabletRfl: 3 Prescriptions as of 01/22/2019 Sig: ELIQUIS 5 MG TABLET TAKE 1 TABLET TWICE DAILY DILTIAZEM SR 120 MG 24 HR CAP Take 1 capsule by mouth once * ASPIRIN 325 MG TABLET,DELAYED* Take 325 mg by mouth once aydin* LISINOPRIL 5 MG TABLET Take 5 mg by mouth once daily. Problem List As Of Date: 01/22/2019 (None) Prescriptions ordered this encounter Disp Refills Start End ELIQUIS 5 MG TABLET 180 * 3 01/22/2019 Sig: TAKE 1 TABLET TWICE DAILY Medications Discontinued During This Encounter apixaban (ELIQUIS) 5 mg tab(s) 60 t* 5 01/16/2018 01/22/2019 Route: ORAL Sig: Take 1 tablet by mouth twice daily. Disc: Reason for discontinue is not on file. Encounter Status:Closed by ELENI PATTEN on 01/22/19 [facility] Vital Signs Date Time Vital Sign Value Performing Clinician Omar dunbar 10-03-2024 07:58-0400 Body height 175.[address] Bnoilla Gary MD Work Phone: [facility] 10-03-2024 07:58-0400 Body mass index (BMI) [Ratio] 30.7 kg/m2 Dr. Bonilla Gary MD Work Phone: [facility] 10-03-2024 07:58-0400 Body temperature 97.3 [degF] Dr. Bonilla Gary MD Work Phone: [facility] 10-03-2024 07:58-0400 Body weight 94.[address] Bonilla Gary MD Work Phone: [facility] 10-03-2024 07:58-0400 Diastolic blood pressure 83 mm[Hg] Dr. Bonilla Gary MD Work Phone: [facility] 10-03-2024 07:58-0400 Heart rate 61 /min Dr. Bonilla Gary MD Work Phone: [facility] 10-03-2024 07:58-0400 Respiratory rate 18 /min Dr. Bonilla Gary MD Work Phone: [facility] 10-03-2024 07:58-0400 Systolic blood pressure 146 mm[Hg] Dr. Bonilla Gary MD Work Phone: [facility] 09-24-2024 11:28-0400 Body height 175.[address] Bonilla Gary MD Work Phone: [facility] 09-24-2024 11:28-0400 Body mass index (BMI) [Ratio] 30.4 kg/m2 Dr. Bonilla Gary MD Work Phone: [facility] 09-24-2024 11:28-0400 Body weight 93.[address] Bonilla Gary MD Work Phone: [facility] 09-24-2024 11:28-0400 Diastolic blood pressure 95 mm[Hg] Dr. Bonilla Gary MD Work Phone: [facility] 09-24-2024 11:28-0400 Heart rate 60 /min Dr. Bonilla Gary MD Work Phone: [facility] 09-24-2024 11:28-0400 Respiratory rate 16 /min Dr. Bonilla Gary MD Work Phone: [facility] 09-24-2024 11:28-0400 Systolic blood pressure 150 mm[Hg] Dr. Bonilla Gary MD Work Phone: [facility] 07-09-2024 10:17-0500 Body height 175.[address] Bonilla Gary MD Work Phone: [facility] 07-09-2024 10:17-0500 Body mass index (BMI) [Ratio] 30.7 kg/m2 Dr. Bonilla Gary MD Work Phone: [facility] 07-09-2024 10:17-0500 Body temperature 98 [degF] Dr. Bonilla Gary MD Work Phone: [facility] 07-09-2024 10:17-0500 Body weight 94.[address] Bonilla Gary MD Work Phone: [facility] 07-09-2024 10:17-0500 Diastolic blood pressure 80 mm[Hg] Dr. Bonilla Gary MD Work Phone: [facility] 07-09-2024 10:17-0500 Heart rate 58 /min Dr. Bonilla Gary MD Work Phone: [facility] 07-09-2024 10:17-0500 Respiratory rate 14 /min Dr. Bonilla Gary MD Work Phone: [facility] 07-09-2024 10:17-0500 SaO2% (BldA) [Mass fraction] 97 % Dr. Bonilla Gary MD Work Phone: [facility] 07-09-2024 10:17-0500 Systolic blood pressure 120 mm[Hg] Dr. Bonilla Gary MD Work Phone: [facility] 03-26-2024 11:35-0500 Body mass index (BMI) [Ratio] 30.4 kg/m2 Dr. Bonilla Gary MD Work Phone: [facility] 03-26-2024 11:35-0500 Body weight 93.[address] Bonilla Gary MD Work Phone: [facility] 03-26-2024 11:35-0500 Diastolic blood pressure 95 mm[Hg] Dr. Bonilla Gary MD Work Phone: [facility] 03-26-2024 11:35-0500 Heart rate 68 /min Dr. Bonilla Gary MD Work Phone: [facility] 03-26-2024 11:35-0500 Respiratory rate 18 /min Dr. Bonilla Gary MD Work Phone: [facility] 03-26-2024 11:35-0500 SaO2% (BldA) [Mass fraction] 97 % Dr. Bonilla Gary MD Work Phone: [facility] 03-26-2024 11:35-0500 Systolic blood pressure 154 mm[Hg] Dr. Bonilla Gary MD Work Phone: [facility] 08-10-2023 10:42-0400 Body height 175.[address] Bonilla Gary Work Phone: [facility] 08-10-2023 10:42-0400 Body mass index (BMI) [Ratio] 30.2 kg/m2 Dr. Bonilla Gary Work Phone: [facility] 08-10-2023 10:42-0400 Body temperature 97.5 [degF] Dr. Bonilla Gary Work Phone: [facility] 08-10-2023 10:42-0400 Body weight 92.[address] Bonilla Gary Work Phone: [facility] 08-10-2023 10:42-0400 Diastolic blood pressure 86 mm[Hg] Dr. Bonilla Gary Work Phone: [facility] 08-10-2023 10:42-0400 Heart rate 43 /min Dr. Bonilla Gary Work Phone: [facility] 08-10-2023 10:42-0400 Respiratory rate 16 /min Dr. Bonilla Gary Work Phone: [facility] 08-10-2023 10:42-0400 SaO2% (BldA) [Mass fraction] 99 % Dr. Bonilla Gary Work Phone: [facility] 08-10-2023 10:42-0400 Systolic blood pressure 134 mm[Hg] Dr. Bonilla Gary Work Phone: [facility] 08-02-2023 15:00-0400 Body temperature 97.5 [degF] Dr. Bonilla Gary Work Phone: [facility] 08-02-2023 15:00-0400 Diastolic blood pressure 78 mm[Hg] Dr. Bonilla Gary Work Phone: [facility] 08-02-2023 15:00-0400 Heart rate 74 /min Dr. Bonilla Gary Work Phone: [facility] 08-02-2023 15:00-0400 Respiratory rate 16 /min Dr. Bonilla Gary Work Phone: [facility] 08-02-2023 15:00-0400 SaO2% (BldA) [Mass fraction] 95 % Dr. Bonilla Gary Work Phone: [facility] 08-02-2023 15:00-0400 Systolic blood pressure 110 mm[Hg] Dr. Bonilla Gary Work Phone: [facility] 08-02-2023 13:50-0400 Body height 175.[address] Bonilla Gary Work Phone: [facility] 08-02-2023 13:50-0400 Body weight 90.[address] Bonilla Gary Work Phone: [facility] 08-02-2023 06:00-0400 Body mass index (BMI) [Ratio] 29.2 kg/m2 Dr. Bonilla Gary Work Phone: [facility] 08-02-2023 00:00-0400 Body temperature 98.1 [degF] [facility] 08-02-2023 00:00-0400 Diastolic blood pressure 81 mm[Hg] [facility] 08-02-2023 00:00-0400 Heart rate 86 /min [facility] 08-02-2023 00:00-0400 Respiratory rate 22 /min [facility] 08-02-2023 00:00-0400 SaO2% (BldA) [Mass fraction] 92 % [facility] 08-02-2023 00:00-0400 Systolic blood pressure 111 mm[Hg] [facility] 08-01-2023 19:30-0400 Body height 177.8 cm [facility] 08-01-2023 19:30-0400 Body mass index (BMI) [Ratio] 28.7 kg/m2 [facility] 08-01-2023 19:30-0400 Body weight 90.9 kg [facility] 08-28-2022 08:58-0400 Body height 175.[address] Bonilla Gary Work Phone: [facility] 08-28-2022 08:58-0400 Body mass index (BMI) [Ratio] 29.9 kg/m2 Dr. Bonilla Gary Work Phone: [facility] 08-28-2022 08:58-0400 Body temperature 97.5 [degF] Dr. Bonilla Gary Work Phone: [facility] 08-28-2022 08:58-0400 Body weight 92.[address] Bonilla Gary Work Phone: [facility] 08-28-2022 08:58-0400 Diastolic blood pressure 72 mm[Hg] Dr. Bonilla Gary Work Phone: [facility] 08-28-2022 08:58-0400 Heart rate 57 /min Dr. Bonilla Gary Work Phone: [facility] 08-28-2022 08:58-0400 Respiratory rate 16 /min Dr. Bonilla Gary Work Phone: [facility] 08-28-2022 08:58-0400 SaO2% (BldA) [Mass fraction] 95 % Dr. Bonilla Gary Work Phone: [facility] 08-28-2022 08:58-0400 Systolic blood pressure 112 mm[Hg] Dr. Bonilla Gary Work Phone: [facility] 11-25-2021 10:10-0400 Body height 175.[address] Bonilla Gary Work Phone: [facility] Work Phone: 11-25-2021 10:10-0400 Body mass index (BMI) [Ratio] 28.6 kg/m2 Dr. Bonilla Gary Work Phone: [facility] Work Phone: 11-25-2021 10:10-0400 Body temperature 98.4 [degF] Dr. Bonilla Gary Work Phone: [facility] Work Phone: 11-25-2021 10:10-0400 Body weight 87.[address] Bonilla Gary Work Phone: [facility] Work Phone: 11-25-2021 10:10-0400 Diastolic blood pressure 90 mm[Hg] Dr. Bonilla Gary Work Phone: [facility] Work Phone: 11-25-2021 10:10-0400 Heart rate 57 /min Dr. Bonilla Gary Work Phone: [facility] Work Phone: 11-25-2021 10:10-0400 Respiratory rate 16 /min Dr. Bonilla Gary Work Phone: [facility] Work Phone: 11-25-2021 10:10-0400 SaO2% (BldA) [Mass fraction] 96 % Dr. Bonilla Gary Work Phone: [facility] Work Phone: 11-25-2021 10:10-0400 Systolic blood pressure 142 mm[Hg] Dr. Bonilla Gary Work Phone: [facility] Work Phone: 10-27-2021 13:51-0400 Body height 175.[address] Bonilla Gary Work Phone: [facility] Work Phone: 10-27-2021 13:51-0400 Body mass index (BMI) [Ratio] 28.5 kg/m2 Dr. Bonilla Gary Work Phone: [facility] Work Phone: 10-27-2021 13:51-0400 Body weight 87.[address] Bonilla Gary Work Phone: [facility] Work Phone: 10-27-2021 13:51-0400 Diastolic blood pressure 74 mm[Hg] Dr. Bonilla Gary Work Phone: [facility] Work Phone: 10-27-2021 13:51-0400 Heart rate 52 /min Dr. Bonilla Gary Work Phone: [facility] Work Phone: 10-27-2021 13:51-0400 Respiratory rate 16 /min Dr. Bonilla Gary Work Phone: [facility] Work Phone: 10-27-2021 13:51-0400 Systolic blood pressure 140 mm[Hg] Dr. Bonilla Gary Work Phone: [facility] Work Phone: 08-24-2021 11:01-0400 Body mass index (BMI) [Ratio] 29.3 kg/m2 Dr. Bonilla Gary Work Phone: [facility] Work Phone: 08-24-2021 11:01-0400 Body temperature 97.6 [degF] Dr. Bonilla Gary Work Phone: [facility] Work Phone: 08-24-2021 11:01-0400 Body weight 90.[address] Bonilla Gary Work Phone: [facility] Work Phone: 08-24-2021 11:01-0400 Diastolic blood pressure 100 mm[Hg] Dr. Bonilla Gary Work Phone: [facility] Work Phone: 08-24-2021 11:01-0400 Heart rate 70 /min Dr. Bonilla Gary Work Phone: [facility] Work Phone: 08-24-2021 11:01-0400 Respiratory rate 16 /min Dr. Bonilla Gary Work Phone: [facility] Work Phone: 08-24-2021 11:01-0400 SaO2% (BldA) [Mass fraction] 96 % Dr. Bonilla Gary Work Phone: [facility] Work Phone: 08-24-2021 11:01-0400 Systolic blood pressure 156 mm[Hg] Dr. Bonilla Gary Work Phone: [facility] Work Phone: 08-24-2021 11:01-0400 Body height 175.[address] Bonilla Gary Work Phone: [facility] Work Phone: 08-24-2021 11:01-0400 Body mass index (BMI) [Ratio] 29.3 kg/m2 Dr. Bonilla Gary Work Phone: [facility] Work Phone: 08-24-2021 11:01-0400 Body temperature 97.6 [degF] Dr. Bonilla Gary Work Phone: [facility] Work Phone: 08-24-2021 11:01-0400 Body weight 90.[address] Bonilla Gary Work Phone: [facility] Work Phone: 08-24-2021 11:01-0400 Diastolic blood pressure 100 mm[Hg] Dr. Bonilla Gary Work Phone: [facility] Work Phone: 08-24-2021 11:01-0400 Heart rate 70 /min Dr. Bonilla Gary Work Phone: [facility] Work Phone: 08-24-2021 11:01-0400 Respiratory rate 16 /min Dr. Bonilla Gary Work Phone: [facility] Work Phone: 08-24-2021 11:01-0400 SaO2% (BldA) [Mass fraction] 96 % Dr. Bonilla Gary Work Phone: [facility] Work Phone: 08-24-2021 11:01-0400 Systolic blood pressure 156 mm[Hg] Dr. Bonilla Gary Work Phone: [facility] Work Phone: Encounters Encounter Date Encounter Type Care Provider Facility Start: 10-15-2024 ambulatory Gale SHAW Facility:[facility] Start: 10-09-2024 ambulatory Bonilla Zapata ty:[facility] Start: 10-03-2024 End: 10-03-2024 Patient encounter procedure Renée Chau NP-C -[facility] Work Phone: Start: 10-03-2024 End: 10-03-[address] Bonilla Gary MD Work Phone: [facility] Work Phone: Start: 09-24-2024 End: 09-24-2024 Patient encounter procedure Gale Arizmendi PA -[facility] Work Phone: Start: 09-24-2024 End: 09-24-[address] Bonilla Gary MD Work Phone: [facility] Work Phone: Start: 07-09-2024 End: 07-09-[address] Bonilla Gary MD Work Phone: [facility] Work Phone: Start: 07-09-2024 End: 07-09-[address] Bonilla Gary MD -Laboratory, [place] Start: 07-09-2024 End: 07-09-[address] Bonilla Gary MD -[facility] Work Phone: Start: 07-09-2024 End: 07-09-2024 [facility] [place] Start: 07-09-2024 End: 07-09-2024 [facility] Start: 03-26-2024 End: 03-26-2024 Patient encounter procedure Rosalba Hamlin [employer]- -[facility] Work Phone: Start: 03-26-2024 End: 03-26-2024 ambulatory Rosalba Hamlin NP Facility:[facility] [place] Start: 03-12-2024 End: 03-12-2024 [facility]ulatory [facility] Start: 03-12-2024 End: 03-12-2024 [facility]ulatory [facility] Start: 02-18-2024 ambulatory Rosalba Hamlin NP Facili ty:[facility] Start: 01-15-2024 End: 01-15-2024 ambulatory Renée Chau NP Facility:[facility] Start: 11-09-[address] Bonilla Gary MD Work Phone: [facility] Start: 11-09-2023 End: 11-09-2023 [facility]ulatory [facility] [place] Start: 11-09-2023 End: 11-09-2023 [facility]ulatory [facility] Start: 08-10-2023 End: 08-10-[address] Bonilla Gary Work Phone: [facility] Work Phone: Start: 08-10-2023 End: 08-10-[address] Bon[facility] Work Phone: Start: 08-02-2023 Non-patient / Non-visit Dr. Josr Gary Work Phone: [facility] Work Phone: Start: 08-02-2023 Non-patient / Non-visit Dr. Josr Gary Work Phone: [facility] Start: 08-01-2023 End: 08-02-2023 Evaluation and management of inpatient Dr[facility] Bonilla Gary [facility] Start: 08-01-2023 [facility] Start: 08-28-2022 End: 08-28-[address] Bonilla Gary Work Phone: [facility] Work Phone: Start: 08-28-2022 End: 08-28-[address] Bonilla Gary Work Phone: [facility] Start: 12-07-2021 End: 12-07-[address] Bonilla Gary Work Phone: [facility], [facility] Start: 11-25-2021 End: 11-25-[address] Bonilla Gary Work Phone: [facility] Start: 11-17-2021 End: 11-17-[address] [facility] Start: 10-27-2021 End: 10-27-[address] Bonilla Gary Work Phone: [facility] Start: 09-15-2021 End: 09-15-[address] Bonilla Gary Work Phone: [facility], [place] Start: 08-24-2021 End: 08-24-[address] Bonilla Gary Work Phone: [facility] Start: 12-31-2017 End: 12-31-2017 Patient encounter MARION PATTEN Facility:[facility] Procedures Date Procedure Procedure Detail Performing Clinician Start: 07-09-2024 Vitamin D, 25-hydrox y measurement Dr. Bonilla Gary MD Work Phone: Comment on above: Vitamin D StatusDefi ciency: <20 ng/mL (50nmol/L)Insufficiency: 20-30 ng/mL (50-75 nmol/L)Sufficiency: 30-100 ng/mL (75-250 nmol/L)Toxicity: >100 ng/mL (>250 nmol/L) Start: 08-01-2023 Computed tomography of abdomen and pelvis with intravenous contrast Start: 08-01-2023 Plain chest X-ray H/O: surgery History of ptosi s repair Dr. Bonilla Gary Work Phone: Plan of Treatment Date Care Activity Detail Author Start: 08-10-2023 Patient referral [facility] Work Phone: Start: 08-02-2023 Patient discharge [facility] Start: 08-02-2023 [facility] Start: 08-02-2023 Thyroid stimulating hormone measurement [facility] Start: 08-02-2023 [facility] Start: 08-02-2023 Application of inter mittent pneumatic compression device [facility] Start: 08-02-2023 Following clinical p athway protocol [facility] Start: 08-02-2023 Aspiration precautions [facility] Start: 08-02-2023 Assessment of risk o f venous thromboembolism [facility] Start: 08-02-2023 Documentation procedure [facility] Start: 08-02-2023 Enteric precautions [facility] Start: 08-02-2023 Incentive spirometry [facility] Start: 08-02-2023 Insertion of cathete r into peripheral vein [facility] Start: 08-02-2023 Measuring intake and output [facility] Start: 08-02-2023 Oxygen therapy [facility] Start: 08-02-2023 Providing care accor ding to standard [facility] Start: 08-02-2023 Provision of activity privileges [facility] Start: 08-02-2023 Referral to occupational therapist [facility] Start: 08-02-2023 Referral to service [facility] Start: 08-02-2023 [facility] Start: 08-02-2023 Patient referral to dietitian [facility] Start: 08-01-2023 Clostridioides diffi cile DNA [Presence] in Unspecified specimen by KEVIN with probe detection [facility] Start: 08-01-2023 Gastrointestinal pat hogens panel - Stool by KEVIN with probe detection [facility] Start: 08-01-2023 Lactoferrin [Presenc e] in Stool by Immunoassay [facility] Start: 08-01-2023 Verification routine [facility] Start: 08-01-2023 Admission procedure [facility] Start: 08-01-2023 [facility] Administration Alanine aminotransfe rase [Enzymatic activity/volume] in Serum or Plasma [facility] Albumin [Mass/volume ] in Serum or Plasma [facility] Alkaline phosphatase [Enzymatic activity/volume] in Serum or Plasma [facility] Anion gap measurement [facility] Aspartate aminotrans ferase [Enzymatic activity/volume] in Serum or Plasma [facility] Bilirubin, total measurement [facility] BUN/Creatinine ratio [facility] Calcium [Mass/volume ] in Serum or Plasma [facility] Carbon dioxide, tota l [Moles/volume] in Serum or Plasma [facility] spital Chloride [Moles/volu me] in Serum or Plasma [facility] Creatinine [Moles/vo lume] in Serum or Plasma [facility] Erythrocyte mean cor puscular volume determination [facility] Glucose [Mass/volume ] in Serum or Plasma [facility] Hematocrit [Volume F raction] of Blood [facility] Hemoglobin [Mass/volume] in Blood [facility] Lactic acid measurement [facility] Leukocytes [#/volume] in Blood [facility] Magnesium [Mass/volu me] in Serum or Plasma [facility] Mean corpuscular hem oglobin concentration determination [facility] Mean corpuscular hem oglobin determination [facility] Measurement of renal function [facility] Neutrophil count [facility] Neutrophil percent d ifferential count [facility] Ova and parasites id entified in Unspecified specimen by Light microscopy [facility] Patient referral [facility] Work Phone: Platelets [#/volume] in Blood [facility] Potassium [Moles/vol ume] in Serum or Plasma [facility] Radionuclide imaging of perfusion of myocardium under exercise stress [facility] Red blood cell count [facility] Red cell distributio n width determination [facility] Serum inorganic phos phate measurement [facility] Sodium [Moles/volume ] in Serum or Plasma [facility] Total protein measurement [facility] Urea nitrogen [Mass/ volume] in Serum or Plasma [facility] Payers Date Payer Category Payer Self-pay [id number] 2023 Private Health Insurance [id number] Medicare [id number] Unknown [facility] AUTH REQUIR ED SEE NOTE [id number] Unknown [id number] Unknown [id number] 62 Unknown [id number] 62 Unknown [id number] 62 Unknown [id number] 62 Unknown [id number] [id number] 62 Unknown [id number] [id number] 62 Unknown [id number] [id number] 62 Unknown [id number] [id number] 62 Unknown [id number] 2.16.840.1.139733.3.579.2.4 62 Unknown [id number] [id number] 62 Unknown [id number] [id number] 62 Unknown [id number] [id number] 62 Unknown [id number] 62 Social History Date Type Detail Facility Start: 08-24-2021 End: 08-10-2023 Tobacco smoking status NHIS Unknown if ever smoked [facility] Start: 1945 Sex Assigned At Male W [facility] Start: 06-26-2017 None [facility] Start: 06-26-2017 Spouse/ Signif icant Other [facility] Start: 06-26-2017 Non-smoker [facility] Start: 08-10-2023 Tobacco smoking status NHIS Never smoked tobacco (finding) [facility] Start: 07-19-2024 Sex Male (finding) [facility] Functional Status Date Assessment Result Facility 08-02-2023 Functional status Ambulates [facility] Work Phone: Mental Status Date Assessment Result Facility 08-02-2023 Cognitive function Awake;Alert;A ppropriate;Fol lows Commands [facility] Work Phone: 08-01-2023 Cognitive function Awake;Alert;A ppropriate;Fol lows Commands [facility] Work Phone: Clinical Notes 06-30-2020 to 07-09-2024 Note Date & Type Note Facility 07-09-2024 Evaluation note Diagnosis Onset Date Resolution GERD (gastroesophageal reflux disease) acute July 09, 2024 10:04am Brain fog chronic July 09 10:04am Essential hypertension chronic Ma [facility] 2024 10:04am ASTRID (obstructive sleep apnea) chronic July 09, 2024 10:04am Paroxysmal atrial fibrillation chronic July 09, 2024 10:04am Chest pain acute September 24, 2024 11:18am Essential hypertension chronic Ma y 2024 11:18am ASTRID (obstructive sleep apnea) chronic September 24, 2024 11:18am Paroxysmal atrial fibrillation chronic September 24, 2024 11:18am [facility] Work Phone: 1(758) 239-627211-20-2024 Evaluation note* Diagnosis Onset Date Resolution Status Admit Date Essential hypertension chronic No vember 2023 11:31am ASTRID (obstructive sleep apnea) chroni c March 26, 2024 11:31am Paroxysmal atrial fibrillation chron ic March 26, 2024 11:31am GERD (gastroesophageal reflu x disease) acute July 09, 2024 10:04am Brain fog chronic July 09 10:04am Essential hypertension chronic [facility] 2024 10:04am ASTRID (obstructive sleep apnea) chroni c July 09, 2024 10:04am Paroxysmal atrial fibrillation chron ic July 09, 2024 10:04am [facility] Work Phone: 1(289) 717-140503-28-2024 Consult note Author Devante Singh [facility] August 02, 2023 7:55am Note Date/Time August 02, 2023 7:5 5am [facility] Medical Records Department [address] [place] [address] Consultation - Surgical 08/02/23 0752 MR#: [id number] Acct: [id number] Name: CALEB VILA Rep #:[id number] : 1945 78 From: Devante swan MD PCP: Dr. Bonilla Gary MD Status:A DM IN Location: [place] [id number]- [id number] Assessment & Plan Assessment/Plan (1) Gastroenteritis: PLAN: I believe the patient likely has gastroenteritis. I reviewed his CT scan which did show some dilated loops of bowel but there is no transition point. I do not believe he has an internal hernia. He says he is improving and his whitecount is coming down without antibiotics. I believe he was very dehydrated and all of his labs are correcting. Patient reports he is much better and actually feeling hungry this morning. I will wait until later today to start a diet to make sure he does not vomit again. Patient has enteric panel pending but he hasnot had a bowel movement overnight. I do not believe he is obstructed as he is passing gas and he is feeling more comfortable than yesterday. No surgical indication at this time. I will likely start clears and advance as tolerated around lunchtime. Devante Singh MD Pager: [facility] [address] [place] [address], [address] [place] [address] Office: HPI Consult Data Date of Consult: 08/02/23 HPI Narrative HPI Narrative: CALEB VILA, is a 78 M who presents with abdominal pain and nausea vomiting and diarrhea. The patient says that 2 nights ago he started having a lot of diarrhea. He did tell the hospitalist that he may have eaten some moldy bread. He says that he had diarrhea and then yesterday he started having more nausea and vomiting. He said that he vomited a few times yesterday and again at 1 AM this morning. He says he is passing a little bit of gas and has not had any diarrhea overnight. He says that his lower abdominal bloating and pain is much improved from yesterday. He denies any nausea currently. He denies fevers or chills overnight. He reports his abdominal pain is lower abdomen and diffuse. He reports it to be mild this morning. [facility] Medical History Bradycardia Carotid stenosis, left COVID-19 Essential hypertension Fatigue Flu vaccine need GERD (gastroesophageal reflux disease) Hepatitis A antibody positive Hypertension Neuropathy Paroxysmal atrial fibrillation Sleep apnea Vertigo Home Medications apixaban 5 mg tablet (Eliquis) 5 mg PO BID ATRIAL FIBRILLATION 01/24/18 [History Last Taken Unknown] Handicap Placard #1 ea 02/27/22 [Rx Last Taken Unknown] olmesartan 5 mg tablet 5 mg PO DAILY HTN 08/01/23 [History Last Taken Unknown] biotin 1 mg capsule 1 mg PO DAILY dietary supplement 08/02/23 [History Last Taken 08/01/23] nuoyssdn-gn-ujqvd 300 mcg-K 60 mcg-lycop 600 mcg-lutein 300 mcg tablet (Centrum Silver Ultra Men's) 1 tab PO DAILY dietary supplement 08/02/23 [History Last Taken 08/01/23] omega 9-uxm-wac-fish oil 1,200 mg (144 mg-216 mg) capsule (Fish Oil) 1 cap PO .every day dietary supplement 08/02/23 [History Last Taken 08/01/23 01:35] Allergy/AdvReac Type Severity Reaction Status Date / Time No Known Allergies Allergy Verified 08/01/23 19:32 Family History Mother Cancer endometrial Father Heart disease CVA (cerebral vascular accident) Hypertension Cancer melanoma Sister Breast cancer Surgical History History of oral surgery History of tonsillectomy Social History Smoking Status: Never smoker alcohol intake: never substance use type: does not use what type of physical 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 ROS ENT HEENT: Reports abnormal hearing; Denies dysphagia Cardiovascular Cardiovascular: Denies chest pain or chest pain at rest Respiratory/Chest Respiratory/Chest: Denies cough or dyspnea Gastrointestinal Gastrointestinal: Reports abdominal pain, diarrhea, nausea and vomiting Genitourinary Genitourinary: Denies change in urinary stream Musculoskeletal Musculoskeletal: Denies abnormal gait Neurologic Neurologic: Denies dizziness Psychiatric Psychiatric: Denies anxiety Endocrine Endocrinology: Denies heat intolerance Physical Exam Const alert, oriented x3 and no apparent distress HEENT normocephalic Eyes PERRL Chest inspection of chest normal Resp normal respiratory effort Cardio Rate: regular rate Rhythm: regular rhythm GI soft to palpation and non-distended Palpation: tender LLQ and RLQ Back/Spine no CVA tenderness Extremity normal to inspection Lab / Micro Data 08/02/23 06:00 08/01/23 19:45 Labs: Laboratory Results - last 24 hr 08/01/23 00:34: Lactic Acid 1.5 08/01/23 19:45: WBC 14.4 H, RBC 5.99, Hgb 18.0 H*, Hct 53.1, MCV 88.6, MCH 30.1,MCHC 33.9, RDW Std Deviation 40.5, RDW Coeff of Lupe 12.6, Plt Count 327, MPV 10.1, Immature Gran % (Auto) 0.400, Neut % (Auto) 82.8 H, Lymph % (Auto) 11.6 L,Hamlin % (Auto) 4.6, Eos % (Auto) 0.3, Baso % (Auto) 0.3, Absolute Neuts (auto) 11.9 H, Absolute Lymphs (auto) 1.67, Nucleated RBC % 0, Sodium 139, Potassium 3.9, Chloride 104, Carbon Dioxide 27.0, Anion Gap 8, BUN 21 H, Creatinine 1.40 H, Estim Creat Clear Calc 50.10, Est GFR (MDRD) Af Amer 63, Est GFR (MDRD) Non-Af52 L, BUN/Creatinine Ratio 15.0, Glucose 124 H, Calcium 10.3 H, Total Bilirubin 0.80, Direct Bilirubin 0.24, AST 18, ALT 38, Alkaline Phosphatase 109, Troponin I High Sens 13, Total Protein 8.9 H, Albumin 4.7, Globulin 4.2, Amylase 39, Lipase 32 08/02/23 06:00: WBC 10.9, RBC 5.18, Hgb 15.6, Hct 45.4, MCV 87.6, MCH 30.1, MCHC34.4, RDW Std Deviation 41.0, RDW Coeff of Lupe 12.7, Plt Count 241, MPV 10.3, Immature Gran % (Auto) 0.400, Neut % (Auto) 87.1 H, Lymph % (Auto) 5.2 L, Hamlin %(Auto) 7.1, Eos % (Auto) 0.1, Baso % (Auto) 0.1, Absolute Neuts (auto) 9.5 H, Absolute Lymphs (auto) 0.57 L, Nucleated RBC % 0 Rhythm Strip Rhythm Strip: Sinus Tach Rate: 147 Ectopy: None Imaging Radiology Impression Chest X-Ray 08/01/23 19:55 IMPRESSION: 1. No radiographic evidence of acute cardiopulmonary disease. Electronically Signed: Mango Blum DO at 20:57 EDT , Abdomen/Pelvis CT 08/01/23 20:43 IMPRESSION: 1. There is a cluster of mildly distended, fluid-filled bowel loops within the lower anterior abdomen with a small amount of surrounding fluid consistent with inflammatory changes. No well delineated transition point. Differential includes early small bowel obstruction, possible enteritis and closed loop obstruction with consideration for internal hernia. 2. Large simple cyst left kidney. 3. Indeterminate 6 mm right hepatic hypodensity. Correlation with liver MRI or multiphase liver CT is recommended. 4. Left lower lobe elongated opacities suggesting endobronchial debris. 3 month follow-up CT chest is recommended. Recommendation: Close clinical follow-up. Consider surgical consultation. Electronically Signed: Mango Blum DO at 21:56 EDT , 08/02/23 0750 <Electronically signed by Devante Singh MD> Cosigner Signature (if applicable): CC: Dr. David Banks DO; Dr. Bonilla Gary MD~ Signed [facility] Work Phone: 1(452) 869-223603-28-2024 History and physical note Author David Orona [facility] August 02, 2023 6:12am Note Date/Time August 01, 2023 10: 47pm [facility] Medical Records Department [address] [place] [address] H&P Exam - Hospitalist 08/01/23 1865 MR#: [id number] Acct: [id number] Name: CALEB VILA Rep #:[id number] : 1945 78 From: David Gomes DO PCP: Dr. Bonilla Gary MD Status:A DM IN Location: [place] [id number]- [id number] HPI - General General Date of Admission: 08/01/23 Date of Service: 08/01/23 Chief Complaint: Nausea, Vomiting and Palpitations. [facility] Narrative CALEB VILA, is a 78 M with a past medical history of essential hypertension, history of subclinical hypothyroidism, overweight; BMI of 28.8 this admission, obstructive sleep apnea; on CPAP, paroxysmal atrial fibrillation; on Eliquis andmetoprolol, history of Left carotid stenosis, neuropathy; of both feet, BPPV, history of COVID-19, GERD and osteoarthritis who presents to [facility] ER complaining of nausea, vomiting and palpitations. Mr. Vila reports his symptoms began approximately 1 day prior to admission when he developed non- bloody diarrhea throughout the day yesterday after he accidentallyate a severely moldy piece of bread. Then earlier today he developed nausea with 1 episode of bilious emesis with an aspiration event that caused him to become short of breath at rest. He denies associated chest pain, blood in stools, blood in emesis or abdominal pain but he does admit to continued nausea. In the ER his CT scan of the abdomen pelvis revealed a cluster of mildly distended, fluid-filled bowel loops within the lower anterior abdomen with a small amount of surrounding fluid consistent with inflammatory changes but therewas no well-delineated transition point with radiologist concerned for possible enteritis versus early small bowel obstruction along with consideration for internal hernia and elongated opacities in the Left lower lobe suggesting endobronchial debris consistent with suspected aspiration pneumonia with leukocytosis of 14.4 present on admission and polycythemia of 18 g/dL present onadmission with his EKG in the ER showing spontaneous conversion from atrial flutter with right bundle branch block and rapid ventricular response of ~140 bpm to normal sinus rhythm at 80 bpm and he was then admitted to the general medical floor with telemetric monitoring for ongoing care for stay that is expected to be greater than 48 hours. [facility] Medical History Bradycardia Carotid stenosis, left COVID-19 Essential hypertension Fatigue Flu vaccine need GERD (gastroesophageal reflux disease) Hepatitis A antibody positive Hypertension Neuropathy Paroxysmal atrial fibrillation Sleep apnea Vertigo Home Medications apixaban 5 mg tablet (Eliquis) 5 mg PO BID ATRIAL FIBRILLATION 01/24/18 [History Last Taken Unknown] Handicap Placard #1 ea 02/27/22 [Rx Last Taken Unknown] olmesartan 5 mg tablet 5 mg PO DAILY HTN 08/01/23 [History Last Taken Unknown] biotin 1 mg capsule 1 mg PO DAILY dietary supplement 08/02/23 [History Last Taken 08/01/23] jhurptuv-ts-apcye 300 mcg-K 60 mcg-lycop 600 mcg-lutein 300 mcg tablet (Centrum Silver Ultra Men's) 1 tab PO DAILY dietary supplement 08/02/23 [History Last Taken 08/01/23] omega 7-eby-vhu-fish oil 1,200 mg (144 mg-216 mg) capsule (Fish Oil) 1 cap PO .every day dietary supplement 08/02/23 [History Last Taken 08/01/23 01:35] Allergy/AdvReac Type Severity Reaction Status Date / Time No Known Allergies Allergy Verified 08/01/23 19:32 Family History Mother Cancer endometrial Father Heart disease CVA (cerebral vascular accident) Hypertension Cancer melanoma Sister Breast cancer Surgical History History of oral surgery History of tonsillectomy Social History Smoking Status: Never smoker alcohol intake: never substance use type: does not use what type of physical 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 HENT: Denies headache, denies stuffy nose, denies sore throat EYES: Denies changes in vision or discharge from eyes. Resp: Patient admits to mild shortness of breath after vomiting with subsequent aspiration as per HPI. Cardiac: Denies chest pain but he does admit to palpitations with a transient sensation his heart was racing that has since resolved. GI: Patient admits to nausea and vomiting with bilious emesis but he denies abdominal pain, constipation or melena. : Denies changes in urination Extremity: Denies swelling Musculoskeletal: Feels somewhat generally weak and unwell but denies arthralgiasor myalgias. Neuro: Patient denies headache, paresthesias or focal neurologic weakness. Heme: Denies any bleeding or bruising Skin: Denies rashes Psychiatric: No complaints voiced related to uncontrolled depression or anxiety. Endocrine: No polyuria, polydipsia or polyphagia. The rest of the 14 point ROS was negative except for positives in HPI. Vital Signs Vital Signs Vital Signs: 08/01/23 19:30 08/01/23 19:45 08/01/23 21:30 Temperature 97.8 F Temperature Source Temporal Pulse Rate 147 H 78 Respiratory Rate 17 16 Blood Pressure 137/109 H 126/78 H Blood Pressure Mean 118 94 Pulse Ox 97 98 Oxygen Delivery Method Room Air Room Air Room Air 08/01/23 22:33 08/01/23 22:33 Temperature 98.1 F 98.1 F Temperature Source Oral Pulse Rate 86 86 Respiratory Rate 24 H 14 Blood Pressure 118/86 H 118/86 H Blood Pressure Mean 96 96 Pulse Ox 97 97 Oxygen Delivery Method Room Air Weight Weight: 200 lb 6.403 oz Body Mass Index (BMI) 28.7 Physical Exam Const alert, oriented x3, no apparent distress, average body habitus, healthy appearing and well nourished General Appearance: cooperative HEENT normocephalic, head/scalp atraumatic and hearing grossly normal bilaterally HEENT Narrative: Mucous membranes dry. Eyes PERRL, EOMs intact bilaterally and conjunctivae normal Neck no lymphadenopathy and supple Resp Resp Narrative: Decreased breath sounds over left lower lobe with diminished breath sounds throughout. Cardio regular rate and regular rhythm GI normal to inspection, nondistended, normoactive bowel sounds, soft to palpation,non-tender and non-distended Extremity normal to inspection, full ROM and no clubbing, cyanosis or edema Skin Skin Narrative: Patient has no evidence of rash or abscess at this time. Neuro oriented x3, CN's II-XII intact bilaterally, moves all extremities and no focal motor deficits Sensorium / Orientation: awake, alert, oriented to person, oriented to place andoriented to time Speech: speech normal Motor Exam: strength 5/5 throughout Psych affect normal Results Medical Records Data Attestation: I reviewed the patient's medical records Lab / Micro Data Attestation: I reviewed the patient's lab results. 08/01/23 19:45 08/01/23 19:45 Labs: Laboratory Results - last 24 hr 08/01/23 19:45: WBC 14.4 H, RBC 5.99, Hgb 18.0 H*, Hct 53.1, MCV 88.6, MCH 30.1,MCHC 33.9, RDW Std Deviation 40.5, RDW Coeff of Lupe 12.6, Plt Count 327, MPV 10.1, Immature Gran % (Auto) 0.400, Neut % (Auto) 82.8 H, Lymph % (Auto) 11.6 L,Hamlin % (Auto) 4.6, Eos % (Auto) 0.3, Baso % (Auto) 0.3, Absolute Neuts (auto) 11.9 H, Absolute Lymphs (auto) 1.67, Nucleated RBC % 0, Sodium 139, Potassium 3.9, Chloride 104, Carbon Dioxide 27.0, Anion Gap 8, BUN 21 H, Creatinine 1.40 H, Estim Creat Clear Calc 50.10, Est GFR (MDRD) Af Amer 63, Est GFR (MDRD) Non-Af52 L, BUN/Creatinine Ratio 15.0, Glucose 124 H, Calcium 10.3 H, Total Bilirubin 0.80, Direct Bilirubin 0.24, AST 18, ALT 38, Alkaline Phosphatase 109, Troponin I High Sens 13, Total Protein 8.9 H, Albumin 4.7, Globulin 4.2, Amylase 39, Lipase 32 Rhythm Strip Rhythm Strip: Sinus Tach Rate: 147 Ectopy: None Imaging Radiology Impression Chest X-Ray 08/01/23 19:55 IMPRESSION: 1. No radiographic evidence of acute cardiopulmonary disease. Electronically Signed: Mango Blum DO at 20:57 EDT , Abdomen/Pelvis CT 08/01/23 20:43 IMPRESSION: 1. There is a cluster of mildly distended, fluid-filled bowel loops within the lower anterior abdomen with a small amount of surrounding fluid consistent with inflammatory changes. No well delineated transition point. Differential includes early small bowel obstruction, possible enteritis and closed loop obstruction with consideration for internal hernia. 2. Large simple cyst left kidney. 3. Indeterminate 6 mm right hepatic hypodensity. Correlation with liver MRI or multiphase liver CT is recommended. 4. Left lower lobe elongated opacities suggesting endobronchial debris. 3 month follow-up CT chest is recommended. Recommendation: Close clinical follow-up. Consider surgical consultation. Electronically Signed: Mango Blum, at 21:56 EDT , Assessment & Plan Assessment/Plan (1) Gastroenteritis: (2) Nausea vomiting and diarrhea: (3) Aspiration into lower respiratory tract: QUALIFIERS: Encounter type: initial encounter Qualified Code(s): T17.800A - Unspecified foreign body in other parts of respiratory tract causing asphyxiation, initial encounter (4) Atrial fibrillation with RVR: (5) Polycythemia: PLAN: Plan 1. Gastroenteritis likely due to acute food poisoning from accidentally ingesting severely moldy bread - Admit to general medical floor under telemetry monitoring. Placed on contact/enteric precautions and await results of stool studies. Check KUB in a.m. to evaluate for possible improvement with conservative care. Patient was encouraged to inspect his food visually very carefully before eating. General surgeon on-call recommended NG tube placement only if patient has continued nausea and vomiting with formal consultation pending in the a.m. and appreciated in advance. 2. Intractable nausea and vomiting with nonbloody diarrhea attributable to #1 - Give IV Zofran as needed for nausea and vomiting. Patient was also treated withIV Reglan in the ER which were relatively contraindicated treatment with Phenergan which should now be avoided. Stool studies pending. 3. Suspected aspiration pneumonia with CT also positive for endobronchial debris in the left lower lobe with leukocytosis of 14.4 present on admission arising from #1 & #2 - Start IV Zosyn, give nebulizers as needed along with supplemental oxygen and monitor for improvement. 4. Paroxysmal atrial fibrillation; with RBBB and RVR of ~140 bpm arising from #1 to #3 - Patient has spontaneously converted back to normal sinus rhythm. Give IV Cardizem to keep heart rate less than 100 bpm if patient goes back into atrial fibrillation with RVR. 5. Polycythemia with hemoglobin of 18 g/dL present on admission - Noted. Likely due to dehydration from acute volume contraction due to #1 to #3. Volumeresuscitate and recheck CBC in the a.m. and consider screening for JAK2 mutationif elevation persists. 6. Essential hypertension - Give IV hydralazine as needed for systolic blood pressure greater than 160 mmHg. 7. History of subclinical hypothyroidism - Check TSH and free T4 this admissionto see if patient has progressed to gurjit hypothyroidism. 8. Overweight; with BMI of 28.8 this admission plus obstructive sleep apnea; onCPAP - Weight loss will be recommended. Continue CPAP as previous. 9. History of left carotid stenosis - Noted. 10. Neuropathy; of both feet - Stable. 11. BPPV - Give Antivert as needed. If symptoms recur and are severe and spiteof Antivert we will consider scopolamine patch. 12. History of COVID-19 - Noted. 13. GERD - Continue PPI IV. 14. Osteoarthritis - Stable. 15. DVT prophylaxis - SCD's to be initiated at this time. We will also restartEliquis if patient can tolerate this agent. Total time: Approximately 55 minutes. Charges/Coding Visit Charges Inpatient E&M: 90769 Init Hosp L2 08/02/23 0612 <Electronically signed by David Banks DO> Cosigner Signature (if applicable): CC: Dr. David Bnaks DO; Dr. Bonilla Gary MD~ Signed [facility] Work Phone: [phone] 334-421903-28-2024 Discharge summary Author Mitchell Guerrero [facility] August 01, 2023 10:33pm Note Date/Time August 01, 2023 7:5 9pm [facility] Medical Records Department [address] [place] [id number] Emergency Department Summary 08/01/23 MR#: [id number] Acct: [id number] Name: CALEB VILA Rep #:[id number] : 1945 78 From: Mitchell Guerrero MD PCP: Dr. Bonilla Gary MD Status:A DM IN [facility] <Parris Erickson RN - Last Filed: 08/01/23 22:30> History of Present Illness Chief Complaint: Palpitations Detail of Chief Complaint: Palpitations following 1 episode of vomiting, jaw aching Informant: patient Onset/Context/Timing Onset: Today Context: Sudden Onset Timing: Continuous Current Severity: Mild Maximum Severity: Mild Worsened by: Nothing Relieved by: Nothing Associated Symptoms Associated Symptoms: Jaw aching, dizziness, nausea Narrative Narrative: Patient is a 78-year-old male with past medical history significant for bradycardia, paroxysmal atrial fibrillation, neuropathy, vertigo, and sleep apnea who presented with palpitations following an episode of vomiting. Per patient he had diarrhea throughout the day yesterday, nausea today, and 1 episode of emesis today. Patient reports since wearing CPAP, he has had less frequent episodes of atrial fibrillation. He reports these usually occur in themorning and spontaneously resolved after approximately 10 minutes. He also reports dizziness with standing and aching to mandible. He denies chest pain and shortness of breath. He does continue with nausea. Patient denies recent hospitalizations or travel. Prior similar symptoms: No Recent Illness/Hospitalization: No [facility] <Parris Erickson RN - Last Filed: 08/01/23 22:30> [facility] Medical History Bradycardia Carotid stenosis, left COVID-19 Essential hypertension Fatigue Flu vaccine need GERD (gastroesophageal reflux disease) Hepatitis A antibody positive Hypertension Neuropathy Paroxysmal atrial fibrillation Sleep apnea Vertigo Home Medications apixaban 5 mg tablet (Eliquis) 5 mg PO BID 01/24/18 [History Last Taken Unknown] Handicap Placard #1 ea 02/27/22 [Rx Last Taken Unknown] metoprolol succinate 25 mg tablet,extended release 24 hr 12.5 mg (1/2 x 25 mg) PO DAILY #90 tabs 02/27/22 [Rx Last Taken Unknown] Allergy/AdvReac Type Severity Reaction Status Date / Time No Known Allergies Allergy Verified 08/01/23 19:32 Family History Mother Cancer endometrial Father Heart disease CVA (cerebral vascular accident) Hypertension Cancer melanoma Sister Breast cancer Surgical History History of oral surgery History of tonsillectomy Social History Smoking Status: Never smoker alcohol intake: never substance use type: does not use what type of physical 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 ROS <Parris Erickson RN - Last Filed: 08/01/23 22:30> ROS ED Constitutional Constitutional ED: Denies chills, fever(s) or sweats Eyes Eyes: Denies change in vision ENT ENT ED: Denies ear pain, rhinorrhea or sore throat Cardiovascular Cardiovascular: Reports palpitations and racing heartbeat; Denies chest pain, orthopnea or paroxysmal nocturnal dyspnea Respiratory/Chest Respiratory/Chest: Denies cough, dyspnea, dyspnea on exertion, orthopnea or paroxysmal nocturnal dyspnea Gastrointestinal Gastrointestinal: Reports nausea and vomiting; Denies abdominal pain, constipation, diarrhea or melena Genitourinary Genitourinary ED: Denies dysuria, hematuria or urinary frequency Musculoskeletal Musculoskeletal: Denies arthralgias, back pain, myalgias or neck pain Integumentary Denies abscess, Abrasions or rash Neurologic Neurologic: Denies headache(s), paresthesias or weakness Psychiatric Psychiatric: Denies anxiety, depression, suicidal ideation or suicidal thoughts Endocrine Endocrinology: Denies cold intolerance, heat intolerance, polydipsia, polyphagiaor polyuria Hematologic/Lymphatic Hematologic/Lymphatic: Reports systems reviewed and no addt'l complaints, exceptas documented EXAM <Parris Erickson RN - Last Filed: 08/01/23 22:30> Physical Exam Narrative Exam Narrative: Patient awake, alert, cooperative, good historian. Const Vital Signs: 08/01/23 19:30 08/01/23 19:45 08/01/23 21:30 Temperature 97.8 F Temperature Source Temporal Pulse Rate 147 H 78 Respiratory Rate 17 16 Blood Pressure 137/109 H 126/78 H Blood Pressure Mean 118 94 Pulse Ox 97 98 Oxygen Delivery Method Room Air Room Air Room Air Positive well nourished and well developed General Appearance ED: well developed and NAD HEENT Reports dry mucous membranes Mouth ED: Yes dry mucous membranes Mouth: dry mucous membranes Eyes PERRL and EOMs intact bilaterally Neck no lymphadenopathy, supple and no JVD Chest Wall inspection of chest normal and palpation of chest normal Resp normal respiratory effort and clear to auscultation bilaterally Auscultation: Negative for rales, rhonchi or wheezes Cardio regular rate, S1 normal heart sound and S2 normal heart sound Rate: tachycardic and other Other Details: Sinus tachycardia at 147 versus a flutter. GI normal to inspection, nondistended, normoactive bowel sounds and non-tender Palpation: soft Extremity normal to inspection General Extremety ED: Negative for edema or tenderness General Extremity: Negative for edema Neuro oriented x3 Sensorium / Orientation: alert Motor Exam: strength 5/5 throughout Psych mental status grossly normal Skin no rashes or lesions noted, no wounds and skin turgor normal <Dr. Mitchell Guerrero MD - Last Filed: 08/01/23 22:21> Physical Exam Const Vital Signs: 08/01/23 19:30 08/01/23 19:45 08/01/23 21:30 Temperature 97.8 F Temperature Source Temporal Pulse Rate 147 H 78 Respiratory Rate 17 16 Blood Pressure 137/109 H 126/78 H Blood Pressure Mean 118 94 Pulse Ox 97 98 Oxygen Delivery Method Room Air Room Air Room Air MDM <Parris Erickson RN - Last Filed: 08/01/23 22:30> [facility] MDM Narrative Medical decision making narrative: Patient placed on cardiac care unit nurse. IV line initiated. EKG obtained to evaluatefor cardiac arrhythmia/ischemia. Labwork obtained to evaluate for leukocytosis,anemia, and electrolyte derangement. Patient given normal saline 1 L bolus for tachycardia and concern for dehydration. Reglan given for nausea. Chest x-ray obtained to evaluate for acute lung pathology, cardiac size, or mediastinal abnormality. I have personally performed a face to face assessment of the patient and have reviewed the [facility] Note. I performed a substantive portion of the visit including all aspects of the following. My berger findings include: History is 78-year-old male history of A-fib. Since Sunday he has been feeling well and has had multiple episodes of diarrhea and some nausea and vomiting today. Denies any fever. No melena or hematemesis. Started having acceleratedheart rate today went to be evaluated. He denies any chest pain. Exam is [well-appearing 78-year-old male. Vital signs are stable other than tachycardia on the monitor 147. Does appear he has P waves this may be a sinus tachycardia. HEENT exam mild dry mucous membranes. Neck nontender. Lungs clear to auscultation back laterally. Heart tachycardic rate about 147 no murmur. Chest wall nontender. Abdomen soft nontender. Nondistended. Normal bowel sounds no peritoneal signs. Moving all 4 extremities. Nontender no edema. Neurologically is awake alert answering questions following commands. No focal motor deficits.] Medical Decision Making [78-year-old male several day history of nausea, vomiting and diarrhea. With the tachycardia. This may be a sinus tach versus A-fib or flutter. Will treat with IV fluids and screening labs to be obtained.] Other additions or changes: [None] History & Record Review Discussion w/independent historian: Patient and Significant other Lab Data Labs: Laboratory Results - last 24 hr 08/01/23 19:45 WBC 14.4 H RBC 5.99 Hgb 18.0 H* Hct 53.1 MCV 88.6 MCH 30.1 MCHC 33.9 RDW Std Deviation 40.5 RDW Coeff of Lupe 12.6 Plt Count 327 MPV 10.1 Immature Gran % (Auto) 0.400 Neut % (Auto) 82.8 H Lymph % (Auto) 11.6 L Hamlin % (Auto) 4.6 Eos % (Auto) 0.3 Baso % (Auto) 0.3 Absolute Neuts (auto) 11.9 H Absolute Lymphs (auto) 1.67 Nucleated RBC % 0 Sodium 139 Potassium 3.9 Chloride 104 Carbon Dioxide 27.0 Anion Gap 8 BUN 21 H Creatinine 1.40 H Estim Creat Clear Calc 50.10 Est GFR (MDRD) Af Amer 63 Est GFR (MDRD) Non-Af 52 L BUN/Creatinine Ratio 15.0 Glucose 124 H Calcium 10.3 H Total Bilirubin 0.80 Direct Bilirubin 0.24 AST 18 ALT 38 Alkaline Phosphatase 109 Troponin I High Sens 13 Total Protein 8.9 H Albumin 4.7 Globulin 4.2 Amylase 39 Lipase 32 Radiography Chest X-Ray - ED: 1 View, Read by ED Physician and No Infiltrates Diagnostic Testing: Clinical Impression(s) from Imaging Studies Chest X-Ray 08/01/23 19:55 IMPRESSION: 1. No radiographic evidence of acute cardiopulmonary disease. Electronically Signed: Mango Blum DO at 20:57 EDT , Abdomen/Pelvis CT 08/01/23 20:43 IMPRESSION: 1. There is a cluster of mildly distended, fluid-filled bowel loops within the lower anterior abdomen with a small amount of surrounding fluid consistent with inflammatory changes. No well delineated transition point. Differential includes early small bowel obstruction, possible enteritis and closed loop obstruction with consideration for internal hernia. 2. Large simple cyst left kidney. 3. Indeterminate 6 mm right hepatic hypodensity. Correlation with liver MRI or multiphase liver CT is recommended. 4. Left lower lobe elongated opacities suggesting endobronchial debris. 3 month follow-up CT chest is recommended. Recommendation: Close clinical follow-up. Consider surgical consultation. Electronically Signed: Mango Blum, DO at 21:56 EDT , EKG Initial EKG: Attestation: I personally reviewed and interpreted this EKG as follows: Comments: Sinus tachycardia with rate of 147 versus atrial flutter with right bundle macy block. No ischemia noted. Prior EKG tracings: not available for review Differential Diagnosis Chest pain/SOB: pulmonary embolism and ACS Differential Diagnosis: Dehydration Management Discussion w/another healthcare provider: Other (Dr. Guerrero, ED provider) Treatment and Re-Evaluation :: Lab work and imaging reviewed. CBC shows elevated white blood cell count 14.4 with neutrophils 82.8%, hemoglobin elevated 18, platelets are 327. Chemistry shows elevated BUN 21, creatinine 1.4, glucose is 124, calcium 10.3. Troponin is negative at 13. Liver enzymes, amylase, and lipase are unremarkable. Chest x-ray is negative for acute cardiopulmonary process. Initial EKG showed sinus tachycardia with a right bundle branch block versus atrial flutter with a heart rate in 140s. Patient was given Cardizem 20 mg slow IV push with heart rate decreasing to low 100s. EKG then showed atrial flutter with a right bundle branch block. Patient then later converted to sinus rhythm with a heart rate in 80s. Upon reevaluation, patient has received approximately 500 cc normal saline and heart rate remains 140s sinus tach versus a flutter. Patient also reports generalized abdominal discomfort and distention. Abdomen is firm and tender to palpation. Patient also reports blood streaking in the stool. He reports external hemorrhoids. Amylase, lipase, and liver profile ordered. CT with IV contrast also ordered. Patient with another episode of vomiting in the ED with greenish-brown emesis. Reglan 5 mg given with relief of symptoms. CT abdomen shows concern for gastritis versus small bowel obstruction. Dr. Guerrero discussed with Dr. Singh from surgery. Decision made to admit patient for monitoring. Discussed plan with patient and family. All are agreeable with plan and patient to be admitted. <Dr. Mitchell Guerrero MD - Last Filed: 08/01/23 22:21> [facility] Narrative Medical decision making narrative: Patient placed on cardiac care unit nurse. IV line initiated. EKG obtained to evaluate for cardiac arrhythmia/ischemia. Labwork obtained to evaluate for leukocytosis, anemia, and electrolyte derangement. Patient given normal saline 1 L bolus for tachycardia and concern for dehydration. Reglan given for nausea. Chest x-ray obtained to evaluate for acute lung pathology, cardiac size, or mediastinal abnormality. I have personally performed a face to face assessment of the patient and have reviewed the [facility] Note. I performed a substantive portion of the visit including all aspects of the following. My berger findings include: History is 78-year-old male history of A-fib. Since Sunday he has been feeling well and has had multiple episodes of diarrhea and some nausea and vomiting today. Denies any fever. No melena or hematemesis. Started having accelerated heart rate today went to be evaluated. He denies any chest pain. Exam is [well-appearing 78-year-old male. Vital signs are stable other than tachycardia on the monitor 147. Does appear he has P waves this may be a sinus tachycardia versus atrial flutter.. HEENT exam mild dry mucous membranes. Neck nontender. Lungs clear to auscultation back laterally. Heart tachycardic rate about 147 no murmur. Chest wall nontender. Abdomen soft nontender. Nondistended. Normal bowel sounds no peritoneal signs. Moving all 4 extremities. Nontender no edema. Neurologically is awake alert answering questions following commands. No focal motor deficits.] Medical Decision Making [78-year-old male several day history of nausea, vomiting and diarrhea. With the tachycardia. This may be a sinus tach versus A-fib or flutter. Will treat with IV fluids and screening labs to be obtained.] Other additions or changes: Patient doing well at 10:19 PM. Abdomen is distended but is not really having much pain. There is no obvious hernia at this time. I discussed the patient's case with general surgery on-call Dr. Devante Singh, who also reviewed the patient's CAT scan. This could be at gastroenteritis versus possibly an early bowel obstruction. At this time we aretreating him as a gastroenteritis. Admitting to the hospitalist and watch the patient overnight and he will be reevaluated by general surgery tomorrow. Patient and his and family in the room have been informed of the plan and are comfortable with it. Lab Data Attestation: I reviewed the patient's lab results. Lab results narrative: CBC shows an elevated white count of 14.4. H&H of 18 and 53. Platelets 327. Electrolytes show gap of 8. BUN and creatinine 21 and 1.4 consistent with dehydration. Glucose 124. Liver enzymes normal. Amylase normal at 39. Lipase normal at 32. Anion gap of 8. Labs: Laboratory Results - last 24 hr 08/01/23 19:45 WBC 14.4 H RBC 5.99 Hgb 18.0 H* Hct 53.1 MCV 88.6 MCH 30.1 MCHC 33.9 RDW Std Deviation 40.5 RDW Coeff of Lupe 12.6 Plt Count 327 MPV 10.1 Immature Gran % (Auto) 0.400 Neut % (Auto) 82.8 H Lymph % (Auto) 11.6 L Hamlin % (Auto) 4.6 Eos % (Auto) 0.3 Baso % (Auto) 0.3 Absolute Neuts (auto) 11.9 H Absolute Lymphs (auto) 1.67 Nucleated RBC % 0 Sodium 139 Potassium 3.9 Chloride 104 Carbon Dioxide 27.0 Anion Gap 8 BUN 21 H Creatinine 1.40 H Estim Creat Clear Calc 50.10 Est GFR (MDRD) Af Amer 63 Est GFR (MDRD) Non-Af 52 L BUN/Creatinine Ratio 15.0 Glucose 124 H Calcium 10.3 H Total Bilirubin 0.80 Direct Bilirubin 0.24 AST 18 ALT 38 Alkaline Phosphatase 109 Troponin I High Sens 13 Total Protein 8.9 H Albumin 4.7 Globulin 4.2 Amylase 39 Lipase 32 Radiography Chest X-Ray - ED: 1 View, Read by ED Physician, Heart, Lungs, Mediastinum, Bony Structures, No Acute Disease and Chronic Changes Diagnostic Testing: Clinical Impression(s) from Imaging Studies Chest X-Ray 08/01/23 19:55 IMPRESSION: 1. No radiographic evidence of acute cardiopulmonary disease. Electronically Signed: Mango Blum DO at 20:57 EDT , Abdomen/Pelvis CT 08/01/23 20:43 IMPRESSION: 1. There is a cluster of mildly distended, fluid-filled bowel loops within the lower anterior abdomen with a small amount of surrounding fluid consistent with inflammatory changes. No well delineated transition point. Differential includes early small bowel obstruction, possible enteritis and closed loop obstruction with consideration for internal hernia. 2. Large simple cyst left kidney. 3. Indeterminate 6 mm right hepatic hypodensity. Correlation with liver MRI or multiphase liver CT is recommended. 4. Left lower lobe elongated opacities suggesting endobronchial debris. 3 month follow-up CT chest is recommended. Recommendation: Close clinical follow-up. Consider surgical consultation. Electronically Signed: Mango Blum DO at 21:56 EDT , Chest x-ray, portable, single view shows no acute abnormality. Normal cardiac silhouette. Normal lung wong. No effusions. No CHF or infiltrates. Rhythm Strip Rhythm Strip: Sinus Tach Rate: 147 Ectopy: None EKG Initial EKG: Interpretation: Sinus Tachycardia Discharge Plan Dx/Rx/DC Orders Clinical Impression: Nausea vomiting and diarrhea, Acute dehydration, Atrial flutter, Chronic anticoagulation, Leukocytosis, Gastroenteritis Disposition Disposition: Acute Care Hospital [facility] What to do if you have Problems For any increased pain, shortness of breath, bleeding, nausea or vomiting, chestpain, or any unexpected problems, contact your Primary Care Provider. Call [employer] [facility] ([phone]) or report to the closest Emergency Room. Call 911 if necessary. 08/01/232232 <Electronically signed by Mitchell Guerrero MD> Cosigner Signature (if applicable): 08/01/232229 <Electronically signed by Parris Erickson RN> CC: Dr. Bonilla Gary MD ~ Signed [facility] Work Phone: 1(261) 267-253403-28-2024 Discharge summary Author Mitchell Guerrero [facility] August 01, 2023 10:33pm Note Date/Time August 01, 2023 7:5 9pm [facility] Medical Records Department [address] [place] [address] Emergency Department Summary 08/01/23 MR#: [id number] Acct: [id number] Name: CALEB VILA Rep #:[id number] : 1945 78 From: Mitchell Guerrero MD PCP: Dr. Bonilla Gary MD Status:A DM IN Location: [address] <Parris Erickson RN - Last Filed: 08/01/23 22:30> History of Present Illness Chief Complaint: Palpitations Detail of Chief Complaint: Palpitations following 1 episode of vomiting, jaw aching Informant: patient Onset/Context/Timing Onset: Today Context: Sudden Onset Timing: Continuous Current Severity: Mild Maximum Severity: Mild Worsened by: Nothing Relieved by: Nothing Associated Symptoms Associated Symptoms: Jaw aching, dizziness, nausea Narrative Narrative: Patient is a 78-year-old male with past medical history significant for bradycardia, paroxysmal atrial fibrillation, neuropathy, vertigo, and sleep apnea who presented with palpitations following an episode of vomiting. Per patient he had diarrhea throughout the day yesterday, nausea today, and 1 episode of emesis today. Patient reports since wearing CPAP, he has had less frequent episodes of atrial fibrillation. He reports these usually occur in themorning and spontaneously resolved after approximately 10 minutes. He also reports dizziness with standing and aching to mandible. He denies chest pain and shortness of breath. He does continue with nausea. Patient denies recent hospitalizations or travel. Prior similar symptoms: No Recent Illness/Hospitalization: No [facility] <Parris Erickson RN - Last Filed: 08/01/23 22:30> [facility] Medical History Bradycardia Carotid stenosis, left COVID-19 Essential hypertension Fatigue Flu vaccine need GERD (gastroesophageal reflux disease) Hepatitis A antibody positive Hypertension Neuropathy Paroxysmal atrial fibrillation Sleep apnea Vertigo Home Medications apixaban 5 mg tablet (Eliquis) 5 mg PO BID 01/24/18 [History Last Taken Unknown] Handicap Placard #1 ea 02/27/22 [Rx Last Taken Unknown] metoprolol succinate 25 mg tablet,extended release 24 hr 12.5 mg (1/2 x 25 mg) PO DAILY #90 tabs 02/27/22 [Rx Last Taken Unknown] Allergy/AdvReac Type Severity Reaction Status Date / Time No Known Allergies Allergy Verified 08/01/23 19:32 Family History Mother Cancer endometrial Father Heart disease CVA (cerebral vascular accident) Hypertension Cancer melanoma Sister Breast cancer Surgical History History of oral surgery History of tonsillectomy Social History Smoking Status: Never smoker alcohol intake: never substance use type: does not use what type of physical 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 ROS <Parris Erickson RN - Last Filed: 08/01/23 22:30> ROS ED Constitutional Constitutional ED: Denies chills, fever(s) or sweats Eyes Eyes: Denies change in vision ENT ENT ED: Denies ear pain, rhinorrhea or sore throat Cardiovascular Cardiovascular: Reports palpitations and racing heartbeat; Denies chest pain, orthopnea or paroxysmal nocturnal dyspnea Respiratory/Chest Respiratory/Chest: Denies cough, dyspnea, dyspnea on exertion, orthopnea or paroxysmal nocturnal dyspnea Gastrointestinal Gastrointestinal: Reports nausea and vomiting; Denies abdominal pain, constipation, diarrhea or melena Genitourinary Genitourinary ED: Denies dysuria, hematuria or urinary frequency Musculoskeletal Musculoskeletal: Denies arthralgias, back pain, myalgias or neck pain Integumentary Denies abscess, Abrasions or rash Neurologic Neurologic: Denies headache(s), paresthesias or weakness Psychiatric Psychiatric: Denies anxiety, depression, suicidal ideation or suicidal thoughts Endocrine Endocrinology: Denies cold intolerance, heat intolerance, polydipsia, polyphagiaor polyuria Hematologic/Lymphatic Hematologic/Lymphatic: Reports systems reviewed and no addt'l complaints, exceptas documented EXAM <Parris Erickson RN - Last Filed: 08/01/23 22:30> Physical Exam Narrative Exam Narrative: Patient awake, alert, cooperative, good historian. Const Vital Signs: 08/01/23 19:30 08/01/23 19:45 08/01/23 21:30 Temperature 97.8 F Temperature Source Temporal Pulse Rate 147 H 78 Respiratory Rate 17 16 Blood Pressure 137/109 H 126/78 H Blood Pressure Mean 118 94 Pulse Ox 97 98 Oxygen Delivery Method Room Air Room Air Room Air Positive well nourished and well developed General Appearance ED: well developed and NAD HEENT Reports dry mucous membranes Mouth ED: Yes dry mucous membranes Mouth: dry mucous membranes Eyes PERRL and EOMs intact bilaterally Neck no lymphadenopathy, supple and no JVD Chest Wall inspection of chest normal and palpation of chest normal Resp normal respiratory effort and clear to auscultation bilaterally Auscultation: Negative for rales, rhonchi or wheezes Cardio regular rate, S1 normal heart sound and S2 normal heart sound Rate: tachycardic and other Other Details: Sinus tachycardia at 147 versus a flutter. GI normal to inspection, nondistended, normoactive bowel sounds and non-tender Palpation: soft Extremity normal to inspection General Extremety ED: Negative for edema or tenderness General Extremity: Negative for edema Neuro oriented x3 Sensorium / Orientation: alert Motor Exam: strength 5/5 throughout Psych mental status grossly normal Skin no rashes or lesions noted, no wounds and skin turgor normal <Dr. Mitchell Guerrero MD - Last Filed: 08/01/23 22:21> Physical Exam Const Vital Signs: 08/01/23 19:30 08/01/23 19:45 08/01/23 21:30 Temperature 97.8 F Temperature Source Temporal Pulse Rate 147 H 78 Respiratory Rate 17 16 Blood Pressure 137/109 H 126/78 H Blood Pressure Mean 118 94 Pulse Ox 97 98 Oxygen Delivery Method Room Air Room Air Room Air MDM <Parris Erickson RN - Last Filed: 08/01/23 22:30> MDM MDM Narrative Medical decision making narrative: Patient placed on cardiac care unit nurse. IV line initiated. EKG obtained to evaluatefor cardiac arrhythmia/ischemia. Labwork obtained to evaluate for leukocytosis,anemia, and electrolyte derangement. Patient given normal saline 1 L bolus for tachycardia and concern for dehydration. Reglan given for nausea. Chest x-ray obtained to evaluate for acute lung pathology, cardiac size, or mediastinal abnormality. I have personally performed a face to face assessment of the patient and have reviewed the MAYNOR Note. I performed a substantive portion of the visit including all aspects of the following. My berger findings include: History is 78-year-old male history of A-fib. Since Sunday he has been feeling well and has had multiple episodes of diarrhea and some nausea and vomiting today. Denies any fever. No melena or hematemesis. Started having acceleratedheart rate today went to be evaluated. He denies any chest pain. Exam is [well-appearing 78-year-old male. Vital signs are stable other than tachycardia on the monitor 147. Does appear he has P waves this may be a sinus tachycardia. HEENT exam mild dry mucous membranes. Neck nontender. Lungs clear to auscultation back laterally. Heart tachycardic rate about 147 no murmur. Chest wall nontender. Abdomen soft nontender. Nondistended. Normal bowel sounds no peritoneal signs. Moving all 4 extremities. Nontender no edema. Neurologically is awake alert answering questions following commands. No focal motor deficits.] Medical Decision Making [78-year-old male several day history of nausea, vomiting and diarrhea. With the tachycardia. This may be a sinus tach versus A-fib or flutter. Will treat with IV fluids and screening labs to be obtained.] Other additions or changes: [None] History & Record Review Discussion w/independent historian: Patient and Significant other Lab Data Labs: Laboratory Results - last 24 hr 08/01/23 19:45 WBC 14.4 H RBC 5.99 Hgb 18.0 H* Hct 53.1 MCV 88.6 MCH 30.1 MCHC 33.9 RDW Std Deviation 40.5 RDW Coeff of Lupe 12.6 Plt Count 327 MPV 10.1 Immature Gran % (Auto) 0.400 Neut % (Auto) 82.8 H Lymph % (Auto) 11.6 L Hamlin % (Auto) 4.6 Eos % (Auto) 0.3 Baso % (Auto) 0.3 Absolute Neuts (auto) 11.9 H Absolute Lymphs (auto) 1.67 Nucleated RBC % 0 Sodium 139 Potassium 3.9 Chloride 104 Carbon Dioxide 27.0 Anion Gap 8 BUN 21 H Creatinine 1.40 H Estim Creat Clear Calc 50.10 Est GFR (MDRD) Af Amer 63 Est GFR (MDRD) Non-Af 52 L BUN/Creatinine Ratio 15.0 Glucose 124 H Calcium 10.3 H Total Bilirubin 0.80 Direct Bilirubin 0.24 AST 18 ALT 38 Alkaline Phosphatase 109 Troponin I High Sens 13 Total Protein 8.9 H Albumin 4.7 Globulin 4.2 Amylase 39 Lipase 32 Radiography Chest X-Ray - ED: 1 View, Read by ED Physician and No Infiltrates Diagnostic Testing: Clinical Impression(s) from Imaging Studies Chest X-Ray 08/01/23 19:55 IMPRESSION: 1. No radiographic evidence of acute cardiopulmonary disease. Electronically Signed: Mango Blum DO at 20:57 EDT , Abdomen/Pelvis CT 08/01/23 20:43 IMPRESSION: 1. There is a cluster of mildly distended, fluid-filled bowel loops within the lower anterior abdomen with a small amount of surrounding fluid consistent with inflammatory changes. No well delineated transition point. Differential includes early small bowel obstruction, possible enteritis and closed loop obstruction with consideration for internal hernia. 2. Large simple cyst left kidney. 3. Indeterminate 6 mm right hepatic hypodensity. Correlation with liver MRI or multiphase liver CT is recommended. 4. Left lower lobe elongated opacities suggesting endobronchial debris. 3 month follow-up CT chest is recommended. Recommendation: Close clinical follow-up. Consider surgical consultation. Electronically Signed: Mango Blum DO at 21:56 EDT , EKG Initial EKG: Attestation: I personally reviewed and interpreted this EKG as follows: Comments: Sinus tachycardia with rate of 147 versus atrial flutter with right bundle macy block. No ischemia noted. Prior EKG tracings: not available for review Differential Diagnosis Chest pain/SOB: pulmonary embolism and ACS Differential Diagnosis: Dehydration Management Discussion w/another healthcare provider: Other (Dr. Guerrero, ED provider) Treatment and Re-Evaluation :: Lab work and imaging reviewed. CBC shows elevated white blood cell count 14.4 with neutrophils 82.8%, hemoglobin elevated 18, platelets are 327. Chemistry shows elevated BUN 21, creatinine 1.4, glucose is 124, calcium 10.3. Troponin is negative at 13. Liver enzymes, amylase, and lipase are unremarkable. Chest x-ray is negative for acute cardiopulmonary process. Initial EKG showed sinus tachycardia with a right bundle branch block versus atrial flutter with a heart rate in 140s. Patient was given Cardizem 20 mg slow IV push with heart rate decreasing to low 100s. EKG then showed atrial flutter with a right bundle branch block. Patient then later converted to sinus rhythm with a heart rate in 80s. Upon reevaluation, patient has received approximately 500 cc normal saline and heart rate remains 140s sinus tach versus a flutter. Patient also reports generalized abdominal discomfort and distention. Abdomen is firm and tender to palpation. Patient also reports blood streaking in the stool. He reports external hemorrhoids. Amylase, lipase, and liver profile ordered. CT with IV contrast also ordered. Patient with another episode of vomiting in the ED with greenish-brown emesis. Reglan 5 mg given with relief of symptoms. CT abdomen shows concern for gastritis versus small bowel obstruction. Dr. Guerrero discussed with Dr. Singh from surgery. Decision made to admit patient for monitoring. Discussed plan with patient and family. All are agreeable with plan and patient to be admitted. <Dr. Mitchell Guerrero MD - Last Filed: 08/01/23 22:21> [facility] MDM Narrative Medical decision making narrative: Patient placed on cardiac care unit nurse. IV line initiated. EKG obtained to evaluate for cardiac arrhythmia/ischemia. Labwork obtained to evaluate for leukocytosis, anemia, and electrolyte derangement. Patient given normal saline 1 L bolus for tachycardia and concern for dehydration. Reglan given for nausea. Chest x-ray obtained to evaluate for acute lung pathology, cardiac size, or mediastinal abnormality. I have personally performed a face to face assessment of the patient and have reviewed the MAYNOR Note. I performed a substantive portion of the visit including all aspects of the following. My berger findings include: History is 78-year-old male history of A-fib. Since Sunday he has been feeling well and has had multiple episodes of diarrhea and some nausea and vomiting today. Denies any fever. No melena or hematemesis. Started having accelerated heart rate today went to be evaluated. He denies any chest pain. Exam is [well-appearing 78-year-old male. Vital signs are stable other than tachycardia on the monitor 147. Does appear he has P waves this may be a sinus tachycardia versus atrial flutter.. HEENT exam mild dry mucous membranes. Neck nontender. Lungs clear to auscultation back laterally. Heart tachycardic rate about 147 no murmur. Chest wall nontender. Abdomen soft nontender. Nondistended. Normal bowel sounds no peritoneal signs. Moving all 4 extremities. Nontender no edema. Neurologically is awake alert answering questions following commands. No focal motor deficits.] Medical Decision Making [78-year-old male several day history of nausea, vomiting and diarrhea. With the tachycardia. This may be a sinus tach versus A-fib or flutter. Will treat with IV fluids and screening labs to be obtained.] Other additions or changes: Patient doing well at 10:19 PM. Abdomen is distended but is not really having much pain. There is no obvious hernia at this time. I discussed the patient's case with general surgery on-call Dr. Devante Singh, who also reviewed the patient's CAT scan. This could be at gastroenteritis versus possibly an early bowel obstruction. At this time we aretreating him as a gastroenteritis. Admitting to the hospitalist and watch the patient overnight and he will be reevaluated by general surgery tomorrow. Patient and his and family in the room have been informed of the plan and are comfortable with it. Lab Data Attestation: I reviewed the patient's lab results. Lab results narrative: CBC shows an elevated white count of 14.4. H&H of 18 and 53. Platelets 327. Electrolytes show gap of 8. BUN and creatinine 21 and 1.4 consistent with dehydration. Glucose 124. Liver enzymes normal. Amylase normal at 39. Lipase normal at 32. Anion gap of 8. Labs: Laboratory Results - last 24 hr 08/01/23 19:45 WBC 14.4 H RBC 5.99 Hgb 18.0 H* Hct 53.1 MCV 88.6 MCH 30.1 MCHC 33.9 RDW Std Deviation 40.5 RDW Coeff of Lupe 12.6 Plt Count 327 MPV 10.1 Immature Gran % (Auto) 0.400 Neut % (Auto) 82.8 H Lymph % (Auto) 11.6 L Hamlin % (Auto) 4.6 Eos % (Auto) 0.3 Baso % (Auto) 0.3 Absolute Neuts (auto) 11.9 H Absolute Lymphs (auto) 1.67 Nucleated RBC % 0 Sodium 139 Potassium 3.9 Chloride 104 Carbon Dioxide 27.0 Anion Gap 8 BUN 21 H Creatinine 1.40 H Estim Creat Clear Calc 50.10 Est GFR (MDRD) Af Amer 63 Est GFR (MDRD) Non-Af 52 L BUN/Creatinine Ratio 15.0 Glucose 124 H Calcium 10.3 H Total Bilirubin 0.80 Direct Bilirubin 0.24 AST 18 ALT 38 Alkaline Phosphatase 109 Troponin I High Sens 13 Total Protein 8.9 H Albumin 4.7 Globulin 4.2 Amylase 39 Lipase 32 Radiography Chest X-Ray - ED: 1 View, Read by ED Physician, Heart, Lungs, Mediastinum, Bony Structures, No Acute Disease and Chronic Changes Diagnostic Testing: Clinical Impression(s) from Imaging Studies Chest X-Ray 08/01/23 19:55 IMPRESSION: 1. No radiographic evidence of acute cardiopulmonary disease. Electronically Signed: Mango Blum DO at 20:57 EDT , Abdomen/Pelvis CT 08/01/23 20:43 IMPRESSION: 1. There is a cluster of mildly distended, fluid-filled bowel loops within the lower anterior abdomen with a small amount of surrounding fluid consistent with inflammatory changes. No well delineated transition point. Differential includes early small bowel obstruction, possible enteritis and closed loop obstruction with consideration for internal hernia. 2. Large simple cyst left kidney. 3. Indeterminate 6 mm right hepatic hypodensity. Correlation with liver MRI or multiphase liver CT is recommended. 4. Left lower lobe elongated opacities suggesting endobronchial debris. 3 month follow-up CT chest is recommended. Recommendation: Close clinical follow-up. Consider surgical consultation. Electronically Signed: Mango Blum DO at 21:56 EDT , Chest x-ray, portable, single view shows no acute abnormality. Normal cardiac silhouette. Normal lung wong. No effusions. No CHF or infiltrates. Rhythm Strip Rhythm Strip: Sinus Tach Rate: 147 Ectopy: None EKG Initial EKG: Interpretation: Sinus Tachycardia Discharge Plan Dx/Rx/DC Orders Clinical Impression: Nausea vomiting and diarrhea, Acute dehydration, Atrial flutter, Chronic anticoagulation, Leukocytosis, Gastroenteritis Disposition Disposition: Acute Care Hospital [facility] What to do if you have Problems For any increased pain, shortness of breath, bleeding, nausea or vomiting, chestpain, or any unexpected problems, contact your Primary Care Provider. Call [facility] ([phone]) or report to the closest Emergency Room. Call 911 if necessary. 08/01/232232 <Electronically signed by Mitchell Guerrero MD> Cosigner Signature (if applicable): 08/01/232229 <Electronically signed by Parris Erickson RN> CC: Dr. Bonilla Gary MD ~ Signed [facility] Work Phone: [phone]) 996-652702-24-2021 NotePatient Outreach ([facility]OVAMN) PETEY VILA ([id number]) 1945 M Date Time Provider Department 06/30/20 RAIN SOTO During your visit today, we recorded the following information about you: Allergies As of Date: 06/30/2020 (No Known Allergies) Date Reviewed: 05/19/2019 Reviewed by: Melvina Castillo) Roge - Fully Assessed Order(s):SARS-COVID VACCINE 1ST DOSE APPT [[id number]] Order #: [id number] FUTURE Prescriptions as of 06/30/2020 Sig: OLMESARTAN 5 MG TABLET Take 10 mg by mouth once irma* METOPROLOL TARTRATE 25 MG TAB* Take 25 mg by mouth twice aydin* LEVOTHYROXINE 25 MCG TABLET Take 25 mcg by mouth once aydin* ELIQUIS 5 MG TABLET TAKE 1 TABLET TWICE DAILY Problem List As Of Date: 06/30/2020 (None) Letter Text Encounter Status:Closed by JAMAAL RODRÍGUEZUSER on 07/05/20[facility] Discharge summary Author Maciej Roblero [facility] August 02, 2023 4:54pm Note Date/Time August 02, 2023 4:4 8pm [facility] Medical Records Department [address] [place] [id number] Instructions for Home/Discharge Instructions 08/02/23 1647 MR#: [id number] Acct: [id number] Name: CALEB VILA Rep #:[id number] : 1945 78 From: Maciej everett DO PCP: Dr. Bonilla Gary MD Status:A DM IN Discharge Instructions Diet Discharge Diet: No restrictions Activity Discharge Activity: No Restrictions Weight Bearing Status: Full weight bearing Follow Up Care Test Results: Test results from this visit will be discussed in further detail at your follow- up appointment, if applicable. Discharge Plan Admission Admit Date/Time: 08/01/23 23:45 Primary Reason for Your Visit: Nausea/vomiting and abdominal pain Attending Provider: Maciej Roblero Primary Care Provider: Bonilla Gary Consulting Providers: David Banks Instructions Additional Instructions / Restrictions: Please start taking Toprol 12.5 mg daily for your blood pressure and A-fib. Please stop taking olmesartan for now as your blood pressures were somewhat low and your kidney function was mildly decreased. Please have a repeat BMP drawn in 5 to 7 days to ensure that your kidney function has returned to normal. Follow-up with your PCP in the next few weeks. Discharge Orders/Prescriptions Prescriptions: New metoprolol succinate 25 mg Tablet Extended Release 24 Hr 12.5 mg PO DAILY 30 Days Qty: 15 0RF Continued Eliquis 5 mg tablet 5 mg PO BID Patient Comments: pt. states he only takes it once a day (DME) Handicap Ever See Rx Instructions .ROUTE .MEDSUPPLY Qty: 1 0RF Rx Instructions: As directed, length of time 3 years omega 6-jld-lrw-fish oil [Fish Oil] 1,200 (144-216) mg capsule 1 cap PO .every day Rx Instructions: take one cap by mouth once a day Centrum Silver Ultra Men's [id number] mcg tablet 1 tab PO DAILY biotin 1 mg capsule 1 mg PO DAILY Rx Instructions: take one cap by mouth once a day Discontinued olmesartan 5 mg tablet 5 mg PO DAILY Referrals / Follow Up: Bonilla Gary MD [Primary Care Provider] - Disposition Disposition (needs filled in before D/C Order can be placed): Home, Self Care 08/02/23 1848<Electronically signed by Maciej Roblero DO>Maciej Roblero DO CC: Dr. David Banks DO; Dr. Bonilla Gary MD ~ Signed [facility] Work Phone: Evaluation note* Diagnosis Onset Date Resolution Status Essential hypertension chron ic Paroxysmal atrial fibrillation chronic Vertigo [facility] Work Phone: Evaluation note* Diagnosis Onset Date Resolution Status Essential hypertension chron ic Paroxysmal atrial fibrillation chronic Vertigo chronic Bradycardia chronic Carotid stenosis, left chron ic Essential hypertension chron ic Paroxysmal atrial fibrillation [facility] Work Phone: Evaluation note* Diagnosis Onset Date Resolution Status Essential hypertension chron ic Paroxysmal atrial fibrillation chronic Vertigo chronic Bradycardia chronic Carotid stenosis, left chron ic Essential hypertension chron ic Paroxysmal atrial fibrillation chronic Essential hypertension chron ic Paroxysmal atrial fibrillation chronic Vertigo [facility] Work Phone: Evaluation note* Diagnosis Onset Date Resolution Status Essential hypertension chron ic ASTRID (obstructive sleep apnea) chronic Paroxysmal atrial fibrillation [facility] Work Phone: Evaluation note* Diagnosis Onset Date Resolution Status Acute dehydration acute Aspiration into lower respiratory tract acute Atrial fibrillation with RVR acute Atrial flutter acute Chronic anticoagulation acut e Gastroenteritis acute Leukocytosis acute Nausea vomiting and diarrhea acute Polycythemia acute [facility] Work Phone: Evaluation note* Diagnosis Onset Date Resolution Status Gastroenteritis acute Acute dehydration resolved Aspiration into lower respiratory tract resolved Atrial fibrillation with RVR resolved Leukocytosis resolved Nausea vomiting and diarrhea resolved Polycythemia resolved Gastroenteritis acute Bradycardia chronic Essential hypertension chron ic Paroxysmal atrial fibrillation chronic [facility] Work Phone: Reason for referral (narrative)No reason for referral information availableWUniversity [facility] Work Phone: Summary Purpose Family History No Family History Records Found Relationship Condition Age at Onset Recorded Date/T willy mother Malignant neoplasm Unknown father Cardiac disease Unknown Cerebrovascular accident (CVA) Unknown Hypertension Unknown Malignant neoplasm Unknown sister Malignant neoplasm of breast Unknown Advance Directives No Advanced Directives Records Found Advance Directive Response Recorded Date/ Time Advance Directives No June 14, 2017 9:48am Living Will No November 29, 2020 7:40am Power of Assistant Pressman No November 29 7:40am Advance Directive Response Recorded Date/ Time Advance Directives No June 4:55pm Living Will No August 01, 2023 7:45pm Power of Assistant Pressman No July 31 7:45pm Advance Directive Response Recorded Date/ Time Advance Directives No June 4:55pm Living Will No August 02, 2023 12:56am Power of Assistant Pressman No August 01 12:56am Advance Directive Response Recorded Date/ Time Living Will No August 02, 2023 12:56am Power of Assistant Pressman No August 01 12:56am Advance Directives No June 4:55pm Advance Directive Response Recorded Date/ Time Advance Directives No June 4:55pm Chief Complaint and Reason for Visit Chief Complaint 6 M FU Reason for Visit Essential hypertensi on Paroxysmal atrial fibrillation Vertigo Chief Complaint 6 M FU 9 M FU LEFT CS Reason for Visit Essential hypertensi on Paroxysmal atrial fibrillation Vertigo Bradycardia Carotid stenosis, left Essential hypertension Paroxysmal atrial fibrillation Chief Complaint 6 M FU 9 M FU LEFT CS 3 M FU LABWORK Reason for Visit Essential hypertensi on Paroxysmal atrial fibrillation Vertigo Bradycardia Carotid stenosis, left Essential hypertension Paroxysmal atrial fibrillation Essential hypertension Paroxysmal atrial fibrillation Vertigo Chief Complaint 6 M FU Reason for Visit Essential hypertensi on ASTRID (obstructive sleep apnea) Paroxysmal atrial fibrillation Chief Complaint A FLUTTER Reason for Visit Acute dehydration Aspiration into lower respiratory tract Atrial fibrillation with RVR Atrial flutter Chronic anticoagulation Gastroenteritis Leukocytosis Nausea vomiting and diarrhea Polycythemia Chief Complaint GASTROENTERITIS, INT RACTABLE N/V & ASPIRATION GASTROENTERITIS, INTRACTABLE N/V & ASPIRATION Reason for Visit Acute dehydration Aspiration into lower respiratory tract Atrial fibrillation with RVR Atrial flutter Chronic anticoagulation Gastroenteritis Leukocytosis Nausea vomiting and diarrhea Polycythemia Chief Complaint GASTROENTERITIS, INT RACTABLE N/V & ASPIRATION GASTROENTERITIS, INTRACTABLE N/V & ASPIRATION GASTROENTERITIS, INTRACTABLE N/V & ASPIRATION wc fu Reason for Visit Gastroenteritis Acute dehydration Aspiration into lower respiratory tract Atrial fibrillation with RVR Leukocytosis Nausea vomiting and diarrhea Polycythemia Gastroenteritis Bradycardia Essential hypertension Paroxysmal atrial fibrillation Chief Complaint Admit Date 6 M FU March 26, 2024 11:31am 4 M FU July 09, 2024 10:0 4am Reason for Visit Admit Date Essential hypertension March 26 11:31am ASTRID (obstructive sleep apnea) March 082023 11:31am Paroxysmal atrial fibrillation March 26, 2024 11:31am GERD (gastroesophageal reflux disease) [facility] 2024 10:04am Brain fog July 09, 2024 10:0 4am Essential hypertension July 09, 2024 1 0:04am ASTRID (obstructive sleep apnea) July 09, 2024 10:04am Paroxysmal atrial fibrillation July 10:04am Chief Complaint Admit Date 4 M FU July 09, 2024 10:0 4am 6 M FU September 24, 2024 11:18 am Reason for Visit Admit Date GERD (gastroesophageal reflux disease) [facility] 2024 10:04am Brain fog July 09, 2024 10:0 4am Essential hypertension July 09, 2024 1 0:04am ASTRID (obstructive sleep apnea) July 09, 2024 10:04am Paroxysmal atrial fibrillation July 10:04am Chest pain September 24, 2024 11:18 am Essential hypertension September 24, 2024 11 :18am ASTRID (obstructive sleep apnea) September 24, 2024 11:18am Paroxysmal atrial fibrillation September 24, 2024 11:18am Chief Complaint Admit Date 4 M FU March 5th, 2025 10:0 4am 6 M FU September 24, 2024 11:18 am Needs new pap machine October 03, 2024 8:4 0am Additional Source Comments (unrecognized sect ion and content) No Status Records FoundNo Status Records FoundNo Status Records FoundNo Status Records Found INFORMATION SOURCE (unrecogn ized section and content) DATE CREATED AUTHOR 01/05/2018 [facility] DATE CREATED AUTHOR AUTHOR'S ORGANIZ ATION 05/20/2019 [facility] DATE CREATED AUTHOR AUTHOR'S ORGANIZ ATION 06/04/2021 [facility] DATE CREATED AUTHOR AUTHOR'S ORGANIZ ATION 10/09/2024 [facility] Goals (unrecognized section and content) Goals may be documented in a n alternate sectionGoals may be documented in an alternate sectionGoals may be documented in an alternate sectionGoals may be documented in an alternate sectionGoals may be documented in an alternate sectionGoals may be documented in an alternate sectionGoals may be documented in an alternate sectionGoals may be documented in an alternate sectionGoals may be documented in an alternate sectionGoals may be documented in an alternate section Care Teams (unrecognized sec tion and content) Team Status: Active Member Role Status Dates Dr. Bonilla Gary MD Family Provider Active Dr. Bonilla Gary MD Primary Care Provider Active Team Status: Inactive Member Role Status Dates Dr. Bonilla Gary MD Primary Care P rosario, Attending Provider, Referring Provider Active Team Status: Inactive Member Role Status Dates Dr. Bonilla Gary MD Primary Care Provider, Atten ding Provider Active Team Status: Active Member Role Status Dates Dr. Bonilla Gary MD Primary Care Provider Active Dr. Mitchell Guerrero MD Emergency Provider Active Dr. David Banks DO Admit Provider, Attending Pr ovider Active Team Status: Active Member Role Status Dates Dr. Bonilla Gary MD Primary Care Provider Active Dr. Mitchell Guerrero MD Emergency Provider Active Dr. David Banks DO Admit Provider, Other Provid er Active Dr. Maciej Roblero DO Other Provider Active Dr. Devante Singh MD Attending Provider Active Team Status: Inactive Member Role Status Dates Dr. Bonilla Gary MD Primary Care Provider Active Dr. Mitchell Guerrero MD Emergency Provider Active Dr. David Banks DO Admit Provider, Other Provid er Active Dr. Maciej Roblero DO Attending Provider Active Team Status: Active Member Role Status Dates Dr. Bonilla Gary MD Primary Care Provider Active Dr. Mitchell Guerrero MD Emergency Provider Active Dr. David Banks DO Admit Provider, Other Provid er Active Dr. Maciej Roblero DO Referring Provider, Other Provider Active Dr. Devante Singh MD Attending Provider Active Team Status: Active Member Role Status Dates Dr. Bonilla Gary MD Primary Care Provider Active Dr. Mitchell Guerrero MD Emergency Provider Active Dr. David Banks DO Admit Provider, Other Provid er Active Dr. Maciej Roblero DO Attending Provider, Other Provider Active Team Status: Inactive Member Role Status Dates Dr. Bonilla Gary MD Primary Care Provider Active Start: March 26, 2024 End: March 26, 2024 Dr. Bonilla Gary MD Referring Provider Active Start: March 26, 2024 End: March 26, 2024 Rosalba Hamlin FLATTENING PRESS OPERATOR, FLATTENING PRESS OPERATOR-C Attending Provider Active Start: March 26, 2024 End: March 26, 2024 Team Status: Inactive Member Role Status Dates Dr. Bonilla Gary MD Primary Care Provider Active Start: July 09, 2024 End: July 09, 2024 Dr. Bonilla Gary MD Attending Provider Active Start: July 09, 2024 End: July 09, 2024 Dr. Bonilla Gray MD Referring Provider Active Start: July 09, 2024 End: July 09, 2024 Team Status: Inactive Member Role Status Dates Dr. Bonilla Gary MD Primary Care Provider Active Start: September 24, 2024 End: September 24, 2024 Dr. Bonilla Gary MD Referring Provider Active Start: September 24, 2024 End: September 24, 2024 Gale Arizmendi PA, PA Attending Provider Active Start: September 24, 2024 End: September 24, 2024 Team Status: Active Member Role Status Dates Dr. Bonilla Gary MD Primary Care Provider Active Team Status: Inactive Member Role Status Dates Dr. Bonilla Gary MD Primary Care Provider Active Start: October 03, 2024 End: October 03, 2024 Dr. Bonilla Gary MD Referring Provider Active Start: October 03, 2024 End: October 03, 2024 Renée Chau FLATTENING PRESS OPERATOR, FLATTENING PRESS OPERATOR-C Attending Provider Active Start: October 03, 2024 End: October 03, 2024 FOR RECORDS PERTAINING TO PATIENTS WHO ARE OR HAVE BEEN ENROLLED IN A CHEMICAL DEPENDENCY/SUBSTANCEABUSE PROGRAM, SOME INFORMATION MAY BE OMITTED. This clinical summary was aggregated from multiple sources. Caution should be exercised in using it in the provision of clinical care. This summary normalizes information from multiple sources, and as a consequence, information in this document may materially change the coding, format and clinical context of patient data. In addition, data may be omitted in some cases. CLINICAL DECISIONS SHOULD BE BASED ON THE PRIMARY CLINICAL RECORDS. [employer] provides no warranty or guarantee of the accuracy or completeness of information in this document.
== END | disposition home or self-care (01) ==
LOC: SL 15:39
PROVIDERS: PCP Internal Medicine; Referring Provider Nurse Practitioner Acute Care; Visit Provider Nurse Practitioner Acute Care
DX: Z46.89 Encounter for fitting and adjustment of other specified devices (principal)

== ENCOUNTER → 2024-10-15 | Outpatient (CLI) | payer MEDICARE, SELFPAY ==
--- OUTSIDE RECORDS SUMMARY | 2024-10-15 06:34 | XMS RPT_ITS | CCD ---
Author Organization [facility] CliniSyin Care Team Providers Care Block Trader Name Role Phone MARION PATTEN Unavailable Unavailable [...] e Dr. Maciej Roblero Other Provider [phone] Devante Singh Attending Provider Dr. Maciej Roblero Referring Provider Dr. Maciej Roblero Attending Provider Dr. Bonilla Gary Attending Provider [phone] Dr. Bonilla Gary Referring Provider [phone] Dr. Bonilla Gary MD Primary Care Provider Dr. Bonilla Gary MD Referring Provider [phone] Rosalba Hahn Attending Provider [phone] Cookie BADILLO, Dr. Crystal Attending Provider [phone] Cookie BADILLO, Dr. Crystal Primary Care Provider Cookie BADILLO, Dr. Crystal Referring Provider [phone] Gale Yang Attending Provider [phone] Renée Patterson Attending Provider Gale Yang Attending Unavail able Oleghe, Efewongbe Referring Unavailable Oleghe, Efewongbe Primary Care Unavailable Oleghe, Efewongbe Referring Unavailable Oleghe, Efewongbe Primary Care Unavailable Oleghe, Efewongbe Attending Unavailable Gale Yang Attending Unavail able Gale Yang Referring Unavail able Oleghe, Efewongbe Primary Care Unavailable Oleghe, Efewongbe Primary Care Unavailable Renée Chau NP Attending Unavailable Renée Chau NP Referring Unavailable Oleghe, Efewongbe Referring Unavailable Oleghe, Efewongbe [...] Care Unavailable Renée Chau NP Attending Unavailable Medications Current Medications Medication Drug Class(es) [...] 10, 2019 1:00am July 21, 2019 10:45am Lg-Vxu-Litww-H4-Ebhlpwb-Ltyu in (Centrum Silver Ultra Men's) 619-09-553-300 mcg tablet (5 sources) Start: 08-02-2023 End: 01-15-2024 Cd-Xpg-Nqiiy-J9-Ksxolkv-Kydg in (Centrum Silver Ultra Men's) 366-43-688-300 mcg tablet Discontinued 1 {tbl} PO DAILY August 02, 2023 12:00am January 15, 2024 12:43pm Start: 08-02-2023 take 1 tablet by lorelei once daily Ar-Nbe-Qffez-G1-Abbgpxy-Tuetdq (Centrum Silver Ultra Men's) 087-82-005-300 mcg tablet Active 1 TABLET PO DAILY [...] 29, 2018 1:15pm December 03, 2018 11:17am [place] 9-Ngz-Lej-Fish Oil (Fish Oil) 1,200 (144-216) mg capsule (5 sources) Start: 08-02-2023 End: 01-15-2024 take 1 capsule by mouth once daily [place] 6-Eqd-Qeo-Fish Oil (Fish Oil) 1,200 (144-216) mg capsule Discontinued 1 NMA PO .every day August 02, 2023 12:00am January 15, 2024 12:43pm take one cap by mouth once a day Start: 08-02-2023 take 1 capsule by mo ut once daily [place] 3-Mtz-Ggk-Fish Oil (Fish Oil) 1,200 (144-216) mg capsule [...] sources) Long-term current use of anticoagulant; Translations: [longterm (current) use of anticoagulants] 08-01-2023 Episodic Other aftercare (2 sources) longterm (current) use of anticoagulants; Translations: [Long-term (current) [...] Facility Pulmonary Visit Reporton Pulmonary Visit Report [facility] [place] [address] [place] [address] OFFICE VISIT Date of Service: 10/03/24 MR#: [id number] Acct: [id number] Name: CALEB VILA Rep #: [id number] : 1945 Provider: JERAMIE Chau Age/Sex: 79/M [place] [facility] Status: Signed Assessment and Plan Assessment and [...] Additional Comments: This note was generated with [employer] dictation software. It may contain incorrect words, [...] at obtaining a loaner device from the [employer]. Within 24 hours of returning to PAP [...] pap machine Chief Complaint: 4 m f/u Car Conditioner Required: No PredicSis Vendor: Barry Accompanied by: Is patient in [...] Family History (more content not included)... Normal [facility] Cardiology Visit Reporton Cardiology Visit Report [facility] [place] [id number] [place] [address] OFFICE VISIT Date of Service: 09/24/24 MR#: [id number] Acct: [id number] Name: CALEB VILA Rep #: [id number] : 1945 Provider: VALERIA Moore Age/Sex: 79/M Location[place] [facility] Status: Signed HPI HPI History of Present Illness Details: This is a 79-year-old white male who presents today for outpatient cardiovascular follow-up. He has a history of paroxysmal atrial fibrillation, bradycardia, hypertension, and carotid artery vxoqzweo-kpcs-yqogj . Pt notes that twice he had pain under his left arm that radiated down his arm. It lasted for approx 15 minutes. He was driving when this happened. 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 He is concerned about this [...] air Intake Visit Reasons: 6 M FU Car Conditioner Required: No Accompanied by: Is patient in [...] Info Supple (more content not included)... Normal [facility] Absolute lymphocyte countOrd ered By: Bonilla Gary on 07-09-2024 Lymphocytes Auto (Unsp spec) [#/Vol] 1.62 10*3/uL 0.83-4.51 [facility] Absolute neutrophil countOrd ered By: Bonilla Gary on 07-09-2024 Neutrophils (Bld) [#/Vol] 2.2 10*3/uL 2.0-7.7 [facility] Anion gap in Serum or Plasma Ordered By: Bonilla Gary on 07-09-2024 Anion gap [Moles/Vol] 10 mmol/L 5-15 [facility] Automated lymphocyte count a s percentage of total leukocytesOrdered By: Bonilla Gary on 07-09-2024 Lymphocytes/100 WBC Auto (Unsp spec) 35.9 % 19-41 [facility] BUN/creatinine ratioOrdered By: Bonilla Gary on 07-09-2024 Urea nitrogen/Creatinine [Mass ratio] 10.2 mg/mg 10-20 [facility] Basophil percentageOrdered B y: Bonilla Gary on 07-09-2024 Basophils/100 WBC (Bld) 0.7 % 0-1 [facility] Bilirubin, totalOrdered By: Bonilla Gary on 07-09-2024 Bilirubin [Mass/Vol] 0.49 mg/dL 0.00-1.30 [facility] CBC W/Diff, Automatedon Absolute Lymph 1.62 X10 3/uL Normal 0.83-4.51 [facility] Comment on above: Performed By: #### L 100.0100, L506.0400, L506.1001, L503.0106, L500.4050, L501.9520 #### [facility] [address] [place], [address] Absolute Neut 2.2 X10 3/uL Normal 2.0-7.7 [facility] Comment on above: Performed By: #### L 100.0100, L506.0400, L506.1001, L503.0106, L500.4050, L501.9520 #### [facility] [address] [place], [address] Basophils/100 WBC (Bld) 0.7 % Normal 0-1 [facility] Comment on above: Performed By: #### L 100.0100, L506.0400, L506.1001, L503.0106, L500.4050, L501.9520 #### [facility] [address] [place], [address] Eosinophils/100 WBC (Bld) 5.1 % High 0-5 [facility] Comment on above: Performed By: #### L 100.0100, L506.0400, L506.1001, L503.0106, L500.4050, L501.9520 #### [facility] [address] [place], [address] Erythrocyte distribution width (RBC) [Ratio] 12.4 % Normal 11.6-14.6 [facility] Comment on above: Performed By: #### L 100.0100, L506.0400, L506.1001, L503.0106, L500.4050, L501.9520 #### [facility] [address] [place] [place], [address] Hematocrit (Bld) [Volume fraction] 45.3 % Normal 40-54 [facility] Comment on above: Performed By: #### L 100.0100, L506.0400, L506.1001, L503.0106, L500.4050, L501.9520 #### [facility] [address] [place], [address] Hemoglobin (Bld) [Mass/Vol] 15.0 g/dL Normal 13.0-16.5 [facility] Comment on above: Performed By: #### L 100.0100, L506.0400, L506.1001, L503.0106, L500.4050, L501.9520 #### [facility] [address] [place], [address] IG% 0.200 Normal 0.0-0.9 [facility] Comment on above: Result Comment: IG% - Immature Granulocytes (promyelocytes, myelocytes and metamyelocytes) > 1% indicates that a LEFT SHIFT is Present. Performed By: #### L 100.0100, L506.0400, L506.1001, L503.0106, L500.4050, L501.9520 #### [facility] [address] [place], [address] Lymphocytes/100 WBC (Bld) 35.9 % Normal 19-41 [facility] Comment on above: Performed By: #### L 100.0100, L506.0400, L506.1001, L503.0106, L500.4050, L501.9520 #### [facility] [address] [place], [address] MCH (RBC) [Entitic mass] 29.5 pg Normal 27.0-32.0 [facility] Comment on above: Performed By: #### L 100.0100, L506.0400, L506.1001, L503.0106, L500.4050, L501.9520 #### [facility] [address] [place], [address] MCHC (RBC) [Mass/Vol] 33.1 g/dL Normal 32-36 [facility] Comment on above: Performed By: #### L 100.0100, L506.0400, L506.1001, L503.0106, L500.4050, L501.9520 #### [facility] [address] [place], [address] MCV (RBC) [Entitic vol] 89.2 fL Normal 80-94 [facility] Comment on above: Performed By: #### L 100.0100, L506.0400, L506.1001, L503.0106, L500.4050, L501.9520 #### [facility] [address] [place], [address] Monocytes/100 WBC (Bld) 9.8 % Normal 0-10 [facility] Comment on above: Performed By: #### L 100.0100, L506.0400, L506.1001, L503.0106, L500.4050, L501.9520 #### [facility] [address] [place], [address] Neutrophils/100 WBC (Bld) 48.3 % Normal 47-70 [facility] Comment on above: Performed By: #### L 100.0100, L506.0400, L506.1001, L503.0106, L500.4050, L501.9520 #### [facility] [address] [place], [address] Nucleated RBC (Bld) [#/Vol] 0 10*3/uL Normal 0-5 [facility] Comment on above: Performed By: #### L 100.0100, L506.0400, L506.1001, L503.0106, L500.4050, L501.9520 #### [facility] [address] [place], [address] Platelet mean volume (Bld) [Entitic vol] 10.5 fL Normal 6.2-12.0 [facility] Comment on above: Performed By: #### L 100.0100, L506.0400, L506.1001, L503.0106, L500.4050, L501.9520 #### [facility] [address] [place], [address] Platelets (Bld) [#/Vol] 242 10*3/uL Normal 150-450 [facility] Comment on above: Performed By: #### L 100.0100, L506.0400, L506.1001, L503.0106, L500.4050, L501.9520 #### [facility] [address] [place], [address] RBC (Bld) [#/Vol] 5.08 10*6/uL Normal 4.6-6.2 [facility] Comment on above: Performed By: #### L 100.0100, L506.0400, L506.1001, L503.0106, L500.4050, L501.9520 #### [facility] [address] [place], [address] RDW SD 40.4 fl Normal 35.1-43.9 [facility] Comment on above: Performed By: #### L 100.0100, L506.0400, L506.1001, L503.0106, L500.4050, L501.9520 #### [facility] [address] [place], [address] WBC (Bld) [#/Vol] 4.5 10*3/uL Normal 4.4-11.0 [facility] Comment on above: Performed By: #### L 100.0100, L506.0400, L506.1001, L503.0106, L500.4050, L501.9520 #### [facility] [address] [place], [address] Carbon dioxide, total [Moles /volume] in Central venous bloodOrdered By: Bonilla Gary on 07-09-2024 CO2 [Moles/Vol] 24.3 mmol/L 21.0-32.0 [facility] Chloride assayOrdered By: Josr Gary on 07-09-2024 Chloride [Moles/Vol] 105 mmol/L 98-108 [facility] Comprehensive Metabolic Prof ilon 07-09-2024 Albumin [Mass/Vol] 4.2 g/dL Normal 3.4-4.8 [facility] Comment on above: Performed By: #### L 100.0100, L506.0400, L506.1001, L503.0106, L500.4050, L501.9520 #### [facility] [address] [place], [address] Albumin/Globulin [Mass ratio] 1.4 {ratio} Normal 0.9-2.4 [facility] Comment on above: Performed By: #### L 100.0100, L506.0400, L506.1001, L503.0106, L500.4050, L501.9520 #### [facility] [address] [place], [address] ALK PHOS 94 U/L Normal 40-129 [facility] Comment on above: Performed By: #### L 100.0100, L506.0400, L506.1001, L503.0106, L500.4050, L501.9520 #### [facility] [address] [place], [address] ALT [Catalytic activity/Vol] 33 U/L Normal <=46 [facility] Comment on above: Performed By: #### L 100.0100, L506.0400, L506.1001, L503.0106, L500.4050, L501.9520 #### [facility] [address] [place], [address] AST [Catalytic activity/Vol] 26 U/L Normal <=37 [facility] Comment on above: Performed By: #### L 100.0100, L506.0400, L506.1001, L503.0106, L500.4050, L501.9520 #### [facility] [address] [place], [address] Bilirubin [Mass/Vol] 0.49 mg/dL Normal 0.00-1.30 [facility] Comment on above: Performed By: #### L 100.0100, L506.0400, L506.1001, L503.0106, L500.4050, L501.9520 #### [facility] [address] [place], [address] BUN/CRE 10.2 RATIO Normal 10-20 [facility] Comment on above: Performed By: #### L 100.0100, L506.0400, L506.1001, L503.0106, L500.4050, L501.9520 #### [facility] [address] [place], [address] Calcium [Mass/Vol] 9.7 mg/dL Normal 7.6-11.0 [facility] Comment on above: Performed By: #### L 100.0100, L506.0400, L506.1001, L503.0106, L500.4050, L501.9520 #### [facility] [address] [place], [address] Chloride [Moles/Vol] 105 mmol/L Normal 98-108 [facility] Comment on above: Performed By: #### L 100.0100, L506.0400, L506.1001, L503.0106, L500.4050, L501.9520 #### [facility] [address] [place], [address] CO2 [Moles/Vol] 24.3 mmol/L Normal 21.0-32.0 [facility] Comment on above: Performed By: #### L 100.0100, L506.0400, L506.1001, L503.0106, L500.4050, L501.9520 #### [facility] [address] [place], [address] Creatinine [Mass/Vol] 1.15 mg/dL Normal 0.70-1.20 [facility] Comment on above: Performed By: #### L 100.0100, L506.0400, L506.1001, L503.0106, L500.4050, L501.9520 #### [facility] [address] [place], [address] GAP 10 Normal 5-15 [facility] Comment on above: Performed By: #### L 100.0100, L506.0400, L506.1001, L503.0106, L500.4050, L501.9520 #### [facility] [address] [place], [address] GFR/1.73 sq M.predicted among non-blacks MDRD (S/P/Bld) [Vol rate/Area] 65 mL/min/{1.73_m2} Normal >60 [facility] Comment on above: Result Comment: mL/m in/1.73m2 CKD-EPI Creatinine Equation (2020) Performed By: #### L 100.0100, L506.0400, L506.1001, L503.0106, L500.4050, L501.9520 #### [facility] [address] [place], [address] Globulin (S) [Mass/Vol] 3.0 g/dL Normal 2.2-4.2 [facility] Comment on above: Performed By: #### L 100.0100, L506.0400, L506.1001, L503.0106, L500.4050, L501.9520 #### [facility] [address] [place], [address] Glucose [Mass/Vol] 86 mg/dL Normal 70-99 [facility] Comment on above: Performed By: #### L 100.0100, L506.0400, L506.1001, L503.0106, L500.4050, L501.9520 #### [facility] [address] [place], [address] Potassium [Moles/Vol] 4.4 mmol/L Normal 3.3-5.1 [facility] Comment on above: Performed By: #### L 100.0100, L506.0400, L506.1001, L503.0106, L500.4050, L501.9520 #### [facility] [address] [place], [address] Sodium [Moles/Vol] 140 mmol/L Normal 133-145 [facility] Comment on above: Performed By: #### L 100.0100, L506.0400, L506.1001, L503.0106, L500.4050, L501.9520 #### [facility] [address] [place], [address] T PROT 7.2 g/dL Normal 5.9-8.4 [facility] Comment on above: Performed By: #### L 100.0100, L506.0400, L506.1001, L503.0106, L500.4050, L501.9520 #### [facility] [address] [place], [address] Urea nitrogen [Mass/Vol] 12 mg/dL Normal 4-19 [facility] Comment on above: Performed By: #### L 100.0100, L506.0400, L506.1001, L503.0106, L500.4050, L501.9520 #### [facility] [address] [place], [address] Eosinophil percentageOrdered By: Bonilla Gary on 07-09-2024 Eosinophils/100 WBC (Bld) 5.1 % High 0-5 [facility] Erythrocyte distribution wid th ratioOrdered By: Bonilla Gary on 07-09-2024 Erythrocyte distribution width (RBC) [Ratio] 12.4 % 11.6-14.6 [facility] Erythrocyte distribution wid th standard deviationOrdered By: Jocelynnplainvilleluis Gary on 07-09-2024 Erythrocyte distribution width (RBC) [Entitic vol] 40.4 fL 35.1-43.9 [facility] Erythrocyte distribution width (RBC) [Ratio] 40.4 fl 35.1-43.9 [facility] GFR/1.73 sq M.predicted carmelita g non-blacks MDRD (S/P/Bld) [Vol rate/Area]Ordered By: Bonilla Gary on 07-09-2024 Estimated GFR (MDRD) Non-Af Amer 65 >60 [facility] Comment on above: mL/min/1.73m2 CKD-EP I Creatinine Equation (2020) Glomerular filtration rate ( GFR) estimation/1.73 sq m using serum, plasma, or whole bOrdered By: Bonilla Gary on 07-09-2024 GFR/1.73 sq M.predicted among non-blacks MDRD (S/P/Bld) [Vol rate/Area] 65 mL/min/{1.73_m2} >60 [facility] Comment on above: mL/min/1.73m2 CKD-EP I Creatinine Equation (2020) Hematocrit Auto (Bld) [Volum e fraction]Ordered By: Bonilla Gary on 07-09-2024 Hematocrit (Bld) [Volume fraction] 45.3 % 40-54 [facility] Hemoglobin measurementOrdere d By: Bonilla Gary on 07-09-2024 Hemoglobin (Bld) [Mass/Vol] 15.0 g/dL 13.0-16.5 [facility] Immature granulocytes/100 WB C Auto (Bld)Ordered By: Bonilla Gary on 07-09-2024 Immature granulocytes/100 WBC (Bld) 0.200 % 0.0-0.9 [facility] Comment on above: IG% - Immature Granu locytes (promyelocytes, myelocytes and metamyelocytes) > 1% indicates that a LEFT SHIFT is Present. Internal Medicine Office Vis iton 07-09-2024 Internal Medicine Office Visit [facility] [address] [place] [address] [place] [address] OFFICE VISIT Date of Service: 07/09/24 MR#: [id number] Acct: [id number] Name: CALEB VILA Rep #: [id number] : 1945 Provider: Dr. Bonilla gustafson MD Age/Sex: 79/M Location[place] [facility] Status: Signed Intake Vital Signs 03/12/24 09:51 [...] M FU Chief Complaint: 4 m f/u Car Conditioner Required: No Accompanied by: Is patient in [...] time he gets it into the 130's/70's. [facility] Medical History (Updated 07/09/24 @ 17:44 by [...] or vis (more content not included)... Normal [facility] L503.0106on 07-09-2024 Cobalamin (Vitamin B12) [Mass/Vol] 456 pg/mL Normal 180-914 [facility] Comment on above: Performed By: #### L 100.0100, L506.0400, L506.1001, L503.0106, L500.4050, L501.9520 #### [facility] [address] [place], [place], [address] L506.1001on 07-09-2024 Vitamin D 25-OH 27.6 ng/mL Low 30-100 [facility] Comment on above: Result Comment: [place] min D Status Deficiency: <20 ng/mL (50nmol/L) Insufficiency: 20-30 ng/mL (50-75 nmol/L) Sufficiency: 30-100 ng/mL (75-250 nmol/L) Toxicity: >100 ng/mL (>250 nmol/L) Performed By: #### L 100.0100, L506.0400, L506.1001, L503.0106, L500.4050, L501.9520 ####[facility] [id number] [place], [address] Laboratory - Chemistry and C hemistry - challengeOrdered By: Bonilla Gary on 07-09-2024 AST [Catalytic activity/Vol] 26 U/L <38 [facility] Lymphocytes Auto (Unsp spec) [#/Vol]Ordered By: Bonilla Gary on 07-09-2024 Lymphocytes (Bld) [#/Vol] 1.62 10*3/uL 0.83-4.5 1 [facility] Lymphocytes/100 WBC Auto (Un sp spec)Ordered By: Bonilla Gary on 07-09-2024 Lymphocytes/100 WBC (Bld) 35.9 % 19-41 [facility] MCV (mean corpuscular volume ) determinationOrdered By: Bonilla Gary on 07-09-2024 MCV (RBC) [Entitic vol] 89.2 fL 80-94 [facility] Mean corpuscular hemoglobin (MCH) determinationOrdered By: Bonilla Gary on 07-09-2024 MCH (RBC) [Entitic mass] 29.5 pg 27.0-32.0 [facility] Mean corpuscular hemoglobin concentration (MCHC) determinationOrdered By: Bonilla Gary on 07-09-2024 MCHC (RBC) [Mass/Vol] 33.1 g/dL 32-36 [facility] Mean platelet volume determi nationOrdered By: Bonilla Gary on 07-09-2024 Platelet mean volume (Bld) [Entitic vol] 10.5 fL 6.2-12.0 [facility] Monocyte percentageOrdered B y: Bonilla Gary on 07-09-2024 Monocytes/100 WBC (Bld) 9.8 % 0-10 [facility] Neutrophil percentageOrdered By: Bonilla Gary on 07-09-2024 Neutrophils/100 WBC (Bld) 48.3 % 47-70 [facility] Nucleated red blood cell per centageOrdered By: Bonilla Gary on 07-09-2024 Nucleated RBC/100 WBC (Bld) [Ratio] 0 % 0-5 [facility] Platelet countOrdered By: Josr Gary on 07-09-2024 Platelets (Bld) [#/Vol] 242 10*3/uL 150-450 [facility] Potassium (Unsp spec) [Mass/ Vol]Ordered By: Bonilla Gary on 07-09-2024 Potassium [Moles/Vol] 4.4 mmol/L 3.3-5.1 [facility] Potassium measurement (mass/ volume)Ordered By: Bonilla Gary on 07-09-2024 Potassium (Unsp spec) [Mass/Vol] 4.4 mmol/L 3.3-5.1 [facility] RBC Auto (Bld) [#/Vol]Ordere d By: Bonilla Gary on 07-09-2024 RBC (Bld) [#/Vol] 5.08 10*6/uL 4.6-6.2 [facility] Serum creatinine measurement (mass/volume)Ordered By: Bonilla Gary on 07-09-2024 Creatinine [Mass/Vol] 1.15 mg/dL 0.70-1.20 [facility] Serum globulin measurementOr dered By: Bonilla Gary on 07-09-2024 Globulin (S) [Mass/Vol] 3.0 g/dL 2.2-4.2 [facility] Serum glucose measurement (m ass/volume)Ordered By: Bonilla Gary on 07-09-2024 Glucose [Mass/Vol] 86 mg/dL 70-99 [facility] Serum or plasma alanine bingham otransferase (ALT) measurementOrdered By: Bonilla Gary on 07-09-2024 ALT [Catalytic activity/Vol] 33 U/L <47 [facility] Serum or plasma albumin gurjit urement (mass/volume)Ordered By: Bonilla Gary on 07-09-2024 Albumin [Mass/Vol] 4.2 g/dL 3.4-4.8 [facility] Serum or plasma albumin/glob ulin mass ratioOrdered By: Bonilla Gary on 07-09-2024 Albumin/Globulin [Mass ratio] 1.4 {ratio} 0.9-2.4 [facility] Serum or plasma alkaline abebe sphatase measurementOrdered By: Bonilla Gary on 07-09-2024 ALP [Catalytic activity/Vol] 94 U/L 40-129 [facility] Serum or plasma calcium gurjit urement (mass/volume)Ordered By: Bonilla Gary on 07-09-2024 Calcium [Mass/Vol] 9.7 mg/dL 7.6-11.0 [facility] Serum or plasma urea nitroge n measurement (mass/volume)Ordered By: Bonilla Gary on 07-09-2024 Urea nitrogen [Mass/Vol] 12 mg/dL 4-19 [facility] Sodium levelOrdered By: Jocelynn Gary on 07-09-2024 Sodium [Moles/Vol] 140 mmol/L 133-145 [facility] T4 Free Directon 07-09-2024 T4 FREE DIRECT 0.90 ng/dL Normal 0.76-1.46 [facility] Comment on above: Performed By: #### L 100.0100, L506.0400, L506.1001, L503.0106, L500.4050, L501.9520 ####[facility] [id number] [place], [address] T4 freeOrdered By: Bonilla Gary on 07-09-2024 Free T4 [Mass/Vol] 0.90 ng/dL 0.76-1.46 [facility] TSH DL <= 0.005 mIU/L QnOrde red By: Bonilla Gary on 07-09-2024 Thyroid Stimulating Hormone (TSH) 4.200 uIU/mL 0.300-4.200 [facility] TSH Qn 4.200 uIU/mL 0.300-4.200 [facility] Thyroid Stim Hormone (TSH)on 07-09-2024 TSH 4.200 uIU/mL Normal 0.300-4.200 [facility] Comment on above: Performed By: #### L 100.0100, L506.0400, L506.1001, L503.0106, L500.4050, L501.9520 #### [facility] [address] [place], [address] Total proteinOrdered By: Kevin Gary on 07-09-2024 Protein [Mass/Vol] 7.2 g/dL 5.9-8.4 [facility] Vitamin B12 ser/plasOrdered By: [facility] on 07-09-2024 Cobalamin (Vitamin B12) [Mass/Vol] 456 pg/mL 180-914 [facility] Vitamin D, 25-hydroxyOrdered By: Bonilla Gary on 07-09-2024 Vitamin D 25-Hydroxy 27.6 ng/mL Low 30-100 [facility] Comment on above: Vitamin D StatusDefi ciency: <20 ng/mL (50nmol/L)Insufficiency: 20-30 ng/mL (50-75 nmol/L)Sufficiency: 30-100 ng/mL (75-250 nmol/L)Toxicity: >100 ng/mL (>250 nmol/L) White blood cell (WBC) count Ordered By: Bonilla Gary on 07-09-2024 WBC (Bld) [#/Vol] 4.5 10*3/uL 4.4-11.0 [facility] Cardiology Visit Reporton Cardiology Visit Report [facility] [address] [place], [place] [address] OFFICE VISIT Date of Service: 03/26/24 MR#: [id number] Acct: [id number] Name: VILACALEB REECEITH Rep #: [id number] : 1945 Provider: JERAMIE guerra Age/Sex: 79/M [place] [facility] Status: Signed HPI HPI History of Present Illness Details: This is a 79-year-old white male who presents today for outpatient cardiovascular follow-up. He has a history of paroxysmal atrial fibrillation, bradycardia, hypertension, and carotid artery aawnwlbb-fbxr-joeiu . Patient presented to the emergency room [...] 97 Intake Visit Reasons: 6 M FU Car Conditioner Required: No Is patient in pain?: No Allergies No Known Allergies Allergy (Verified 03/26/24 11:42) Medications ???Medication ???Instructions ???Recorded ???Confirmed ???Type apixaban 5 mg tablet (Eliquis) 5 mg PO BID ATRIAL FIBRILLATION 01/24/18 03/26/24 History Handicap Placard #1 ea 02/27/22 03/26/24 Rx olmesartan 5 mg tablet 2.5 mg PO Q OTHER DAY 03/12/24 03/26/24 History Have you fallen in the past year?: No [facility] Medical History Health care maintenance Chronic anticoagulation [...] eyelids no (more content not included)... Normal [facility] Basic Metabolic Profile (BMP )on 03-12-2024 BUN/CRE 13.9 RATIO Normal 10-20 [facility] Comment on above: Performed By: #### L 500.4100, L500.2500, L506.0400, L501.9520 ####[facility] [address] [place], [address] CA,Total 9.6 mg/dL Normal 8.5-10.1 [facility] Comment on above: Performed By: #### L 500.4100, L500.2500, L506.0400, L501.9520 ####[facility] [address] [place], [address] Chloride [Moles/Vol] 108 mmol/L High 98-107 [facility] Comment on above: Performed By: #### L 500.4100, L500.2500, L506.0400, L501.9520 ####[facility] [address] [place], [address] CO2 [Moles/Vol] 27.0 mmol/L Normal 21.0-32.0 [facility] Comment on above: Performed By: #### L 500.4100, L500.2500, L506.0400, L501.9520 ####[facility] [address] [place], [address] Creatinine [Mass/Vol] 1.08 mg/dL Normal 0.70-1.30 [facility] Comment on above: Result Comment: The validity of the calculated GFR GFRAA in patients over 70 years has not been determined. Clinical correlation is essential. Performed By: #### L 500.4100, L500.2500, L506.0400, L501.9520 ####[facility] [address] [place], [address] EST GFR - AA 85 mL/min Normal >60 [facility] Comment on above: Result Comment: Afri can Armenian GFR Calc Performed By: #### L 500.4100, L500.2500, L506.0400, L501.9520 ####[facility] [address] [place], [address] GAP 4 Low 5-15 [facility] Comment on above: Performed By: #### L 500.4100, L500.2500, L506.0400, L501.9520 ####[facility] [address] [place], [address] GFR/1.73 sq M.predicted among non-blacks MDRD (S/P/Bld) [Vol rate/Area] 70 mL/min/{1.73_m2} Normal >60 [facility] Comment on above: Result Comment: Non- GFR Calc Performed By: #### L 500.4100, L500.2500, L506.0400, L501.9520 ####[facility] [address] [place], [address] Glucose [Mass/Vol] 93 mg/dL Normal 74-106 [facility] Comment on above: Performed By: #### L 500.4100, L500.2500, L506.0400, L501.9520 ####[facility] [address] [place], [address] Potassium [Moles/Vol] 4.4 mmol/L Normal 3.5-5.1 [facility] Comment on above: Performed By: #### L 500.4100, L500.2500, L506.0400, L501.9520 ####[facility] [address] [place], [address] Sodium [Moles/Vol] 140 mmol/L Normal 136-145 [facility] Comment on above: Performed By: #### L 500.4100, L500.2500, L506.0400, L501.9520 ####[facility] [address] [place], [address] Urea nitrogen [Mass/Vol] 15 mg/dL Normal 7-18 [facility] Comment on above: Performed By: #### L 500.4100, L500.2500, L506.0400, L501.9520 ####[facility] [address] [place], [address] Internal Medicine Office Vis iton 03-12-2024 Internal Medicine Office Visit [facility] [address] [place], [place] [address] OFFICE VISIT Date of Service: 03/12/24 MR#: [id number] Acct: [id number] Name: CALEB VILA Rep #: [id number] : 1945 Provider: Dr. Bonilla gustafson MD Age/Sex: 79/M Location: [facility] Status: Signed Intake Vital Signs 11/09/23 [...] M FU Chief Complaint: 4 m f/u Car Conditioner Required: No Accompanied by: Is patient in [...] visual inspecti (more content not included)... Normal [facility] Lipid Profileon 03-12-2024 Cholesterol [Mass/Vol] 224 mg/dL High 200 [facility] Comment on above: Result Comment: <200 mg/dL Desirable 200-240 mg/dL Borderline >240 mg/dL High Risk Performed By: #### L 500.4100, L500.2500, L506.0400, L501.9520 ####[facility] [address] [place], [place], [address] Cholesterol in HDL [Mass/Vol] 55 mg/dL Normal [facility] Comment on above: Result Comment: The drugs N-Acetylcysteine and Metamizole may falsely depress this assay. Reference Range HDL <40 mg/dL Low HDL Cholesterol HDL >or= 60 mg/dL High HDL Cholesterol Performed By: #### L 500.4100, L500.2500, L506.0400, L501.9520 ####[facility] [address] [place], [address] Cholesterol in LDL [Mass/Vol] 120 mg/dL Normal 0-130 [facility] Comment on above: Performed By: #### L 500.4100, L500.2500, L506.0400, L501.9520 ####[facility] [address] [place], [address] Cholesterol in VLDL [Mass/Vol] 49 mg/dL High 5-40 [facility] Comment on above: Performed By: #### L 500.4100, L500.2500, L506.0400, L501.9520 ####[facility] [address] [place], [address] Triglyceride [Mass/Vol] 247 mg/dL High [facility] Comment on above: Result Comment: The drugs N-Acetylcysteine and Metamizole may falsely depress this assay. Serum Triglycerides Reference Interval Normal <150 mg/dL Borderline high 150 - 199 mg/dL High 200 - 499 mg/dL Very High > or = 500 mg/dL Performed By: #### L 500.4100, L500.2500, L506.0400, L501.9520 ####[facility] [address] [place], [address] T4 Free Directon 03-12-2024 T4 FREE DIRECT 0.78 ng/dL Normal 0.76-1.46 [facility] Comment on above: Performed By: #### L 500.4100, L500.2500, L506.0400, L501.9520 ####[facility] [address] [place], [address] Thyroid Stim Hormone (TSH)on 03-12-2024 TSH 3.450 uIU/mL Normal 0.358-3.740 [facility] Comment on above: Performed By: #### L 500.4100, L500.2500, L506.0400, L501.9520 ####[facility] [address] [place], [address] Pulmonary Visit Reporton Pulmonary Visit Report [facility] [place] [address] [place] [address] OFFICE VISIT Date of Service: 01/15/24 MR#: [id number] Acct: [id number] Name: CALEB VILA Rep #: [id number] : 1945 Provider: JERAMIE Chau Age/Sex: 78/M Location[place] [facility] Status: Signed Assessment and Plan Assessment and [...] year. Plan Details Follow Up: 1 Year ([facility]) HPI 1 Y FU Chief Complaint: Routine [...] Y FU Chief Complaint: 3 m f/u Car Conditioner Required: No DME Vendor: [email or web address] Accompanied by: Self Allergies No Known Allergies [...] and S2 (more content not included)... Normal [facility] CBC W/Diff, Automatedon 07-0 5-2023 Absolute Lymph 1.36 X10 3/uL Normal 0.83-4.51 [facility] Comment on above: Performed By: #### L 100.0100, L500.4050, L501.9910 #### [facility] [address] [place], [address] Absolute Neut 2.5 X10 3/uL Normal 2.0-7.7 [facility] Comment on above: Performed By: #### L 100.0100, L500.4050, L501.9910 #### [facility] [address] [place], [address] Basophils/100 WBC (Bld) 0.2 % Normal 0-1 [facility] Comment on above: Performed By: #### L 100.0100, L500.4050, L501.9910 #### [facility] [address] [place], [address] Eosinophils/100 WBC (Bld) 2.3 % Normal 0-5 [facility] Comment on above: Performed By: #### L 100.0100, L500.4050, L501.9910 #### [facility] [address] [place], [address] Erythrocyte distribution width (RBC) [Ratio] 12.4 % Normal 11.6-14.6 [facility] Comment on above: Performed By: #### L 100.0100, L500.4050, L501.9910 #### [facility] [address] [place], [address] Hematocrit (Bld) [Volume fraction] 44.3 % Normal 40-54 [facility] Comment on above: Performed By: #### L 100.0100, L500.4050, L501.9910 #### [facility] [address] [place], [address] Hemoglobin (Bld) [Mass/Vol] 14.6 g/dL Normal 13.0-16.5 [facility] Comment on above: Performed By: #### L 100.0100, L500.4050, L501.9910 #### [facility] [address] [place], [address] IG% 0.200 Normal 0.0-0.9 [facility] Comment on above: Result Comment: IG% - Immature Granulocytes (promyelocytes, myelocytes and metamyelocytes) > 1% indicates that a LEFT SHIFT is Present. Performed By: #### L 100.0100, L500.4050, L501.9910 #### [facility] [address] [place], [address] Lymphocytes/100 WBC (Bld) 30.7 % Normal 19-41 [facility] Comment on above: Performed By: #### L 100.0100, L500.4050, L501.9910 #### [facility] [address] [place], [address] MCH (RBC) [Entitic mass] 29.6 pg Normal 27.0-32.0 [facility] Comment on above: Performed By: #### L 100.0100, L500.4050, L501.9910 #### [facility] [address] [place], [address] MCHC (RBC) [Mass/Vol] 33.0 g/dL Normal 32-36 [facility] Comment on above: Performed By: #### L 100.0100, L500.4050, L501.9910 #### [facility] [address] [place], [address] MCV (RBC) [Entitic vol] 89.9 fL Normal 80-94 [facility] Comment on above: Performed By: #### L 100.0100, L500.4050, L501.9910 #### [facility] [address] [place], [address] Monocytes/100 WBC (Bld) 9.9 % Normal 0-10 [facility] Comment on above: Performed By: #### L 100.0100, L500.4050, L501.9910 #### [facility] [address] [place], [address] Neutrophils/100 WBC (Bld) 56.7 % Normal 47-70 [facility] Comment on above: Performed By: #### L 100.0100, L500.4050, L501.9910 #### [facility] [address] [place], [address] Nucleated RBC (Bld) [#/Vol] 0 10*3/uL Normal 0-5 [facility] Comment on above: Performed By: #### L 100.0100, L500.4050, L501.9910 #### [facility] [address] [place], [address] Platelet mean volume (Bld) [Entitic vol] 10.4 fL Normal 6.2-12.0 [facility] Comment on above: Performed By: #### L 100.0100, L500.4050, L501.9910 #### [facility] [address] [place], [address] Platelets (Bld) [#/Vol] 261 10*3/uL Normal 150-450 [facility] Comment on above: Performed By: #### L 100.0100, L500.4050, L501.9910 #### [facility] [address] [place], [address] RBC (Bld) [#/Vol] 4.93 10*6/uL Normal 4.6-6.2 [facility] Comment on above: Performed By: #### L 100.0100, L500.4050, L501.9910 #### [facility] [address] [place], [address] RDW SD 40.8 fl Normal 35.1-43.9 [facility] Comment on above: Performed By: #### L 100.0100, L500.4050, L501.9910 #### [facility] [address] [place], [address] WBC (Bld) [#/Vol] 4.4 10*3/uL Normal 4.4-11.0 [facility] Comment on above: Performed By: #### L 100.0100, L500.4050, L501.9910 #### [facility] [address] [place], [address] Comprehensive Metabolic Prof [facility] 11-09-2023 Albumin [Mass/Vol] 3.6 g/dL Normal 3.2-5.0 [facility] Comment on above: Performed By: #### L 100.0100, L500.4050, L501.9910 #### [facility] [address] [place], [address] Albumin/Globulin [Mass ratio] 1.0 {ratio} Normal 0.9-2.4 [facility] Comment on above: Performed By: #### L 100.0100, L500.4050, L501.9910 #### [facility] [address] [place], [address] ALK P 91 U/L Normal 45-117 [facility] Comment on above: Performed By: #### L 100.0100, L500.4050, L501.9910 #### [facility] [address] [place], [address] ALT [Catalytic activity/Vol] 36 U/L Normal 16-61 [facility] Comment on above: Performed By: #### L 100.0100, L500.4050, L501.9910 #### [facility] [address] [place], [address] AST [Catalytic activity/Vol] 24 U/L Normal 15-37 [facility] Comment on above: Performed By: #### L 100.0100, L500.4050, L501.9910 #### [facility] [address] [place], [address] Bilirubin [Mass/Vol] 0.50 mg/dL Normal 0.20-1.00 [facility] Comment on above: Result Comment: For patients on eltrombopag therapy, use of Dimension [place] TBIL is not recommended. Performed By: #### L 100.0100, L500.4050, L501.9910 #### [facility] [address] [place], [address] BUN/CRE 11.2 RATIO Normal 10-20 [facility] Comment on above: Performed By: #### L 100.0100, L500.4050, L501.9910 #### [facility] [address] [place], [address] CA,Total 9.5 mg/dL Normal 8.5-10.1 [facility] Comment on above: Performed By: #### L 100.0100, L500.4050, L501.9910 #### [facility] [address] [place], [address] Chloride [Moles/Vol] 108 mmol/L High 98-107 [facility] Comment on above: Performed By: #### L 100.0100, L500.4050, L501.9910 #### [facility] [address] [place], [address] CO2 [Moles/Vol] 24.0 mmol/L Normal 21.0-32.0 [facility] Comment on above: Performed By: #### L 100.0100, L500.4050, L501.9910 #### [facility] [address] [place], [address] Creatinine [Mass/Vol] 1.07 mg/dL Normal 0.70-1.30 [facility] Comment on above: Result Comment: The validity of the calculated GFR GFRAA in patients over 70 years has not been determined. Clinical correlation is essential. Performed By: #### L 100.0100, L500.4050, L501.9910 #### [facility] [address] [place], [address] EST GFR - AA 86 mL/min Normal >60 [facility] Comment on above: Result Comment: Afri can Armenian GFR Calc Performed By: #### L 100.0100, L500.4050, L501.9910 #### [facility] [address] [place], [address] GAP 7 Normal 5-15 [facility] Comment on above: Performed By: #### L 100.0100, L500.4050, L501.9910 #### [facility] [address] [place], [address] GFR/1.73 sq M.predicted among non-blacks MDRD (S/P/Bld) [Vol rate/Area] 71 mL/min/{1.73_m2} Normal >60 [facility] Comment on above: Result Comment: Non- GFR Calc Performed By: #### L 100.0100, L500.4050, L501.9910 #### [facility] [address] [place], [address] Globulin (S) [Mass/Vol] 3.6 g/dL Normal 2.2-4.2 [facility] Comment on above: Performed By: #### L 100.0100, L500.4050, L501.9910 #### [facility] [address] [place], [address] Glucose [Mass/Vol] 91 mg/dL Normal 74-106 [facility] Comment on above: Performed By: #### L 100.0100, L500.4050, L501.9910 #### [facility] [address] [place], [address] Potassium [Moles/Vol] 4.1 mmol/L Normal 3.5-5.1 [facility] Comment on above: Performed By: #### L 100.0100, L500.4050, L501.9910 #### [facility] [address] [place], [address] Sodium [Moles/Vol] 139 mmol/L Normal 136-145 [facility] Comment on above: Performed By: #### L 100.0100, L500.4050, L501.9910 #### [facility] [address] [place], [address] T PROT 7.2 g/dL Normal 6.4-8.2 [facility] Comment on above: Performed By: #### L 100.0100, L500.4050, L501.9910 #### [facility] [address] [place], [address] Urea nitrogen [Mass/Vol] 12 mg/dL Normal 7-18 [facility] Comment on above: Performed By: #### L 100.0100, L500.4050, L501.9910 #### [facility] [address] [place], [address] Internal Medicine Office Vis branden 11-09-2023 Internal Medicine Office Visit [facility] [address] [place] [address] OFFICE VISIT Date of Service: 11/09/23 MR#: [id number] Acct: [id number] Name: CALEB VILA Rep #: [id number] : 1945 Provider: Dr. Bonilla gustafson MD Age/Sex: 78/M Location[place] [facility] Status: Signed Intake Vital Signs 08/10/23 10:42 [...] M FU Chief Complaint: 3 m f/u Car Conditioner Required: No Accompanied by: Is patient in pain?: No Allergies No Known Allergies Allergy (Verified 11/09/23 08:59) Medications ???Medication ???Instructions ???Recorded ???Confirmed ???Type apixaban 5 mg tablet (Eliquis) 5 mg PO BID ATRIAL FIBRILLATION 01/24/18 11/09/23 History Handicap Placard #1 ea 02/27/22 11/09/23 Rx biotin 1 mg capsule 1 mg PO DAILY dietary supplement 08/02/23 11/09/23 History egahvhaj-bf-aulnp 300 mcg-K 60 1 tab PO DAILY dietary supplement 08/02/23 11/09/23 History mcg-lycop 600 mcg-lutein 300 mcg tablet (Centrum Silver Ultra Men's) omega 9-add-rgd-fish oil 1,200 mg 1 cap PO .every [...] Psych Psychiatri (more content not included)... Normal [facility] PSA,Total - Annual Screenon 11-09-2023 PSA,TOT SCREEN 1.39 ng/mL Normal 0.00-4.00 [facility] Comment on above: Result Comment: This test was performed using the TPSA assay method for the [employer] chemistry system. Values obtained with different assay methods cannot be used interchangably. When changing PSA assays in the course of monitoring a patient, additional sequential testing should be carried out to confirm baseline values. Performed By: #### L 100.0100, L500.4050, L501.9910 #### [facility] [address] [place], [address] Absolute lymphocyte countOrd ered By: Bonilla Gary on 08-10-2023 Lymphocytes Auto (Unsp spec) [#/Vol] 1.53 10*3/uL 0.83-4.51 [facility] Automated lymphocyte count a s percentage of total leukocytesOrdered By: Bonilla Gary on 08-10-2023 Lymphocytes/100 WBC Auto (Unsp spec) 29.2 % 19-41 [facility] Basophil percentageOrdered B y: Bonilla Gary on 08-10-2023 Basophils/100 WBC (Bld) 0.4 % 0-1 [facility] Chloride [Moles/Vol] 109 mmol/L 98-107 [facility] Eosinophils/100 WBC (Bld) 1.9 % 0-5 [facility] Glucose [Mass/Vol] 94 mg/dL 74-106 [facility] Hemoglobin (Bld) [Mass/Vol] 14.2 g/dL 13.0-16.5 [facility] Monocytes/100 WBC (Bld) 9.5 % 0-10 [facility] Neutrophils (Bld) [#/Vol] 3.1 10*3/uL 2.0-7.7 [facility] Neutrophils/100 WBC (Bld) 58.6 % 47-70 [facility] Potassium [Moles/Vol] 4.5 mmol/L 3.5-5.1 [facility] Sodium [Moles/Vol] 139 mmol/L 136-145 [facility] WBC (Bld) [#/Vol] 5.2 10*3/uL 4.4-11.0 [facility] Determination of erythrocyte mean corpuscular volume (MCV)Ordered By: Bonilla Gary on 08-10-2023 MCV (RBC) [Entitic vol] 88.9 fL 80-94 [facility] Erythrocyte distribution wid th ratioOrdered By: Bonilla Gary on 08-10-2023 Erythrocyte distribution width (RBC) [Ratio] 12.7 % 11.6-14.6 [facility] Erythrocyte distribution wid th standard deviationOrdered By: Jocelynnplainvilleluis Gerardeulogio on 08-10-2023 Erythrocyte distribution width (RBC) [Entitic vol] 41.2 fL 35.1-43.9 [facility] Hematocrit Auto (Bld) [Volum e fraction]Ordered By: Bonilla Gary on 08-10-2023 Hematocrit (Bld) [Volume fraction] 43.1 % 40-54 [facility] Immature granulocytes/100 WB C Auto (Bld)Ordered By: Bonilla Gary on 08-10-2023 Immature granulocytes/100 WBC (Bld) 0.400 % 0.0-0.9 [facility] Comment on above: IG% - Immature Granu locytes (promyelocytes, myelocytes and metamyelocytes) > 1% indicates that a LEFT SHIFT is Present. Laboratory - Chemistry and C hemistry - challengeOrdered By: Bonilla Gary on 08-10-2023 CO2 [Moles/Vol] 28.0 mmol/L 21.0-32.0 [facility] Urea nitrogen/Creatinine [Mass ratio] 12.1 mg/mg 10-20 [facility] Laboratory - Hematology and Cell countsOrdered By: Bonilla Gary on 08-10-2023 MCH (RBC) [Entitic mass] 29.3 pg 27.0-32.0 [facility] MCHC (RBC) [Mass/Vol] 32.9 g/dL 32-36 [facility] Nucleated RBC/100 WBC (Bld) [Ratio] 0 % 0-5 [facility] Platelet mean volume (Bld) [Entitic vol] 10.3 fL 6.2-12.0 [facility] Platelets (Bld) [#/Vol] 272 10*3/uL 150-450 [facility] No Panel InformationOrdered By: Bonilla Gary on 08-10-2023 Estimated GFR (MDRD) Amer 78 mL/min >60 [facility] Comment on above: GFR Calc Estimated GFR (MDRD) Non-Af Amer 65 mL/min >60 [facility] Comment on above: Non- GFR Calc RBC Auto (Bld) [#/Vol]Ordere d By: Bonilla Gary on 08-10-2023 RBC (Bld) [#/Vol] 4.85 10*6/uL 4.6-6.2 [facility] Serum or plasma calcium gurjit urement (mass/volume)Ordered By: Bonilla Gary on 08-10-2023 Calcium [Mass/Vol] 9.1 mg/dL 8.5-10.1 [facility] Serum or plasma creatinine m easurement (mass/volume)Ordered By: Bonilla Gary on 08-10-2023 Creatinine [Mass/Vol] 1.16 mg/dL 0.70-1.30 [facility] Comment on above: The validity of the calculated GFR & GFRAA in patients over 70 years has not been determined. Clinical correlation is essential. Serum or plasma urea nitroge n measurement (mass/volume)Ordered By: Bonilla Gary on 08-10-2023 Urea nitrogen [Mass/Vol] 14 mg/dL 7-18 [facility] Thin prep Papanicolaou smear with manual screeningOrdered By: Bonilla Gary on 08-10-2023 Thin prep Papanicolaou smear with manual screening 2 5-15 [facility] Absolute lymphocyte countOrd ered By: David Orona on 08-02-2023 Lymphocytes Auto (Unsp spec) [#/Vol] 0.57 10*3/uL 0.83-4.51 [facility] Automated lymphocyte count a s percentage of total leukocytesOrdered By: David Orona on 08-02-2023 Lymphocytes/100 WBC Auto (Unsp spec) 5.2 % 19-41 [facility] Basophil percentageOrdered B y: David Orona on 08-02-2023 Basophil percentage 3.5 mg/dL 2.5-4.9 [facility] Basophils/100 WBC (Bld) 0.1 % 0-1 [facility] Bilirubin [Mass/Vol] 1.20 mg/dL 0.20-1.00 [facility] Comment on above: For patients on eltr ombopag therapy, use of Dimension [place] TBIL is not recommended. Chloride [Moles/Vol] 111 mmol/L 98-107 [facility] Eosinophils/100 WBC (Bld) 0.1 % 0-5 [facility] Glucose [Mass/Vol] 138 mg/dL 74-106 [facility] Comment on above: Fasting Glucose resu lt greater than or equal to 126 mg/dL suggests DIABETES MELLITUS per A.D.A. criteria. Hemoglobin (Bld) [Mass/Vol] 15.6 g/dL 13.0-16.5 [facility] Monocytes/100 WBC (Bld) 7.1 % 0-10 [facility] Neutrophils (Bld) [#/Vol] 9.5 10*3/uL 2.0-7.7 [facility] Neutrophils/100 WBC (Bld) 87.1 % 47-70 [facility] Potassium [Moles/Vol] 4.3 mmol/L 3.5-5.1 [facility] Protein [Mass/Vol] 7.0 g/dL 6.4-8.2 [facility] Sodium [Moles/Vol] 140 mmol/L 136-145 [facility] WBC (Bld) [#/Vol] 10.9 10*3/uL 4.4-11.0 [facility] Determination of erythrocyte mean corpuscular volume (MCV)Ordered By: David Orona on 08-02-2023 MCV (RBC) [Entitic vol] 87.6 fL 80-94 [facility] Erythrocyte distribution wid th ratioOrdered By: David Orona on 08-02-2023 Erythrocyte distribution width (RBC) [Ratio] 12.7 % 11.6-14.6 [facility] Erythrocyte distribution wid th standard deviationOrdered By: David Orona on 08-02-2023 Erythrocyte distribution width (RBC) [Entitic vol] 41.0 fL 35.1-43.9 [facility] Hematocrit Auto (Bld) [Volum e fraction]Ordered By: David Orona on 08-02-2023 Hematocrit (Bld) [Volume fraction] 45.4 % 40-54 [facility] Immature granulocytes/100 WB C Auto (Bld)Ordered By: David Orona on 08-02-2023 Immature granulocytes/100 WBC (Bld) 0.400 % 0.0-0.9 [facility] Comment on above: IG% - Immature Granu locytes (promyelocytes, myelocytes and metamyelocytes) > 1% indicates that a LEFT SHIFT is Present. Laboratory - Chemistry and C hemistry - challengeOrdered By: David Orona on 08-02-2023 Albumin/Globulin [Mass ratio] 1.0 {ratio} 0.9-2.4 [facility] ALP [Catalytic activity/Vol] 84 U/L 45-117 [facility] ALT [Catalytic activity/Vol] 29 U/L 16-61 [facility] CO2 [Moles/Vol] 21.0 mmol/L 21.0-32.0 [facility] Globulin (S) [Mass/Vol] 3.5 g/dL 2.2-4.2 [facility] Magnesium [Mass/Vol] 2.1 mg/dL 1.6-2.6 [facility] Urea nitrogen/Creatinine [Mass ratio] 16.2 mg/mg 10-20 [facility] Laboratory - Hematology and Cell countsOrdered By: David Orona on 08-02-2023 MCH (RBC) [Entitic mass] 30.1 pg 27.0-32.0 [facility] MCHC (RBC) [Mass/Vol] 34.4 g/dL 32-36 [facility] Nucleated RBC/100 WBC (Bld) [Ratio] 0 % 0-5 [facility] Platelet mean volume (Bld) [Entitic vol] 10.3 fL 6.2-12.0 [facility] Platelets (Bld) [#/Vol] 241 10*3/uL 150-450 [facility] No Panel InformationOrdered By: David Orona on 08-02-2023 Estimated Creatinine Clearance Calc 50.51 ml/min [facility] Estimated GFR (MDRD) Amer 65 mL/min >60 [facility] Comment on above: GFR Calc Estimated GFR (MDRD) Non-Af Amer 54 mL/min >60 [facility] Comment on above: Non- GFR Calc RBC Auto (Bld) [#/Vol]Ordere d By: David Orona on 08-02-2023 RBC (Bld) [#/Vol] 5.18 10*6/uL 4.6-6.2 [facility] Serum or plasma calcium gurjit urement (mass/volume)Ordered By: David Orona on 08-02-2023 Calcium [Mass/Vol] 8.9 mg/dL 8.5-10.1 [facility] Serum or plasma creatinine m easurement (mass/volume)Ordered By: David Orona on 08-02-2023 Creatinine [Mass/Vol] 1.36 mg/dL 0.70-1.30 [facility] Comment on above: The validity of the calculated GFR & GFRAA in patients over 70 years has not been determined. Clinical correlation is essential. Serum or plasma thyroid stim ulating hormone (TSH) measurement (units/volume)Ordered By: David Orona on 08-02-2023 TSH Qn 1.61 uIU/mL 0.358-3.74 [facility] Serum or plasma urea nitroge n measurement (mass/volume)Ordered By: David Orona on 08-02-2023 Urea nitrogen [Mass/Vol] 22 mg/dL 7-18 [facility] Thin prep Papanicolaou smear with manual screeningOrdered By: David Orona on 08-02-2023 Thin prep Papanicolaou smear with manual screening 3.5 g/dL 3.2-5.0 [facility] Thin prep Papanicolaou smear with manual screening 16 U/L 15-37 [facility] Thin prep Papanicolaou smear with manual screening 8 5-15 [facility] Thin prep Papanicolaou smear with manual screening 0.83 ng/dL 0.76-1.46 [facility] Absolute lymphocyte countOrd ered By: Mitchell Guerrero on 08-01-2023 Lymphocytes Auto (Unsp spec) [#/Vol] 1.67 10*3/uL 0.83-4.51 [facility] Automated lymphocyte count a s percentage of total leukocytesOrdered By: Mitchell Guerrero on 08-01-2023 Lymphocytes/100 WBC Auto (Unsp spec) 11.6 % 19-41 [facility] Basophil percentageOrdered B y: Mitchell Guerrero on 08-01-2023 Amylase [Catalytic activity/Vol] 39 U/L 25-115 [facility] Basophils/100 WBC (Bld) 0.3 % 0-1 [facility] Bilirubin [Mass/Vol] 0.80 mg/dL 0.20-1.00 [facility] Comment on above: For patients on eltr ombopag therapy, use of Dimension [place] TBIL is not recommended. Chloride [Moles/Vol] 104 mmol/L 98-107 [facility] Eosinophils/100 WBC (Bld) 0.3 % 0-5 [facility] Glucose [Mass/Vol] 124 mg/dL 74-106 [facility] Comment on above: Fasting Glucose resu lt from 100 to 125 mg/dL suggests IMPAIRED HOMEOSTASIS per A.D.A. criteria. Hemoglobin (Bld) [Mass/Vol] 18.0 g/dL 13.0-16.5 [facility] Comment on above: CRITICAL VALUE VERIF IED. CALLED TO [id number] Zehra Cotton.RESULTS READ BACK BY SAME . Monocytes/100 WBC (Bld) 4.6 % 0-10 [facility] Neutrophils (Bld) [#/Vol] 11.9 10*3/uL 2.0-7.7 [facility] Neutrophils/100 WBC (Bld) 82.8 % 47-70 [facility] Potassium [Moles/Vol] 3.9 mmol/L 3.5-5.1 [facility] Protein [Mass/Vol] 8.9 g/dL 6.4-8.2 [facility] Sodium [Moles/Vol] 139 mmol/L 136-145 [facility] WBC (Bld) [#/Vol] 14.4 10*3/uL 4.4-11.0 [facility] Basophil percentageOrdered B y: David Orona on 08-01-2023 Lactate [Moles/Vol] 1.5 mmol/L 0.4-2.0 [facility] Determination of erythrocyte mean corpuscular volume (MCV)Ordered By: Mitchell Guerrero on 08-01-2023 MCV (RBC) [Entitic vol] 88.6 fL 80-94 [facility] Direct bilirubinOrdered By: Mitchell Guerrero on 08-01-2023 Bilirubin.direct [Mass/Vol] 0.24 mg/dL 0.00-0.30 [facility] Erythrocyte distribution wid th ratioOrdered By: Mitchell Guerrero on 08-01-2023 Erythrocyte distribution width (RBC) [Ratio] 12.6 % 11.6-14.6 [facility] Erythrocyte distribution wid th standard deviationOrdered By: Mitchell Guerrero on 08-01-2023 Erythrocyte distribution width (RBC) [Entitic vol] 40.5 fL 35.1-43.9 [facility] Hematocrit Auto (Bld) [Volum e fraction]Ordered By: Mitchell Guerrero on 08-01-2023 Hematocrit (Bld) [Volume fraction] 53.1 % 40-54 [facility] Immature granulocytes/100 WB C Auto (Bld)Ordered By: Mitchell Guerrero on 08-01-2023 Immature granulocytes/100 WBC (Bld) 0.400 % 0.0-0.9 [facility] Comment on above: IG% - Immature Granu locytes (promyelocytes, myelocytes and metamyelocytes) > 1% indicates that a LEFT SHIFT is Present. Laboratory - Chemistry and C hemistry - challengeOrdered By: Mitchell Guerrero on 08-01-2023 ALP [Catalytic activity/Vol] 109 U/L 45-117 [facility] ALT [Catalytic activity/Vol] 38 U/L 16-61 [facility] CO2 [Moles/Vol] 27.0 mmol/L 21.0-32.0 [facility] Globulin (S) [Mass/Vol] 4.2 g/dL 2.2-4.2 [facility] Lipase [Catalytic activity/Vol] 32 U/L 13-75 [facility] Comment on above: Please note:LIPASE r evised reference range effective 22. New Lipase methodology. Expected to produce lower values than the previous assay method. NEW Reference Range: 13 - 75 U/L Urea nitrogen/Creatinine [Mass ratio] 15.0 mg/mg 10-20 [facility] Laboratory - Hematology and Cell countsOrdered By: Mitchell Guerrero on 08-01-2023 MCH (RBC) [Entitic mass] 30.1 pg 27.0-32.0 [facility] MCHC (RBC) [Mass/Vol] 33.9 g/dL 32-36 [facility] Nucleated RBC/100 WBC (Bld) [Ratio] 0 % 0-5 [facility] Platelet mean volume (Bld) [Entitic vol] 10.1 fL 6.2-12.0 [facility] Platelets (Bld) [#/Vol] 327 10*3/uL 150-450 [facility] No Panel InformationOrdered By: Mitchell Guerrero on 08-01-2023 Estimated Creatinine Clearance Calc 50.10 ml/min [facility] Estimated GFR (MDRD) Amer 63 mL/min >60 [facility] Comment on above: GFR Calc Estimated GFR (MDRD) Non-Af Amer 52 mL/min >60 [facility] Comment on above: Non- GFR Calc Troponin I High Sensitivity 13 pg/mL 3.0-78.0 [facility] Comment on above: Please Note: New [place] t Units and Gender Specific Reference Ranges. For more information see Policy Stat Procedure [place] High Sensitivity Troponin (TNIH) and attachments. RBC Auto (Bld) [#/Vol]Ordere d By: Mitchell Guerrero on 08-01-2023 RBC (Bld) [#/Vol] 5.99 10*6/uL 4.6-6.2 [facility] Serum or plasma calcium gurjit urement (mass/volume)Ordered By: Mitchell Guerrero on 08-01-2023 Calcium [Mass/Vol] 10.3 mg/dL 8.5-10.1 [facility] Serum or plasma creatinine m easurement (mass/volume)Ordered By: Mitchell Guerrero on 08-01-2023 Creatinine [Mass/Vol] 1.40 mg/dL 0.70-1.30 [facility] Comment on above: The validity of the calculated GFR & GFRAA in patients over 70 years has not been determined. Clinical correlation is essential. Serum or plasma urea nitroge n measurement (mass/volume)Ordered By: Mitchell Guerrero on 08-01-2023 Urea nitrogen [Mass/Vol] 21 mg/dL 7-18 [facility] Thin prep Papanicolaou smear with manual screeningOrdered By: Mitchell Guerrero on 08-01-2023 Thin prep Papanicolaou smear with manual screening 4.7 g/dL 3.2-5.0 [facility] Thin prep Papanicolaou smear with manual screening 18 U/L 15-37 [facility] Thin prep Papanicolaou smear with manual screening 8 5-15 [facility] Basophil percentageOrdered B y: Dr. Gary on 08-28-2022 Chloride [Moles/Vol] 107 mmol/L 98-107 [facility] Glucose [Mass/Vol] 86 mg/dL 74-106 [facility] Potassium [Moles/Vol] 4.2 mmol/L 3.5-5.1 [facility] Sodium [Moles/Vol] 138 mmol/L 136-145 [facility] Laboratory - Chemistry and C hemistry - challengeOrdered By: Dr. Gary on 08-28-2022 CO2 [Moles/Vol] 28.0 mmol/L 21.0-32.0 [facility] Urea nitrogen/Creatinine [Mass ratio] 11.8 mg/mg 10-20 [facility] No Panel InformationOrdered By: Dr. Gary on 08-28-2022 Estimated GFR (MDRD) Amer 76 mL/min >60 [facility] Comment on above: GFR Calc Estimated GFR (MDRD) Non-Af Amer 63 mL/min >60 [facility] Comment on above: Non- GFR Calc Serum or plasma calcium gurjit urement (mass/volume)Ordered By: Dr. Gary on 08-28-2022 Calcium [Mass/Vol] 9.3 mg/dL 8.5-10.1 [facility] Serum or plasma creatinine m easurement (mass/volume)Ordered By: Dr. Gary on 08-28-2022 Creatinine [Mass/Vol] 1.19 mg/dL 0.70-1.30 [facility] Comment on above: The validity of the calculated GFR & GFRAA in patients over 70 years has not been determined. Clinical correlation is essential. Serum or plasma urea nitroge n measurement (mass/volume)Ordered By: Dr. Gary on 08-28-2022 Urea nitrogen [Mass/Vol] 14 mg/dL 7-18 [facility] Thin prep Papanicolaou smear with manual screeningOrdered By: Dr. Gary on 08-28-2022 Thin prep Papanicolaou smear with manual screening 3 5-15 [facility] Absolute lymphocyte counton 12-07-2021 Lymphocytes Auto (Unsp spec) [#/Vol] 1.62 10*3/uL 0.83-4.51 [facility] Work Phone: Basophil percentageon 2021 Basophils/100 WBC (Bld) 0.4 % 0-1 [facility] Work Phone: Bilirubin [Mass/Vol] 0.40 mg/dL 0.20-1.00 [facility] Work Phone: Comment on above: For patients on eltr ombopag therapy, use of Dimension [place] TBIL is not recommended. Chloride [Moles/Vol] 109 mmol/L 98-107 [facility] Work Phone: Cholesterol [Mass/Vol] 201 mg/dL <200 [facility] Work Phone: Comment on above: <200 mg/dL Desirable 200-240 mg/dL Borderline >240 mg/dL High Risk Eosinophils/100 WBC (Bld) 3.0 % 0-5 [facility] Work Phone: Glucose [Mass/Vol] 93 mg/dL 74-106 [facility] Work Phone: Neutrophils (Bld) [#/Vol] 2.7 10*3/uL 2.0-7.7 [facility] Work Phone: Neutrophils/100 WBC (Bld) 53.5 % 47-70 [facility] Work Phone: Potassium [Moles/Vol] 4.6 mmol/L 3.5-5.1 [facility] Work Phone: Comment on above: Slight Hemolysis, Re sult may be falsely increased. Protein [Mass/Vol] 7.0 g/dL 6.4-8.2 [facility] Work Phone: Sodium [Moles/Vol] 141 mmol/L 136-145 [facility] Work Phone: Triglyceride [Mass/Vol] 251 mg/dL <199 [facility] Work Phone: Comment on above: The drugs N-Acetylcy steine and Metamizole may falsely depress this assay.Serum Triglycerides Reference Interval Normal <150 mg/dL Borderline high 150 - 199 mg/dL High 200 - 499 mg/dL Very High > or = 500 mg/dL WBC (Bld) [#/Vol] 5.0 10*3/uL 4.4-11.0 [facility] Work Phone: Blood erythrocytes count (nu mber/volume)on 12-07-2021 RBC (Bld) [#/Vol] 4.89 10*6/uL 4.6-6.2 [facility] Work Phone: Blood hemoglobin measurement (mass/volume)on 12-07-2021 Hemoglobin (Bld) [Mass/Vol] 14.9 g/dL 13.0-16.5 [facility] Work Phone: Blood lymphocytes/100 leukoc yteson 12-07-2021 Lymphocytes/100 WBC (Bld) 32.5 % 19-41 [facility] Work Phone: Blood monocytes/100 leukocyt eson 12-07-2021 Monocytes/100 WBC (Bld) 10.2 % 0-10 [facility] Work Phone: Blood platelet mean volumeon 12-07-2021 Platelet mean volume (Bld) [Entitic vol] 11.0 fL 6.2-12.0 [facility] Work Phone: Determination of erythrocyte mean corpuscular volume (MCV)on 12-07-2021 MCV (RBC) [Entitic vol] 91.2 fL 80-94 [facility] Work Phone: Hematocrit Auto (Bld) [Volum e fraction]on 12-07-2021 Hematocrit (Bld) [Volume fraction] 44.6 % 40-54 [facility] Work Phone: Laboratory - Chemistry and C hemistry - challengeon 12-07-2021 ALP [Catalytic activity/Vol] 86 U/L 45-117 [facility] Work Phone: ALT [Catalytic activity/Vol] 50 U/L 16-61 [facility] Work Phone: CO2 [Moles/Vol] 26.0 mmol/L 21.0-32.0 [facility] Work Phone: Globulin (S) [Mass/Vol] 3.4 g/dL 2.2-4.2 [facility] Work Phone: Urea nitrogen/Creatinine [Mass ratio] 17.8 mg/mg 10-20 [facility] Work Phone: Laboratory - Hematology and Cell countson 12-07-2021 Erythrocyte distribution width (RBC) [Entitic vol] 40.8 fL 35.1-43.9 [facility] Work Phone: Erythrocyte distribution width (RBC) [Ratio] 12.3 % 11.6-14.6 [facility] Work Phone: Immature granulocytes/100 WBC (Bld) 0.400 % 0.0-0.9 [facility] Work Phone: Comment on above: IG% - Immature Granu locytes (promyelocytes, myelocytes and metamyelocytes) > 1% indicates that a LEFT SHIFT is Present. MCH (RBC) [Entitic mass] 30.5 pg 27.0-32.0 [facility] Work Phone: Nucleated RBC/100 WBC (Bld) [Ratio] 0 % 0-5 [facility] Work Phone: MCHC Auto (RBC) [Mass/Vol]on 12-07-2021 MCHC (RBC) [Mass/Vol] 33.4 g/dL 32-36 [facility] Work Phone: No Panel Informationon 12-07 Estimated GFR (MDRD) Amer 87 mL/min >60 [facility] Work Phone: Comment on above: GFR Calc Estimated GFR (MDRD) Non-Af Amer 72 mL/min >60 [facility] Work Phone: Comment on above: Non- GFR Calc Platelets bldon 12-07-2021 Platelets (Bld) [#/Vol] 229 10*3/uL 150-450 [facility] Work Phone: Serum or plasma albumin gurjit urement (mass/volume)on 12-07-2021 Albumin [Mass/Vol] 3.6 g/dL 3.2-5.0 [facility] Work Phone: Serum or plasma albumin/glob ulin mass ratioon 12-07-2021 Albumin/Globulin [Mass ratio] 1.1 {ratio} 0.9-2.4 [facility] Work Phone: Serum or plasma calcium gurjit urement (mass/volume)on 12-07-2021 Calcium [Mass/Vol] 8.7 mg/dL 8.5-10.1 [facility] Work Phone: Serum or plasma cholesterol in HDL measurement (mass/volume)on 12-07-2021 Cholesterol in HDL [Mass/Vol] 47 mg/dL >40 [facility] Work Phone: Comment on above: The drugs N-Acetylcy steine and Metamizole may falsely depress this assay. Reference Range HDL <40 mg/dL Low HDL Cholesterol HDL >or= 60 mg/dL High HDL Cholesterol Serum or plasma cholesterol in VLDL measurement (mass/volume)on 12-07-2021 Cholesterol in VLDL [Mass/Vol] 50 mg/dL 5-40 [facility] Work Phone: Serum or plasma creatinine m easurement (mass/volume)on 12-07-2021 Creatinine [Mass/Vol] 1.07 mg/dL 0.70-1.30 [facility] Work Phone: Comment on above: The validity of the calculated GFR & GFRAA in patients over 70 years has not been determined. Clinical correlation is essential. Serum or plasma low density lipoprotein (LDL) cholesterol measurement (mass/volume)on 12-07-2021 Cholesterol in LDL [Mass/Vol] 104 mg/dL 0-130 [facility] Work Phone: Serum or plasma urea nitroge n measurement (mass/volume)on 12-07-2021 Urea nitrogen [Mass/Vol] 19 mg/dL 7-18 [facility] Work Phone: Thin prep Papanicolaou smear with manual screeningon 12-07-2021 Thin prep Papanicolaou smear with manual screening 28 U/L 15-37 [facility] Work Phone: Comment on above: Slight Hemolysis, Re sult may be falsely increased. Thin prep Papanicolaou smear with manual screening 6 5-15 [facility] Work Phone: Basophil percentageon 2021 Chloride [Moles/Vol] 109 mmol/L 98-107 [facility] Work Phone: Glucose [Mass/Vol] 99 mg/dL 74-106 [facility] Work Phone: Potassium [Moles/Vol] 4.3 mmol/L 3.5-5.1 [facility] Work Phone: Sodium [Moles/Vol] 141 mmol/L 136-145 [facility] Work Phone: Laboratory - Chemistry and C hemistry - challengeon 09-15-2021 CO2 [Moles/Vol] 28.0 mmol/L 21.0-32.0 [facility] Work Phone: Urea nitrogen/Creatinine [Mass ratio] 14.6 mg/mg 10-20 [facility] Work Phone: No Panel Informationon 09-15 Estimated GFR (MDRD) Amer 74 mL/min >60 [facility] Work Phone: Comment on above: GFR Calc Estimated GFR (MDRD) Non-Af Amer 61 mL/min >60 [facility] Work Phone: Comment on above: Non- GFR Calc Serum or plasma calcium gurjit urement (mass/volume)on 09-15-2021 Calcium [Mass/Vol] 9.4 mg/dL 8.5-10.1 [facility] Work Phone: Serum or plasma creatinine m easurement (mass/volume)on 09-15-2021 Creatinine [Mass/Vol] 1.23 mg/dL 0.70-1.30 [facility] Work Phone: Comment on above: The validity of the calculated GFR & GFRAA in patients over 70 years has not been determined. Clinical correlation is essential. Serum or plasma urea nitroge n measurement (mass/volume)on 09-15-2021 Urea nitrogen [Mass/Vol] 18 mg/dL 7-18 [facility] Work Phone: Thin prep Papanicolaou smear with manual screeningon 09-15-2021 Thin prep Papanicolaou smear with manual screening 4 5-15 [facility] Work Phone: CNOVon 05-19-2019 CNOV Office Visit (AGCARDPOB) ---- PETEY VILA ([id number]) 1945 M Date Time Provider Department 05/19/19 2:00 PM ELENI PATTEN AGCARDPOB During your visit today, we recorded the following information about you: Pulse Respiration Blood pressure Weight 59/minute 16/minute 138/84 90.1 kg Height 1.753 m Eleni Patten DO 05/19/2019 3:17 PM Signed PRIMARY CARE PHYSICIAN: Bonilla Gary MD ([facility]) [address] [place] [address] REFERRING PHYSICIAN: SELF CHIEF COMPLAINT: No chief [...] will ask Dr. Tillman to perform in [place] and send me the results. I discussed [...] W INTERP (MED OFFICE) [ECG06] Order #: [id number] Prescriptions as of 05/19/2019 Sig: OLMESARTAN 5 [...] 05/19/2019 2:05 PM >> MELVINA GUAN MA [facility] May 19, 2019 2:05 PM Not taking ASPIRIN 325 MG TABLET,DELAYED RELEASE >> Melvina Guan MA 05/19/2019 2:05 PM >> MELVINA GUAN MA May 19, 2019 2:05 PM Not taking LISINOPRIL 5 MG TABLET >> Melvina Guan MA 05/19/2019 2:05 PM >> MELVINA GUAN MA [facility] May 19, 2019 2:05 PM Not taking Problem List As Of Date: 05/19/2019 (None) Visit Notes: >> Melvina Guan [facility] May 19, 2019 2:04 PM Status: Signed [...] Encounter Status:Closed by ELENI PATTEN on 05/19/19 [facility] PROGRESSon 05-19-2019 PROGRESS HNO ID: [id number] Author: Eleni Patten Service: ? Author Type: Physician Type: Progress Notes Filed: 05/19/2019 3:17 PM Note Text: PRIMARY CARE PHYSICIAN: Bonilla Gary MD ([facility]) [address] [place] [address] REFERRING PHYSICIAN: SELF CHIEF COMPLAINT: No chief [...] will ask Dr. Tillman to perform in [place] and send me the results. I discussed with Petey as long as his holter is stable with no signfiicant change from his prior that I recommend we just continue his current therapy. As he is already seeing Dr. Tillman on a regular basis, if no change he can follow with me as needed. Eleni Patten, DO [facility] OBSOLETEon 01-22-2019 OBSOLETE Refill (AGCARDPH) ---- CAMACHOPETEY Alvarenga ([id number]) 1945 M Date Time Provider Department 01/22/19 [...] Encounter Status:Closed by ELENI PATTEN on 01/22/19 [facility] Vital Signs Date Time Vital Sign Value Performing Clinician Omar dunbar 10-03-2024 07:58-0400 Body height 175.[address] Bonilla Gary MD Work Phone: [facility] 10-03-2024 07:58-0400 Body mass index (BMI) [Ratio] 30.7 kg/m2 Dr. Bonilla Gary MD Work Phone: [facility] 10-03-2024 07:58-0400 Body temperature 97.3 [degF] Dr. Bonilla Gary MD Work Phone: [facility] 10-03-2024 07:58-0400 Body weight 94.[address] Bonilla Gary MD Work Phone: [facility] 10-03-2024 07:58-0400 Diastolic blood pressure 83 mm[Hg] Dr. Bonilla Gary MD Work Phone: [facility] 10-03-2024 07:58-0400 Heart rate 61 /min Dr. Bonilla Gary MD Work Phone: [facility] 10-03-2024 07:58-0400 Respiratory rate 18 /min Dr. Bonilla Gary MD Work Phone: [facility] 10-03-2024 07:58-0400 Systolic blood pressure 146 mm[Hg] Dr. Bonilla Gary MD Work Phone: [facility] 09-24-2024 11:28-0400 Body height 175.[address] Bonilla Gary MD Work Phone: [facility] 09-24-2024 11:28-0400 Body mass index (BMI) [Ratio] 30.4 kg/m2 Dr. Bonilla Gary MD Work Phone: [facility] 09-24-2024 11:28-0400 Body weight 93.[address] Bonilla Gary MD Work Phone: [facility] 09-24-2024 11:28-0400 Diastolic blood pressure 95 mm[Hg] Dr. Bonilla Gary MD Work Phone: [facility] 09-24-2024 11:28-0400 Heart rate 60 /min Dr. Bonilla Gary MD Work Phone: [facility] 09-24-2024 11:28-0400 Respiratory rate 16 /min Dr. Bonilla Gary MD Work Phone: [facility] 09-24-2024 11:28-0400 Systolic blood pressure 150 mm[Hg] Dr. Bonilla Gary MD Work Phone: [facility] 07-09-2024 10:17-0500 Body height 175.[address] Bonilla Gary MD Work Phone: [facility] 07-09-2024 10:17-0500 Body mass index (BMI) [Ratio] 30.7 kg/m2 Dr. Bonilla Gary MD Work Phone: [facility] 07-09-2024 10:17-0500 Body temperature 98 [degF] Dr. Bonilla Gary MD Work Phone: [facility] 07-09-2024 10:17-0500 Body weight 94.[address] Bonilla Gary MD Work Phone: [facility] 07-09-2024 10:17-0500 Diastolic blood pressure 80 mm[Hg] Dr. Bonilla Gary MD Work Phone: [facility] 07-09-2024 10:17-0500 Heart rate 58 /min Dr. Bonilla Gary MD Work Phone: [facility] 07-09-2024 10:17-0500 Respiratory rate 14 /min Dr. Bonilla Gary MD Work Phone: [facility] 07-09-2024 10:17-0500 SaO2% (BldA) [Mass fraction] 97 % Dr. Bonilla Gary MD Work Phone: [facility] 07-09-2024 10:17-0500 Systolic blood pressure 120 mm[Hg] Dr. Bonilla Gary MD Work Phone: [facility] 03-26-2024 11:35-0500 Body mass index (BMI) [Ratio] 30.4 kg/m2 Dr. Bonilla Gary MD Work Phone: [facility] 03-26-2024 11:35-0500 Body weight 93.[address] Bonilla Gary MD Work Phone: [facility] 03-26-2024 11:35-0500 Diastolic blood pressure 95 mm[Hg] Dr. Bonilla Gary MD Work Phone: [facility] 03-26-2024 11:35-0500 Heart rate 68 /min Dr. Bonilla Gary MD Work Phone: [facility] 03-26-2024 11:35-0500 Respiratory rate 18 /min Dr. Bonilla Gary MD Work Phone: [facility] 03-26-2024 11:35-0500 SaO2% (BldA) [Mass fraction] 97 % Dr. Bonilla Gary MD Work Phone: [facility] 03-26-2024 11:35-0500 Systolic blood pressure 154 mm[Hg] Dr. Bonilla Gary MD Work Phone: [facility] 08-10-2023 10:42-0400 Body height 175.[address] Bonilla Gary Work Phone: [facility] 08-10-2023 10:42-0400 Body mass index (BMI) [Ratio] 30.2 kg/m2 Dr. Bonilla Gary Work Phone: [facility] 08-10-2023 10:42-0400 Body temperature 97.5 [degF] Dr. Bonilla Gary Work Phone: [facility] 08-10-2023 10:42-0400 Body weight 92.[address] Bonilla Gary Work Phone: [facility] 08-10-2023 10:42-0400 Diastolic blood pressure 86 mm[Hg] Dr. Bonilla Gary Work Phone: [facility] 08-10-2023 10:42-0400 Heart rate 43 /min Dr. Bonilla Gary Work Phone: [facility] 08-10-2023 10:42-0400 Respiratory rate 16 /min Dr. Bonilla Gary Work Phone: [facility] 08-10-2023 10:42-0400 SaO2% (BldA) [Mass fraction] 99 % Dr. Bonilla Gary Work Phone: [facility] 08-10-2023 10:42-0400 Systolic blood pressure 134 mm[Hg] Dr. Bonilla Gary Work Phone: [facility] 08-02-2023 15:00-0400 Body temperature 97.5 [degF] Dr. Bonilla Gary Work Phone: [facility] 08-02-2023 15:00-0400 Diastolic blood pressure 78 mm[Hg] Dr. Bonilla Gary Work Phone: [facility] 08-02-2023 15:00-0400 Heart rate 74 /min Dr. Bonilla Gary Work Phone: [facility] 08-02-2023 15:00-0400 Respiratory rate 16 /min Dr. Bonilla Gary Work Phone: [facility] 08-02-2023 15:00-0400 SaO2% (BldA) [Mass fraction] 95 % Dr. Bonilla Gary Work Phone: [facility] 08-02-2023 15:00-0400 Systolic blood pressure 110 mm[Hg] Dr. Bonilla Gary Work Phone: [facility] 08-02-2023 13:50-0400 Body height 175.[address] Bonilla Gary Work Phone: [facility] 08-02-2023 13:50-0400 Body weight 90.[address] Bonilla Gary Work Phone: [facility] 08-02-2023 06:00-0400 Body mass index (BMI) [Ratio] 29.2 kg/m2 Dr. Bonilla Gary Work Phone: [facility] 08-02-2023 00:00-0400 Body temperature 98.1 [degF] [facility] 08-02-2023 00:00-0400 Diastolic blood pressure 81 mm[Hg] [facility] 08-02-2023 00:00-0400 Heart rate 86 /min [facility] 08-02-2023 00:00-0400 Respiratory rate 22 /min [facility] 08-02-2023 00:00-0400 SaO2% (BldA) [Mass fraction] 92 % [facility] 08-02-2023 00:00-0400 Systolic blood pressure 111 mm[Hg] [facility] 08-01-2023 19:30-0400 Body height 177.8 cm [facility] 08-01-2023 19:30-0400 Body mass index (BMI) [Ratio] 28.7 kg/m2 [facility] 08-01-2023 19:30-0400 Body weight 90.9 kg [facility] 08-28-2022 08:58-0400 Body height 175.[address] Bonilla Gary Work Phone: [facility] 08-28-2022 08:58-0400 Body mass index (BMI) [Ratio] 29.9 kg/m2 Dr. Bonilla Gary Work Phone: [facility] 08-28-2022 08:58-0400 Body temperature 97.5 [degF] Dr. Bonilla Gary Work Phone: [facility] 08-28-2022 08:58-0400 Body weight 92.[address] Bonilla Gary Work Phone: [facility] 08-28-2022 08:58-0400 Diastolic blood pressure 72 mm[Hg] Dr. Bonilla Gary Work Phone: [facility] 08-28-2022 08:58-0400 Heart rate 57 /min Dr. Bonilla Gary Work Phone: [facility] 08-28-2022 08:58-0400 Respiratory rate 16 /min Dr. Bonilla Gary Work Phone: [facility] 08-28-2022 08:58-0400 SaO2% (BldA) [Mass fraction] 95 % Dr. Bonilla Gary Work Phone: [facility] 08-28-2022 08:58-0400 Systolic blood pressure 112 mm[Hg] Dr. Bonilla Gary Work Phone: [facility] 11-25-2021 10:10-0400 Body height 175.[address] Bonilla Gary Work Phone: [facility] Work Phone: 11-25-2021 10:10-0400 Body mass index (BMI) [Ratio] 28.6 kg/m2 Dr. Bonilla Gary Work Phone: [facility] Work Phone: 11-25-2021 10:10-0400 Body temperature 98.4 [degF] Dr. Bonilla Gary Work Phone: [facility] Work Phone: 11-25-2021 10:10-0400 Body weight 87.[address] Bonilla Gary Work Phone: [facility] Work Phone: 11-25-2021 10:10-0400 Diastolic blood pressure 90 mm[Hg] Dr. Bonilla Gary Work Phone: [facility] Work Phone: 11-25-2021 10:10-0400 Heart rate 57 /min Dr. Bonilla Gary Work Phone: [facility] Work Phone: 11-25-2021 10:10-0400 Respiratory rate 16 /min Dr. Bonilla Gary Work Phone: [facility] Work Phone: 11-25-2021 10:10-0400 SaO2% (BldA) [Mass fraction] 96 % Dr. Bonilla Gary Work Phone: [facility] Work Phone: 11-25-2021 10:10-0400 Systolic blood pressure 142 mm[Hg] Dr. Bonilla Gary Work Phone: [facility] Work Phone: 10-27-2021 13:51-0400 Body height 175.[address] Bonilla Gary Work Phone: [facility] Work Phone: 10-27-2021 13:51-0400 Body mass index (BMI) [Ratio] 28.5 kg/m2 Dr. Bonilla Gary Work Phone: [facility] Work Phone: 10-27-2021 13:51-0400 Body weight 87.[address] Bonilla Gary Work Phone: [facility] Work Phone: 10-27-2021 13:51-0400 Diastolic blood pressure 74 mm[Hg] Dr. Bonilla Gary Work Phone: [facility] Work Phone: 10-27-2021 13:51-0400 Heart rate 52 /min Dr. Bonilla Gary Work Phone: [facility] Work Phone: 10-27-2021 13:51-0400 Respiratory rate 16 /min Dr. Bonilla Gary Work Phone: [facility] Work Phone: 10-27-2021 13:51-0400 Systolic blood pressure 140 mm[Hg] Dr. Bonilla Gary Work Phone: [facility] Work Phone: 08-24-2021 11:01-0400 Body mass index (BMI) [Ratio] 29.3 kg/m2 Dr. Bonilla Gary Work Phone: [facility] Work Phone: 08-24-2021 11:01-0400 Body temperature 97.6 [degF] Dr. Bonilla Gary Work Phone: [facility] Work Phone: 08-24-2021 11:01-0400 Body weight 90.[address] Bonilla Gary Work Phone: [facility] Work Phone: 08-24-2021 11:01-0400 Diastolic blood pressure 100 mm[Hg] Dr. Bonilla Gary Work Phone: [facility] Work Phone: 08-24-2021 11:01-0400 Heart rate 70 /min Dr. Bonilla Gary Work Phone: [facility] Work Phone: 08-24-2021 11:01-0400 Respiratory rate 16 /min Dr. Bonilla Gary Work Phone: [facility] Work Phone: 08-24-2021 11:01-0400 SaO2% (BldA) [Mass fraction] 96 % Dr. Bonilla Gary Work Phone: [facility] Work Phone: 08-24-2021 11:01-0400 Systolic blood pressure 156 mm[Hg] Dr. Bonilla Gary Work Phone: [facility] Work Phone: 08-24-2021 11:01-0400 Body height 175.[address] Bonilla Gary Work Phone: [facility] Work Phone: 08-24-2021 11:01-0400 Body mass index (BMI) [Ratio] 29.3 kg/m2 Dr. Bonilla Gary Work Phone: [facility] Work Phone: 08-24-2021 11:01-0400 Body temperature 97.6 [degF] Dr. Bonilla Gary Work Phone: [facility] Work Phone: 08-24-2021 11:01-0400 Body weight 90.[address] Bonilla Gary Work Phone: [facility] Work Phone: 08-24-2021 11:01-0400 Diastolic blood pressure 100 mm[Hg] Dr. Bonilla Gary Work Phone: [facility] Work Phone: 08-24-2021 11:01-0400 Heart rate 70 /min Dr. Bonilla Gary Work Phone: [facility] Work Phone: 08-24-2021 11:01-0400 Respiratory rate 16 /min Dr. Bonilla Gary Work Phone: [facility] Work Phone: 08-24-2021 11:01-0400 SaO2% (BldA) [Mass fraction] 96 % Dr. Bonilla Gary Work Phone: [facility] Work Phone: 08-24-2021 11:01-0400 Systolic blood pressure 156 mm[Hg] Dr. Bonilla Gary Work Phone: [facility] Work Phone: Encounters Encounter Date Encounter Type Care Provider Facility Start: 10-15-2024 ambulatory Gale SHAW Facility:[facility] Start: 10-09-2024 ambulatory Bonilla Zapata ty:[facility] Start: 10-03-2024 End: 10-03-2024 Patient encounter procedure Renée Chau NP-C -[facility] Work Phone: Start: 10-03-2024 End: 10-03-[address] Bonilla Gary MD Work Phone: [facility] Work Phone: Start: 09-24-2024 End: 09-24-2024 Patient encounter procedure Gale Arizmendi PA -[facility] Work Phone: Start: 09-24-2024 End: 09-24-[address] Bonilla Gary MD Work Phone: [facility] Work Phone: Start: 07-09-2024 End: 07-09-[address] Bonilla Gary MD Work Phone: [facility] Work Phone: Start: 07-09-2024 End: 07-09-[address] Bonilla Gary MD -Laboratory, [facility] Start: 07-09-2024 End: 07-09-[address] Bonilla Gary MD -[facility] Work Phone: Start: 07-09-2024 End: 07-09-2024 [facility] Start: 07-09-2024 End: 07-09-2024 [facility] Start: 03-26-2024 End: 03-26-2024 Patient encounter procedure Rosalba Hamlin SONG PLUGGER- -[facility] Work Phone: Start: 03-26-2024 End: 03-26-2024 ambulatory Rosalba Hamlin NP [facility] Start: 03-12-2024 End: 03-12-2024 [facility] Start: 03-12-2024 End: 03-12-2024 [facility] Start: 02-18-2024 ambulatory Rosalba Hamlin NP Facili ty:[facility] Start: 01-15-2024 End: 01-15-2024 ambulatory Renée Chau NP Facility:[facility] Start: 11-09-[address] Bonilla Gary MD Work Phone: [facility] Start: 11-09-2023 End: 11-09-2023 [facility] Start: 11-09-2023 End: 11-09-2023 [facility] Start: 08-10-2023 End: 08-10-[address] Bonilla Gary Work Phone: [facility] Work Phone: Start: 08-10-2023 End: 08-10-[address] [facility] Work Phone: Start: 08-02-2023 Non-patient / Non-visit Dr. Josr Gary Work Phone: [facility] Work Phone: Start: 08-02-2023 Non-patient / Non-visit Dr. Josr Gary Work Phone: [facility] Start: 08-01-2023 End: 08-02-2023 Evaluation and management of inpatient [facility]illa [facility] Start: 08-01-2023 [facility] Start: 08-28-2022 End: 08-28-[address] Bonilla Gary Work Phone: [facility] Work Phone: Start: 08-28-2022 End: 08-28-[address] Bonilla Gary Work Phone: [facility] Start: 12-07-2021 End: 12-07-[address] Bonilla Gary Work Phone: [facility] Start: 11-25-2021 End: 11-25-[address] Bonilla Gary Work Phone: [facility] Start: 11-17-2021 End: 11-17-[address] [facility] Start: 10-27-2021 End: 10-27-[address] Bonilla Gary Work Phone: [facility] Start: 09-15-2021 End: 09-15-[address] Bonilla Gary Work Phone: [facility] Start: 08-24-2021 End: 08-24-[address] Bonilla Gary Work Phone: [facility] Start: 12-31-2017 End: 12-31-2017 Patient encounter MARION PATTEN Facility:[facility] Procedures Date Procedure Procedure Detail Performing Clinician [...] Activity Detail Author Start: 08-10-2023 Patient referral [facility] Work Phone: Start: 08-02-2023 Patient discharge [facility] Start: 08-02-2023 [facility] Start: 08-02-2023 Thyroid stimulating hormone measurement [facility] Start: 08-02-2023 [facility] Start: 08-02-2023 Application of inter mittent pneumatic compression device [facility] Start: 08-02-2023 Following clinical p athway protocol [facility] Start: 08-02-2023 Aspiration precautions [facility] Start: 08-02-2023 Assessment of risk o f venous thromboembolism [facility] Start: 08-02-2023 Documentation procedure [facility] Start: 08-02-2023 Enteric precautions [facility] Start: 08-02-2023 Incentive spirometry [facility] Start: 08-02-2023 Insertion of cathete r into peripheral vein [facility] Start: 08-02-2023 Measuring intake and output [facility] Start: 08-02-2023 Oxygen therapy [facility] Start: 08-02-2023 Providing care accor ding to standard [facility] Start: 08-02-2023 Provision of activity privileges [facility] Start: 08-02-2023 Referral to occupational therapist [facility] Start: 08-02-2023 Referral to service [facility] Start: 08-02-2023 [facility] Start: 08-02-2023 Patient referral to dietitian [facility] Start: 08-01-2023 Clostridioides diffi cile DNA [Presence] in Unspecified specimen by KEVIN with probe detection [facility] Start: 08-01-2023 Gastrointestinal pat hogens panel - Stool by KEVIN with probe detection [facility] Start: 08-01-2023 Lactoferrin [Presenc e] in Stool by Immunoassay [facility] Start: 08-01-2023 Verification routine [facility] Start: 08-01-2023 Admission procedure [facility] Start: 08-01-2023 [facility] Alanine aminotransfe rase [Enzymatic activity/volume] in Serum or Plasma [facility] Albumin [Mass/volume ] in Serum or Plasma [facility] Alkaline phosphatase [Enzymatic activity/volume] in Serum or Plasma [facility] Anion gap measurement [facility] Aspartate aminotrans ferase [Enzymatic activity/volume] in Serum or Plasma [facility] Bilirubin, total measurement [facility] BUN/Creatinine ratio [facility] Calcium [Mass/volume ] in Serum or Plasma [facility] Carbon dioxide, tota l [Moles/volume] in Serum or Plasma [facility] Chloride [Moles/volu me] in Serum or Plasma [facility] Creatinine [Moles/vo lume] in Serum or Plasma [facility] Erythrocyte mean cor puscular volume determination [facility] Glucose [Mass/volume ] in Serum or Plasma [facility] Hematocrit [Volume F raction] of Blood [facility] Hemoglobin [Mass/volume] in Blood [facility] Lactic acid measurement [facility] Leukocytes [#/volume] in Blood [facility] Magnesium [Mass/volu me] in Serum or Plasma [facility] Mean corpuscular hem oglobin concentration determination [facility] Mean corpuscular hem oglobin determination [facility] Measurement of renal function [facility] Neutrophil count [facility] Neutrophil percent d ifferential count [facility] Ova and parasites id entified in Unspecified specimen by Light microscopy [facility] Patient referral [facility] Work Phone: Platelets [#/volume] in Blood [facility] Potassium [Moles/vol ume] in Serum or Plasma [facility] Radionuclide imaging of perfusion of myocardium under exercise stress [facility] Red blood cell count [facility] Red cell distributio n width determination [facility] Serum inorganic phos phate measurement [facility] Sodium [Moles/volume ] in Serum or Plasma [facility] Total protein measurement [facility] Urea nitrogen [Mass/ volume] in Serum or Plasma [facility] Payers Date Payer Category Payer Self-pay [id number] 2023 Private Health Insurance 101 [id number] Medicare [id number] Unknown VA AUTH REQUIR ED SEE NOTE [id number] Unknown [id number] Unknown [id number] 62 Unknown [id number] 62 Unknown [id number] 62 Unknown [id number]..[id number] 62 Unknown [id number] 62 Unknown [id number] 62 Unknown [id number] 62 Unknown [id number] 62 Unknown [id number] 62 Unknown [id number] 62 Unknown [id number] 62 Unknown [id number] 62 Unknown [id number] 62 Social History Date Type Detail Facility Start: 08-24-2021 End: 08-10-2023 Tobacco smoking status NHIS Unknown if ever smoked [facility] Start: 1945 Sex Assigned At Male [facility] Start: 06-26-2017 None [facility] Start: 06-26-2017 Spouse/ Signif icant Other [facility] Start: 06-26-2017 Non-smoker [facility] Start: 08-10-2023 Tobacco smoking status NHIS Never smoked tobacco (finding) [facility] Start: 07-19-2024 Sex Male (finding) [facility] Functional Status Date Assessment Result Facility 08-02-2023 Functional status Ambulates [facility] Work Phone: Mental Status Date Assessment Result Facility 08-02-2023 Cognitive function Awake;Alert;A ppropriate;Fol lows Commands [facility] Work Phone: 08-01-2023 Cognitive function Awake;Alert;A ppropriate;Fol lows Commands [facility] Work Phone: Clinical Notes 06-30-2020 to 07-09-2024 Note Date & Type Note Facility 07-09-2024 Evaluation note Diagnosis Onset Date Resolution GERD (gastroesophageal reflux disease) acute July 09, 2024 10:04am Brain fog chronic July 09 10:04am Essential hypertension chronic [facility] 2024 10:04am ASTRID (obstructive sleep apnea) chronic July 09, 2024 10:04am Paroxysmal atrial fibrillation chronic July 09, 2024 10:04am Chest pain acute September 24, 2024 11:18am Essential hypertension chronic Ma y 2024 11:18am ASTRID (obstructive sleep apnea) chronic September 24, 2024 11:18am Paroxysmal atrial fibrillation chronic September 24, 2024 11:18am [facility] Work Phone: 1(109) 451-289411-20-2024 Evaluation note* Diagnosis Onset Date Resolution Status Admit Date Essential hypertension chronic No vember 2023 11:31am ASTRID (obstructive sleep apnea) chroni c March 26, 2024 11:31am Paroxysmal atrial fibrillation chron ic March 26, 2024 11:31am GERD (gastroesophageal reflu x disease) acute July 09, 2024 10:04am Brain fog chronic July 09 10:04am Essential hypertension chronic [facility] 2024 10:04am ASTRID (obstructive sleep apnea) chroni c July 09, 2024 10:04am Paroxysmal atrial fibrillation chron ic July 09, 2024 10:04am [facility] Work Phone: 1(312) 324-269303-28-2024 Consult note Author Devante Singh [facility] August 02, 2023 7:55am Note Date/Time August 02, 2023 7:5 5am [facility] Medical Records Department [address] [place] [address] Consultation - Surgical 08/02/23 0752 MR#: [id number] Acct: [id number] Name: CALEB VILA Rep #:[id number] : 1945 78 From: Devante swan MD PCP: Dr. Bonilla Gary MD Status:A DM IN Location: [place] [id number]- [id number] Assessment & Plan Assessment/Plan (1) Gastroenteritis: [...] tolerated around lunchtime. Devante Singh MD Pager: [facility] [address] [place] [address], [address] [place] [address] Office: HPI Consult Data Date of Consult: [...] reports it to be mild this morning. [facility] Medical History Bradycardia Carotid stenosis, left COVID-19 [...] dietary supplement 08/02/23 [History Last Taken 08/01/23] mmeifuue-zw-hvdrj 300 mcg-K 60 mcg-lycop 600 mcg-lutein 300 mcg tablet (Centrum Silver Ultra Men's) 1 tab PO DAILY dietary supplement 08/02/23 [History Last Taken 08/01/23] omega 7-nkp-vro-fish oil 1,200 mg (144 mg-216 mg) capsule [...] (Auto) 82.8 H, Lymph % (Auto) 11.6 L,Pine % (Auto) 4.6, Eos % (Auto) 0.3, [...] 87.1 H, Lymph % (Auto) 5.2 L, Pine %(Auto) 7.1, Eos % (Auto) 0.1, Baso [...] Blum DO at 21:56 EDT , 08/02/23 075 <Electronically signed by Devante Singh MD> Cosigner Signature (if applicable): CC: Dr. David Banks DO; Dr. Bonilla Gary MD~ Signed [facility] Work Phone: 1(885) 853-805703-28-2024 History and physical note Author David Orona [facility] August 02, 2023 6:12am Note Date/Time August 01, 2023 10: 47pm [facility] Medical Records Department [address] [place] [address] H&P Exam - Hospitalist 08/01/23 6045 MR#: [id number] Acct: [id number] Name: CALEB VILA Rep #:[id number] : 1945 78 From: David Gomes DO PCP: Dr. Bonilla Gary MD Status:A DM IN Location: [place] [id number]- 1 HPI - General General Date of Admission: 08/01/23 Date of Service: 08/01/23 Chief Complaint: Nausea, Vomiting and Palpitations. [facility] Narrative CALEB VILA, is a 78 M with a past medical history of essential hypertension, history of subclinical hypothyroidism, overweight; BMI of 28.8 this admission, obstructive sleep apnea; on CPAP, paroxysmal atrial fibrillation; on Eliquis andmetoprolol, history of Left carotid stenosis, neuropathy; of both feet, BPPV, history of COVID-19, GERD and osteoarthritis who presents to [facility] ER complaining of nausea, vomiting [...] expected to be greater than 48 hours. [facility] Medical History Bradycardia Carotid stenosis, left COVID-19 [...] dietary supplement 08/02/23 [History Last Taken 08/01/23] aoazyfgi-hv-rtstf 300 mcg-K 60 mcg-lycop 600 mcg-lutein 300 mcg tablet (Centrum Silver Ultra Men's) 1 tab PO DAILY dietary supplement 08/02/23 [History Last Taken 08/01/23] omega 0-aur-ngp-fish oil 1,200 mg (144 mg-216 mg) capsule [...] (Auto) 82.8 H, Lymph % (Auto) 11.6 L,Pine % (Auto) 4.6, Eos % (Auto) 0.3, [...] 55 minutes. Charges/Coding Visit Charges Inpatient E&M: 34895 Init Hosp L2 08/02/23 0612 <Electronically signed by David Banks DO> Cosigner Signature (if applicable): CC: Dr. David Banks DO; Dr. Bonilla Gary MD~ Signed [facility] Work Phone: 1(164) 129-104003-28-2024 Discharge summary Author Mitchell Guerrero [facility] August 01, 2023 10:33pm Note Date/Time August 01, 2023 7:5 9pm [facility] Medical Records Department [address] [place] [address] Emergency Department Summary 08/01/23 MR#: [id number] Acct: [id number] Name: CALEB VILA Rep #:[id number] : 1945 78 From: Mitchell Guerrero MD PCP: Dr. Bonilla Gary MD Status:A DM [facility] <Parris Erickson RN - Last [...] Prior similar symptoms: No Recent Illness/Hospitalization: No [facility] <Parris Erickson RN - Last Filed: 08/01/23 22:30> [facility] Medical History Bradycardia Carotid stenosis, left COVID-19 [...] Erickson RN - Last Filed: 08/01/23 22:30> [facility] MDM Narrative Medical decision making narrative: Patient placed on real time analyst. IV line initiated. EKG obtained to evaluatefor [...] 82.8 H Lymph % (Auto) 11.6 L Pine % (Auto) 4.6 Eos % (Auto) 0.3 [...] Guerrero MD - Last Filed: 08/01/23 22:21> [facility] Narrative Medical decision making narrative: Patient placed on real time analyst. IV line initiated. EKG obtained to evaluate [...] 82.8 H Lymph % (Auto) 11.6 L Pine % (Auto) 4.6 Eos % (Auto) 0.3 [...] Leukocytosis, Gastroenteritis Disposition Disposition: Acute Care Hospital [facility] What to do if you have Problems For any increased pain, shortness of breath, bleeding, nausea or vomiting, chestpain, or any unexpected problems, contact your Primary Care Provider. Call [facility] ([phone]) or report to the closest Emergency Room. Call 911 if necessary. 08/01/232232 <Electronically signed by Mitchell Guerrero MD> Cosigner Signature (if applicable): 08/01/232229 <Electronically signed by Parris Erickson RN> CC: Dr. Bonilla Gary MD ~ Signed [facility] Work Phone: 1(643) 769-861203-28-2024 Discharge summary Author Mitchell Guerrero [facility] August 01, 2023 10:33pm Note Date/Time August 01, 2023 7:5 9pm [facility] Medical Records Department [address] [place] [address] Emergency Department Summary 08/01/23 MR#: [id number] Acct: [id number] Name: CALEB VILA Rep #:[id number] : 1945 78 From: Mitchell Guerrero MD PCP: Dr. Bonilla Gary MD Status:A DM IN Location: [address] <Parris Erickson RN - Last Filed: [...] Medical decision making narrative: Patient placed on real time analyst. IV line initiated. EKG obtained to evaluatefor [...] 82.8 H Lymph % (Auto) 11.6 L Pine % (Auto) 4.6 Eos % (Auto) 0.3 [...] Guerrero MD - Last Filed: 08/01/23 22:21> [facility] MDM Narrative Medical decision making narrative: Patient placed on real time analyst. IV line initiated. EKG obtained to evaluate [...] 82.8 H Lymph % (Auto) 11.6 L Pine % (Auto) 4.6 Eos % (Auto) 0.3 [...] Leukocytosis, Gastroenteritis Disposition Disposition: Acute Care Hospital [facility] What to do if you have Problems For any increased pain, shortness of breath, bleeding, nausea or vomiting, chestpain, or any unexpected problems, contact your Primary Care Provider. Call [facility] ([phone]) or report to the closest Emergency Room. Call 911 if necessary. 08/01/232232 <Electronically signed by Mitchell Guerrero MD> Cosigner Signature (if applicable): 08/01/232229 <Electronically signed by Parris Erickson RN> CC: Dr. Bonilla Gary MD ~ Signed [facility] Work Phone: 1(779) 759-434902-24-2021 NotePatient Outreach ([facility]) PETEY VILA ([id number]) 1945 M Date Time Provider Department 06/30/20 RAIN SOTO During your visit today, we recorded the following information about you: Allergies As of Date: 06/30/2020 (No Known Allergies) Date Reviewed: 05/19/2019 Reviewed by: Melvina Castillo) Roge - Fully Assessed Order(s):SARS-COVID VACCINE 1ST DOSE APPT [[id number]] Order #: [id number] FUTURE Prescriptions as of 06/30/2020 Sig: [email or web address] [...] Text Encounter Status:Closed by JAMAAL RODRÍGUEZUSER on 07/05/20[facility] Discharge summary Author Maciej Roblero [facility] August 02, 2023 4:54pm Note Date/Time August 02, 2023 4:4 8pm [facility] Medical Records Department [address] [place] [address] Instructions for Home/Discharge Instructions 08/02/23 1647 MR#: [id number] Acct: [id number] Name: CALEB VILA Rep #:[id number] : [...] directed, length of time 3 years omega 0-mnk-nxl-fish oil [Fish Oil] 1,200 (144-216) mg capsule 1 cap PO .every day Rx Instructions: take one cap by mouth once a day Centrum Silver Ultra Men's 901-22-051-300 mcg tablet 1 tab PO DAILY biotin 1 mg capsule 1 mg PO DAILY Rx Instructions: take one cap by mouth once a day Discontinued olmesartan 5 mg tablet 5 mg PO DAILY Referrals / Follow Up: Bonilla Gary MD [Primary Care Provider] - Disposition Disposition (needs filled in before D/C Order can be placed): Home, Self Care 08/02/23 0298<Electronically signed by Maciej Roblero DO>Maciej Roblero DO CC: Dr. David Banks DO; Dr. Bonilla Gary MD ~ Signed [facility] Work Phone: Evaluation note* Diagnosis Onset Date Resolution Status Essential hypertension chron ic Paroxysmal atrial fibrillation chronic Vertigo [facility] Work Phone: Evaluation note* Diagnosis Onset Date Resolution Status Essential hypertension chron ic Paroxysmal atrial fibrillation chronic Vertigo chronic Bradycardia chronic Carotid stenosis, left chron ic Essential hypertension chron ic Paroxysmal atrial fibrillation [facility] Work Phone: Evaluation note* Diagnosis Onset Date Resolution Status Essential hypertension chron ic Paroxysmal atrial fibrillation chronic Vertigo chronic Bradycardia chronic Carotid stenosis, left chron ic Essential hypertension chron ic Paroxysmal atrial fibrillation chronic Essential hypertension chron ic Paroxysmal atrial fibrillation chronic Vertigo [facility] Work Phone: Evaluation note* Diagnosis Onset Date Resolution Status Essential hypertension chron ic ASTRID (obstructive sleep apnea) chronic Paroxysmal atrial fibrillation [facility] Work Phone: Evaluation note* Diagnosis Onset Date Resolution Status Acute dehydration acute Aspiration into lower respiratory tract acute Atrial fibrillation with RVR acute Atrial flutter acute Chronic anticoagulation acut e Gastroenteritis acute Leukocytosis acute Nausea vomiting and diarrhea acute Polycythemia acute [facility] Work Phone: Evaluation note* Diagnosis Onset Date Resolution Status Gastroenteritis acute Acute dehydration resolved Aspiration into lower respiratory tract resolved Atrial fibrillation with RVR resolved Leukocytosis resolved Nausea vomiting and diarrhea resolved Polycythemia resolved Gastroenteritis acute Bradycardia chronic Essential hypertension chron ic Paroxysmal atrial fibrillation chronic [facility] Work Phone: Reason for referral (narrative)No reason for referral information [facility] Work Phone: Summary Purpose Family History [...] No November 29, 2020 7:40am Power of Screen Printing Supervisor No November 29 7:40am Advance Directive Response Recorded Date/ Time Advance Directives No June 4:55pm Living Will No August 01, 2023 7:45pm Power of Screen Printing Supervisor No July 31 7:45pm Advance Directive Response Recorded Date/ Time Advance Directives No June 4:55pm Living Will No August 02, 2023 12:56am Power of Screen Printing Supervisor No August 01 12:56am Advance Directive Response Recorded Date/ Time Living Will No August 02, 2023 12:56am Power of Screen Printing Supervisor No August 01 12:56am Advance Directives No [...] 26, 2024 11:31am GERD (gastroesophageal reflux disease) [facility] 2024 10:04am Brain fog July 09, 2024 10:0 4am Essential hypertension July 09, 2024 1 0:04am ASTRID (obstructive sleep apnea) July 09, 2024 10:04am Paroxysmal atrial fibrillation July 10:04am Chief Complaint Admit Date 4 M FU July 09, 2024 10:0 4am 6 M FU September 24, 2024 11:18 am Reason for Visit Admit Date GERD (gastroesophageal reflux disease) [facility] 2024 10:04am Brain fog July 09, 2024 [...] section and content) DATE CREATED AUTHOR 01/05/2018 [facility] DATE CREATED AUTHOR AUTHOR'S ORGANIZ ATION 05/20/2019 [facility] DATE CREATED AUTHOR AUTHOR'S ORGANIZ ATION 06/04/2021 [facility] DATE CREATED AUTHOR AUTHOR'S ORGANIZ ATION 10/11/2024 [facility] Goals (unrecognized section and content) Goals [...] 2024 End: March 26, 2024 Rosalba Hamlin SONG PLUGGER, SONG PLUGGER-C Attending Provider Active Start: March 26, 2024 End: March 26, 2024 Team Status: Inactive Member Role Status Dates Dr. Bonilla Gary MD Primary Care Provider Active Start: July 09, 2024 End: July 09, 2024 Dr. Bonilla Gary MD Attending Provider Active Start: July 09, 2024 End: July 09, 2024 Dr. Bonilla Gary MD Referring Provider Active Start: July 09, [...] 2024 End: October 03, 2024 Renée Chau SONG PLUGGER, SONG PLUGGER-C Attending Provider Active Start: October 03, 2024 [...] BE BASED ON THE PRIMARY CLINICAL RECORDS. [employer] provides no warranty or guarantee of the accuracy or completeness of information in this document.
--- NOTE | 2024-10-15 10:54 | STRESSREP_ITS ---
Stress Test Report Date: 10/15/2024 Procedure: Exercise tolerance test/imaging study Indications: Chest pain Consent: Per the patient Procedure: The patient exercised on a Alex protocol for 7 minutes achieving a peak heart rate of 134 bpm (94% predicted maximal heart rate) with a peak blood pressure 188/82 mmHg and a peak MET capacity of 10.1 METs. The baseline ECG demonstrated sinus rhythm with right bundle branch block. The peak exercise ECG was nondiagnostic secondary to baseline abnormality. Rare PVC noted pretest. The functional capacity was considered very good for age. There was no complaint of chest discomfort during exercise or recovery. The examination was discontinued secondary to target heart rate being achieved and dyspnea. The patient was injected with 11.6 mCi of technetium 99m Cardiolite and subsequently rest SPECT Cardiolite nuclear imaging was obtained in the horizontal long, vertical long, and short axis views. Post-exercise, the patient was injected with 32.8 mCi of technetium 99m Cardiolite and subsequently stress SPECT Cardiolite nuclear imaging was obtained in the horizontal long, vertical long, and short axis views. A gated Cardiolite study at peak stress was obtained. Rest and stress SPECT Cardiolite nuclear imaging status post realignment, normalization, and attenuation correction, demonstrates the appearance of relative uniform tracer uptake and myocardial perfusion appearing within normal limits. There is end systolic thickening and brightening. The gated Cardiolite study demonstrates myocardial thickening and inward wall motion. The reported LVEF is 69%. Impression: 1. Technically adequate (percent predicted maximal heart rate greater than 85%) exercise tolerance test 2. Peak exercise ECG was nondiagnostic secondary to baseline abnormalities 3. No significant cardiac arrhythmias noted 4. Rest and stress SPECT Cardiolite nuclear imaging demonstrate relative unifor m tracer uptake and myocardial perfusion appearing within normal limits. 5. The gated Cardiolite study reports an LVEF of 69%. This note was generated with [email or web address] software. It may contain incorrect words, spelling, and punctuation that were not noted in checking the note before signing.
== END | disposition home or self-care (01) ==
LOC: CVS 06:31
PROVIDERS: PCP Internal Medicine; Referring Provider Physician Assistant Medical; Visit Provider Physician Assistant Medical
DX: R07.9 Chest pain, unspecified (principal)
CPT/HCPCS: 78452; 93017; A9500; A4216

== ENCOUNTER → 2025-01-14 | Outpatient (CLI) | payer MEDICARE, SELFPAY ==
[2025-01-14 15:28] LABS: Hematocrit 44.8 % (40-54); Hemoglobin 14.8 g/dL (13.0-16.5); Immature Granulocytes Count 0.010 X10^3/uL (0.0-0.0); Mean Corp Hgb Conc 33.0 g/dL (32-36); Mean Corpuscular Volume 90.1 fL (80-94); Mean Platelet Vol. 10.4 fl (6.2-12.0); NRBC Flagged by Analyzer 0 % (0-5); Platelet Count 238 K/mm3 (150-450); RBC Distribution Width CV 12.4 % (11.6-14.6); RBC Distribution Width SD 40.7 fl (35.1-43.9); Red Blood Count 4.97 M/mm3 (4.6-6.2); White Blood Count 5.0 K/mm3 (4.4-11.0)
[2025-01-14 16:05] LABS: AST(SGOT) 22 U/L (<=37); Alanine Aminotransfer ALT/SGPT 22 U/L (<=46); Albumin, Serum 4.4 g/dL (3.4-4.8); Alkaline Phosphatase 94 U/L (40-129); Anion Gap 9 (5-15); BUN 14 mg/dL (4-19); BUN/Creat Ratio 13.0 RATIO (10-20); Calcium,Total 9.6 mg/dL (7.6-11.0); Carbon Dioxide 25.3 mmol/L (21.0-32.0); Chloride 107 mmol/L (98-108); Globulin 2.9 g/dL (2.2-4.2); Glucose 85 mg/dL (70-99); Magnesium 2.2 mg/dL (1.5-2.2); Potassium 4.4 mmol/L (3.3-5.1)
== END | disposition home or self-care (01) ==
LOC: BIMLAB 11:56
PROVIDERS: PCP Internal Medicine; Referring Provider Internal Medicine; Visit Provider Internal Medicine
DX: I10 Essential (primary) hypertension (principal); E03.8 Other specified hypothyroidism
CPT/HCPCS: 36415; 80053; 83735; 84439; 84443; 85025

== ENCOUNTER → 2025-02-02 | Outpatient (CLI) | payer MEDICARE, SELFPAY | END | disposition home or self-care (01) | LOC: PSN 08:57 | PROVIDERS: PCP Internal Medicine; Referring Provider Internal Medicine; Visit Provider Internal Medicine | DX: I48.0 Paroxysmal atrial fibrillation (principal) | CPT/HCPCS: 93225; 93226 ==